=== PATIENT | female | born 1970 | race African-American/Black ===

== ENCOUNTER 2018-05-17 18:07 | Inpatient (IN) ==
[2018-05-17] MEDS ORDERED: ASPIRIN PO ONE (18:35)
[2018-05-17 18:51] LABS: BASO# 0.01 X1000 (0.0-0.2); BASO% 0.2 % (0.0-0.8); EOS# 0.02 X1000 (0.0-0.7); EOS% 0.3 % (0.0-10.0); HEMATOCRIT 36.9 % (37.0-47.0); HEMOGLOBIN 11.4 g/dL (12.0-16.0); IMM GRAN# 0.02 X1000 (0.0-0.04); IMM GRAN% 0.3 % (0.0-0.5); LYMPH% 21.8 % (20.5-51.1); MCH 27.3 PG (27-31); MCHC 30.9 g/dL (33-37); MCV 88.5 FL (81-99); MONO# 0.61 X1000 (0.11-0.59); MONO% 10.3 % (1.7-9.3); MPV 11.7 FL (7.4-10.4); NEUT# 3.99 X1000 (1.4-6.5); NEUT% 67.1 % (42.2-75.2); PLT 154 X1000 (130-400); RBC 4.17 XMIL (4.2-5.4); RDW 16.7 % (11.5-14.5); WBC 5.95 X1000 (4.8-10.8)
[2018-05-17 19:03] LABS: INR 0.98; PROTIME 13.8 Seconds (11.0-16.0)
[2018-05-17 19:18] LABS: ALB/GLOB RATIO 1.3; ALBUMIN 4.1 g/dL (3.5-5.0); CALCIUM 8.8 mg/dL (8.8-10.2); CREATININE 1.3 mg/dL (0.5-0.9); POTASSIUM 3.9 mmol/L (3.5-5.1); TOTAL BILIRUBIN 1.19 mg/dL (0.20-1.00); TOTAL PROTEIN 7.2 g/dL (6.3-8.3)
--- NOTE | 2018-05-17 19:32 | Diag Imaging Result Doc PS360 ---
EXAM: CHEST-2 VIEWS HISTORY: CHEST PAIN/SOB TECHNIQUE: Chest two views COMPARISON: 05/04/2018 FINDINGS: The lungs are well expanded. No change in the right apical pleural thickening. The heart is markedly enlarged. There is a right-sided pacemaker. Mild central vascular prominence. There are no infiltrates. No pleural effusions. There are surgical clips in the left axilla. IMPRESSION: Marked cardiomegaly with mild central vascular prominence. Electronically signed by Suresh Don 05/17/2018 7:29 PM
[2018-05-17] MEDS ORDERED: LASIX IV ONE (20:33)
[2018-05-17] MEDS ORDERED: MORPHINE IV ONE (22:06)
[2018-05-17] MEDS ORDERED: MORPHINE ONE (23:24)
--- NOTE | 2018-05-17 23:26 | PROVIDER DOCUMENTATION ---
This chart was entered by Sandy Valdes Scribe, acting as scribe for Aiden Jones DO. HPI-Chest Pain - General Chief Complaint: Chest Pain Stated Complaint: PALPITATIONS, LIVER SWOLLEN Time Seen by Provider: 05/17/18 20:20 Allergies/Adverse Reactions: Patient Allergies Allergy/AdvReac Type Severity Reaction Status Date / Time latex Allergy Intermediate RASH Verified 05/03/18 14:52 acetaminophen AdvReac ITCHING Verified 05/03/18 14:52 [From Darvocet-N] dopamine AdvReac Hair Loss Verified 05/03/18 14:52 propoxyphene AdvReac ITCHING Verified 05/03/18 14:52 [From Darvocet-N] Home Medications: Home Medication List Medication Instructions Recorded Confirmed Last Taken Type Aspirin EC 81 mg PO DAILY #30 tab 10/03/17 05/17/18 11/20/17 Rx Albuterol 2.5MG/Ipratrop 0.5MG 3 ml INH TID #90 ml 11/24/17 05/17/18 Unknown Rx [Duoneb (A & A)] Carvedilol [Coreg] 6.25 mg PO BID #60 tab 11/24/17 05/17/18 Unknown Rx Hydralazine [Apresoline] 100 mg PO TID@0600,1400,2200 #90 11/24/17 05/17/18 Unknown Rx tab Isosorbide Dinitrate [Isordil] 80 mg PO TID@0600,1400,2200 #90 tab 11/24/17 Unknown Rx Sacubitril/Valsartan [Entresto 97 1 tab PO BID #60 tab 11/24/17 05/17/18 Unknown Rx mg-103 mg Tablet] Spironolactone [Aldactone] 25 mg PO BID #60 tab 11/24/17 05/17/18 Unknown Rx Amiodarone [Cordarone] 200 mg PO DAILY #120 tab 04/17/18 05/17/18 Unknown Rx Digoxin [Lanoxin] 125 microgm PO DAILY@0700 #120 tab 04/17/18 05/17/18 Unknown Rx Furosemide [Lasix] 40 mg PO BID #120 tab 04/17/18 05/17/18 Unknown Rx PRAVAstatin [Pravachol] 40 mg PO QHS #120 tab 04/17/18 05/17/18 Unknown Rx Pantoprazole [Protonix] 40 mg PO DAILY@0700 #30 tab 04/17/18 05/17/18 Unknown Rx Polyethylene Glycol 3350 [Miralax] 17 gm PO DAILY #30 powder, packet 04/17/18 Unknown Rx Sucralfate [Carafate Liquid] 1 gm PO 0700,1100,1600,2100 #1 udc 04/17/18 Unknown Rx Amiodarone [Cordarone] 400 mg PO BID 14 Days #28 tab 05/08/18 05/17/18 Unknown Rx Apixaban [Eliquis] 2.5 mg PO BID 30 Days #60 tab 05/08/18 05/17/18 Unknown Rx Docusate Sodium [Colace] 100 mg PO BID 30 Days #60 cap 05/08/18 05/17/18 Unknown Rx Lactulose 30 ml PO BID 30 Days #1 udc 05/08/18 05/17/18 Unknown Rx - History of Present Illness-CP Nature of Presenting Problem: Pt is 48/F presenting to ED w/ CP and SOB that started today. She sts that she was just 9 days prior in the hospital for the same problems. She sts that she is having swelling of abd, dizziness and says that she fell today. Pt has hx of CHF, HTN and has stage 3 renal failure. Location: reports: substernal Chest Pain Radiation: reports: no radiation Quality of Pain: reports: tightness Severity in ED: mild Onset/Duration: this afternoon Timing: still present Context/Activities at Onset: reports: none Modifying Factors: improves with: nothing Associated Symptoms: reports: abdominal pain Similar Symptoms Previously?: Yes Recently Seen Here or By Another Healthcare Provider: Yes Review of Systems - Adult - REVIEW OF SYSTEMS - ADULT Constitutional: denies: chills, fever Eyes: reports: no symptoms reported Ears, Nose, Mouth & Throat: reports: no symptoms reported Cardiovascular: reports: chest pain Respiratory: reports: shortness of breath. denies: cough Gastrointestinal: reports: no symptoms reported. denies: diarrhea, nausea, vomiting Genitourinary: reports: no symptoms reported Musculoskeletal: reports: no symptoms reported Integumentary: reports: no symptoms reported Neurological: reports: no symptoms reported Psychiatric: reports: no symptoms reported Endocrine: reports: no symptoms reported Hematologic/Lymphatic: reports: no symptoms reported Allergic/Immunologic: reports: no symptoms reported All Other Systems: Reviewed and Negative Past History - Adult - PAST MEDICAL HISTORY-ADULT Review of Records: reports: Old Records Reviewed, Nursing Assessment Review, Medications Reviewed, Social history reviewed & non-contributory. Major Childhood Illnesses: reports: denies history Cardiovascular: reports: A-Fib, blood clots, CAD, CHF, HTN, hyperlipidemia, palpitations, pacemaker (defib) Respiratory: reports: asthma, COPD, sleep apnea Gastrointestinal: reports: liver disease Obstetrical/Gynecological: reports: other (breast cancer) Genitourinary: reports: kidney disease Musculoskeletal: reports: denies history Neurological: reports: denies history Psychiatric: reports: anxiety, depression Endocrine/Immune: reports: denies history Other Conditions: reports: denies history - PRIOR SURGERIES/PROCEDURES Surgical/Procedure History: reports: cholecystectomy, hysterectomy, , tonsillectomy, orthopedic (extremity), other (mastectomy,defib,arthroscopy) - IMMUNIZATION STATUS Childhood Immunizations: See Nurse Assessment Flu Vaccine: See Nurse Assessment - FAMILY HISTORY Family History: reviewed, not pertinent - SOCIAL HISTORY Smoking: denies, non-smoker Substance Use: none/never Alcohol Use Frequency: never Living Situation: family Physical Exam-General - PHYSICAL EXAM-ADULT Initial Vital Signs Reviewed: Yes - CONSTITUTIONAL General Appearance: appears well, alert, no apparent distress - EYES Eyes: PERRL/EOMI - HEAD, EARS, NOSE, MOUTH & THROAT HENMT: normocephalic/atraumatic, moist mucous membranes, normal ENT inspection, TMs normal - NECK Neck: non-tender, full range of motion, supple - RESPIRATORY Respiratory: chest non-tender, lungs clear, normal breath sounds, crackles ( crackles at base of lungs) - CARDIOVASCULAR Cardiovascular: regular rate, rhythm. negative: no edema (trace edema bilaterally) - GASTROINTESTINAL (ABDOMEN) Abdominal Exam: normal bowel sounds, non tender, soft - LYMPHATIC Lymphatic: no adenopathy - MUSCULOSKELETAL Back Exam: normal inspection, no CVA tenderness, no vertebral tenderness Extremity: normal range of motion, non-tender, normal gait, normal inspection - SKIN Integumentary: normal color, normal turgor, warm/dry - NEUROLOGIC Neurologic: grossly normal - PSYCHIATRIC Psych/Mental Status: normal mood/affect, normal thought content, normal thought process, oriented x 3 Progress - PLAN OF CARE/RESULTS Progress/Plan/Lab Results: Vital Signs - 8 hr 05/17/18 18:15 05/17/18 20:08 05/17/18 20:10 Temperature Pulse Rate 86 78 77 Respiratory Rate 28 H 28 H 23 Blood Pressure O2 Sat by Pulse Oximetry 96 99 99 05/17/18 20:16 05/17/18 20:20 05/17/18 20:30 Temperature 97.5 F L Pulse Rate 81 85 88 Respiratory Rate 43 H 20 22 Blood Pressure 191/135 191/135 O2 Sat by Pulse Oximetry 99 97 97 05/17/18 20:32 05/17/18 20:40 05/17/18 20:50 Temperature Pulse Rate 87 84 82 Respiratory Rate 20 35 H 20 Blood Pressure 198/137 O2 Sat by Pulse Oximetry 96 97 96 05/17/18 21:00 05/17/18 21:01 05/17/18 21:10 Temperature Pulse Rate 85 83 82 Respiratory Rate 27 H 18 16 Blood Pressure 196/145 O2 Sat by Pulse Oximetry 97 96 98 05/17/18 21:22 05/17/18 21:30 05/17/18 21:31 Temperature Pulse Rate 81 85 85 Respiratory Rate 37 H 28 H 30 H Blood Pressure 205/150 O2 Sat by Pulse Oximetry 97 97 96 05/17/18 21:40 05/17/18 21:50 05/17/18 22:00 Temperature Pulse Rate 81 78 81 Respiratory Rate 27 H 30 H 30 H Blood Pressure O2 Sat by Pulse Oximetry 98 96 96 05/17/18 22:01 05/17/18 22:10 Temperature Pulse Rate 76 78 Respiratory Rate 27 H 24 Blood Pressure 195/125 O2 Sat by Pulse Oximetry 96 96 Laboratory Results - last 24 hr 05/17/18 05/17/18 05/17/18 18:31 18:31 18:31 WBC RBC Hgb Hct MCV MCH MCHC RDW Std Deviation Plt Count MPV Immature Gran % (Auto) Neut % (Auto) Lymph % (Auto) [place] % (Auto) Eos % (Auto) Baso % (Auto) Immature Gran # (Auto) Neut # (Auto) Lymph # (Auto) [place] # (Auto) Eos # (Auto) Baso # (Auto) PT 13.8 INR 0.98 PTT (Actin FS) Cancelled Sodium 146 H Potassium 3.9 Chloride 107 Carbon Dioxide 23 L Anion Gap 16 BUN 24 H Creatinine 1.3 H Estimated GFR/1.73 m2 53 BUN/Creatinine Ratio 18 Glucose 114 H Calculated Osmolality 295 Calcium 8.8 Total Bilirubin 1.19 H AST 30 ALT 25 Alkaline Phosphatase 120 H Creatine Kinase 93 Troponin T [id number] Pept 65760 H Total Protein 7.2 Albumin 4.1 Globulin 3.1 Albumin/Globulin Ratio 1.3 Digoxin 05/17/18 05/17/18 05/17/18 18:31 18:31 18:31 WBC 5.95 RBC 4.17 L Hgb 11.4 L Hct 36.9 L MCV 88.5 MCH 27.3 MCHC 30.9 L RDW Std Deviation 16.7 H Plt Count 154 MPV 11.7 H Immature Gran % (Auto) 0.3 Neut % (Auto) 67.1 Lymph % (Auto) 21.8 [place] % (Auto) 10.3 H Eos % (Auto) 0.3 Baso % (Auto) 0.2 Immature Gran # (Auto) 0.02 Neut # (Auto) 3.99 Lymph # (Auto) 1.30 [place] # (Auto) 0.61 H Eos # (Auto) 0.02 Baso # (Auto) 0.01 PT INR PTT (Actin FS) Sodium Potassium Chloride Carbon Dioxide Anion Gap BUN Creatinine Estimated GFR/1.73 m2 BUN/Creatinine Ratio Glucose Calculated Osmolality Calcium Total Bilirubin AST ALT Alkaline Phosphatase Creatine Kinase Troponin T < 0.010 [id number]-K-Vxkttagbmmy Pept Total Protein Albumin Globulin Albumin/Globulin Ratio Digoxin < 0.3 L 05/17/18 20:15 WBC RBC Hgb Hct MCV MCH MCHC RDW Std Deviation Plt Count MPV Immature Gran % (Auto) Neut % (Auto) Lymph % (Auto) [place] % (Auto) Eos % (Auto) Baso % (Auto) Immature Gran # (Auto) Neut # (Auto) Lymph # (Auto) [place] # (Auto) Eos # (Auto) Baso # (Auto) PT INR PTT (Actin FS) 30.4 Sodium Potassium Chloride Carbon Dioxide Anion Gap BUN Creatinine Estimated GFR/1.73 m2 BUN/Creatinine Ratio Glucose Calculated Osmolality Calcium Total Bilirubin AST ALT Alkaline Phosphatase Creatine Kinase Troponin T [id number]-P-Ufecfhlptqz Pept Total Protein Albumin Globulin Albumin/Globulin Ratio Digoxin Orders Category Date Time Status Oxygen Therapy- ED Nursing DIRECTED Care 05/17/18 18:35 Active Saline Loc NOW Care 05/17/18 18:35 Active CHEST-2 VIEWS [RAD] Stat Exams 05/17/18 18:35 Completed CBC WITH ELECTRONIC DIFF [HEME] Stat Lab 05/17/18 18:31 Completed CK PROFILE [SP CHEM] Stat Lab 05/17/18 18:31 Completed COMPREHENSIVE METABOLIC PANEL [CHEM] Stat Lab 05/17/18 18:31 Completed DIGOXIN [TDM] Stat Lab 05/17/18 18:31 Completed PRO B-NATRIURETIC PEPTIDE Stat Lab 05/17/18 18:31 Completed PROTIME WITH INR [COAG] Stat Lab 05/17/18 18:31 Completed PTT [COAG] Stat Lab 05/17/18 20:15 Completed TROPONIN T Stat Lab 05/17/18 18:31 Completed Aspirin Med 05/17/18 18:35 Discontinued 325 mg PO NOW ONE Furosemide [Lasix] Med 05/17/18 20:33 Discontinued 40 mg IV NOW ONE Morphine Med 05/17/18 22:06 Discontinued 2 mg IV NOW ONE CP/SOB/Palp >45 yrs of Age Stat Oth 05/17/18 18:35 Ordered EKG [EKG] Stat Ther 05/17/18 18:35 Ordered Transfer/Admit Order [TRANSFER] Routine Transfer 05/17/18 21:51 Ordered Result Diagrams: 05/17/18 18:31 05/17/18 18:31 - EKG 1 Time of EKG reading by physician:: 18:19 EKG Interpretation (*Must complete 3 of following elements*): Abnormal (Normal sinus rhythm bialtrial enlargement, Left ventricular hypertrophy with repolarization abnormality, Prolonged QT, Abnormal ECG) Rate: 85 Rhythm: sinus QRS: normal Prior EKG Comparison: unchanged from prior - CONSULTS/PCP/HOSPITALIST Notification #1 *Consult/PCP/Hospitalist*: Dr. Jones consulted w/ Dr. Blanco on Mrs. Cardenas Time Discussed: 20:59 Consult Disposition: Will see in ED Departure - Departure Date of Disposition Decision: 05/17/18 Time of Disposition Decision: 20:49 DIAGNOSIS: CHF (congestive heart failure), Hypertension Disposition: ADMITTED INPATIENT 09 Certified Medical Emergency: Emergent Condition: Fair - Critical Care Note This patient required my direct & personal management of CC.: No Attestation - Physician/ PREETI Attestation Patient care was provided by Advanced Practice Provider:: No The physician spent face to face time with patient:: Yes Advanced Practice Provider documentation review:: Supervising physician onsite and consulted in the evaluation and care of this patient. The physician did have a face to face encounter with the patient. This chart was documented by the indicated scribe, (Sandy Valdes, Agusto) and accurately reflects the services I performed and decisions made by , Aiden Jones DO, as attested by the provider's signature.
[2018-05-17] MEDS ORDERED: TYLENOL PO PRN (23:34)
[2018-05-17] MEDS ORDERED: ZOFRAN IV PRN (23:34)
[2018-05-18] MEDS: CORDARONE PO SCH ×3 (00:34→20:55)
[2018-05-18] MEDS: APRESOLINE PO SCH ×4 (00:35→21:00)
[2018-05-18] MEDS: ELIQUIS PO SCH ×3 (00:36→20:55)
[2018-05-18] MEDS: ENTRESTO 97 MG-103 MG TABLET PO SCH ×3 (00:37→20:55)
[2018-05-18] MEDS: COREG PO SCH ×3 (00:38→20:55)
[2018-05-18] MEDS: LASIX IV SCH ×3 (00:40→18:01)
[2018-05-18] MEDS: ISORDIL PO SCH ×4 (01:40→21:00)
[2018-05-18] MEDS: PROTONIX PO SCH ×2 (05:36→06:01)
[2018-05-18] MEDS: LANOXIN PO SCH ×2 (05:36→06:01)
[2018-05-18] MEDS: CARAFATE LIQUID PO SCH ×5 (05:37→20:55)
[2018-05-18] MEDS: MORPHINE IV PRN ×5 (05:37→23:31)
[2018-05-18 06:47] LABS: BASO# 0.01 X1000 (0.0-0.2); BASO% 0.2 % (0.0-0.8); EOS# 0.03 X1000 (0.0-0.7); EOS% 0.6 % (0.0-10.0); HEMATOCRIT 37.2 % (37.0-47.0); HEMOGLOBIN 11.4 g/dL (12.0-16.0); LYMPH# 0.99 X1000 (1.2-3.4); LYMPH% 18.7 % (20.5-51.1); MCHC 30.6 g/dL (33-37); MCV 88.2 FL (81-99); MONO# 0.38 X1000 (0.11-0.59); MONO% 7.2 % (1.7-9.3); MPV 12.5 FL (7.4-10.4); NEUT# 3.89 X1000 (1.4-6.5); NEUT% 73.3 % (42.2-75.2); PLT 155 X1000 (130-400); RBC 4.22 XMIL (4.2-5.4); RDW 16.7 % (11.5-14.5)
[2018-05-18 07:13] LABS: CALCIUM 8.8 mg/dL (8.8-10.2); CREATININE 1.2 mg/dL (0.5-0.9); MAGNESIUM 1.7 mg/dL (1.5-2.7); POTASSIUM 3.5 mmol/L (3.5-5.1)
--- NOTE | 2018-05-18 07:51 | HISTORY AND PHYSICAL ---
REASON FOR ADMISSION: Sudden chest pain and palpitations Ms. Gail Cardenas is a 48-year-old lady who was recently discharged from our facility 9 days ago for CHF exacerbation. The patient says she has been doing rather well up until 12 noon today when she developed sudden palpitations out of the blue which caused her to become dizzy and transiently black out and fall and hurt her right shoulder. She said she did not lose consciousness completely and her son helped her to her feet. After making her way to a chair, she had a recurrence of the same palpitations for about 15 minutes continuously with chest tightness radiating to the back. Said dizziness occurred but this time, she then decided to lie flat on her back and wait for 15 minutes for the whole event to pass away. She admits to having no more chest tightness after this but started noticing right upper quadrant pain which was sharp and constant with what she perceives to be simultaneous abdominal swelling. She denies any worsening of her chronic lower extremity swelling. She says when she laid down on her back, she had some orthopnea and had to sit up. No cough, fever, chills. No GI or complaints. No polyuria or polydipsia. She states she has been compliant with her medication and her diet. REVIEW OF SYSTEMS: Grossly normal other than the findings noted as above. ALLERGIES: Lasix, Darvocet and dopamine. HOME MEDICATIONS: 1. Pravachol 40 mg at bedtime. 2. DuoNeb t.i.d. 3. Amiodarone 400 mg b.i.d. 4. Eliquis 2.5 mg b.i.d. 5. Aspirin 81 mg daily. 6. Coreg 6.25 mg b.i.d. 7. Digoxin 125 mcg daily. 8. Colace 100 mg b.i.d. 9. Lasix 40 mg b.i.d. 10.Hydralazine 100 mg t.i.d. 11.Isordil 80 mg t.i.d. 12.Lactulose 30 mg b.i.d. 13.Protonix 40 mg daily. 14.MiraLAX 17 grams daily. 15.Entresto 97/103 b.i.d. 16.Aldactone 25 mg b.i.d. 17.Carafate 1 gram q.6. SURGICAL HISTORY: 1. Cholecystectomy. 2. Hysterectomy. 3. . 4. Tonsillectomy. 5. Bilateral mastectomy. 6. Defibrillator placement. 7. She has had left knee arthroscopic surgery. She had an EEG done about 9 days ago and it only showed mild reflux esophagitis. SOCIAL HISTORY: Does not smoke, drink, use illicit drugs. FAMILY HISTORY: Notable for heart disease and diabetes in first degree relatives. PAST MEDICAL HISTORY: 1. Nonischemic cardiac myopathy. 2. Systolic heart failure with EF of 20%. 3. COPD. 4. CKD. 5. Type 2 diabetes. 6. Diverticulitis. 7. Diverticulosis. 8. Paroxysmal atrial fibrillation. 9. Prior breast cancer. 10.Hepatitis. 11.Heart disease. 12.Pulmonary hypertension. LAB WORK: Chest x-ray does show severe cardiomegaly with mild increased vascular markings. White count is 5,000, H and H 11 and 36, platelets 154,000. Sodium 146, BUN 24, creatinine 1.3, glucose 114. Total bilirubin 1.1. Alkaline phosphatase 120. Troponin is negative. ProBNP 22,000. PT/PTT normal. EKG pending. PHYSICAL EXAMINATION: VITAL SIGNS: Obese, middle-aged -[place] woman with a blood pressure of 205/150, heart rate 85, respirations 30, temperature 97.5 degrees, 96% on room air. GENERAL: She is alert and oriented to person and time with normal mood and affect, slightly anxious. HEENT: Head is normocephalic, atraumatic. Eyes PERRL, EOMI. She is anicteric but pale. ENT and oropharyngeal exam grossly normal. No central cyanosis. NECK: Supple with noticeable JVD and positive hepatojugular reflux. CHEST: A few bibasilar crepitations, left greater than right. Air entry appears to be adequate. CARDIOVASCULAR: First and second heart sounds are heard. There is a 2/6 ejection systolic murmur. Rhythm is regular. ABDOMEN: Protuberant, soft with tenderness confined to the right upper quadrant area. No rebound or guarding. There is increased right upper quadrant dullness to percussion. Bowel sounds are hypoactive. RECTAL: Deferred at this time. EXTREMITIES: The patient has slightly diminished pulse volume in both extremities. Rhythm is regular. Pulses are symmetrical. Trace to 1+ pitting edema in the lower extremities. No clubbing or peripheral cyanosis. NEUROLOGICAL: No focal deficits. SKIN: Intact with no obvious breakdown but there is some ecchymosis in the right axillary area and some shallow ulcerations over the left naris which the patient said occurred today and was preceded by a few blisters. MUSCULAR: Grossly normal. ASSESSMENT: 1. Hypertensive heart disease complicated by mild acute systolic heart failure exacerbation. 2. Acute systolic heart failure exacerbation. 3. Nonischemic cardiomyopathy. 4. COPD. 5. Atrial fibrillation. 6. Right upper quadrant pain probably secondary to possible passive congestion from CHF. PLAN: Patient is currently on what I deem to be near optimal medical therapy. The only thing maybe left is probably to slowly increase dose of Coreg. We also need to slightly increase her dose of Lasix at discharge from 40 to 60 b.i.d. and Coreg from 6.25 b.i.d. to either 9.3 mg or 12.5 mg b.i.d. I strongly recommend dietary consult in this patient, but more importantly, I think this patient would be best served if she has weekly visits with her director of software development and/or her primary care physician to ensure her weight is appropriate and she is compliant with her medication which she says she is. This will help keep her out of the hospital, she has very frequent visits. For now, we will start intravenous IV diuresis and increase her blood pressure medications, i.e. Coreg to 9.3 mg. Check her dig level to ensure it is even therapeutic. cc: Fernanda Blanco MD
[2018-05-18] MEDS: DUONEB (A & A) INH SCH ×3 (08:37→21:26)
[2018-05-18] MEDS: LACTULOSE PO SCH ×3 (10:24→20:55)
[2018-05-18] MEDS: ASPIRIN EC PO SCH (10:25)
[2018-05-18] MEDS: ALDACTONE PO SCH ×2 (10:25→20:55)
[2018-05-18] MEDS ORDERED: MAGNESIUM SULFATE 2 GM/S.W.I. 2 GM/50 ML IVPB IV ONE (10:25)
[2018-05-18] MEDS: COLACE PO SCH ×2 (10:25→20:55)
[2018-05-18] MEDS: MIRALAX PO SCH (10:26)
[2018-05-18] MEDS ORDERED: KLOR-CON PO SCH (10:30)
[2018-05-18] MEDS: POTASSIUM CHLORIDE 20% LIQUID PO SCH ×2 (11:02→14:18)
--- NOTE | 2018-05-18 11:03 | PROGRESS NOTE ---
DATE: 05/18/2018 OVERNIGHT EVENTS/SUBJECTIVE: Overnight, no acute events. The patient was admitted for symptoms of palpitation, shortness of breath and dizziness. It was thought that she was in mild exacerbation of her chronic systolic congestive heart failure acute exacerbation. She was started on intravenous Lasix. The patient states that while in the emergency room, she did have an episode of palpitation when she was in atrial fibrillation. However, I do not see that on documentation of ER or nighttime physician note. Since she has been in [facility] unit , the cafeteria monitor has not detected an atrial fibrillation episode. At the time of my encounter, she is complaining of some right upper quadrant pain and stomach pain that. OBJECTIVE: Vital Signs: Currently vitals revealed temperature of 97.5 degrees , pulse 67, blood pressure 125/73, saturating 94% on 2 L nasal cannula. General examination: Physical examination does not appear in any acute distress. HEENT: Oral cavity is moist. Lungs: Air entry bilaterally equal. No wheeze, rhonchi, or crackles. Heart: She has pacemaker on the right side. S1, S2 normal. No murmur, rub, or gallop. Abdomen: Soft. Tender in epigastric and right upper quadrant region. Bowel sounds active. Extremities: Mild lower extremity edema. Neurologic: Alert and oriented x3. LAB: Evaluation suggest normal WBC count, normal hemoglobin, hematocrit, platelet count, normal electrolytes. CKD stage III. Undetectable digoxin level. ASSESSMENT AND PLAN: 1. Acute systolic congestive heart failure on chronic systolic congestive heart failure with ejection fraction of 20% and nonischemic cardiomyopathy. Continue patient on intravenous Lasix. Continue home medications of carvedilol, spironolactone, Entresto and statin. 2. History of paroxysmal atrial fibrillation and status post automatic implantable cardioverter defibrillator. Currently patient appears to be in sinus rhythm. Continue patient's home amiodarone, apixaban and digoxin. I will consider giving her digoxin load if she develops another atrial fibrillation episode. Again, we have not recorded any episodes since she has been in the hospital. 3. History of nonischemic cardiomyopathy with ejection fraction of 20% status post automatic implantable cardioverter defibrillator. Continue patient on aspirin and statin. 4. History of essential hypertension. Continue hydralazine, isosorbide. 5. Chronic epigastric right upper quadrant pain with acute exacerbation. Previously, she has had a workup including EGD in 04/2018 (which only detected esophagitis) and it was thought that it was related to congestive hepatitis, for which patient has been on pantoprazole and sucralfate, and I will continue for her history of gastroesophageal reflux disease as well. I will give her as-needed morphine if needed. I will consult GI on Sunday. 6. Prolonged QTc. According to review of previous electrocardiogram, she has had QTc more than 500 milliseconds in the past as well. I will continue her current medication regimen. Cardiology has been consulted. 7. Disposition: Patient remains in [facility]. Plan of care was discussed with her. All of her questions have been answered. cc: Trace Yancey MD MTDD
--- NOTE | 2018-05-18 14:27 | CARDIOLOGY CONSULTATION ---
DATE: 05/18/2018 REQUESTING PHYSICIAN: Hospitalist Service REASON FOR CONSULTATION: Atrial fibrillation with rapid response. HISTORY OF PRESENT ILLNESS: Ms. Cardenas was in her usual state of health until yesterday about 12:30 p.m. when she started having palpitations associated with dyspnea and discomfort. She presented to the ER at 6:35 p.m. At that time, she had her classical complaint of abdominal discomfort. EKG done at 6:19 p.m. showed sinus rhythm with biatrial enlargement, LVH. They put her on some IV Cardizem. There is no indication that she has had atrial fibrillation. At any rate, she has maintained sinus rhythm, and she is just feeling about like she usually does with discomfort in the stomach and dyspnea if she gets up and about. PAST MEDICAL HISTORY: Positive for prior bouts of paroxysmal atrial fibrillation. She does have history of ventricular tachycardia in the past. She has had nonischemic dilated cardiomyopathy with chronic systolic heart failure. She has history of hypertension. She has had gastroparesis with shelter abdominal pain. PAST SURGICAL HISTORY: She had mastectomy in the past for breast cancer, arthroscopic knee surgery, cholecystectomy, hysterectomy. She had ICD placement in 2009, section. SOCIAL HISTORY: She has 4 children. , disabled. FAMILY HISTORY: Negative for coronary heart disease. REVIEW OF SYSTEMS: She has chronic exertional dyspnea. She was just admitted to this hospital between 05/03/2018 and 05/08/2018. At that time, she had complaint of having atrial fibrillation, and I believe that was documented on the initial electrocardiogram, and then she converted back to her sinus rhythm. No other positives. She is just about the same as usual. This is one of multiple admissions. She has been in the hospital admitted on 08/20/2017, on 09/29/2017, on 10/20/2017, on 12/07/2017, on 01/14/2018, on 03/05/2018, 04/13/2018, and just now recently 05/03/2018, and every admission is just about the same story, same complaint. In between, she has been several times to the emergency room, at least 4 times. In addition, there were 2 additional admissions to [facility]. PHYSICAL EXAMINATION: Today, blood pressure is 141/80, temperature 97.7, pulse 65, respirations 18. She is awake, alert, in no distress. HEENT is unremarkable. Chest: Breath sounds are clear. No dullness to percussion. Heart sounds are regular and rhythmic. Soft systolic murmur noted over the aortic area. Abdomen is tender, especially over the epigastric area. Mid abdominal area is very tender to palpation. Extremities show no edema. Neurologic: Follows commands. Moves all 4 extremities. DIAGNOSTIC DATA: Sodium is 142, potassium 3.5, BUN is 21, creatinine 1.2. IMPRESSION: 1. The patient comes in with recurrent abdominal pain and recurrent dyspnea with congestive heart failure which is chronic systolic. 2. Nonischemic dilated cardiomyopathy. 3. Status post AICD implantation. 4. Paroxysmal atrial fibrillation. 5. History of nonsustained ventricular tachycardia. RECOMMENDATIONS: At this point in time, we will continue with IV diuretics as you are doing. I would suggest to consult with Gastroenterology about her gastroparesis which appears to be at the core of the problems that she has because she probably is not absorbing her medications, and that leads to peaks of hypertension and abdominal pain and recurrent admissions to the hospital. I think this is a very important issue to get a straight answer as soon as possible. We will follow her along. cc: Anthony Mazariegos MD
[2018-05-18] MEDS: PRAVACHOL PO SCH (20:55)
[2018-05-19 05:46] LABS: BASO# 0.01 X1000 (0.0-0.2); BASO% 0.2 % (0.0-0.8); EOS# 0.06 X1000 (0.0-0.7); EOS% 1.3 % (0.0-10.0); HEMATOCRIT 38.4 % (37.0-47.0); HEMOGLOBIN 11.8 g/dL (12.0-16.0); LYMPH# 0.92 X1000 (1.2-3.4); MCH 27.5 PG (27-31); MCHC 30.7 g/dL (33-37); MCV 89.5 FL (81-99); MONO# 0.48 X1000 (0.11-0.59); MONO% 10.5 % (1.7-9.3); MPV 11.6 FL (7.4-10.4); NEUT# 3.12 X1000 (1.4-6.5); PLT 164 X1000 (130-400); RBC 4.29 XMIL (4.2-5.4); WBC 4.59 X1000 (4.8-10.8)
[2018-05-19] MEDS: LASIX IV SCH ×2 (05:58→18:02)
[2018-05-19] MEDS: APRESOLINE PO SCH ×3 (05:59→22:02)
[2018-05-19] MEDS: ISORDIL PO SCH ×3 (05:59→22:00)
[2018-05-19] MEDS: PROTONIX PO SCH (06:00)
[2018-05-19] MEDS: CARAFATE LIQUID PO SCH ×4 (06:00→22:03)
[2018-05-19] MEDS: MORPHINE IV PRN ×3 (06:00→20:13)
[2018-05-19 06:11] LABS: CREATININE 1.4 mg/dL (0.5-0.9); MAGNESIUM 1.9 mg/dL (1.5-2.7); POTASSIUM 3.8 mmol/L (3.5-5.1)
[2018-05-19] MEDS: DUONEB (A & A) INH SCH ×3 (08:28→21:49)
[2018-05-19] MEDS: ALDACTONE PO SCH ×2 (09:16→22:00)
[2018-05-19] MEDS: ELIQUIS PO SCH ×2 (09:16→22:01)
[2018-05-19] MEDS: ASPIRIN EC PO SCH (09:16)
[2018-05-19] MEDS: COLACE PO SCH ×2 (09:16→22:01)
[2018-05-19] MEDS: MIRALAX PO SCH (09:17)
[2018-05-19] MEDS: LACTULOSE PO SCH ×2 (09:17→22:02)
--- NOTE | 2018-05-19 10:25 | PROGRESS NOTE ---
DATE: 05/19/2018 OVERNIGHT EVENTS: Overnight, no acute events. She did not have any palpitation episodes. I looked at the telemetry. She did not have any atrial fibrillation episode either. SUBJECTIVE: She denies any chest pain. Her shortness of breath is better. VITAL SIGNS: Temperature of 97.5 degrees, pulse 54 per minute, blood pressure 115/71, saturating 98% on 2 to 3 L nasal cannula. PHYSICAL EXAMINATION: General: Does not appear in acute distress. HEENT: Oral cavity is moist. Lungs: Air entry bilaterally equal. No wheeze, rhonchi, or crackles. Chest: She has a pacemaker on the right side. Cardiovascular: S1, S2 normal. No murmur, rub, or gallop. Abdomen: Soft. Generalized tenderness, especially in the epigastric, right upper quadrant. Bowel sounds are active. Extremities: Mild lower extremity edema, which is better than yesterday. Neurologic: Alert and oriented x3. LABS: Suggestive of no leukocytosis. Acceptable range of hemoglobin, hematocrit, and platelets. Normal electrolytes. She does have baseline chronic kidney disease stage 3. No new microbiological data. IMAGING: No new imaging data. ASSESSMENT AND PLAN: 1. Acute systolic congestive heart failure on chronic systolic congestive heart failure with ejection fraction of 20% and nonischemic cardiomyopathy. Continue patient on intravenous Lasix and plan is to change the Lasix to oral tomorrow. Continue home medications of carvedilol, spironolactone, Entresto, and statin. I will decrease the carvedilol dose as the patient had developed bradycardia with heart rate of less than 50 according to the telemetry today. 2. History of paroxysmal atrial fibrillation. Currently appears to be in sinus rhythm. Continue home amiodarone, apixaban, and digoxin. No more atrial fibrillation episode since she has been in the hospital. 3. History of nonischemic cardiomyopathy with an ejection fraction of 20%, status post automatic implantable cardioverter defibrillator. Continue home aspirin, statin, beta blockers, Entresto, and spironolactone. 4. History of essential hypertension. Continue home hydralazine, isosorbide. 5. Chronic epigastric and right upper quadrant abdominal pain, now with acute exacerbation as well. She had esophagogastroduodenoscopy in April 2018 which had detected esophagitis. Previously, it was thought that her pain had been related to congestive hepatitis. There is a concern that the patient has not been absorbing her medications well. She would need further gastroenterology workup for that. I will consult gastroenterology on Sunday and bring up my concern as previously her digoxin levels were always subtherapeutic despite her taking it appropriately. 6. Prolonged QTc. According to review of previous electrocardiogram, she had QTc more than 500 on most occasions. Continue current medication regimen. She already has an automatic implantable cardioverter defibrillator as well. 7. Disposition. The patient remains inside the hospital for monitoring of her cardiac and respiratory status. Plan of care was discussed with her. All of her questions were answered. cc: Trace Yancey MD
[2018-05-19] MEDS: LANOXIN PO SCH (11:14)
[2018-05-19] MEDS: ENTRESTO 97 MG-103 MG TABLET PO SCH ×2 (11:50→21:59)
[2018-05-19] MEDS: CORDARONE PO SCH ×2 (11:50→22:01)
--- NOTE | 2018-05-19 12:43 | CARDIOLOGY PROGRESS NOTE ---
DATE: 05/19/2018 CHIEF COMPLAINT: Abdominal pain, hypertension, dyspnea. SUBJECTIVE: Ms. Cardenas is basically feeling fine now. She is not having any palpitations. Breathing is better. Abdominal pain is still there, not as bad. OBJECTIVE: Temperature is 97.5, pulse 53, respirations 18, blood pressure 115/ 71. She is awake, follows commands. HEENT is unremarkable. Chest: Clear to auscultation and percussion. Heart sounds are regular and rhythmic. No gallop or murmur. Abdomen is nontender. Extremities showed no edema. Neurologic: Follows commands. Moves all 4 extremities. DIAGNOSTIC DATA: Blood work shows sodium 141, potassium 3.8, BUN is 22, creatinine 1.4. IMPRESSION: 1. The patient is with difficult to control hypertension. 2. Paroxysmal atrial fibrillation. 3. Nonischemic dilated cardiomyopathy with chronic systolic heart failure. 4. Abdominal pain, chronic, due to gastroparesis. 5. history of nonsustained V-Tach/s/p AICD. RECOMMENDATIONS: At this point in time, I would not make any changes. I really want the opinion of sulfate drier machine operator to find out what we can do to deal with her gastroparesis and chronic abdominal pain. Further advice will be forthcoming. cc: Anthony Mazariegos MD [facility]
[2018-05-19] MEDS: PRAVACHOL PO SCH (21:59)
[2018-05-19] MEDS: COREG PO SCH (22:01)
[2018-05-20] MEDS: MORPHINE IV PRN ×3 (06:03→20:27)
[2018-05-20] MEDS: CARAFATE LIQUID PO SCH ×4 (06:03→20:28)
[2018-05-20] MEDS: APRESOLINE PO SCH ×3 (06:03→22:31)
[2018-05-20] MEDS: ISORDIL PO SCH ×3 (06:03→22:31)
[2018-05-20] MEDS: PROTONIX PO SCH (06:03)
--- NOTE | 2018-05-20 07:45 | EKG Report ---
Test Performed on : 05/19/2018 08:42:56 AM Test Reason : Decreased heart rate Blood Pressure : / mmHG Vent. Rate : 053 BPM Atrial Rate : 053 BPM P-R Int : 154 ms QRS Dur : 116 ms QT Int : 582 ms P-R-T Axes : 017 -23 143 degrees QTc Int : 546 ms Sinus bradycardia. with premature supraventricular complexes. Left ventricular hypertrophy with QRS widening and repolarization abnormality Prolonged QT Abnormal ECG When compared with ECG of 17-MAY-2018 18:19, (Unconfirmed) premature supraventricular complexes. are now present Vent. rate has decreased BY 32 BPM Confirmed by Raffi DANIELLE, Sai Pa ([id number]) on 05/20/2018 5:28:37 PM
--- NOTE | 2018-05-20 08:20 | EKG Report ---
Test Performed on : 05/17/2018 6:19:52 PM Test Reason : CHEST PAIN/SOB Blood Pressure : / mmHG Vent. Rate : 085 BPM Atrial Rate : 085 BPM P-R Int : 152 ms QRS Dur : 108 ms QT Int : 450 ms P-R-T Axes : 059 -24 141 degrees QTc Int : 535 ms Normal sinus rhythm. Biatrial enlargement Left ventricular hypertrophy with repolarization abnormality Prolonged QT Abnormal ECG When compared with ECG of 07-MAY-2018 03:21, No significant change was found Unconfirmed Result
[2018-05-20] MEDS: DUONEB (A & A) INH SCH ×3 (08:24→21:40)
[2018-05-20] MEDS: LASIX PO SCH ×2 (09:45→20:29)
[2018-05-20] MEDS: ALDACTONE PO SCH ×2 (09:45→20:29)
[2018-05-20] MEDS: COLACE PO SCH ×2 (09:45→20:31)
[2018-05-20] MEDS: ASPIRIN EC PO SCH (09:46)
[2018-05-20] MEDS: CORDARONE PO SCH ×2 (09:46→20:28)
[2018-05-20] MEDS: COREG PO SCH ×2 (09:46→20:28)
[2018-05-20] MEDS: ENTRESTO 97 MG-103 MG TABLET PO SCH ×2 (09:46→20:31)
[2018-05-20] MEDS: ELIQUIS PO SCH ×2 (09:46→20:29)
[2018-05-20] MEDS: MIRALAX PO SCH (09:46)
[2018-05-20] MEDS: LACTULOSE PO SCH ×2 (09:46→20:28)
[2018-05-20] MEDS: LANOXIN PO SCH (09:46)
--- NOTE | 2018-05-20 10:07 | PROGRESS NOTE ---
DATE: 05/20/2018 INTERVAL HISTORY: Yesterday, the patient was bradycardic with heart rate less than 50. However, EKG was unremarkable and except for showing sinus bradycardia with prolonged QTc. SUBJECTIVE: The patient denies chest pain. Her shortness of breath is significantly improved. She continues to complain of abdominal pain and is in distress because of that. OBJECTIVE: Vital Signs: Temperature 98 degrees, pulse 59, blood pressure 128/81, saturating 96% on 2 L nasal cannula. General: She does not appear in any acute distress. HEENT: Oral cavity is moist. Lungs: Air entry bilaterally equal. No wheeze, rhonchi, or crackles. She has a right- sided chest pacemaker. Cardiovascular: S1, S2 normal. No murmur, rub, or gallop. Abdomen: Soft. Generalized tenderness, especially in the epigastric/right upper quadrant region on deep palpation. Bowel sounds active. Mild lower extremity edema, which is improved. Neurologic: Alert and oriented x3. LABORATORY DATA: Suggestive of significantly decreased proBNP since admission. MICROBIOLOGY: No data. IMAGING: No new imaging data. ASSESSMENT AND PLAN: 1. Acute systolic congestive heart failure on chronic systolic congestive heart failure with ejection fraction of 20%. Continue the patient's Lasix p.o., which is her home medication. Continue home carvedilol, spironolactone, Entresto, and statin. Continue carvedilol at a lower dose, which is per patient's home dose, considering her bradycardic episode yesterday. 2. History of paroxysmal atrial fibrillation, currently in sinus rhythm. Continue home amiodarone and digoxin. I increased her Eliquis dose to 5 mg b.i.d. for primary cerebrovascular accident prevention. 3. History of nonischemic cardiomyopathy with ejection fraction of 20%, status post automatic implantable cardioverter-defibrillator. Continue home aspirin, statin, beta-boby, Entresto, and spironolactone. 4. History of essential hypertension. Continue home hydralazine and isosorbide. 5. Chronic epigastric right upper quadrant abdominal pain with now acute exacerbation. EGD in April 2018 had esophagitis. Possible etiologies previously thought include congestive hepatitis secondary to right heart failure. After discussion with Cardiology, concern was raised that she may not be absorbing her medications well as her digoxin levels are subtherapeutic despite taking her medications regularly. Gastroenterology consult has been placed. I extensively discussed with the patient about need for Pain Clinic as outpatient referral. I would appreciate Gastroenterology's recommendations. Prolonged QTc and episode of bradycardia. Continue home dose of beta blockers. Her prolonged QTc is chronic. She is status post automatic implantable cardioverter-defibrillator now. DISPOSITION: Follow up physical therapy recommendations. If no further cardiovascular intervention is necessary, my plan is to discharge the patient home. I also discussed this patient and her frequent admissions with the care management team and will work on potentially getting her home health. My plan is to discharge her later today or tomorrow pending GI and Cardiology recommendations. cc: Trace Yancey MD
[2018-05-20] MEDS: PRAVACHOL PO SCH (20:29)
--- NOTE | 2018-05-21 00:37 | GASTROENTEROLOGY CONSULTATION ---
DATE: 05/20/2018 REASON FOR CONSULTATION: RUQ pain HISTORY OF PRESENT ILLNESS: Ms. Cardenas is a 48 year old woman with history of COPD on 2LNC, NICM with EF 20% s/p ICD, DM2, CKD, diverticulosis, pAFIB, prior breast cancer, pulmonary hypertension who was admitted for acute on chronic systolic CHF exacerbation and afib with RVR as well as acute on chronic RUQ abdominal pain. She reports having sharp, constant RUQ pain that is worse with with movement including sitting up and "cleaning the house". She denies nausea, vomiting, or change in bowel habits. The pain is not aggravated by eating or bowel movements. She has 3 -4 BMs daily at baseline. Laying down helps the pain. She recently underwent EGD this month that showed mild esophagitis but no PUD. +HADDAD, orthopnea. PAST MEDICAL HISTORY: COPD, NICM, CKD, DM2, diverticulosis, pAFIB, prior breast cancer, pHTN PAST SURGICAL HISTORY: She had bilateral mastectomy in the past for breast cancer, arthroscopic knee surgery, cholecystectomy, hysterectomy. She had ICD placement in 2009, section. SOCIAL HISTORY: No alcohol or drug use. FAMILY HISTORY: No GI malignancies REVIEW OF SYSTEMS: As per HPI, otherwise 12-point ROS negative PHYSICAL EXAMINATION: T 97.6 HR 55 RR 16 BP 131/68 94% on 2LNC GEN: awake, alert, NAD HEENT: anicteric, MMM Neck: no LAD CV: RRR, systolic ejection murmur 2/6 PULM: CTAB, no wheezing ABD: obese, ND, moderate TTP in epigastric and RUQ; no rebound or guarding no ascites EXT: no cce NEURO: nonfocal LABS Cr 1.4 WBC 4.6 hgb 11.8 plt 164 Tbili 1.19 albumin 4.1 AST 30 ALT 25 ALP 120 trop neg CTAP without contrast: hepatomegaly, constipation, diverticulosis, hepatic steatosis CXR: marked cardiomegaly, mild central vascular congestion A/P: Ms. Cardenas is a 48 year old woman with history of COPD on 2LNC, NICM with EF 20% s/p ICD, DM2, CKD, diverticulosis, pAFIB, prior breast cancer, pulmonary hypertension who was admitted for acute on chronic systolic CHF exacerbation and afib with RVR as well as acute on chronic RUQ abdominal pain. Her abdominal pain does not appear to be luminal in etiology given essentially unremarkable EGD recently and aggravation with movement, which suggests MSK-related vs capsular stretch from hepatic steatosis/hepatomegaly. No aggravation with food or cholestatic LFTs to suggest pancreaticobiliary process. Her bowel movements are at baseline although CT shows fecal loading. I do not think she has gastroparesis given absence of nausea or vomiting. Also, abdominal pain is not typically a prominent symptom of gastroparesis. #RUQ/Epigastric pain - recommend supportive care with analgesics ie acetaminophen as needed for pain - continue PPI for GERD - no evidence of cirrhosis by labs or imaging #CHF: cardiology following #Constipation: recommend miralax as needed #pAFIB: rated controlled #COPD: stable #CKD: Cr at baseline MTDD
[2018-05-21 05:40] LABS: CREATININE 1.4 mg/dL (0.5-0.9); MAGNESIUM 1.9 mg/dL (1.5-2.7); POTASSIUM 4.4 mmol/L (3.5-5.1)
[2018-05-21] MEDS: APRESOLINE PO SCH (06:32)
[2018-05-21] MEDS: ISORDIL PO SCH (06:32)
[2018-05-21] MEDS: CARAFATE LIQUID PO SCH (06:32)
[2018-05-21] MEDS: MORPHINE IV PRN (06:33)
[2018-05-21] MEDS: LANOXIN PO SCH (06:33)
[2018-05-21] MEDS: PROTONIX PO SCH (06:33)
[2018-05-21 07:54] VITALS: BP 113/70
[2018-05-21] MEDS: DUONEB (A & A) INH SCH (08:45)
[2018-05-21] MEDS: ASPIRIN EC PO SCH (09:02)
[2018-05-21] MEDS: COREG PO SCH (09:02)
[2018-05-21] MEDS: MIRALAX PO SCH (09:03)
[2018-05-21] MEDS: LACTULOSE PO SCH (09:03)
[2018-05-21] MEDS: COLACE PO SCH (09:03)
[2018-05-21] MEDS: ENTRESTO 97 MG-103 MG TABLET PO SCH (09:03)
[2018-05-21] MEDS: ELIQUIS PO SCH (09:03)
[2018-05-21] MEDS: CORDARONE PO SCH (09:03)
[2018-05-21] MEDS: ALDACTONE PO SCH (09:03)
[2018-05-21] MEDS: LASIX PO SCH (09:03)
--- NOTE | 2018-05-21 09:47 | DISCHARGE SUMMARY ---
ADMISSION DATE: 05/17/2018 DISCHARGE DATE: ASSESSMENT AND PLAN: 1. Acute systolic congestive heart failure on chronic systolic congestive heart failure. 2. Suspected episode cough atrial fibrillation with rapid ventricular rate leading to palpation and dizziness and presyncope at home. 3. Sinus bradycardia because of increased dose of carvedilol. 4. Acute chest pain on presentation. 5. Elevated proBNP. 6. Subtherapeutic digoxin levels. OTHER DIAGNOSES: 1. History of paroxysmal atrial fibrillation. 2. History of chronic obstructive pulmonary disease on home oxygen. 3. History of nonischemic cardiomyopathy with ejection fraction of 20%, status post automatic implanted cardiac defibrillator. 4. History of essential hypertension. 5. History of chronic epigastric and right upper quadrant pain with negative gastric emptying studies and multiple negative esophagogastroduodenoscopy thought to be related to stretching of hepatic capsule and hepatic steatosis. 6. History of prolonged QTc. 7. History of chronic constipation. 8. Essential hypertension. 9. Hyperlipidemia. CONSULTATION DURING HOSPITALIZATION: 1. Cardiology, Dr. Mazariegos. 2. Gastroenterology, Dr. Ariel Velazquez. 3. Dr. Prakash Spencer. DISCHARGE MEDICATIONS: Pravastatin 40 mg at nighttime, albuterol/ipratropium nebulization 3 mL inhaled t.i.d., amiodarone 200 mg daily, apixaban 5 mg b.i.d., which was increased from her previous dose of 2.5 mg b.i.d., aspirin enteric-coated 81 mg daily, carvedilol 6.25 mg b.i.d. on increasing carvedilol to 9.375 mg. She had developed bradycardia. Digoxin 125 mcg daily, docusate 100 mg b.i.d., Lasix 40 mg b.i.d., hydralazine 100 mg t.i.d., isosorbide dinitrate 80 mg t.i.d., lactulose 30 mL b.i.d., pantoprazole 40 mg daily, MiraLAX 17 g daily, Entresto 97 mg/103 mg one tablet b.i.d., spironolactone 25 mg b.i.d., sucralfate 1 gram 4 times a day for 6 weeks of therapy total. VITALS AT THE TIME OF DISCHARGE: Temperature 97.6 degrees, pulse 60, blood pressure 113/70, saturation 100% on 2 L nasal cannula. PHYSICAL EXAMINATION: General: The patient did not appear in any acute distress. Oral cavity: Moist. Lungs: Air entry bilaterally equal. No wheeze, rhonchi, or crackles. Heart: S1, S2 normal. Bradycardic. No murmur, rub, or gallop. Abdomen: Soft, obese, tender in epigastric, right upper quadrant region. Active bowel sounds. No lower extremity edema. Neurologic: Alert and oriented x3. LABS AT THE TIME OF DISCHARGE: WBC of 4.5, hemoglobin of 11.8, platelet of 164 ,000. Normal electrolytes. BUN of 26 and creatinine of 1.4 with a GFR of 49, suggestive of chronic his kidney disease stage III, which is her baseline. ProBNP decreased from 22,000 on admission to 1500 at the time of discharge. Microbiological data: None. IMAGING DURING HOSPITALIZATION: Chest x-ray on admission had suggested marked cardiomegaly with mild vascular prominence. HOSPITAL COURSE SUMMARY: Ms. Cardenas is a 48-year-old lady with multiple comorbidities, as mentioned above, came in complaints of sudden onset chest pain , palpitations, dizzy, and suspected presyncope episode. The palpitation episode lasted for about 15 minutes, and she subsequently decided to come to the Emergency Room. When she came to the emergency room, she did not have any more chest tightness. There is no emergency room note of atrial fibrillation that I could see. However, patient states that in the emergency room, she was found to have atrial fibrillation, but her heart rate had declined without giving any additional medications. Considering her central vascular congestion on chest x-ray, she was started on intravenous Lasix and most of her home medications were continued. The following day, her shortness of breath had improved, and her intravenous Lasix was changed to p.o. Lasix. She did not have any more palpitation episode. There was no telemetry event of atrial fibrillation, though she did have an episode of nonsustained ventricular tachycardia for about 15 beats. The patient's Eliquis dose was increased from 2.5 mg b.i.d., which was documented at previous discharge summary to 5 mg b.i.d. for primary stroke prevention. At the time of discharge, her cardiovascular health was at her baseline. She was extensively counseled about being compliant with medication, diet, doing regular physical activity, and weight reduction. She also complained of epigastric, right upper quadrant pain for which she underwent EGD earlier in April. Gastroenterology was consulted again, who had suggested that this was likely related to hepatic steatosis and staging of liver capsule and conservative management was planned. The patient was counseled extensively about getting an outpatient pain doctor, as there were no other interventions offered from gastroenterology team, as all of her previous diagnostics were unremarkable. DISCHARGE INSTRUCTIONS: The patient was extensively counseled about weight reduction, dietary compliance, medication compliance, regular physical activity, outpatient close followup with regular doctor, turbine room attendant, and Pain Care Clinic referral. More than 30 minutes were spent in discharging this patient. All of her questions have been answered. cc: Trace Yancey MD MTDD
--- NOTE | 2018-05-21 11:56 | GASTROENTEROLOGY PROGRESS NOTE ---
DATE: 05/21/2018 SUBJECTIVE: No acute overnight events. The patient denies nausea, vomiting, fevers, chest pain. Shortness of breath has improved. She continues to have baseline right-sided abdominal pain. She denies any diarrhea or constipation. She is tolerating a regular diet. OBJECTIVE: Vital signs: Temperature 97.6 degrees, heart rate 60, respiratory rate 18, blood pressure 113/70, O2 saturation 98% on 2 L nasal cannula. General: The patient is awake, alert, and oriented. No acute distress. HEENT: Sclerae anicteric. Moist mucous membranes. Neck: No JVD. Cardiac: Regular rate and rhythm. No murmurs. Lungs: Clear to auscultation bilaterally. Abdomen: Obese, soft. Tenderness to palpation moderately on the right side of her abdomen. No rebound or guarding. No ascites. Lower extremities: No clubbing, cyanosis, or edema. Neurological: Nonfocal. LABORATORY DATA: Sodium 140, potassium 4.4, chloride 99, bicarb 31, BUN 26, creatinine 1.4. DIAGNOSTIC STUDIES: No new imaging. ASSESSMENT AND PLAN: Ms. Cardenas is a 48-year-old woman with history of chronic obstructive pulmonary disease, on 2 L of oxygen, nonischemic cardiomyopathy with ejection fraction of 20%, status post implantable cardioverter defibrillator, diabetes type 2, chronic kidney disease, diverticulosis, paroxysmal atrial fibrillation, prior breast cancer, and pulmonary hypertension, who was admitted with acute on chronic systolic congestive heart failure exacerbation with atrial fibrillation with rapid ventricular response, as well as acute on chronic right upper quadrant/right-sided abdominal pain. The differential for her abdominal pain includes musculoskeletal-related pain versus hepatic capsular stretch versus constipation. Liver function tests did not show any signs of cirrhosis or cholestasis to suggest biliary obstruction. There is no evidence of pancreatitis on labs. Her CT did show some fecal loading although the patient denies constipation. Our symptoms are inconsistent with gastroparesis. She had a recent EGD that was negative for peptic ulcer disease. We discussed starting the patient empirically on pain modulator medication, i.e. Elavil, to see if it improves her pain as it may involve functional abdominal pain. 1. Right upper quadrant and epigastric pain. Continue proton pump inhibitor for gastroesophageal reflux disease. Will start patient on low-dose Elavil 10 mg at night empirically. The patient should follow up with Dr. Jefferson within 2 to 4 weeks of discharge. 2. Congestive heart failure. Patient back to baseline O2 requirement with Lasix. Cardiology is following. 3. Constipation on imaging. The patient is on MiraLAX and lactulose as needed for constipation. 4. Paroxysmal atrial fibrillation. Patient is rate-controlled currently. 5. Chronic obstructive pulmonary disease, stable on home oxygen. 6. Chronic kidney disease. Creatinine is at baseline. Will follow with you. Please call with any questions or concerns.
[2018-05-21] MEDS ORDERED: ELAVIL PO SCH (21:00)
== END 2018-05-21 10:43 | disposition home health service (06) | DRG 291 ==
LOC: ED 18:07 → SUATTDRO 22:11 → EDIPHOLD 22:11 → 3S 05-18 03:50
PROVIDERS: ATTEND Internal Medicine
CPT/HCPCS: 71020; 71046; 80048; 80053; 80162; 82550; 83735; 83880; 84484; 85025; 85610; 85730; 93005; 93010; 94640; 94761; 96372; 96374; 96375; 97162; 99285; A9270; J1940; J2270; J3475

== ENCOUNTER 2018-06-07 17:42 | Inpatient (IN) ==
[2018-06-07] MEDS ORDERED: LASIX IV ONE (18:43)
--- NOTE | 2018-06-07 18:43 | PROVIDER DOCUMENTATION ---
HPI-General Adult - General Chief Complaint: Shortness of Breath Stated Complaint: SWELLING IN THIGHS, RIGHT SIDE, CHEST PRESSURE,SOB Time Seen by Provider: 06/07/18 18:15 Source: patient Allergies/Adverse Reactions: Patient Allergies Allergy/AdvReac Type Severity Reaction Status Date / Time latex Allergy Intermediate RASH Verified 05/18/18 01:16 dopamine AdvReac Hair Loss Verified 05/18/18 01:16 propoxyphene AdvReac ITCHING Verified 05/18/18 01:16 [From [facility]] Home Medications: Home Medication List Medication Instructions Recorded Confirmed Last Taken Type Aspirin EC 81 mg PO DAILY #30 tab 10/03/17 05/17/18 11/20/17 Rx Albuterol 2.5MG/Ipratrop 0.5MG 3 ml INH TID #90 ml 11/24/17 05/17/18 Unknown Rx [Duoneb (A & A)] Carvedilol [Coreg] 6.25 mg PO BID #60 tab 11/24/17 05/17/18 Unknown Rx Hydralazine [Apresoline] 100 mg PO TID@0600,1400,2200 #90 11/24/17 05/17/18 Unknown Rx tab Isosorbide Dinitrate [Isordil] 80 mg PO TID@0600,1400,2200 #90 tab 11/24/17 Unknown Rx Sacubitril/Valsartan [Entresto 97 1 tab PO BID #60 tab 11/24/17 05/17/18 Unknown Rx mg-103 mg Tablet] Spironolactone [Aldactone] 25 mg PO BID #60 tab 11/24/17 05/17/18 Unknown Rx Amiodarone [Cordarone] 200 mg PO DAILY #120 tab 04/17/18 05/17/18 Unknown Rx Digoxin [Lanoxin] 125 microgm PO DAILY@0700 #120 tab 04/17/18 05/17/18 Unknown Rx Furosemide [Lasix] 40 mg PO BID #120 tab 04/17/18 05/17/18 Unknown Rx PRAVAstatin [Pravachol] 40 mg PO QHS #120 tab 04/17/18 05/17/18 Unknown Rx Pantoprazole [Protonix] 40 mg PO DAILY@0700 #30 tab 04/17/18 05/17/18 Unknown Rx Polyethylene Glycol 3350 [Miralax] 17 gm PO DAILY #30 powder, packet 04/17/18 Unknown Rx Sucralfate [Carafate Liquid] 1 gm PO 0700,1100,1600,2100 #1 udc 04/17/18 Unknown Rx Docusate Sodium [Colace] 100 mg PO BID 30 Days #60 cap 05/08/18 05/17/18 Unknown Rx Lactulose 30 ml PO BID 30 Days #1 c 05/08/18 05/17/18 Unknown Rx Apixaban [Eliquis] 5 mg PO BID 30 Days #60 tab 05/21/18 05/17/18 Unknown Rx - History of Present Illness -Gen Adult Nature of Presenting Problems: THIS IS A 48 YEAR OLD FEMALE WITH MEDICAL HISTORY OF CONGESTIVE HEART FAILURE, COPD ON 3L, HYPERTENSION, AND CKD STAGE 3 CAME IN TODAY WITH PROGRESSIVE SHORTNESS OF BREATH FOR THE PAST FEW DAYS. PATIENT ENDORSE WEIGHT GAIN. ENDORSE DYSPNEA ON EXERTION, ORTHOPENA, AND BENDAOPNEA. DENIES COUGH, FEVER, CHILL, NIGHT SWEATS, DIZZINESS, LIGHTHEADEDNESS, BLURRY VISION, CHEST DISCOMFORT, PALPITATION, NEW RASH/LESION, ABDOMIANL DISCOMFOT, N/V /D. Review of Systems - Adult - REVIEW OF SYSTEMS - ADULT ROS:: unobtainable per condition Constitutional: reports: weight gain Eyes: reports: no symptoms reported Ears, Nose, Mouth & Throat: reports: no symptoms reported Cardiovascular: reports: no symptoms reported Respiratory: reports: dyspnea on exertion, shortness of breath. denies: cough, excessive sputum production, wheezing Gastrointestinal: reports: no symptoms reported, see HPI Genitourinary: reports: no symptoms reported, see HPI Musculoskeletal: reports: no symptoms reported, see HPI Integumentary: reports: no symptoms reported, see HPI Neurological: reports: no symptoms reported, see HPI Psychiatric: reports: no symptoms reported, see HPI Endocrine: reports: no symptoms reported, see HPI Hematologic/Lymphatic: reports: no symptoms reported, see HPI Allergic/Immunologic: reports: no symptoms reported, see HPI Past History - Adult - PAST MEDICAL HISTORY-ADULT Review of Records: reports: Old Records Reviewed Major Childhood Illnesses: reports: denies history Cardiovascular: reports: A-Fib, blood clots, CAD, CHF, HTN, hyperlipidemia, palpitations, pacemaker (defib) Respiratory: reports: asthma, COPD, sleep apnea Gastrointestinal: reports: liver disease Obstetrical/Gynecological: reports: other (breast cancer) Genitourinary: reports: kidney disease Musculoskeletal: reports: denies history Neurological: reports: denies history Psychiatric: reports: anxiety, depression Endocrine/Immune: reports: denies history Other Conditions: reports: denies history - PRIOR SURGERIES/PROCEDURES Surgical/Procedure History: reports: cholecystectomy, hysterectomy, , tonsillectomy, orthopedic (extremity), other (mastectomy,defib,arthroscopy) - IMMUNIZATION STATUS Childhood Immunizations: See Nurse Assessment Flu Vaccine: See Nurse Assessment - FAMILY HISTORY Family History: reviewed, not pertinent Physical Exam-General - PHYSICAL EXAM-ADULT Initial Vital Signs Reviewed: Yes - CONSTITUTIONAL General Appearance: alert, mild distress - EYES Eyes: PERRL/EOMI, pink conjunctivae - HEAD, EARS, NOSE, MOUTH & THROAT HENMT: normocephalic/atraumatic, moist mucous membranes, normal ENT inspection - NECK Neck: non-tender, full range of motion, supple, normal inspection - RESPIRATORY Respiratory: chest non-tender, lungs clear, normal breath sounds, no pleuratic chest pain, no respiratory distress, no accessory muscle use - CARDIOVASCULAR Cardiovascular: normal peripheral pulses, regular rate, rhythm, no edema, no gallop, no JVD, no murmur - GASTROINTESTINAL (ABDOMEN) Abdominal Exam: normal bowel sounds, non tender, soft - MUSCULOSKELETAL Back Exam: normal inspection Extremity: normal range of motion, non-tender, normal gait, swelling (BILATEARL LOWER EXTREMITYS WELLING.) - SKIN Integumentary: normal color, normal turgor, warm/dry - NEUROLOGIC Neurologic: grossly normal - PSYCHIATRIC Psych/Mental Status: normal mood/affect, normal thought content, normal thought process, oriented x 3 Progress - PLAN OF CARE/RESULTS Progress/Plan/Lab Results: Vital Signs - 8 hr 06/07/18 18:04 Temperature 96.9 F L Pulse Rate 111 H Respiratory Rate 26 H Blood Pressure 155/100 O2 Sat by Pulse Oximetry 93 L Orders Category Date Time Status Cardiac Monitoring DIRECTED Care 06/07/18 18:07 Active Oxygen Therapy- ED Nursing DIRECTED Care 06/07/18 18:07 Active Saline Loc NOW Care 06/07/18 18:07 Active CHEST-2 VIEWS [RAD] Stat Exams 06/07/18 18:07 Taken CBC WITH ELECTRONIC DIFF [HEME] Stat Lab 06/07/18 18:07 Uncollected CK PROFILE [SP CHEM] Stat Lab 06/07/18 18:07 Uncollected COMPREHENSIVE METABOLIC PANEL [CHEM] Stat Lab 06/07/18 18:07 Uncollected PRO B-NATRIURETIC PEPTIDE Stat Lab 06/07/18 18:07 Uncollected PROTIME WITH INR [COAG] Stat Lab 06/07/18 18:07 Uncollected PTT [COAG] Stat Lab 06/07/18 18:07 Uncollected TROPONIN T Stat Lab 06/07/18 18:07 Uncollected URINALYSIS W/POSS RFLX CULT [URINALYSIS] Stat Lab 06/07/18 18:19 Uncollected CP/SOB/Palp >45 yrs of Age Stat Oth 06/07/18 18:07 Ordered EKG [EKG] Stat Ther 06/07/18 18:07 Ordered Result Diagrams: 06/07/18 18:55 06/07/18 18:55 - REASSESSMENT Reassessment #1 Time Reassessed: 20:08 Status: other (ELEVATED BNP AND CLINICALLY IN CHF EXACERBATION; WILL ADMIT.) - EKG 1 Time of EKG reading by physician:: 20:33 EKG Read and Signed by:: Bonnie Benjamin EKG Interpretation (*Must complete 3 of following elements*): Abnormal Rate: 112 Rhythm: ATRIAL FLUTTER WITH 2:1 AV CONDUCTION [place]: normal QRS: normal MA Interval: normal ST Wave: normal - XRAY 1 XRAY Study: Chest ([facility] [address], [address], [place] [address] Department of Imaging Patient: DEMI CORNEJODM Date : 06/07/18#: [id number] : 1970ADM Status: REG [facility]#: [id number] Age/Sex: 48/FRoom/Bed: Loc: ED Ordering Physician: Darryl Munguia MD Family Physician: Albina Ortega MD Reason for Procedure: chf/diff breathing ___ Signed EXAM: CHEST-2 VIEWS - 06/07/2018 HISTORY: chf/diff breathing TECHNIQUE: Chest two views COMPARISON: 05/17/2018 FINDINGS: There is cardiomegaly similar to prior. There is transvenous cardiac pacemaker again seen. There is mild prominence of vascular/interstitial markings similar to prior. There is pleural thickening at the lateral right apex similar to prior. There is no acute consolidation, substantial pleural effusion, or pneumothorax identified. IMPRESSION: Cardiomegaly and mild prominence of vascular/interstitial markings similar to prior. Electronically signed by Shakir Gleason 06/07/2018 6:53 PM 06/07/181852 Interpreting Physician: Shakir Gleason MD Dictated Date/Time: 06/07/181850 cc: Darryl Munguia MD; Albina Ortega MD) Departure - Departure Date of Disposition Decision: 06/07/18 Time of Disposition Decision: 20:09 DIAGNOSIS: Acute exacerbation of CHF (congestive heart failure) Disposition: ADMITTED INPATIENT 09 Certified Medical Emergency: Emergent Condition: Fair Referrals and Follow-Ups: Albina Ortega MD [Primary Care Provider] - - Critical Care Note This patient required my direct & personal management of CC.: No Attestation - Physician/ PREETI Attestation Patient care was provided by Advanced Practice Provider:: No The physician spent face to face time with patient:: Yes Advanced Practice Provider documentation review:: Supervising physician onsite and consulted in the evaluation and care of this patient. The physician did have a face to face encounter with the patient.
--- NOTE | 2018-06-07 18:56 | Diag Imaging Result Doc PS360 ---
EXAM: CHEST-2 VIEWS - 06/07/2018 HISTORY: chf/diff breathing TECHNIQUE: Chest two views COMPARISON: 05/17/2018 FINDINGS: There is cardiomegaly similar to prior. There is transvenous cardiac pacemaker again seen. There is mild prominence of vascular/interstitial markings similar to prior. There is pleural thickening at the lateral right apex similar to prior. There is no acute consolidation, substantial pleural effusion, or pneumothorax identified. IMPRESSION: Cardiomegaly and mild prominence of vascular/interstitial markings similar to prior. Electronically signed by Shakir Gleason 06/07/2018 6:53 PM
[2018-06-07 19:10] LABS: BASO# 0.01 X1000 (0.0-0.2); BASO% 0.2 % (0.0-0.8); EOS# 0.03 X1000 (0.0-0.7); EOS% 0.6 % (0.0-10.0); HEMATOCRIT 34.9 % (37.0-47.0); HEMOGLOBIN 10.8 g/dL (12.0-16.0); LYMPH# 1.23 X1000 (1.2-3.4); LYMPH% 23.1 % (20.5-51.1); MCH 26.9 PG (27-31); MCHC 30.9 g/dL (33-37); MONO% 9.4 % (1.7-9.3); MPV 11.6 FL (7.4-10.4); NEUT# 3.56 X1000 (1.4-6.5); NEUT% 66.7 % (42.2-75.2); PLT 171 X1000 (130-400); RBC 4.01 XMIL (4.2-5.4); RDW 17.4 % (11.5-14.5); WBC 5.33 X1000 (4.8-10.8)
[2018-06-07 19:18] LABS: INR 1.1; PROTIME 15.1 Seconds (11.0-16.0)
[2018-06-07 19:19] LABS: PTT 26.2 Seconds (22.3-41.8)
[2018-06-07 19:31] LABS: ALB/GLOB RATIO 1.2; ALBUMIN 3.8 g/dL (3.5-5.0); CREATININE 1.6 mg/dL (0.5-0.9); POTASSIUM 3.1 mmol/L (3.5-5.1); TOTAL BILIRUBIN 1.25 mg/dL (0.20-1.00); TOTAL PROTEIN 6.9 g/dL (6.3-8.3)
[2018-06-07 19:49] LABS: URINE SOURCE CLEAN CATCH
[2018-06-07 19:52] LABS: BILIRUBIN URINE NEGATIVE (NEGATIVE); BLOOD URINE NEGATIVE (NEGATIVE); COLOR YELLOW; GLUCOSE URINE NEGATIVE (NEGATIVE); KETONE URINE NEGATIVE (NEGATIVE); LEUKOCYTES URINE TRACE (NEGATIVE); NITRITE URINE NEGATIVE (NEGATIVE); PROTEIN URINE 100 mg/dL (NEGATIVE); SP GRAVITY URINE 1.017; TURBIDITY URINE CLEAR (CLEAR); UR EPITHELIAL CELLS <10 /HPF (<10); URINE BACTERIA NEGATIVE /HPF; URINE RBC <10 /HPF (<10); URINE WBC <10 /HPF (<10); UROBILINOGEN URINE NORMAL (NORMAL)
[2018-06-07] MEDS ORDERED: OXY IR PO ONE (21:12)
--- NOTE | 2018-06-07 22:28 | HISTORY AND PHYSICAL ---
PRIMARY CARE PHYSICIAN: Dr. Ortega. CHIEF COMPLAINT: Shortness of breath. HISTORY OF PRESENTING ILLNESS: 48-year-old female with a history of CHF with EF of 20%, atrial fibrillation, hyperlipidemia, hypertension, COPD who had presented to emergency department with several days history of worsening shortness of breath. The patient states that she was having difficulty breathing, she was noticing that her legs were getting more swollen and it seemed to be worsening. She was evaluated in the emergency department. She is found to be in heart failure and due to presenting symptoms, she will require admission for further management assessment. At time my examination she had denied any headache, fever, chills, chest pain, hemoptysis, melena but complained of shortness of breath and not feeling well. PAST MEDICAL HISTORY: Includes hypertension, chronic atrial fibrillation, hyperlipidemia, COPD, breast cancer, CHF. PAST SURGICAL HISTORY: Left knee surgery, cholecystectomy, SCD, bilateral mastectomy, hysterectomy. ALLERGIES: Darvocet, dopamine latex. CURRENT MEDICATIONS: Include DuoNeb inhalation t.i.d., amiodarone 200 mg p.o. daily, Eliquis 5 mg p.o. b.i.d., aspirin 81 mg p.o. daily, carvedilol 6.25 mg p.o. b.i.d., digoxin 125 mcg p.o. daily, Lasix 40 mg p.o. b.i.d., hydralazine 100 mg p.o. t.i.d., isosorbide dinitrate 80 mg p.o. t.i.d., pantoprazole 40 mg p.o. daily, pravastatin 40 mg p.o. at bedtime, Entresto 97/103 one tablet b.i.d. , spironolactone 25 mg p.o. b.i.d., sucralfate 1 g p.o. q.i.d. SOCIAL HISTORY: She is a former smoker, denies any history alcohol or illicit drug use. FAMILY HISTORY: No history of coronary disease. REVIEW OF SYSTEMS: Fourteen point review of systems is as in HPI other systems negative. PHYSICAL EXAMINATION: GENERAL: Cooperative, friendly female she is resting comfortably now. VITAL SIGNS: Temperature 96.9 degrees, pulse 111, respiration 26, blood pressure 155/100. HEENT: Atraumatic, normocephalic. Extraocular movements intact. PERRLA. NECK: No masses. CHEST: Bibasilar rales. CARDIOVASCULAR: Regular rate and rhythm. ABDOMEN: Soft, positive bowel sounds. EXTREMITIES: +1 edema. NEURO: She is awake, alert, oriented x3. : No bladder distention. SKIN: Warm. LABORATORIES AND STUDIES: WBCs 5.33, hemoglobin 10.8, hematocrit 34.9, platelets 171,000, sodium 146, potassium 3.1, chloride 101, CO2 is 30, BUN is 46, creatinine is 1.6, glucose 139, proBNP is 9712. ASSESSMENT: This is a 48-year-old female with a history of congestive heart failure with ejection fraction of 20%, atrial fibrillation, hyperlipidemia, chronic obstructive pulmonary disease and hypertension who had presented to emergency department with several days history of worsening shortness of breath. She was evaluated in the emergency department. She was found to be in heart failure. Subsequently she will require admission for further management . 1. Acute on chronic congestive heart failure. 2. Chronic atrial fibrillation. 3. Chronic obstructive pulmonary disease. 4. Hypertension. 5. Hyperlipidemia. PLAN: 1. We will admit patient to medical floor with telemetry. 2. We will continue with gentle diuresis with Lasix. 3. Consult Cardiology. 4. Continue with her anticoagulation and monitoring on telemetry. 5. Continue with DuoNeb p.r.n. 6. Monitor blood pressure, resume antihypertensive agents. 7. Will continue with DVT prophylaxis with SCD. 8. We will continue to follow and reassess and make further recommendation based on patient's clinical course. cc: Cj Covington MD
[2018-06-08] MEDS ORDERED: LASIX IV SCH (02:30)
[2018-06-08] MEDS: APRESOLINE IV PRN ×2 (05:03→11:34)
[2018-06-08 07:21] LABS: BASO# 0.01 X1000 (0.0-0.2); BASO% 0.2 % (0.0-0.8); EOS# 0.01 X1000 (0.0-0.7); EOS% 0.2 % (0.0-10.0); HEMATOCRIT 38.7 % (37.0-47.0); HEMOGLOBIN 11.9 g/dL (12.0-16.0); LYMPH# 1.11 X1000 (1.2-3.4); LYMPH% 18.7 % (20.5-51.1); MCH 27.1 PG (27-31); MCHC 30.7 g/dL (33-37); MCV 88.2 FL (81-99); MONO# 0.51 X1000 (0.11-0.59); MONO% 8.6 % (1.7-9.3); MPV 11.3 FL (7.4-10.4); NEUT# 4.29 X1000 (1.4-6.5); NEUT% 72.3 % (42.2-75.2); PLT 166 X1000 (130-400); RBC 4.39 XMIL (4.2-5.4); RDW 17.6 % (11.5-14.5); WBC 5.93 X1000 (4.8-10.8)
[2018-06-08 07:34] LABS: CALCIUM 9.1 mg/dL (8.8-10.2); CREATININE 1.6 mg/dL (0.5-0.9); POTASSIUM 2.9 mmol/L (3.5-5.1)
[2018-06-08] MEDS ORDERED: KLOR-CON PO ONE (13:40)
[2018-06-08] MEDS ORDERED: ISORDIL PO SCH (14:00)
[2018-06-08] MEDS: ELIQUIS PO SCH ×2 (14:32→20:57)
[2018-06-08] MEDS: COREG PO SCH ×2 (14:32→20:57)
[2018-06-08] MEDS: APRESOLINE PO SCH ×2 (14:32→20:59)
[2018-06-08] MEDS: CORDARONE PO SCH (14:33)
[2018-06-08] MEDS: LASIX IV SCH (14:34)
[2018-06-08] MEDS: CARAFATE LIQUID PO SCH ×2 (17:06→20:57)
--- NOTE | 2018-06-08 17:24 | CARDIOLOGY CONSULTATION ---
DATE: 06/08/2018 CHIEF COMPLAINT ON PRESENTATION: Shortness of breath. HISTORY OF PRESENT ILLNESS: Ms. Cardenas is a 48-year-old black female with a history of a nonischemic cardiomyopathy normally following with Dr. Burns. She presents for worsening shortness of breath that seems like it has been going on for the last 10 days to 2 weeks. She notes lower extremity edema that is extending up into her thighs as well as orthopnea. She reports compliance with her medications as well as her diet. She is not clear exactly why this started accumulating. She was apparently given a booster medication where she was initiated on metolazone every other day by Dr. Burns back in early May. She reports some improvement in the 1st couple of days but then it seemed to plateau out. PAST MEDICAL HISTORY: 1. Significant for a nonischemic cardiomyopathy. She had a cardiac catheterization in 2013 showing normal arteries. Her last ejection fraction was by echocardiogram in December 2017. This demonstrated an EF of 20%, severe dilatation of the left ventricle. 2. Pulmonary hypertension. 3. ICD implant for ventricular fibrillation. 4. Paroxysmal atrial fibrillation. She is currently maintained on Eliquis. 5. Mitral regurgitation, tricuspid regurgitation. 6. Hypertension. 7. Chronic kidney disease. 8. Chronic right abdominal pain. 9. Obstructive sleep apnea. 10. Obesity. SOCIAL HISTORY: She is a previous smoker but does not currently. No current alcohol. FAMILY HISTORY: Significant for coronary disease. REVIEW OF SYSTEMS: A 10 system review of systems is negative except for those mentioned in HPI. PHYSICAL EXAMINATION: Vital Signs: She is afebrile. Blood pressure of 153/119, heart rate is in the low 100s to 110s. Her I's and O's have limited data available at this time. General: She is in mild distress secondary to abdominal pain. HEENT: Oropharynx is moist. Poor dentition. Eye examination shows pink conjunctivae, white sclerae. Neck: Shows no obvious thyromegaly or thyroid tenderness. Cardiovascular: She sounds to be in a mildly tachycardic but regular rhythm. She has no obvious murmurs present. She has no S3. She has 1 to 2+ bilateral lower extremity edema. Chest: Is clear bilaterally. She has no increased work of breathing. Abdomen: Soft, nontender, nondistended. She has no obvious organomegaly. Skin: Warm and dry throughout without any rashes. Neurological: Moving all extremities well. She has no lateralizing deficits. PERTINENT DATA: Her EKG demonstrates what appears to be a incomplete left bundle branch block. This may represent atrial flutter on this current study. Chest x-ray showed cardiomegaly and prominence of vascular interstitial markings. Her lab data shows a white count of 5.9, hematocrit 38, her platelet count is 166,000. Her sodium is 141, potassium is 2.9, BUN 42, creatinine is 1.6. Her TSH is 1.8. ASSESSMENT: Ms. Cardenas is a 48-year-old female with nonischemic cardiomyopathy who appears to be in atrial flutter currently. She seems to be symptomatic from volume overload. I will increase Lasix to 80 mg IV q.12 hours. She continues to be markedly hypertensive. We will continue to try to diurese the patient. I will replete potassium if it has not already been done and recheck laboratories in the morning. cc: Marquise Ta MD
[2018-06-08] MEDS: ENTRESTO 97 MG-103 MG TABLET PO SCH ×2 (17:25→20:57)
[2018-06-08] MEDS ORDERED: APRESOLINE IV PRN (17:51)
[2018-06-08] MEDS: DUONEB (A & A) INH PRN (19:45)
--- NOTE | 2018-06-08 20:05 | PROGRESS NOTE ---
DATE: 06/12/2018 SUBJECTIVE: Patient has no focal complaints. OBJECTIVE: Blood pressure 175/105, heart rate 109 respiratory rate 17, temperature 97.6, 93% on 3 L.Cardiovascular: Regular rate and rhythm. Pulmonary: Bilateral breath sounds. Clear to auscultation. GI: Soft, nontender, nondistended. Bowel sounds are positive. LABORATORY DATA: White count 5, hemoglobin and hematocrit 11 and 38, platelets 166. Potassium 2.9, creatinine 1.6. PROBLEM LIST: 1. Acute congestive heart failure, systolic. Heart failure exacerbation associated with peripartum cardiomyopathy. Cardiology has evaluated the patient. We have doubled her IV Lasix. She has chronic renal failure, significant swelling in both lower extremities, 2 to 3+ in lower extremities and upper, and we will follow. She is already on a good regimen which includes Coreg and digoxin. She is on Entresto, so she is on KATIE inhibitor, Aldactone, and she is still very hypertensive. We will continue treatment and follow. I am going to switch her to some nitroglycerin paste instead of her Isordil to see if we can try to get her blood pressure down because she is still not very well controlled, at least for the next 24 hours. 2. Atrial fibrillation. She is on amiodarone. She is anticoagulated. She is on Prilosec. 3. Hypokalemia. Has been supplemented. We will check again tomorrow. DISPOSITION: Pending her clinical status. We will continue to follow closely. cc: Everardo Galloway MD
[2018-06-08] MEDS: REGLAN PO SCH (20:57)
[2018-06-08] MEDS: LACTULOSE PO SCH (20:57)
[2018-06-08] MEDS: NITROGLYCERIN TOP SCH (20:57)
[2018-06-08] MEDS: COLACE PO SCH (20:57)
[2018-06-08] MEDS: ALDACTONE PO SCH (20:58)
[2018-06-08] MEDS: OXY IR PO PRN (21:41)
[2018-06-08] MEDS: PRAVACHOL PO SCH (21:42)
[2018-06-09] MEDS: NITROGLYCERIN TOP SCH ×2 (03:05→10:57)
[2018-06-09] MEDS: LASIX IV SCH ×2 (03:05→14:41)
[2018-06-09] MEDS: OXY IR PO PRN ×2 (05:02→14:49)
[2018-06-09] MEDS: PROTONIX PO SCH (06:13)
[2018-06-09] MEDS: APRESOLINE PO SCH ×3 (06:13→20:26)
[2018-06-09] MEDS: CARAFATE LIQUID PO SCH ×4 (06:13→20:26)
[2018-06-09] MEDS: LANOXIN PO SCH (06:14)
[2018-06-09 07:33] LABS: EOS# 0.04 X1000 (0.0-0.7); EOS% 0.7 % (0.0-10.0); HEMATOCRIT 38.1 % (37.0-47.0); HEMOGLOBIN 11.6 g/dL (12.0-16.0); LYMPH# 0.91 X1000 (1.2-3.4); LYMPH% 16.1 % (20.5-51.1); MCHC 30.4 g/dL (33-37); MCV 88.8 FL (81-99); MONO# 0.39 X1000 (0.11-0.59); MONO% 6.9 % (1.7-9.3); MPV 11.7 FL (7.4-10.4); NEUT% 76.3 % (42.2-75.2); PLT 184 X1000 (130-400); RBC 4.29 XMIL (4.2-5.4); RDW 17.5 % (11.5-14.5); WBC 5.64 X1000 (4.8-10.8)
[2018-06-09 07:54] LABS: CALCIUM 8.9 mg/dL (8.8-10.2); CREATININE 1.6 mg/dL (0.5-0.9); MAGNESIUM 1.8 mg/dL (1.5-2.7); POTASSIUM 2.8 mmol/L (3.5-5.1)
[2018-06-09] MEDS: ALDACTONE PO SCH ×2 (10:56→20:26)
[2018-06-09] MEDS: ASPIRIN EC PO SCH (10:57)
[2018-06-09] MEDS: ELIQUIS PO SCH ×2 (10:57→20:27)
[2018-06-09] MEDS: LACTULOSE PO SCH ×2 (10:57→20:26)
[2018-06-09] MEDS: CORDARONE PO SCH (10:57)
[2018-06-09] MEDS: COLACE PO SCH ×2 (10:57→20:26)
[2018-06-09] MEDS: COREG PO SCH ×2 (10:57→20:26)
[2018-06-09] MEDS: ENTRESTO 97 MG-103 MG TABLET PO SCH ×2 (10:57→20:26)
[2018-06-09] MEDS ORDERED: KLOR-CON PO ONE (11:02)
[2018-06-09] MEDS ORDERED: MAGNESIUM SULFATE 2 GM/S.W.I. 2 GM/50 ML IVPB IV ONE (13:40)
--- NOTE | 2018-06-09 14:16 | CARDIOLOGY PROGRESS NOTE ---
DATE: 06/09/2018 SUBJECTIVE: Ms. Cardenas reports she feels better today. She continues to have some lower extremity edema. Her breathing has improved. In addition, her abdominal pain has improved. PHYSICAL EXAMINATION: She is afebrile. Heart rate of 80. Her blood pressure is 112/76. Systolics seem to have trended down to be more in the 130s to 140s. Her Is and Os are somewhat difficult to track as she has had 8 continent voids not measured. She certainly seems negative. General: No acute distress. Cardiovascular: She sounds to be in a regular rate and rhythm. She has no obvious murmurs. She has no S3. She has trace to 1+ bilateral lower extremity edema, warm and well perfused lower extremities. Her chest exam is clear bilaterally. She has no increased work of breathing. Her abdomen is soft. There is mild tenderness in the right upper quadrant that seems improved. PERTINENT DATA: White count 5.6, hematocrit 38, platelet count is 184,000. Sodium 138, potassium is 2.8, BUN 33, creatinine is 1.6 which is roughly stable from yesterday. Her magnesium level is 1.8. ASSESSMENT: Ms. Cardenas is a 48-year-old female with nonischemic cardiomyopathy. PLAN: She has diuresed significantly in the last 24 hours. We will continue her on the current rate of diuresis. I will ensure that she has her electrolytes repleted. I believe the abdominal pain is likely secondary to capsular stretch related to volume overload. She has had this problem evaluated very thoroughly in the past. cc: Marquise Ta MD
--- NOTE | 2018-06-09 15:16 | PROGRESS NOTE ---
DATE: 06/09/2018 SUBJECTIVE: Patient has no major complaints. She looks better today. OBJECTIVE: Blood pressure is 112/76, respiratory rate 14, heart rate 80, temperature 97.5 degrees, 97% on 3 L.Cardiovascular: Regular rate and rhythm. Pulmonary: Bilateral breath sounds, clear to auscultation. GI: Soft, nontender, nondistended. Bowel sounds are positive. LABORATORY DATA: Her white count is 5, hemoglobin and hematocrit 11 and 38, platelets 184,000. Potassium 2.8, creatinine 1.6. PROBLEM LIST: 1. Acute systolic congestive heart failure exacerbation. We will continue current measures. She is diuresing well. Her in's and out's indicate about 1 L negative. Her weight, she has dropped about 5, maybe 6 pounds. She is doing well. Another day or 2 of diuresis. Cardiology input greatly appreciated. 2. Atrial fibrillation. She is stable. She is on amiodarone. She is anticoagulated. 3. Hypokalemia. We will continue to supplement. She will likely need scheduled supplementations. DISPOSITION: Hopefully home in the next day or 2. Continue to follow. cc: Everardo Galloway MD
[2018-06-09] MEDS: DUONEB (A & A) INH PRN ×2 (15:18→20:10)
[2018-06-09] MEDS: REGLAN PO SCH (20:26)
[2018-06-09] MEDS: PRAVACHOL PO SCH (20:26)
[2018-06-09] MEDS: NORCO-7.5 PO PRN (20:27)
[2018-06-10] MEDS: APRESOLINE PO SCH ×4 (02:05→20:32)
[2018-06-10] MEDS: LASIX IV SCH ×2 (06:11→17:48)
[2018-06-10] MEDS: NORCO-7.5 PO PRN ×2 (06:11→16:48)
[2018-06-10] MEDS: LANOXIN PO SCH (06:11)
[2018-06-10] MEDS: PROTONIX PO SCH (06:11)
[2018-06-10] MEDS: CARAFATE LIQUID PO SCH ×4 (06:11→20:33)
[2018-06-10 07:28] LABS: EOS# 0.05 X1000 (0.0-0.7); EOS% 1.1 % (0.0-10.0); HEMATOCRIT 40.6 % (37.0-47.0); HEMOGLOBIN 12.2 g/dL (12.0-16.0); LYMPH# 1.07 X1000 (1.2-3.4); LYMPH% 23.7 % (20.5-51.1); MCH 26.8 PG (27-31); MCV 89.2 FL (81-99); MONO# 0.43 X1000 (0.11-0.59); MONO% 9.5 % (1.7-9.3); MPV 11.5 FL (7.4-10.4); NEUT# 2.97 X1000 (1.4-6.5); NEUT% 65.7 % (42.2-75.2); PLT 200 X1000 (130-400); RBC 4.55 XMIL (4.2-5.4); RDW 17.6 % (11.5-14.5); WBC 4.52 X1000 (4.8-10.8)
[2018-06-10 07:55] LABS: CREATININE 1.5 mg/dL (0.5-0.9); POTASSIUM 3.2 mmol/L (3.5-5.1)
--- NOTE | 2018-06-10 09:21 | EKG Report ---
Test Performed on : 06/07/2018 6:09:21 PM Test Reason : chf/diff breathing Blood Pressure : / mmHG Vent. Rate : 111 BPM Atrial Rate : 222 BPM P-R Int : 000 ms QRS Dur : 118 ms QT Int : 426 ms P-R-T Axes : -77 -25 173 degrees QTc Int : 579 ms Atrial flutter. with 2:1 AV conduction. Left ventricular hypertrophy with QRS widening and repolarization abnormality Prolonged QT Abnormal ECG When compared with ECG of 19-MAY-2018 08:42, Atrial flutter. has replaced Sinus rhythm. Vent. rate has increased BY [address] now depressed in Inferior leads ST now depressed in Lateral leads Unconfirmed Result
[2018-06-10] MEDS: KLOR-CON PO SCH (09:22)
[2018-06-10] MEDS: ELIQUIS PO SCH ×2 (09:23→20:32)
[2018-06-10] MEDS: ZAROXOLYN PO SCH (09:23)
[2018-06-10] MEDS: CORDARONE PO SCH (09:23)
--- NOTE | 2018-06-10 09:23 | EKG Report ---
Test Performed on : 06/07/2018 8:26:07 PM Test Reason : chf/diff breathing Blood Pressure : / mmHG Vent. Rate : 112 BPM Atrial Rate : 224 BPM P-R Int : 000 ms QRS Dur : 114 ms QT Int : 356 ms P-R-T Axes : 268 -23 165 degrees QTc Int : 485 ms Atrial flutter. with 2:1 AV conduction. Left ventricular hypertrophy with repolarization abnormality Abnormal ECG When compared with ECG of 07-JUN-2018 18:09, (Unconfirmed) T wave amplitude has increased in Anterior leads Unconfirmed Result
[2018-06-10] MEDS: ALDACTONE PO SCH ×2 (09:24→20:34)
[2018-06-10] MEDS: ASPIRIN EC PO SCH (09:25)
[2018-06-10] MEDS: ENTRESTO 97 MG-103 MG TABLET PO SCH ×2 (09:25→20:32)
[2018-06-10] MEDS: COREG PO SCH ×2 (09:25→20:33)
[2018-06-10] MEDS: LACTULOSE PO SCH ×2 (09:26→20:37)
[2018-06-10] MEDS: COLACE PO SCH ×2 (09:26→20:37)
[2018-06-10] MEDS ORDERED: KLOR-CON PO ONE (12:52)
--- NOTE | 2018-06-10 13:42 | CARDIOLOGY PROGRESS NOTE ---
DATE: 06/10/2018 SUBJECTIVE: Ms. Cardenas reports improvement in her shortness of breath. She reports her output has decreased somewhat. OBJECTIVE: Vital signs: She is afebrile. Heart rate is in the low 100s predominantly. Her blood pressure is 123/72. General: She is in no acute distress. Cardiovascular: She sounds to be in a regular rate and rhythm. I do not hear any obvious murmurs. She has no S3. She has trace to 1+ bilateral lower extremity edema up to the mid goyal, warm and well perfused extremities. Chest: Clear bilaterally. She has no increased work of breathing. Abdomen: Soft, nontender. INPUT AND OUTPUT: Continue to be negative. They are somewhat difficult to track secondary to poor intake recording, in addition to a number of continent voids not being measured. LABORATORY DATA: Pertinent data potassium 3.2, sodium 141, BUN and creatinine are 31 and 1.5, which are somewhat better than admission. Her proBNP is 2501, which is down from 9712 on admission. ASSESSMENT: Ms. Cardneas is a 48-year-old black female with a history of a nonischemic cardiomyopathy. PLAN: We have tried to add back in some of her ISDN at a dose of 10 mg t.i.d. We will continue on her other medications, including continued diuretics. We will recheck labs in the morning. It would be reasonable to consider her for discharge in the morning potentially. cc: Marquise Ta MD
[2018-06-10] MEDS: ISORDIL PO SCH ×2 (14:22→20:38)
[2018-06-10] MEDS: PRAVACHOL PO SCH (20:33)
[2018-06-10] MEDS: REGLAN PO SCH (20:34)
[2018-06-11] MEDS: NORCO-7.5 PO PRN ×3 (00:02→21:01)
[2018-06-11] MEDS: APRESOLINE PO SCH ×4 (00:02→21:00)
[2018-06-11] MEDS: LASIX IV SCH (05:48)
[2018-06-11] MEDS: PROTONIX PO SCH ×2 (05:49→06:00)
[2018-06-11] MEDS: CARAFATE LIQUID PO SCH ×5 (05:49→21:00)
[2018-06-11] MEDS: LANOXIN PO SCH ×2 (05:51→06:00)
[2018-06-11 07:49] LABS: CALCIUM 9.2 mg/dL (8.8-10.2); CREATININE 1.9 mg/dL (0.5-0.9); MAGNESIUM 1.9 mg/dL (1.5-2.7)
[2018-06-11] MEDS: KLOR-CON PO SCH (08:43)
[2018-06-11] MEDS: COLACE PO SCH ×3 (08:43→21:02)
[2018-06-11] MEDS: ASPIRIN EC PO SCH (08:43)
[2018-06-11] MEDS: CORDARONE PO SCH (08:43)
[2018-06-11] MEDS: ISORDIL PO SCH ×3 (08:43→21:01)
[2018-06-11] MEDS: COREG PO SCH ×2 (08:43→21:01)
[2018-06-11] MEDS: ALDACTONE PO SCH ×2 (08:43→21:00)
[2018-06-11] MEDS: ELIQUIS PO SCH ×2 (08:43→21:00)
[2018-06-11] MEDS: ENTRESTO 97 MG-103 MG TABLET PO SCH ×2 (08:43→21:01)
[2018-06-11] MEDS: LACTULOSE PO SCH ×2 (08:45→21:01)
--- NOTE | 2018-06-11 08:45 | EKG Report ---
Test Performed on : 06/11/2018 08:40:41 AM Test Reason : runs of PVCs Blood Pressure : / mmHG Vent. Rate : 078 BPM Atrial Rate : 277 BPM P-R Int : 000 ms QRS Dur : 124 ms QT Int : 492 ms P-R-T Axes : 000 -15 156 degrees QTc Int : 560 ms Atrial fibrillation. Left ventricular hypertrophy with QRS widening ST & T wave abnormality, consider lateral ischemia Abnormal ECG When compared with ECG of 07-JUN-2018 20:26, (Unconfirmed) Atrial fibrillation. has replaced Atrial flutter. ST no longer depressed in Inferior leads Confirmed by Keisha DANIELLE, Jeffery Pa ([id number]) on 06/12/2018 6:35:30 AM
[2018-06-11] MEDS: LASIX PO SCH ×2 (08:55→21:01)
--- NOTE | 2018-06-11 10:00 | Diag Imaging Result Doc PS360 ---
EXAM: CHEST-2 VIEWS HISTORY: hypoxia TECHNIQUE: Chest two views COMPARISON: 06/07/2018 FINDINGS: The heart remains markedly enlarged. No pulmonary edema on the current exam. There is right apical pleural thickening. There is a right-sided pacemaker and there are surgical clips in the left axilla. Trace pleural fluid. No consolidation. IMPRESSION: Persistent marked cardiomegaly. Electronically signed by Suresh Don 06/11/2018 9:57 AM
--- NOTE | 2018-06-11 13:29 | PROGRESS NOTE ---
DATE: 06/11/2018 SUBJECTIVE: This morning Ms. Cardenas was sitting up in a chair. She refers to be doing fairly okay. Denies any complaints. OBJECTIVE: Vital signs: Blood pressure is 98/64, pulse is 75 respiration is 18, temperature is 97.4 degrees. The patient was saturating 95% on room air. General exam: Ms. Cardenas is a 48- year-old female. She is in bed, no distress. HEENT: Mucosa is pink and moist. Anicteric. Acyanotic. Neck: Supple. There is a positive JVD. Chest: Air entry is bilaterally reduced. There are some crackles posteriorly. Cardiovascular: Irregularly irregular, but rate controlled. Abdomen: Soft, minimally tender in the right upper quadrant. Extremities: About 1+ pedal edema. HOG SCRAPER: Patient is awake, alert and oriented. LABORATORY DATA: Chemistry: Sodium is 139, potassium is 4.2, chloride 97, bicarbonate is 30, creatinine is 1.9 which has gone slightly up today. Patient's I's and O's: Urine output was 1500. She is currently negative balance of 2200. ASSESSMENT: 1. Acute on chronic systolic heart failure exacerbation. 2. History of severe nonischemic cardiomyopathy with ejection fraction of 20% with global hypokinesis. 3. Chronic atrial fibrillation. The patient is currently on amiodarone and Eliquis for stroke prophylaxis. 4. Hypokalemia, improved. 5. 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 cc: Severo Rey MD
--- NOTE | 2018-06-11 14:09 | CARDIOLOGY PROGRESS NOTE ---
DATE: 06/11/2018 SUBJECTIVE: Ms. Cardenas reports she is breathing a little bit better. She still has some mild right upper quadrant abdominal pain. PHYSICAL EXAMINATION: Vital Signs: Afebrile. Heart rate 65, blood pressure 123/61. Her I's and O's have continued to be significantly negative. General: No acute distress. Cardiovascular: Regular rate and rhythm. She has no murmurs. No S3. She has no lower extremity edema. Chest: Clear bilaterally. No increased work of breathing. Abdomen: Soft, nontender. PERTINENT DATA: Sodium 139, potassium 4, BUN 46, creatinine is 1.9 proBNP is down to 1833. ASSESSMENT: Ms. Cardenas is a 48-year-old female with nonischemic cardiomyopathy. PLAN: She appears euvolemic on examination. Her BUN and creatinine ratio has risen slightly. Her proBNP is markedly down. I have decreased her diuretics to an oral dose that she can initiate tomorrow. Presently, I would continue her on her current medications. From my standpoint, she can be discharged when safe from the standpoint of the primary team. cc: Marquise Ta MD
[2018-06-11] MEDS: DUONEB (A & A) INH PRN (19:04)
[2018-06-11] MEDS: REGLAN PO SCH (21:00)
[2018-06-11] MEDS: PRAVACHOL PO SCH (21:01)
[2018-06-12] MEDS: APRESOLINE PO SCH ×2 (06:09→13:24)
[2018-06-12] MEDS: LANOXIN PO SCH (06:09)
[2018-06-12] MEDS: CARAFATE LIQUID PO SCH ×2 (06:09→11:20)
[2018-06-12] MEDS: PROTONIX PO SCH (06:09)
[2018-06-12] MEDS: DUONEB (A & A) INH PRN (07:37)
[2018-06-12 07:38] LABS: ALBUMIN 3.4 g/dL (3.5-5.0); CALCIUM 8.8 mg/dL (8.8-10.2); CREATININE 1.9 mg/dL (0.5-0.9); PHOSPHORUS 3.5 mg/dL (2.7-4.5); POTASSIUM 4.5 mmol/L (3.5-5.1)
[2018-06-12] MEDS: ELIQUIS PO SCH (09:39)
[2018-06-12] MEDS: KLOR-CON PO SCH (09:39)
[2018-06-12] MEDS: ASPIRIN EC PO SCH (09:39)
[2018-06-12] MEDS: COLACE PO SCH (09:39)
[2018-06-12] MEDS: LACTULOSE PO SCH (09:39)
[2018-06-12] MEDS: CORDARONE PO SCH (09:40)
[2018-06-12] MEDS: COREG PO SCH (09:53)
[2018-06-12] MEDS: ALDACTONE PO SCH (09:53)
[2018-06-12] MEDS: ZAROXOLYN PO SCH (09:56)
[2018-06-12] MEDS: LASIX PO SCH (09:56)
[2018-06-12] MEDS: ENTRESTO 97 MG-103 MG TABLET PO SCH (09:59)
[2018-06-12] MEDS: ISORDIL PO SCH (10:00)
[2018-06-12 11:13] VITALS: BP 108/61
[2018-06-12] MEDS: NORCO-7.5 PO PRN (11:23)
--- NOTE | 2018-06-12 21:49 | DISCHARGE SUMMARY ---
ADMISSION DATE: 06/07/2018 DISCHARGE DATE: 06/12/2018 DISPOSITION: Home. FOLLOWUP: 1. Rashid Burns MD. 2. Albina Ortega MD. ADMISSION DIAGNOSES: 1. Acute on chronic congestive heart failure. 2. Chronic atrial fibrillation. 3. Chronic obstructive pulmonary disease. 4. Hypertension. 5. Dyslipidemia. DISCHARGE DIAGNOSES: 1. Acute on chronic systolic heart failure exacerbation. 2. History of severe nonischemic cardiomyopathy with ejection fraction of 20% with global hypokinesis. 3. Chronic atrial fibrillation currently rate controlled on amiodarone. 4. Eliquis anticoagulation for stroke prophylaxis. 5. Chronic kidney disease stage IIIB - IV, presumably cardiorenal in etiology. 6. Right upper quadrant pain secondary to congestive hepatopathy. DISCHARGE MEDICATIONS: 1. Aspirin 81 mg daily. 2. Carvedilol 6.25 b.i.d. 3. Hydralazine 100 mg 3 times per day. 4. Entresto 97/103, one tablet b.i.d. 5. Spironolactone 25 b.i.d. 6. Digoxin 125 mcg daily. 7. Lasix 40 mg b.i.d. 8. Carafate. 9. Amiodarone 200 p.o. daily. 10. Pantoprazole 40 mg daily. 11. Pravastatin 40 mg p.o. at bedtime. 12. Apixaban 5 mg b.i.d. 13. Metoclopramide 5 mg at bedtime. 14. Metolazone 2.5 p.o. every other day. 15. Bunola 7.5 p.o. q.6 p.r.n. PRESENTING COMPLAINT: Shortness of breath. HISTORY OF PRESENTING COMPLAINT: Ms. Cardenas is a 48-year-old, female, known to have congestive heart failure, ejection fraction of about 20%, history of chronic atrial fibrillation on amiodarone, dyslipidemia, hypertension, and COPD, came to the emergency department because of shortness of breath. The patient was also found to be fluid overloaded. She was subsequently admitted for further medical care. HOSPITAL COURSE: Ms. Cardenas was admitted to the medical floor under tele- monitoring. X-rays were done which revealed cardiomegaly and mild prominence of vascular interstitial markings. She was started on IV diuretics. She did respond appropriately. She diuresed over 3890 as a negative balance. Her congestive symptoms seemed to have improved. Cardiology was on board all the time. Yesterday, Dr. Ta, the drill press operator helper did note that the patient is now nearing euvolemic status and that it was okay for patient to be discharged from Cardiology standpoint. This morning, Ms. Cardenas refers to be doing fairly okay, except that she still has the right upper quadrant pain and she requested some pain medications. Current vitals: Blood pressure is 108/61, pulse is 54, respirations 20, temperature is 97.9. Physical exam still shows some minimum trace pedal edema and some tenderness in the right upper quadrant, but no remarkable JVD. Chest was a clear. Ms. Cardenas is clinically stable for discharge. She is going to follow up with her primary care doctor as well as her drill press operator helper. All the discharge instructions discussed with Ms. Cardenas and she voiced understanding. TIME SPENT: For discharge is 35 minutes. cc: MD Rashid Gallegos MD Nidhi Jindal, MD MTDD
== END 2018-06-12 14:18 | disposition home health service (06) | DRG 291 ==
LOC: ED 17:42 → SUATTDRO 23:32 → 3N 23:32
PROVIDERS: ATTEND Internal Medicine
CPT/HCPCS: 71020; 71046; 80048; 80053; 80069; 80162; 81001; 82550; 83735; 83880; 84443; 84484; 85025; 85610; 85730; 87088; 93005; 93010; 94640; 94760; 94761; 96374; 99285; A9270; J0360; J1940; J3475

== ENCOUNTER 2018-07-19 11:45 | Inpatient (IN) ==
[2018-07-19 13:38] LABS: BASO# 0.01 X1000 (0.0-0.2); BASO% 0.2 % (0.0-0.8); EOS# 0.02 X1000 (0.0-0.7); EOS% 0.4 % (0.0-10.0); HEMATOCRIT 37.9 % (37.0-47.0); HEMOGLOBIN 11.7 g/dL (12.0-16.0); LYMPH# 1.05 X1000 (1.2-3.4); LYMPH% 20.3 % (20.5-51.1); MCH 26.5 PG (27-31); MCHC 30.9 g/dL (33-37); MCV 85.9 FL (81-99); MONO# 0.47 X1000 (0.11-0.59); MONO% 9.1 % (1.7-9.3); NEUT# 3.63 X1000 (1.4-6.5); PLT 181 X1000 (130-400); RBC 4.41 XMIL (4.2-5.4); WBC 5.18 X1000 (4.8-10.8)
[2018-07-19 14:17] LABS: ALBUMIN 3.9 g/dL (3.5-5.0); CALCIUM 9.1 mg/dL (8.8-10.2); CREATININE 1.5 mg/dL (0.5-0.9); POTASSIUM 3.7 mmol/L (3.5-5.1); TOTAL BILIRUBIN 1.15 mg/dL (0.20-1.00); TOTAL PROTEIN 7.7 g/dL (6.3-8.3)
[2018-07-19] MEDS ORDERED: LASIX IV ONE (15:05)
--- NOTE | 2018-07-19 15:32 | Diag Imaging Result Doc PS360 ---
CHEST-PORTABLE - 07/19/2018 INDICATION: SHORT OF BREATH COMPARISON: 06/26/2018 FINDINGS: Stable right-sided pacemaker. Stable severe cardiomegaly. Stable pleural-based opacity at the right lung apex. There is probably some hazy interstitial pulmonary edema MR to prior exams. No large pleural effusion. IMPRESSION: No change from prior. Electronically signed by Michael Kim 07/19/2018 3:30 PM
--- NOTE | 2018-07-19 16:35 | EKG Report ---
Test Performed on : 07/19/2018 4:04:15 PM Test Reason : SHORTNESS OF BREATH Blood Pressure : / mmHG Vent. Rate : 073 BPM Atrial Rate : 073 BPM P-R Int : 148 ms QRS Dur : 108 ms QT Int : 480 ms P-R-T Axes : 018 -24 120 degrees QTc Int : 528 ms Normal sinus rhythm. Left atrial enlargement Left ventricular hypertrophy with repolarization abnormality Cannot rule out Septal infarct , age undetermined Prolonged QT Abnormal ECG When compared with ECG of 03-JUL-2018 17:50, Incomplete left bundle branch block is no longer present Minimal criteria for Septal infarct are now present Unconfirmed Result
[2018-07-19] MEDS ORDERED: TYLENOL PO PRN (17:30)
[2018-07-19] MEDS ORDERED: MORPHINE IV ONE (17:53)
[2018-07-19] MEDS: ZOFRAN IV PRN (18:05)
[2018-07-19] MEDS ORDERED: COLACE PO PRN (18:33)
[2018-07-19] MEDS ORDERED: LACTULOSE PO PRN (18:33)
[2018-07-19] MEDS ORDERED: MIRALAX PO PRN (18:33)
--- NOTE | 2018-07-19 19:07 | HISTORY AND PHYSICAL ---
ADDENDUM: Gail Cardenas is well known to us from her multiple previous admissions for heart failure. She has peripartum cardiomyopathy. She has controlled hypertension. A little bit of concern over possible noncompliance, but she has been reporting increasing shortness of breath and swelling in her legs, left greater than right. She came in, in heart failure. She has rales on exam and between 1 to 2+ pitting edema in her lower extremity. I did not really appreciate that the left was necessarily worse than the right. She will be admitted for [id number] systolic heart failure exacerbation. Laboratory data in the ER showed a creatinine of 1.5, total bilirubin up. She has had that issue before. ProBNP is 11,768, which is much higher than normal. Her last proBNP which was on the was only 1360, so she has definitely had an increase. Her creatinine, though, is at baseline. We will admit for CHF. She had most recently a cardioversion. We will continue to follow closely. cc: Everardo Galloway MD
--- NOTE | 2018-07-19 21:18 | HISTORY AND PHYSICAL ---
PRIMARY CARE PROVIDER: Albina Ortega MD CHIEF COMPLAINT: Shortness of breath and weight gain. HISTORY OF PRESENT ILLNESS: Ms. Gail Cardenas is a 48-year-old female who frequently comes here for acute exacerbations of congestive heart failure with the same exact complaints. She states that she was doing good on Sunday. Her weight at that time was 259. Today her weight is up by 20 pounds, up to 279. She states there have been no changes in her diet. She has not eaten anything that was extra-heavy on salt, but she has been having some abdominal pain and vomiting that she states happens every time she has a heart failure exacerbation. She has had worsening lower extremity edema with the left greater than the right. She does have some tenderness in that left leg. She has been having normal bowel movements. She claims that her phlegm is brown in color. White count is normal. She has night sweats and occasional lightheadedness, so we will admit to treat her acute systolic congestive heart failure exacerbation. PAST MEDICAL HISTORY: 1. Atrial fibrillation. 2. DVTs. 3. Coronary artery disease. 4. Congestive heart failure, systolic. 5. Hypertension. 6. Hyperlipidemia. 7. Chronic palpitations. 8. Chronic sleep apnea. 9. COPD. 10.Liver disease. 11.Breast cancer. 12.Chronic kidney disease. 13.Chronic depression. 14.Chronic kidney disease stage 3. PAST SURGICAL HISTORY: 1. Cholecystectomy. 2. Hysterectomy. 3. section. 4. Tonsillectomy. 5. Mastectomy. 6. Defibrillator placement. 7. Arthroscopy. SOCIAL HISTORY: She used to smoke. She does not smoke now. Denies alcohol or illicit drug use. FAMILY HISTORY: Positive for congestive heart failure ALLERGIES: Latex, dopamine, and propoxyphene. HOME MEDICATIONS: 1. Colace 100 mg p.o. twice daily p.r.n. 2. DuoNeb twice daily p.r.n. 3. Lactulose 30 mL p.o. twice daily p.r.n. 4. Metolazone 2.5 mg p.o. every other day. 5. MiraLAX 17 grams p.o. daily p.r.n. 6. Protonix 40 mg p.o. daily. 7. Reglan 5 mg p.o. nightly. 8. Pravachol 40 mg p.o. nightly. 9. Aldactone 25 mg p.o. twice daily. 10.Hydralazine 100 mg p.o. t.i.d. 11.Aspirin enteric coated 81 mg p.o. daily. 12.Carafate 1 gram p.o. daily (she should be off that). 13.Amiodarone 200 mg p.o. daily. 14.Coreg 6.25 mg p.o. twice daily 15.Eliquis 5 mg p.o. twice daily. 16.Entresto 1 tab p.o. twice daily. 17.Isordil 80 mg p.o. t.i.d. 18.Digoxin 125 mcg p.o. daily. 19.Lasix 80 mg p.o. twice daily. REVIEW OF SYSTEMS: A 14-point review of systems is completed, and all are negative except for those mentioned above in the HPI. PHYSICAL EXAMINATION: VITAL SIGNS: Temperature 97.9, heart rate 77, respiratory rate 15, blood pressure 179/17, O2 saturation 92% on room air. HEENT: Atraumatic, normocephalic. Pupils equal, round, and reactive to light. Extraocular movements intact. Mucous membranes are moist. NECK: Trachea midline. CARDIOVASCULAR: S1 and S2. Regular rate and rhythm. No rubs, gallops or murmurs. She has 3+ pitting lower extremity edema, left greater than right, and +2 dorsalis and radial pulses. Unable to assess for JVD due to body habitus. Negative for carotid bruits. PULMONARY: Clear to auscultate. Bilateral breath sounds. No accessory muscle use or work of breathing noted. GI: Tender in all 4 quadrants with palpation. Positive bowel sounds x4. EXTREMITIES: Moves all extremities equally. NEUROLOGIC: A O x3. Follows commands. Sensory is intact. SKIN: Warm, dry and intact. LABORATORY DATA: White blood cells 5000, hemoglobin 11, hematocrit 37, platelet count 181. Sodium 141, potassium 3.7, BUN 28, creatinine 1.5, glucose 105. Calcium 9.1. Bilirubin is 1.15, AST 32, ALT 28. CK 74, troponin less than 0.01. ProBNP is 11,768. Albumin 3.9. Amylase 34, lipase 21. IMAGING: Chest x-ray: Mild hazy interstitial edema. EKG: Normal sinus rhythm, rate 73. QTc is 528. ASSESSMENT/PLAN: 1. Acute on chronic systolic congestive heart failure. She received 80 of Lasix IV in the emergency room. Will continue this IV every 12 hours and consult Cardiology, Dr. Smith. Continue home cardiac medications. Put her on telemetry. 2. Bilateral lower extremity edema that is chronic, but she is having pain in the left leg. Will order a venous ultrasound to rule out deep venous thrombosis. 3. Chronic kidney disease stage 3. Currently stable. 4. Chronic liver disease, also stable. 5. History of atrial fibrillation. She is not in atrial fibrillation right now. 6. Hypertension. Continue home medications. 7. Hyperlipidemia. Continue statin. 8. Chronic obstructive pulmonary disease with chronic obstructive sleep apnea. No exacerbation. 9. Deep venous thrombosis prophylaxis: She is on Eliquis. Dictated by DALJIT Strauss for Everardo Galloway MD cc: DALJIT Strauss MD
[2018-07-19] MEDS: CARAFATE LIQUID PO SCH (22:12)
[2018-07-19] MEDS: COREG PO SCH (22:12)
[2018-07-19] MEDS: APRESOLINE PO SCH (22:12)
[2018-07-19] MEDS: ISORDIL PO SCH (22:12)
[2018-07-19] MEDS: ELIQUIS PO SCH (22:12)
[2018-07-19] MEDS: REGLAN PO SCH (22:12)
[2018-07-19] MEDS: NITROGLYCERIN TOP SCH (22:13)
[2018-07-19] MEDS: PRAVACHOL PO SCH (22:13)
[2018-07-19] MEDS: ALDACTONE PO SCH (22:13)
[2018-07-19] MEDS: ENTRESTO 97 MG-103 MG TABLET PO SCH (22:13)
[2018-07-19] MEDS ORDERED: NORCO-7.5 PO PRN (22:26)
[2018-07-19] MEDS: DUONEB (A & A) INH PRN (23:23)
[2018-07-20] MEDS: DILAUDID IV PRN ×3 (00:13→08:54)
[2018-07-20] MEDS: DUONEB (A & A) INH PRN ×3 (03:20→20:02)
[2018-07-20] MEDS: NITROGLYCERIN TOP SCH ×2 (03:59→10:57)
[2018-07-20] MEDS: ISORDIL PO SCH ×3 (06:21→22:56)
[2018-07-20] MEDS: CARAFATE LIQUID PO SCH ×4 (06:21→21:10)
[2018-07-20] MEDS: APRESOLINE PO SCH ×3 (06:21→22:56)
[2018-07-20] MEDS: LANOXIN PO SCH (06:21)
[2018-07-20] MEDS ORDERED: PROTONIX PO PRN (07:00)
[2018-07-20 07:29] LABS: BASO# 0.01 X1000 (0.0-0.2); BASO% 0.2 % (0.0-0.8); EOS# 0.05 X1000 (0.0-0.7); EOS% 0.9 % (0.0-10.0); HEMATOCRIT 36.3 % (37.0-47.0); HEMOGLOBIN 11.1 g/dL (12.0-16.0); LYMPH# 1.33 X1000 (1.2-3.4); MCH 26.6 PG (27-31); MCHC 30.6 g/dL (33-37); MCV 87.1 FL (81-99); MONO# 0.54 X1000 (0.11-0.59); MONO% 10.2 % (1.7-9.3); MPV 11.8 FL (7.4-10.4); NEUT# 3.38 X1000 (1.4-6.5); NEUT% 63.7 % (42.2-75.2); PLT 159 X1000 (130-400); RBC 4.17 XMIL (4.2-5.4); RDW 17.8 % (11.5-14.5); WBC 5.31 X1000 (4.8-10.8)
[2018-07-20 07:36] LABS: INR 1.31; PROTIME 17.3 Seconds (11.0-16.0)
[2018-07-20 07:37] LABS: PTT 35.6 Seconds (22.3-41.8)
[2018-07-20 07:47] LABS: ALB/GLOB RATIO 0.9; ALBUMIN 3.4 g/dL (3.5-5.0); CALCIUM 8.5 mg/dL (8.8-10.2); CREATININE 1.6 mg/dL (0.5-0.9); MAGNESIUM 1.7 mg/dL (1.5-2.7); POTASSIUM 3.6 mmol/L (3.5-5.1); TOTAL BILIRUBIN 1.42 mg/dL (0.20-1.00)
[2018-07-20] MEDS: ASPIRIN EC PO SCH (08:49)
[2018-07-20] MEDS: ALDACTONE PO SCH ×2 (08:49→21:10)
[2018-07-20] MEDS: LASIX IV SCH ×2 (08:49→21:09)
[2018-07-20] MEDS: ELIQUIS PO SCH ×2 (08:49→21:10)
[2018-07-20] MEDS: ENTRESTO 97 MG-103 MG TABLET PO SCH ×2 (08:50→21:10)
[2018-07-20] MEDS: CORDARONE PO SCH (08:50)
[2018-07-20] MEDS: COREG PO SCH (08:50)
--- NOTE | 2018-07-20 12:18 | Diag Imaging Result Doc PS360 ---
EXAM: CHEST-2 VIEWS - 07/20/2018 HISTORY: chf TECHNIQUE: Chest two views COMPARISON: 07/19/2018 portable chest FINDINGS: There is cardiomegaly similar to prior. There is transvenous cardiac pacemaker again seen. There are stable pleural thickening at the lateral right apex. There is mild pulmonary scarring on the right. The lungs appear grossly clear of acute changes. IMPRESSION: Stable cardiomegaly. Pleural thickening and pulmonary scarring on the right. No other discrete evidence of acute disease. Electronically signed by Shakir Gleason 07/20/2018 12:16 PM
--- NOTE | 2018-07-20 15:05 | PROGRESS NOTE ---
DATE: 07/20/2018 SUBJECTIVE: The patient seems a bit sleepy, but no major issues. OBJECTIVE: Vital Signs: Blood pressure is 115/64, heart rate of 50, respiratory rate of 20, temperature 97.7 degrees. Cardiovascular: Regular rate and rhythm. Pulmonary: Bilateral breath sounds. Clear to auscultation. GI: Soft, nontender, nondistended. Bowel sounds are positive. LABORATORY DATA: Her white count is 5, H and H 11 and 36, platelets 159. BUN and creatinine are 30 and 1.6. ProBNP is down from 11,768 to 9648. RADIOLOGICAL DATA: Chest x-ray shows cardiomegaly, but no other major issues. Urine output has been not recorded. PROBLEM LIST: 1. Acute systolic heart failure exacerbation. We will continue diuretics. She is on 80 every 12 hours; she is usually on 80 twice daily. Her blood pressure is stable. Her heart rate is a little bit on the low side, but she is on Coreg and amiodarone. Her blood pressure is much improved. We may decrease her Coreg just a little bit. Plan is to continue diuresis and follow. So far, she seems to be doing better. Cardiology is going to evaluate. She is on several medications; digoxin, hydralazine, Imdur, Entresto, Aldactone. She is really on maximal medical therapy. 2. Atrial fibrillation that seems to be rate controlled. Again, she has been on the bradycardic side and she seems to be doing okay. We are going to adjust her medicines a bit. DISPOSITION: Pending her clinical status, she may need another day or two here. cc: Everardo Galloway MD
[2018-07-20] MEDS ORDERED: COREG PO SCH (21:00)
[2018-07-20] MEDS: PRAVACHOL PO SCH (21:10)
[2018-07-20] MEDS: REGLAN PO SCH (21:10)
[2018-07-20] MEDS: MORPHINE IV PRN (21:19)
[2018-07-21] MEDS: ISORDIL PO SCH ×3 (06:25→21:54)
[2018-07-21] MEDS: LANOXIN PO SCH (06:25)
[2018-07-21] MEDS: APRESOLINE PO SCH ×3 (06:25→21:54)
[2018-07-21] MEDS: CARAFATE LIQUID PO SCH ×4 (06:25→21:54)
[2018-07-21] MEDS: ALDACTONE PO SCH ×2 (08:31→21:54)
[2018-07-21] MEDS: ENTRESTO 97 MG-103 MG TABLET PO SCH ×2 (08:32→21:54)
[2018-07-21] MEDS: ELIQUIS PO SCH ×2 (08:32→21:54)
[2018-07-21] MEDS: ASPIRIN EC PO SCH (08:32)
[2018-07-21] MEDS: CORDARONE PO SCH (08:32)
[2018-07-21] MEDS: ZAROXOLYN PO SCH (08:32)
[2018-07-21] MEDS: MORPHINE IV PRN ×2 (08:32→12:41)
[2018-07-21] MEDS: LASIX IV SCH ×2 (08:44→21:53)
[2018-07-21] MEDS: DILAUDID IV PRN ×2 (17:37→21:54)
--- NOTE | 2018-07-21 17:48 | PROGRESS NOTE ---
DATE: 07/21/2018 SUBJECTIVE: Patient seems more awake today. Breathing is better. OBJECTIVE: Vital Signs: Temperature 97.6 degrees, heart rate 65, blood pressure 143/76, respiratory rate 22, and 90% on room. Cardiovascular: Regular rate and rhythm. Pulmonary: Bilateral breath sounds. Clear to auscultation. GI: Soft, nontender, nondistended. Bowel sounds are positive. She still has 2+ pitting edema. LABORATORY DATA: Her white count is 5. Hemoglobin and hematocrit 11 and 36. Platelets 159,000. INR 1.3. Creatinine 1.6. ProBNP 9648. PROBLEM LIST: 1. Acute systolic heart failure exacerbation. We will continue diuretics. She seems to be diuresing well. Continue regular medications, Coreg, amiodarone. She has had some relative bradycardia, so we will keep an eye on that. She is on digoxin, hydralazine, and Imdur. She is not therapeutic on her digoxin, Entresto. 2. Atrial fibrillation. Again seems to be rate controlled. I did decrease her Coreg/stopped her Coreg, because her heart rate had been in the 50s. I think we will probably try to see if we can put her back on a lower dose, maybe 3.125 and see how she does. She is on amiodarone. She is complaining of left lower extremity edema, and we are waiting on a venous Doppler which has been ordered but not completed, but she has been on chronic anticoagulation. cc: Everardo Galloway MD
[2018-07-21] MEDS: PRAVACHOL PO SCH (21:54)
[2018-07-21] MEDS: COREG PO SCH (21:54)
[2018-07-21] MEDS: REGLAN PO SCH (21:54)
[2018-07-22] MEDS: DILAUDID IV PRN ×6 (03:15→21:25)
[2018-07-22] MEDS: ISORDIL PO SCH ×3 (06:11→21:25)
[2018-07-22] MEDS: CARAFATE LIQUID PO SCH ×4 (06:11→20:27)
[2018-07-22] MEDS: APRESOLINE PO SCH ×3 (06:11→21:25)
[2018-07-22] MEDS: LANOXIN PO SCH (06:12)
[2018-07-22 07:18] LABS: BASO# 0.02 X1000 (0.0-0.2); BASO% 0.3 % (0.0-0.8); EOS# 0.06 X1000 (0.0-0.7); HEMATOCRIT 39.7 % (37.0-47.0); HEMOGLOBIN 12.3 g/dL (12.0-16.0); IMM GRAN# 0.02 X1000 (0.0-0.04); IMM GRAN% 0.3 % (0.0-0.5); LYMPH# 1.25 X1000 (1.2-3.4); MCH 26.7 PG (27-31); MCV 86.3 FL (81-99); MONO% 11.7 % (1.7-9.3); MPV 11.7 FL (7.4-10.4); NEUT# 3.91 X1000 (1.4-6.5); NEUT% 65.7 % (42.2-75.2); PLT 221 X1000 (130-400); WBC 5.96 X1000 (4.8-10.8)
[2018-07-22 07:29] LABS: CALCIUM 9.1 mg/dL (8.8-10.2); CREATININE 1.6 mg/dL (0.5-0.9); POTASSIUM 3.4 mmol/L (3.5-5.1)
--- NOTE | 2018-07-22 08:05 | EKG Report ---
Test Performed on : 07/20/2018 08:31:33 AM Test Reason : chf Blood Pressure : / mmHG Vent. Rate : 054 BPM Atrial Rate : 054 BPM P-R Int : 182 ms QRS Dur : 112 ms QT Int : 642 ms P-R-T Axes : 039 -23 144 degrees QTc Int : 608 ms Sinus bradycardia. with premature atrial complexes. in a pattern of bigeminy. Left atrial enlargement Incomplete left bundle branch block Left ventricular hypertrophy with repolarization abnormality Prolonged QT Abnormal ECG When compared with ECG of 19-JUL-2018 16:04, (Unconfirmed) premature atrial complexes. are now present QT has lengthened Unconfirmed Result
[2018-07-22] MEDS ORDERED: KLOR-CON PO ONE (10:10)
[2018-07-22] MEDS: ALDACTONE PO SCH ×2 (10:35→20:29)
[2018-07-22] MEDS: ENTRESTO 97 MG-103 MG TABLET PO SCH ×2 (10:36→20:28)
[2018-07-22] MEDS: CORDARONE PO SCH (10:36)
[2018-07-22] MEDS: ELIQUIS PO SCH ×2 (10:36→20:29)
[2018-07-22] MEDS: COREG PO SCH ×2 (10:38→20:29)
[2018-07-22] MEDS: ASPIRIN EC PO SCH (10:38)
[2018-07-22] MEDS: LASIX IV SCH ×2 (10:39→20:21)
--- NOTE | 2018-07-22 11:51 | PROGRESS NOTE ---
DATE: 07/22/2018 SUBJECTIVE: The patient is completely alert and oriented x3. She has no complaint of shortness of today, but she has been complaining of lower abdominal discomfort and left lower extremity pain and swelling. Actually, her both lower extremities are swollen, but the left lower extremity is a little bit more swollen compared with the right one. We ordered a venous Doppler ultrasound of the lower extremities, which is pending. OBJECTIVE: Vital Signs: Temperature 98 degrees, pulse 65, respiratory rate 14, blood pressure 123/56, oxygen saturation 94% on room air. HEENT: Head normocephalic, no trauma. PERRLA. Neck: Supple. No JVD. No masses. Mild JVD. Central trachea. Chest: Decreased breath sounds at the bases with some crepitus. Abdomen: Soft. Tenderness to palpation at the level of the lower abdominal area, mostly her abdominal wall, protuberant. Positive bowel sounds. Extremities: There is 2+ to 3+ lower extremity edema, left lower extremity is more swollen compared with the right lower extremity. Neurological: The patient is alert and oriented x3. No focal deficits. LABORATORY: WBC 5.9, hemoglobin 12.3, hematocrit 39.7, platelet 221,000. Sodium 144, potassium 3.4, chloride 98, bicarbonate 32, BUN 35, creatinine 1.6, glucose 98, calcium 9.1, magnesium 1.5. ASSESSMENT AND PLAN: 1. Acute systolic heart failure exacerbation, continue with diuresis. She seems to be diuresing good. We will continue with her regular medications. We decreased the dose of the Coreg because of low heart rate, but she seems to be doing fine now. 2. Atrial fibrillation, rate control. Continue with the rest of the medications, anticoagulation. 3. Lower extremity swelling, especially left leg. We ordered an ultrasound to rule out deep vein thrombosis, even though she has been on anticoagulation. 4. We had an echocardiogram done on 07/03/2018 that showed a severe impairment of the systolic function with low cardiac output. cc: Sidney Alexander MD
[2018-07-22] MEDS: DUONEB (A & A) INH PRN ×2 (15:28→20:00)
--- NOTE | 2018-07-22 17:34 | CARDIOLOGY PROGRESS NOTE ---
DATE: 07/22/2018 SUBJECTIVE: Patient continues without shortness of breath or chest discomfort. OBJECTIVE: Blood pressure 149/76, heart rate 51-74, oxygen saturation 95% to 96% on room air. Jugular venous distention cannot be appreciated. Chest is clear to auscultation bilaterally. Cardiac exam reveals a regular rate and rhythm without appreciable murmur or gallop. Extremities demonstrate mild pretibial edema. LABORATORY DATA: Includes a white blood cell count of 5.96, hematocrit 39.7, hemoglobin 12.3, platelet count 221,000. Sodium 144, potassium 3.4, chloride 98, carbon dioxide 32, BUN 35, creatinine 1.6, glucose 98. IMPRESSION: 1. Acute on chronic systolic heart failure, predominantly right-sided congestive heart failure. Patient improving with diuresis. 2. Severe nonischemic cardiomyopathy. 3. Moderate chronic pulmonary hypertension. 4. Chronic obstructive pulmonary disease (COPD). 5. Obstructive sleep apnea. Patient unable to obtain CPAP following abnormal sleep study 2 years ago. 6. Hypertension. 7. Chronic renal disease. RECOMMENDATIONS: 1. Continue diuresis for another 24 hours. Patient may potentially be a switch to oral diuretic therapy tomorrow. 2. Ultimately patient needs to be re-evaluated for sleep apnea and have CPAP if needed. cc: Gage Smith MD
[2018-07-22] MEDS: ZOFRAN IV PRN (20:20)
[2018-07-22] MEDS: REGLAN PO SCH (20:29)
[2018-07-22] MEDS: PRAVACHOL PO SCH (20:29)
[2018-07-23] MEDS: CARAFATE LIQUID PO SCH ×2 (06:37→11:16)
[2018-07-23] MEDS: ISORDIL PO SCH (06:37)
[2018-07-23] MEDS: APRESOLINE PO SCH (06:37)
[2018-07-23] MEDS: LANOXIN PO SCH (06:37)
[2018-07-23 07:23] LABS: BASO# 0.01 X1000 (0.0-0.2); BASO% 0.2 % (0.0-0.8); EOS# 0.05 X1000 (0.0-0.7); EOS% 0.8 % (0.0-10.0); HEMATOCRIT 43.6 % (37.0-47.0); HEMOGLOBIN 13.4 g/dL (12.0-16.0); LYMPH# 1.07 X1000 (1.2-3.4); LYMPH% 17.3 % (20.5-51.1); MCH 26.1 PG (27-31); MCHC 30.7 g/dL (33-37); MONO% 14.6 % (1.7-9.3); MPV 11.1 FL (7.4-10.4); NEUT# 4.14 X1000 (1.4-6.5); NEUT% 67.1 % (42.2-75.2); PLT 210 X1000 (130-400); RBC 5.13 XMIL (4.2-5.4); RDW 18.2 % (11.5-14.5); WBC 6.17 X1000 (4.8-10.8)
[2018-07-23 07:55] LABS: CALCIUM 9.6 mg/dL (8.8-10.2); CREATININE 1.7 mg/dL (0.5-0.9); MAGNESIUM 1.6 mg/dL (1.5-2.7); POTASSIUM 4.7 mmol/L (3.5-5.1)
[2018-07-23] MEDS: DILAUDID IV PRN ×2 (08:09→11:20)
[2018-07-23] MEDS: ZOFRAN IV PRN (09:44)
[2018-07-23] MEDS ORDERED: LASIX PO SCH ×2 (10:30→21:00)
[2018-07-23] MEDS: CORDARONE PO SCH (10:38)
[2018-07-23] MEDS: ZAROXOLYN PO SCH (10:38)
[2018-07-23] MEDS: ENTRESTO 97 MG-103 MG TABLET PO SCH (10:38)
[2018-07-23] MEDS: ASPIRIN EC PO SCH (10:39)
[2018-07-23] MEDS: ALDACTONE PO SCH (10:39)
[2018-07-23] MEDS: ELIQUIS PO SCH (10:39)
[2018-07-23] MEDS: COREG PO SCH (10:39)
[2018-07-23 11:47] VITALS: BP 111/57
[2018-07-23] MEDS ORDERED: ULTRAM PO PRN (13:39)
--- NOTE | 2018-07-23 14:57 | Extremity Venous Study ---
PROCEDURE NAME: Venous U/S Bilateral Legs - 07/22/2018 REQUESTING PHYSICIAN: Everardo Galloway MD EDUCATION COURSES SALES REPRESENTATIVE: [place]. INDICATIONS: Pain and edema, left greater than right. EQUIPMENT: [employer] Vivid E9 ultrasound system with a 9 L-D transducer. FINDINGS: Images of bilateral lower extremity venous systems were obtained in both sagittal and transverse planes. Doppler was used to evaluate veins for spontaneity, phasicity, respiratory excursion, and digital augmentation. RESULTS: Normal venous compression. Normal venous flow. No obvious superficial or deep venous thrombosis noted. INTERPRETATION: Essentially normal bilateral lower extremity venous study. cc: MD Sidney La MD
--- NOTE | 2018-07-23 22:06 | DISCHARGE SUMMARY ---
ADMISSION DATE: 07/19/2018 DISCHARGE DATE: 07/23/2018 DIAGNOSES: 1. Acute on chronic systolic heart failure. 2. Atrial fibrillation with rate controlled. 3. Lower extremity edema with left leg greater than right. 4. Chronic obstructive pulmonary disease with obstructive sleep apnea. 5. Hypertension. 6. Chronic liver disease. 7. Chronic kidney disease stage 3. CONSULT: Dr. Gage Smith, Cardiology. DIAGNOSTICS: 1. 07/19/2018 chest x-ray revealed stable right-sided pacemaker, stable severe cardiomegaly, stable pleural opacity at the right lung apex, there is probably some hazy interstitial pulmonary edema. No large pleural effusions. 2. 07/20/2018 chest x-ray revealed stable cardiomegaly, pleural thickening and pulmonary scarring on the right. No other discrete evidence of acute disease. HOSPITAL COURSE: Ms. Cardenas presented to the emergency room complaining of shortness of breath and weight gain matter fact 20 pound weight gain. She was found to be in acute systolic congestive heart failure exacerbation. She was subsequently diuresed with a total negative balance of 300 mL. We continued her home medications although she did have some decrease in her Coreg dose as her heart rates were dropping into the low 50s since heart rate stayed in the 60s to 70s, she is in chronic atrial fibrillation. Her rate was controlled throughout the hospitalization. We did continue her Eliquis. Dr. Smith in Cardiology was consulted. Thankfully she has improved and today she is ready for discharge . DISCHARGE PHYSICAL EXAM: Vital signs: Blood pressure is 111/57 with a heart rate of 62, respirations are 17, temperature is 98 degrees oral with room air saturations of 99 to 100. Cardiovascular: Irregularly irregular rate and rhythm. S1 and S2 are appreciated. She does have bilateral lower extremity edema 2 to 3+ with left greater than right. Peripheral pulses are palpable x4. Pulmonary: She does have some breath sounds decreased at the bases. Chest rises and fall symmetric respiration. Chest wall is nontender to palpation. Gastrointestinal: Abdomen is soft, nontender, nondistended with bowel sounds in all 4 quadrants. Neurologic: She is alert and oriented x3. DISCHARGE MEDICATIONS: 1. Carafate liquid 1 g q.i.d. 2. Spironolactone 25 mg p.o. b.i.d. 3. Entresto 97/103 one tablet p.o. b.i.d. 4. Pravachol 40 mg p.o. at bedtime. 5. MiraLAX 17 g daily p.r.n. constipation. 6. Protonix 40 mg p.o. daily. 7. Metolazone 2.5 p.o. every other day. 8. Reglan 5 mg p.o. at bedtime. 9. Lactulose 30 mL p.o. b.i.d. p.r.n. constipation. 10. Isosorbide dinitrate 80 mg p.o. t.i.d. at 6, 2 and 10. 11. Hydralazine 100 mg p.o. t.i.d. at 6, 2 and 10. 12. Lasix 80 mg p.o. b.i.d. 13. Colace 100 mg p.o. b.i.d. p.r.n. constipation. 14. Lanoxin 125 mcg p.o. at 7 a.m. 15. Coreg 3.125 p.o. q.12 hours. 16. Enteric-coated aspirin 81 mg p.o. daily. 17. Eliquis 5 mg p.o. b.i.d. 18. Amiodarone 200 mg p.o. daily. 19. Duo nebs p.r.n. wheezing. FOLLOWUP: 1. She is to follow up with her bellstand attendant in 2 weeks, she needs to call to make an appointment. 2. Her primary care physician she needs to call be seen in the next 2 to 3 weeks. She has been instructed to call to be seen sooner or return to the ER for any syncope, dizziness, chest pain, palpitations, increasing shortness of breath, PND, orthopnea, any temperature greater than 101, any black or bloody vomitus or stools, any hematuria, dysuria, frequency, urgency, any questions or concerns that she may have. She is being discharged home in stable condition family members. TIME SPENT: Greater than 30 minutes. Dictated by DALJIT López for Sidney Alexander MD This chart was documented by, DALJIT López and accurately reflects the services performed, treatment plan and medical decisions as attested by the providers signature Sidney Alexander MD. cc: DALJIT López MD
== END 2018-07-23 14:29 | disposition home health service (06) | DRG 291 ==
LOC: SUPCPDRO → ED 11:45 → 3N 17:43 → SUATTDRO 17:43
PROVIDERS: ATTEND Internal Medicine
CPT/HCPCS: 71010; 71020; 71045; 71046; 80048; 80053; 80162; 82150; 82550; 83690; 83735; 83880; 84484; 85025; 85610; 85730; 93005; 93010; 93970; 94640; 94761; 94799; 96374; 96375; 96376; 99285; A9270; J1170; J1940; J2270; J2405

== ENCOUNTER 2018-08-01 13:54 | Inpatient (IN) ==
[2018-08-01 14:38] LABS: BASO# 0.02 X1000 (0.0-0.2); BASO% 0.4 % (0.0-0.8); EOS# 0.01 X1000 (0.0-0.7); EOS% 0.2 % (0.0-10.0); HEMATOCRIT 37.7 % (37.0-47.0); HEMOGLOBIN 11.8 g/dL (12.0-16.0); IMM GRAN# 0.02 X1000 (0.0-0.04); IMM GRAN% 0.4 % (0.0-0.5); LYMPH# 1.36 X1000 (1.2-3.4); LYMPH% 24.1 % (20.5-51.1); MCH 26.2 PG (27-31); MCHC 31.3 g/dL (33-37); MCV 83.8 FL (81-99); MONO# 0.44 X1000 (0.11-0.59); MONO% 7.8 % (1.7-9.3); MPV 12.5 FL (7.4-10.4); NEUT# 3.79 X1000 (1.4-6.5); NEUT% 67.1 % (42.2-75.2); PLT 150 X1000 (130-400); RDW 18.1 % (11.5-14.5); WBC 5.64 X1000 (4.8-10.8)
[2018-08-01 14:45] LABS: INR 1.12; PROTIME 15.3 Seconds (11.0-16.0)
[2018-08-01 14:46] LABS: PTT 27.8 Seconds (22.3-41.8)
--- NOTE | 2018-08-01 14:50 | Diag Imaging Result Doc PS360 ---
EXAM: CHEST-2 VIEWS 08/01/2018 HISTORY: chf TECHNIQUE: PA and lateral chest COMMENT: There is cardiomegaly with left ventricular enlargement. There is apical pleural thickening on the right and to lesser extent laterally. Overall the appearance the chest has not changed significantly since 07/20/2018. IMPRESSION: Stable chest. Electronically signed by Fuad Tovar 08/01/2018 2:48 PM
[2018-08-01 15:01] LABS: ALB/GLOB RATIO 1.1; ALBUMIN 4.1 g/dL (3.5-5.0); CALCIUM 9.4 mg/dL (8.8-10.2); CREATININE 1.4 mg/dL (0.5-0.9); POTASSIUM 3.8 mmol/L (3.5-5.1); TOTAL BILIRUBIN 1.73 mg/dL (0.20-1.00); TOTAL PROTEIN 7.7 g/dL (6.3-8.3)
--- NOTE | 2018-08-01 15:33 | EKG Report ---
Test Performed on : 08/01/2018 2:31:18 PM Test Reason : high b/p Blood Pressure : / mmHG Vent. Rate : 075 BPM Atrial Rate : 075 BPM P-R Int : 150 ms QRS Dur : 106 ms QT Int : 454 ms P-R-T Axes : 049 -35 128 degrees QTc Int : 506 ms Sinus rhythm. with premature supraventricular complexes. Left atrial enlargement Left axis deviation Left ventricular hypertrophy with repolarization abnormality Prolonged QT Abnormal ECG When compared with ECG of 20-JUL-2018 08:31, Incomplete left bundle branch block is no longer present T wave inversion no longer evident in Inferior leads QT has shortened Unconfirmed Result
[2018-08-01] MEDS ORDERED: LASIX IV ONE (16:00)
--- NOTE | 2018-08-01 16:36 | PROVIDER DOCUMENTATION ---
This chart was entered by Marilee Guzman Scribe, acting as scribe for Raad Lancaster MD. HPI-General Adult - General Chief Complaint: Abdominal Pain Stated Complaint: SOB,AFIB, CHF, SWOLLEN ABD, HBP Time Seen by Provider: 08/01/18 15:34 Source: patient Allergies/Adverse Reactions: Patient Allergies Allergy/AdvReac Type Severity Reaction Status Date / Time latex Allergy Intermediate RASH Verified 06/26/18 15:29 dopamine AdvReac Hair Loss Verified 06/26/18 15:29 propoxyphene AdvReac ITCHING Verified 06/26/18 15:29 [From [facility]] Home Medications: Home Medication List Medication Instructions Recorded Confirmed Last Taken Type Aspirin EC 81 mg PO DAILY #30 tab 10/03/17 07/19/18 06/07/18 09:00 Rx Hydralazine [Apresoline] 100 mg PO TID@0600,1400,2200 #90 11/24/17 07/19/18 06/07/18 14:00 Rx tab Isosorbide Dinitrate [Isordil] 80 mg PO TID@0600,1400,2200 #90 tab 11/24/17 07/19/18 06/07/18 14:00 Rx Sacubitril/Valsartan [Entresto 97 1 tab PO BID #60 tab 11/24/17 07/19/18 06/07/18 16:00 Rx mg-103 mg Tablet] Spironolactone [Aldactone] 25 mg PO BID #60 tab 11/24/17 07/19/18 06/07/18 16:00 Rx Amiodarone [Cordarone] 200 mg PO DAILY #120 tab 04/17/18 07/19/18 06/07/18 09:00 Rx Digoxin [Lanoxin] 125 microgm PO DAILY@0700 #120 tab 04/17/18 07/19/18 06/07/18 07:00 Rx PRAVAstatin [Pravachol] 40 mg PO QHS #120 tab 04/17/18 07/19/18 06/06/18 21:00 Rx Sucralfate [Carafate Liquid] 1 gm PO 0700,1100,1600,2100 #1 udc 04/17/18 07/19/18 06/07/18 16:00 Rx Apixaban [Eliquis] 5 mg PO BID 30 Days #60 tab 05/21/18 07/19/18 06/07/18 21:00 Rx Albuterol 2.5MG/Ipratrop 0.5MG 3 ml INH BID PRN 06/08/18 07/19/18 Unknown History [Duoneb (A & A)] Metoclopramide HCl [Reglan] 5 mg PO HS 06/08/18 07/19/18 06/06/18 21:00 History Metolazone 2.5 mg PO EVERY OTHER DAY 06/08/18 07/19/18 06/07/18 09:00 History Docusate Sodium [Colace] 100 mg PO BID PRN 06/26/18 07/19/18 Unknown History Lactulose 30 ml PO BID PRN 06/26/18 07/19/18 Unknown History Pantoprazole [Protonix] 40 mg PO DAILY@0700 PRN 06/26/18 07/19/18 Unknown History Polyethylene Glycol 3350 [Miralax] 17 gm PO DAILY PRN 06/26/18 07/19/18 Unknown History Furosemide [Lasix] 80 mg PO BID 30 Days #60 tab 07/04/18 07/19/18 Unknown Rx Carvedilol [Coreg] 3.125 mg PO Q12HR #120 tab 07/23/18 Unknown Rx Tramadol [Ultram] 50 mg PO Q6H PRN PRN #20 tab 07/23/18 Unknown Rx - History of Present Illness -Gen Adult Nature of Presenting Problems: Patient is a 48 year old female who presents to the ED with weight gain of 5 lbs, shortness of breath, nausea and abdominal pain that started 1 week ago. History of CHF and A fib. Denies vomiting, chest pain and diarrhea. Reports takes 80 mg of Lasix TID. Location of Pain/Injury: reports: abdomen Pain Radiation: reports: no radiation Quality of Pain: reports: tightness Severity: reports: mild Onset/Duration: reports: 1 week ago Timing: reports: still present, getting worse Context/Activities at Onset: reports: light activity Modifying Factors: improves with: nothing Associated Symptoms: reports: nausea, shortness of breath, other (weight gain of 5 lbs) Similar Symptoms Previously?: Yes Recently seen or treated by another doctor?: Yes Review of Systems - Adult - REVIEW OF SYSTEMS - ADULT Constitutional: reports: see HPI, weight gain. denies: chills, fever, fatique Eyes: reports: no symptoms reported Ears, Nose, Mouth & Throat: reports: no symptoms reported Cardiovascular: reports: no symptoms reported Respiratory: reports: see HPI, shortness of breath. denies: cough, wheezing Gastrointestinal: reports: see HPI, abdominal pain, nausea. denies: diarrhea, vomiting Genitourinary: reports: no symptoms reported Musculoskeletal: reports: no symptoms reported Integumentary: reports: no symptoms reported Neurological: reports: no symptoms reported Psychiatric: reports: no symptoms reported Endocrine: reports: no symptoms reported Hematologic/Lymphatic: reports: no symptoms reported Allergic/Immunologic: reports: no symptoms reported All Other Systems: Reviewed and Negative Past History - Adult - PAST MEDICAL HISTORY-ADULT Review of Records: reports: Nursing Assessment Review, Medications Reviewed, Social history reviewed & non-contributory. Major Childhood Illnesses: reports: denies history Cardiovascular: reports: A-Fib, blood clots, CAD, CHF, HTN, hyperlipidemia, palpitations, pacemaker (defib) Respiratory: reports: asthma, COPD, sleep apnea Gastrointestinal: reports: liver disease Obstetrical/Gynecological: reports: other (breast cancer) Genitourinary: reports: kidney disease Musculoskeletal: reports: denies history Neurological: reports: denies history Psychiatric: reports: anxiety, depression Endocrine/Immune: reports: denies history Other Conditions: reports: denies history - PRIOR SURGERIES/PROCEDURES Surgical/Procedure History: reports: cholecystectomy, hysterectomy, , tonsillectomy, orthopedic (extremity), other (mastectomy,defib,arthroscopy) - IMMUNIZATION STATUS Childhood Immunizations: See Nurse Assessment Flu Vaccine: See Nurse Assessment - FAMILY HISTORY Family History: reviewed, not pertinent - SOCIAL HISTORY Smoking: cigarettes (former) Substance Use: denies Physical Exam-General - PHYSICAL EXAM-ADULT Initial Vital Signs Reviewed: Yes - CONSTITUTIONAL General Appearance: alert, no apparent distress. negative: lethargic, slow to respond - EYES Eyes: PERRL/EOMI - HEAD, EARS, NOSE, MOUTH & THROAT HENMT: normocephalic/atraumatic, moist mucous membranes. negative: angioedema, hearing deficit - NECK Neck: full range of motion - RESPIRATORY Respiratory: chest non-tender, lungs clear, normal breath sounds, respiratory distress (MODERATE SENSATION DYSPNEA AT REST AND W/ EXCERTION). negative: crackles, rhonchi, wheezing, prolonged expiration, retractions - CARDIOVASCULAR Cardiovascular: normal peripheral pulses, regular rate, rhythm, no murmur, gallop/S3, extra beats. negative: tachycardia, systolic murmur, friction rub - GASTROINTESTINAL (ABDOMEN) Abdominal Exam: normal bowel sounds, tenderness (generalized worse in RUQ), hepatomegaly - MUSCULOSKELETAL Back Exam: normal inspection, no CVA tenderness Extremity: non-tender, normal gait, pedal edema, other (2 + pitting edema to bilateral lower extremities.). negative: calf tenderness - SKIN Integumentary: normal color, normal turgor, warm/dry. 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 negative: aphasia, facial droop - PSYCHIATRIC Psych/Mental Status: normal mood/affect, normal thought content, normal thought process, oriented x 3. negative: paranoid, tearful Progress - PLAN OF CARE/RESULTS Progress/Plan/Lab Results: Vital Signs - 8 hr 08/01/18 14:01 Temperature 98.0 F Pulse Rate 87 Respiratory Rate 20 Blood Pressure 174/138 O2 Sat by Pulse Oximetry 95 Laboratory Results - last 24 hr 08/01/18 08/01/18 08/01/18 14:30 14:30 14:30 WBC 5.64 RBC 4.50 Hgb 11.8 L Hct 37.7 MCV 83.8 MCH 26.2 L MCHC 31.3 L RDW Std Deviation 18.1 H Plt Count 150 MPV 12.5 H Immature Gran % (Auto) 0.4 Neut % (Auto) 67.1 Lymph % (Auto) 24.1 [place] % (Auto) 7.8 Eos % (Auto) 0.2 Baso % (Auto) 0.4 Immature Gran # (Auto) 0.02 Neut # (Auto) 3.79 Lymph # (Auto) 1.36 [place] # (Auto) 0.44 Eos # (Auto) 0.01 Baso # (Auto) 0.02 PT INR PTT (Actin FS) Sodium 145 Potassium 3.8 Chloride 111 H Carbon Dioxide 22 L Anion Gap 12 BUN 25 H Creatinine 1.4 H Estimated GFR/1.73 m2 49 BUN/Creatinine Ratio 18 Glucose 145 H Calculated Osmolality 296 Calcium 9.4 Total Bilirubin 1.73 H AST 29 ALT 27 Alkaline Phosphatase 140 H Creatine Kinase 67 Troponin T Jac-S-[id number] Pept 78423 H Total Protein 7.7 Albumin 4.1 Globulin 3.6 Albumin/Globulin Ratio 1.1 Amylase 29 Lipase 18 08/01/18 08/01/18 14:30 14:30 WBC RBC Hgb Hct MCV MCH MCHC RDW Std Deviation Plt Count MPV Immature Gran % (Auto) Neut % (Auto) Lymph % (Auto) [place] % (Auto) Eos % (Auto) Baso % (Auto) Immature Gran # (Auto) Neut # (Auto) Lymph # (Auto) [place] # (Auto) Eos # (Auto) Baso # (Auto) PT 15.3 INR 1.12 PTT (Actin FS) 27.8 Sodium Potassium Chloride Carbon Dioxide Anion Gap BUN Creatinine Estimated GFR/1.73 m2 BUN/Creatinine Ratio Glucose Calculated Osmolality Calcium Total Bilirubin AST ALT Alkaline Phosphatase Creatine Kinase Troponin T < 0.010 [id number]-Mrmollydhwg Pept Total Protein Albumin Globulin Albumin/Globulin Ratio Amylase Lipase Orders Category Date Time Status CHEST-2 VIEWS [RAD] Stat Exams 08/01/18 14:07 Completed AMYLASE [CHEM] Stat Lab 08/01/18 14:30 Completed CBC WITH ELECTRONIC DIFF [HEME] Stat Lab 08/01/18 14:30 Completed CK PROFILE [SP CHEM] Stat Lab 08/01/18 14:30 Completed COMPREHENSIVE METABOLIC PANEL [CHEM] Stat Lab 08/01/18 14:30 Completed LIPASE [CHEM] Stat Lab 08/01/18 14:30 Completed PRO B-NATRIURETIC PEPTIDE Stat Lab 08/01/18 14:30 Completed PROTIME WITH INR [COAG] Stat Lab 08/01/18 14:30 Completed PTT [COAG] Stat Lab 08/01/18 14:30 Completed TROPONIN T Stat Lab 08/01/18 14:30 Completed CP/SOB/Palp >45 yrs of Age Stat Oth 08/01/18 14:06 Ordered EKG [EKG] Stat Ther 08/01/18 14:07 Draft Result Diagrams: 08/01/18 14:30 08/01/18 14:30 - EKG 1 Time of EKG reading by physician:: 14:31 EKG Read and Signed by:: Raad Lancaster EKG Interpretation (*Must complete 3 of following elements*): Abnormal Rate: 75 Rhythm: sinus rhythm with premature supraventricular complexes [place]: left QRS: LVH (with repolarization abnormality.) Comments: left atrial enlargement; prolonged QT - XRAY 1 XRAY Study: Chest Impression: See EMR Report ( EXAM: CHEST-2 VIEWS 08/01/2018 HISTORY: chf TECHNIQUE: PA and lateral chest COMMENT: There is cardiomegaly with left ventricular enlargement. There is apical pleural thickening on the right and to lesser extent laterally. Overall the appearance the chest has not changed significantly since 07/20/2018. IMPRESSION: Stable chest. Electronically signed by Fuad Tovar 08/01/2018 2:48 PM 08/01/18 1448 Interpreting Physician: Fuad Tovar MD Dictated Date/Time: 08/01/18 1446 cc: Raad Lancaster MD; Albina Ortega MD) - CT/MRI 2 CT Study: Abdomen ( Patient: DEMI CORNEJO Date: 07/30/18#: [id number] : 1970[facility] CLIAt[facility] [id number] Age/Sex: 48/FRoom/Bed: Loc: CT Ordering Physician: Albina Ortega MD Family Physician: Albina Ortega MD Reason for Procedure: Generalized intra-abdominal and p elvic swelling, mass and lump Signed EXAM: CT ABDOMEN/PELVIS W/O CONTRAST HISTORY: Generalized intra-abdominal and pelvic swelling, mass and lump TECHNIQUE: CT abdomen and pelvis without contrast COMPARISON: 06/28/2018 FINDINGS: There is marked cardiomegaly with pulmonary edema. No pleural effusions. There is trace fluid about the liver. The liver is enlarged. The gallbladder has been removed. No splenomegaly. Normal pancreas and adrenal glands. No renal stones. No hydronephrosis. No aortic aneurysm. Moderate atherosclerosis. Decreased body wall edema compared to the prior study. No bowel obstruction. There are many scattered colonic diverticula. Normal appendix. No abscess. The urinary bladder is mildly distended and appears normal. The uterus has been removed. No pelvic mass. IMPRESSION: Overall decrease in the body wall edema, otherwise stable exam. This exam was performed using automated exposure control, adjustment of mA or kV according to patient size, and/or use of iterative reconstruction technique. Electronically signed by Suresh Don 07/30/2018 10:04 AM 01/[address] ABD FROM YESTERDAY: Interpreting Physician: Suresh Don MD Dictated Date/Time: 07/30/18 100) Impression: Abnormal, See EMR Report Departure - Departure Date of Disposition Decision: 08/01/18 Time of Disposition Decision: 16:35 DIAGNOSIS: Fluid overload, Chronic passive hepatic congestion, Heart failure, Acute exac erbation of CHF (congestive heart failure) Disposition: ADMITTED INPATIENT 09 Certified Medical Emergency: Emergent Condition: Fair Referrals and Follow-Ups: Albina Ortega MD [Primary Care Provider] - - Critical Care Note This patient required my direct & personal management of CC.: No Attestation - Physician/ PREETI Attestation The physician spent face to face time with patient:: Yes Advanced Practice Provider documentation review:: Supervising physician onsite and consulted in the evaluation and care of this patient. The physician did have a face to face encounter with the patient. This chart was documented by the indicated scribe, (Marilee Guzman, Agusto) and accurately reflects the services I performed and decisions made by me, Cruz Lancaster MD, as attested by the provider's signature.
[2018-08-01] MEDS ORDERED: ZOFRAN IV PRN (18:03)
[2018-08-01] MEDS ORDERED: TYLENOL PO PRN (18:03)
--- NOTE | 2018-08-01 18:57 | HISTORY AND PHYSICAL ---
PRIMARY CARE PHYSICIAN: Dr. Ortega. CHIEF COMPLAINT: A 5 pound weight gain over the past 7 days, increased shortness of breath, abdominal pain and nausea x 1 week that has progressively worsened. HISTORY OF PRESENTING ILLNESS: This is a 48-year-old female who presents to the [facility] with complaints that she has had a 5 pounds weight gain over the past 7 days, increased shortness of breath, nausea, abdominal pain that began about a week ago. Also, this patient is well known to the hospitalist service. Workup showed a proBNP of 30,142, BUN of 25, creatinine 1.4, which is around her baseline. A chest x-ray that showed a stable chest. Her EKG showed sinus rhythm with premature supraventricular complexes at 75, so she is being admitted to [facility] for further evaluation and treatment. PAST MEDICAL HISTORY: Atrial fibrillation, DVTs, coronary artery disease, systolic congestive heart failure, hypertension, hyperlipidemia, chronic palpitations, chronic sleep apnea, COPD, liver disease, breast cancer, chronic kidney disease, chronic depression. PAST SURGICAL HISTORY: Cholecystectomy, hysterectomy, , tonsillectomy, mastectomy, defibrillator placement, arthroscopy. FAMILY HISTORY: Positive for congestive heart failure. SOCIAL HISTORY: She lives with her children, is a former smoker. Denies any alcohol or illicit drug use. ALLERGIES: Latex, dopamine and propoxyphene. HOME MEDICATIONS: A current list will need to be obtained, reviewed and reconciled and restarted as appropriate. I will place an order for nursing to update and confirm home medications. LABORATORY DATA: Showed a white blood cell count of 5.64, hemoglobin 11.8, hematocrit 37.7, platelets 150,000. PT and INR of 15.3 and 1.12. Sodium 145, potassium 3.8, chloride 111, CO2 22, BUN of 25, creatinine 1.4, glucose 145. ProBNP of 30,142, creatine kinase 67, troponin less than 0.010. Chest x-ray showed a stable chest. EKG showed sinus rhythm with premature supraventricular complexes at 75. She was noted to have done an outpatient abdomen and pelvic CT on 07/30/2018 due to her generalized intra-abdominal and pelvic swelling. The Impression showed an overall decrease in the body wall edema, but otherwise a stable exam. REVIEW OF SYSTEMS: She denied any fever, chills, blurred vision, dizziness, chest pain, coughing. She is short of breath, unable to lie flat, has to sit straight up in order to sleep. Weight gain of 5 pounds over 7 days. Complains of generalized abdominal pain, but worse in the epigastric and right upper quadrant area. Denied any nausea, vomiting, constipation, diarrhea, burning or hurting with urination. PHYSICAL EXAMINATION: On arrival, she had a temp of 98, pulse 87, respirations 20, blood pressure 174/138, saturating 95% on room air. She weighed 265 pounds, 5 feet 7 inches tall, sitting up in the bed and answering questions appropriately. HEENT: Normocephalic, atraumatic. Normal ENT inspection. Oropharynx and nares are clear. EYES: Pupils are equal, round, reactive to light and accommodation. Extraocular movements are intact. NECK: Normal inspection. Normal range of motion. LUNGS: Moderate dyspnea at rest, worse with exertion. LUNGS: Clear to auscultation bilaterally with equal lung expansion and chest wall movement. HEART: Regular rate and rhythm. No murmurs, rubs or gallops. ABDOMEN: Soft, but distended. Tenderness to the epigastric and right upper quadrant area. Bowel sounds are present x4 quadrants. MUSCULOSKELETAL: She has 5/5 strength x 4 extremities. SKIN: She is noted to have 2+ pitting edema to bilateral lower extremities. NEUROLOGIC: The cranial nerves 2-12 appear grossly intact. ASSESSMENT: 1. An acute on chronic systolic congestive heart failure. 2. Bilateral lower extremity edema, chronic. 3. Chronic kidney disease stage 3, stable. 4. History of atrial fibrillation in normal sinus rhythm currently. 5. Hypertension. 6. Hyperlipidemia. 7. Chronic obstructive pulmonary disease with chronic obstructive sleep apnea. PLAN: She will be admitted to the CIC unit, placed on telemetry. O2 per protocol. We will consult Cardiology, check an echocardiogram, daily weights. She is receiving Lasix 60 mg IV x 1. We will place her on 40 q.12, Zofran 4 mg IV q.4 hours p.r.n., SCDs for DVT prophylaxis. Nursing again to update and confirm home medications. Further orders after seen by attending and technical assistance consultant. Dictated by DALJIT Zapata for Severo Rey MD cc: DALJIT Zapata MD Dr. Shannon
--- NOTE | 2018-08-01 19:20 | HISTORY AND PHYSICAL ---
ADDENDUM: I have seen, examined and reviewed the labs and imaging studies for Ms. Cardenas. Ms. Cardenas is a 48-year-old female who has had multiple hospitalizations for this year alone. This is about her fourth admission, mainly because of abdominal pain and fluid overload. Came this afternoon because of the same complaints. She says she has put on about 10 pounds in the last 1 week. I have reviewed her labs and imaging studies. PHYSICAL EXAMINATION: CURRENT VITALS: Blood pressure is 174/138, pulse is 87, respirations 20. GENERAL: Ms. Cardenas is a 48-year-old female. She was in bed, no distress. HEENT: Mucosa was pink and moist. ABDOMEN: Very remarkably, she did have distended abdomen, which is minimally tender but no rebound or guarding. EXTREMITIES: She also had 2+ pedal edema. CARDIOVASCULAR: In terms of her cardiac exam, it was slightly tachycardic, and it was irregularly irregular. RESPIRATORY: On chest exam, there are crackles in posterior lung patel. LABORATORY DATA: Has also been reviewed. ASSESSMENT: 1. Fluid overload likely due to congestive heart failure. 2. Severe nonischemic cardiomyopathy with ejection fraction of 20% associated with global hypokinesis. 3. Chronic atrial fibrillation. 4. Chronic kidney disease stage 3a. 5. Abdominal pain. The patient has been evaluated extensively in the past, and nothing has really been seen. She did have a CT scan just on the , which did not show anything acute. The liver is enlarged, and we think this is probably because of the right heart failure causing some of the capsule distention and is causing some of her pain. We will control the fluid and hopefully with that she also gets improvement on the abdominal pain. Please refer to the details of H and P in the chart, which I have reviewed, and I agreed with the content. cc: Severo Rey MD
[2018-08-01] MEDS: ENTRESTO 97 MG-103 MG TABLET PO SCH (20:55)
[2018-08-01] MEDS: CARAFATE LIQUID PO SCH (20:55)
[2018-08-01] MEDS: COREG PO SCH (20:55)
[2018-08-01] MEDS: REGLAN PO SCH (20:55)
[2018-08-01] MEDS: PRAVACHOL PO SCH (20:55)
[2018-08-01] MEDS: ALDACTONE PO SCH (20:55)
[2018-08-01] MEDS ORDERED: ELIQUIS PO SCH (21:00)
[2018-08-01] MEDS: APRESOLINE PO SCH (21:00)
[2018-08-01] MEDS: ISORDIL PO SCH (21:00)
[2018-08-01] MEDS: NORCO-7.5 PO PRN (22:35)
[2018-08-02 05:47] LABS: BASO# 0.03 X1000 (0.0-0.2); BASO% 0.4 % (0.0-0.8); EOS# 0.03 X1000 (0.0-0.7); EOS% 0.4 % (0.0-10.0); HEMATOCRIT 36.3 % (37.0-47.0); HEMOGLOBIN 11.5 g/dL (12.0-16.0); IMM GRAN# 0.03 X1000 (0.0-0.04); IMM GRAN% 0.4 % (0.0-0.5); LYMPH# 1.81 X1000 (1.2-3.4); LYMPH% 24.1 % (20.5-51.1); MCH 26.8 PG (27-31); MCHC 31.7 g/dL (33-37); MCV 84.6 FL (81-99); MONO# 0.62 X1000 (0.11-0.59); MONO% 8.3 % (1.7-9.3); MPV 12.5 FL (7.4-10.4); NEUT# 4.98 X1000 (1.4-6.5); NEUT% 66.4 % (42.2-75.2); PLT 149 X1000 (130-400); RBC 4.29 XMIL (4.2-5.4); RDW 18.2 % (11.5-14.5)
[2018-08-02 06:12] LABS: CALCIUM 8.9 mg/dL (8.8-10.2); CREATININE 1.5 mg/dL (0.5-0.9); POTASSIUM 3.4 mmol/L (3.5-5.1)
[2018-08-02] MEDS: LASIX IV SCH ×2 (06:33→16:42)
[2018-08-02] MEDS: APRESOLINE PO SCH ×3 (06:34→21:44)
[2018-08-02] MEDS: LANOXIN PO SCH (06:34)
[2018-08-02] MEDS: ISORDIL PO SCH ×3 (06:34→21:44)
[2018-08-02] MEDS: CARAFATE LIQUID PO SCH ×4 (06:34→21:44)
[2018-08-02] MEDS ORDERED: PROTONIX PO PRN (07:00)
[2018-08-02] MEDS: ALDACTONE PO SCH ×2 (08:50→21:44)
[2018-08-02] MEDS: ENTRESTO 97 MG-103 MG TABLET PO SCH ×2 (08:50→21:44)
[2018-08-02] MEDS: CORDARONE PO SCH (08:50)
[2018-08-02] MEDS: COREG PO SCH ×2 (08:50→21:44)
[2018-08-02] MEDS: ASPIRIN EC PO SCH (08:50)
[2018-08-02] MEDS: NORCO-7.5 PO PRN (08:52)
[2018-08-02] MEDS: ELIQUIS PO SCH ×2 (08:52→21:44)
[2018-08-02] MEDS: DILAUDID IV PRN ×3 (11:16→21:54)
--- NOTE | 2018-08-02 13:47 | ECHO REPORT ---
ORDER DATE: 08/02/2018 INDICATION: Congestive heart failure. FINDINGS: 1. The right atrium is severely enlarged. There is a linear echodensity in the right heart chambers consistent with device lead. 2. Mild tricuspid regurgitation. RV systolic pressure of 58 suggesting pulmonary hypertension. 3. The right ventricle is somewhat difficult to visualize. There appears to be mild hypokinesis of the right ventricle. Probable normal size but again the right ventricle was difficult to visualize. 4. Mild pulmonic insufficiency. 5. Severe left atrial enlargement with a volume index of 86. 6. No mitral valve prolapse. Mild to moderate mitral regurgitation. There is apical tenting of the mitral leaflets. 7. Severe LV dilatation with an end-diastolic dimension of 7.7 cm. Mild left ventricular hypertrophy with a posterior and interventricular septal wall thickness of 1.4 cm each. Severe reduction in LV systolic function with an estimated EF of 15% to 20%. Optison echo contrast was used during the study to delineate the endocardial borders. I did not see any clear evidence of LV thrombus. Severe global hypokinesis. 8. Aortic valve opens well. It is trileaflet. No evidence of stenosis or insufficiency. 9. Aorta appears normal in visualized segments. 10. No pericardial effusion was identified on this study. cc: MD Soni Giles CRNP Raphael K. Quansah, MD
[2018-08-02 15:04] LABS: ALBUMIN 4.1 g/dL (3.5-5.0); CALCIUM 8.7 mg/dL (8.8-10.2); CREATININE 1.5 mg/dL (0.5-0.9); PHOSPHORUS 3.6 mg/dL (2.7-4.5); POTASSIUM 3.7 mmol/L (3.5-5.1)
[2018-08-02] MEDS ORDERED: MAGNESIUM SULFATE 1 GM/D5W 1 GM/100 ML IVPB IV ONE (18:10)
[2018-08-02] MEDS ORDERED: KLOR-CON PO ONE (18:10)
[2018-08-02] MEDS: REGLAN PO SCH (21:44)
[2018-08-02] MEDS: PRAVACHOL PO SCH (21:44)
[2018-08-02 22:11] LABS: PHOSPHORUS 3.6 mg/dL (2.7-4.5); POTASSIUM 3.5 mmol/L (3.5-5.1)
--- NOTE | 2018-08-02 22:16 | PROGRESS NOTE ---
DATE: 08/02/2018 SUBJECTIVE: The patient complains of abdominal distention and lower back pain as well as abdominal pain. OBJECTIVE: Vital Signs: Temperature 97.4 degrees, blood pressure 129/83, heart rate 58, respirations 15, O2 saturations 97% on 2 L nasal cannula. General: This is an elderly female sitting up in bed in no acute distress. Heart: S1, S2 normal, bradycardic. Lungs: Diminished breath sounds at the bases. No crackles. No rales. Abdomen: Positive bowel sounds. Soft. Distended. Extremities: Edema 1+. Neurologic: The patient is alert and oriented x4. LABORATORY DATA: Sodium 141, potassium 3.7, chloride 101, CO2 is 27, BUN 16, creatinine 1.5, glucose 121. Troponin negative x2. Magnesium 1.8, phosphorus 3.6. ASSESSMENT AND PLAN: 1. Acute on chronic systolic congestive heart failure exacerbation. Continue with diuretic therapy. Cardiology has been consulted for further recommendations. 2. Nonischemic cardiomyopathy. Aware. Continue with the current cardiac medications. 3. Moderate pulmonary hypertension. Aware. 4. Chronic atrial fibrillation. Continue on Eliquis. 5. Chronic kidney disease. Stable. cc: MD Severo Clemens MD MTDJames
--- NOTE | 2018-08-02 22:43 | CONSULTATION ---
DATE OF CONSULTATION: 08/02/2018 IMPRESSION: 1. Acute on chronic systolic heart failure. 2. Severe nonischemic dilated cardiomyopathy. 3. Status post implantable defibrillator. 4. Paroxysmal atrial fibrillation. 5. History of nonsustained ventricular tachycardia. 6. Hypertension. 7. Obesity. RECOMMENDATIONS: 1. Diurese with intravenous Lasix as you are doing. 2. Continue current regimen of hydralazine/isosorbide, Entresto and Coreg. 3. Increase metolazone to 5 mg p.o. 3 times a week. HISTORY: This is 1 of numerous admissions for this 48-year-old -[place] female with past history of severe dilated nonischemic cardiomyopathy, chronic systolic heart failure with tendency for greater degree of right-sided heart failure, obesity, hypertension, paroxysmal atrial fibrillation, who returned after recent hospitalization with progressive abdominal swelling and weight gain. She was just hospitalized here earlier this month and diuresed. Since discharge her Lasix effect seemed to diminish after about 3 days and she started having increasing abdominal swelling and 5-pound weight gain. This occurred over the course of about a week. She has had increased exertional shortness of breath. She was referred to the emergency room by her primary care provider and was admitted for further management. She reports compliance with medications and sodium restriction. PAST MEDICAL HISTORY: 1. Severe dilated nonischemic cardiomyopathy with chronic congestive heart failure. 2. Paroxysmal atrial fibrillation. 3. Nonsustained ventricular tachycardia. 4. Status post implantable defibrillator. 5. Obesity. 6. Status post mastectomy for breast cancer. PAST SURGICAL HISTORY: Also includes cholecystectomy, hysterectomy and arthroscopic knee surgery. ALLERGIES: She is allergic or intolerant to latex, dopamine and propoxyphene. MEDICATIONS PRIOR TO ADMISSION: As listed. SOCIAL HISTORY: She is and disabled. She denies smoking. FAMILY HISTORY: Negative for premature coronary disease. REVIEW OF SYSTEMS: Pulmonary: Noteworthy for exertional shortness of breath. Gastrointestinal: Noteworthy for some anorexia otherwise negative. Constitutional: Noteworthy for at least 5-pound weight gain. Remainder of review of systems negative/noncontributory with 14 total systems reviewed. PHYSICAL EXAMINATION: General: This is an obese adult -[place] female in no distress on supplemental oxygen per nasal cannula. Vital signs: Blood pressure 129/83, heart rate 58 and regular, oxygen saturation 97% on nasal cannula oxygen at 2 L/minute. HEENT: Extraocular movements intact. Mucous membranes moist. Neck: Supple without discernible jugular distention. Chest: Clear to auscultation. Abdomen: Somewhat distended. Extremities: Demonstrate trace edema. Neurologic: Reveals her to be alert and fully oriented. Speech is fluent. She moves all 4 extremities equally well. Skin: Warm, dry. Psychiatric: Reveals mood to be appropriate. LABORATORY DATA: Includes a white blood cell count 7.5, hematocrit 36.3, hemoglobin 11.5, platelet count 149,000. Sodium 141, potassium 3.5, chloride 101, carbon dioxide 27, BUN 26, creatinine 1.5, glucose 121. Initial CPK 67, followup CPK 64. Initial troponin less than 0.01. Followup troponin less than 0.01. DIAGNOSTIC DATA: Twelve lead EKG demonstrates sinus rhythm with occasional premature ventricular complex, left atrial enlargement, left axis deviation and left hypertrophy with repolarization abnormality. cc: MD Severo Padilla MD
[2018-08-03 05:30] LABS: HEMATOCRIT 37.7 % (37.0-47.0); HEMOGLOBIN 11.7 g/dL (12.0-16.0); MCH 27.3 PG (27-31); MCV 87.9 FL (81-99); MPV 12.7 FL (7.4-10.4); RBC 4.29 XMIL (4.2-5.4); RDW 18.4 % (11.5-14.5); WBC 5.03 X1000 (4.8-10.8)
[2018-08-03 06:00] LABS: ALBUMIN 3.5 g/dL (3.5-5.0); CALCIUM 7.9 mg/dL (8.8-10.2); CREATININE 1.5 mg/dL (0.5-0.9); PHOSPHORUS 3.9 mg/dL (2.7-4.5)
[2018-08-03] MEDS: APRESOLINE PO SCH ×3 (06:01→21:34)
[2018-08-03] MEDS: LASIX IV SCH ×2 (06:01→16:20)
[2018-08-03] MEDS: LANOXIN PO SCH (06:01)
[2018-08-03] MEDS: ISORDIL PO SCH ×3 (06:01→21:34)
[2018-08-03] MEDS: CARAFATE LIQUID PO SCH ×4 (06:01→21:34)
[2018-08-03] MEDS: DILAUDID IV PRN ×3 (07:04→21:39)
[2018-08-03] MEDS: COREG PO SCH ×2 (08:11→21:34)
[2018-08-03] MEDS: ALDACTONE PO SCH ×2 (08:11→21:34)
[2018-08-03] MEDS: ZAROXOLYN PO SCH (08:11)
[2018-08-03] MEDS: ENTRESTO 97 MG-103 MG TABLET PO SCH ×2 (08:11→21:34)
[2018-08-03] MEDS: CORDARONE PO SCH (08:11)
[2018-08-03] MEDS: ASPIRIN EC PO SCH (08:11)
[2018-08-03] MEDS: ELIQUIS PO SCH ×2 (08:11→21:34)
--- NOTE | 2018-08-03 12:59 | CARDIOLOGY PROGRESS NOTE ---
DATE: 08/03/2018 CHIEF COMPLAINT: Swelling, shortness of breath, irregular heartbeat. SUBJECTIVE: Ms. Cardenas is feeling somewhat better today. She still has some abdominal swelling. She is in sinus rhythm. She is not having any chest pain. Breathing is more comfortable. OBJECTIVE: Blood pressure is 121/80, temperature 98.4, pulse 59, respirations 18. She is awake, alert, no distress. HEENT: Slight prominence of jugular veins. Chest: Sounds clear to auscultation and percussion. Heart sounds are regular and rhythmic. She does have a systolic murmur. Abdomen is obese, distended, somewhat tympanitic. Extremities showed trace edema. Neurologic: Follows commands. Moves all 4 extremities. DIAGNOSTIC DATA: Today, sodium is 138, potassium 4.0, BUN is 29, creatinine 1.5. IMPRESSION: 1. The patient is with recurrent decompensated systolic heart failure. This is due to nonischemic dilated cardiomyopathy. 2. Paroxysmal atrial fibrillation. 3. Abdominal distention. 4. History of nonsustained ventricular tachycardia. 5. Hypertension. 6. Obesity. RECOMMENDATIONS: At this time, we will continue present medical therapy. She is on carvedilol, amiodarone, apixaban, aspirin, digoxin, furosemide and Entresto. We will see how things go. cc: MD Lety Vieyra MD
--- NOTE | 2018-08-03 13:34 | Diag Imaging Result Doc PS360 ---
EXAM: US ABDOMEN-COMPLETE 08/03/2018 HISTORY: ascites TECHNIQUE: Abdominal ultrasound COMMENT: The visualized portions of the aorta and inferior vena cava are within normal limits. The liver is slightly hyperechoic and inhomogeneous in echotexture. The deeper portions of the liver are not well demonstrated due to the patient's body habitus. There is antegrade flow in the portal vein. There is no evidence of biliary dilatation the common bile duct measuring less than 4 mm. The right kidney is without evidence of hydronephrosis or mass. The left kidney is without evidence of hydronephrosis or mass. The spleen is at the upper limits of normal in size measuring 13 cm in greatest dimension. The pancreas is not well demonstrated. The gallbladder is surgically absent. The subphrenic fluid collection which was demonstrated on 07/30/2018 on the right is not identifiable on this study. Otherwise there is no evidence of ascites. IMPRESSION: Hepatic steatosis versus cirrhosis. Otherwise no evidence of acute disease. Electronically signed by Fuad Tovar 08/03/2018 1:32 PM
--- NOTE | 2018-08-03 21:14 | PROGRESS NOTE ---
DATE: 08/03/2018 SUBJECTIVE: The patient complains of abdominal swelling. OBJECTIVE: Vital signs: Temperature 98.1 degrees, blood pressure 135/61, heart rate 56, respirations 15, O2 saturations 99% on 2 L nasal cannula. Urine output 3.2 L. General: This is a chronically ill-appearing elderly female sitting at the edge of the bed in no acute distress. Heart: S1, S2, normal. Lungs: Clear to auscultation bilaterally. Abdomen: Positive bowel sounds. Soft, mildly distended. Extremities: Edema 1+ bilaterally. Neurologic: The patient is alert and oriented x4. LABORATORY DATA: White blood cell count 5, hemoglobin 11, hematocrit 37, platelets 170,000. Sodium 138, potassium 4, chloride 102, CO2 is 25, BUN 29, creatinine 1.5, glucose 90. ASSESSMENT AND PLAN: 1. Acute on chronic systolic congestive heart failure exacerbation. The patient is responding well to diuretic therapy. Continue on the current regimen as ordered. Cardiology is following. 2. Nonischemic cardiomyopathy. Aware. 3. Moderate pulmonary hypertension. Aware. 4. Chronic atrial fibrillation. The patient is rate-controlled. Continue on Eliquis. 5. Hepatic steatosis. Aware. 6. Chronic kidney disease. Stable. cc: Lety Lemos MD MTDD
[2018-08-03] MEDS: REGLAN PO SCH (21:34)
[2018-08-03] MEDS: PRAVACHOL PO SCH (21:34)
[2018-08-04 05:33] LABS: HEMATOCRIT 42.7 % (37.0-47.0); HEMOGLOBIN 13.3 g/dL (12.0-16.0); MCH 26.7 PG (27-31); MCHC 31.1 g/dL (33-37); MCV 85.6 FL (81-99); MPV 11.6 FL (7.4-10.4); RBC 4.99 XMIL (4.2-5.4); RDW 18.9 % (11.5-14.5); WBC 5.3 X1000 (4.8-10.8)
[2018-08-04] MEDS: LASIX IV SCH ×2 (06:01→17:59)
[2018-08-04] MEDS: DILAUDID IV PRN ×4 (06:03→21:38)
[2018-08-04] MEDS: ISORDIL PO SCH ×3 (06:03→21:35)
[2018-08-04] MEDS: CARAFATE LIQUID PO SCH ×4 (06:03→21:35)
[2018-08-04] MEDS: APRESOLINE PO SCH ×3 (06:04→21:35)
[2018-08-04] MEDS: LANOXIN PO SCH (06:04)
[2018-08-04 06:12] LABS: ALB/GLOB RATIO 1.1; ALBUMIN 3.7 g/dL (3.5-5.0); DIRECT BILIRUBIN 0.4 mg/dL (0.00-0.20); TOTAL BILIRUBIN 0.77 mg/dL (0.20-1.00)
[2018-08-04 06:18] LABS: ALBUMIN 3.5 g/dL (3.5-5.0); CALCIUM 9.4 mg/dL (8.8-10.2); CREATININE 1.3 mg/dL (0.5-0.9); MAGNESIUM 1.8 mg/dL (1.5-2.7); PHOSPHORUS 4.1 mg/dL (2.7-4.5); POTASSIUM 3.7 mmol/L (3.5-5.1)
[2018-08-04] MEDS ORDERED: MAGNESIUM SULFATE 2 GM/S.W.I. 2 GM/50 ML IVPB IV ONE (06:36)
[2018-08-04] MEDS: DUONEB (A & A) INH PRN ×2 (07:35→20:00)
--- NOTE | 2018-08-04 10:19 | CARDIOLOGY PROGRESS NOTE ---
DATE: 08/04/2018 CHIEF COMPLAINT: Shortness of breath, abdominal swelling. SUBJECTIVE: Ms. Cardenas in general seems to be doing better. She feels occasional palpitations. Her liquor bridge operator indicates runs of nonsustained ventricular tachycardia. Presently, she is taking amiodarone 200 mg daily. Denies having chest pain. Abdominal distention is less. OBJECTIVE: Temperature is 97.7, pulse 54, respirations 17, blood pressure 124/82. She is awake and alert, in no distress. HEENT is unremarkable. Chest: Clear to auscultation and percussion. Heart sounds are regular and rhythmic. I do not hear gallop or murmur. Her abdomen is somewhat distended, not tympanitic. Bowel sounds diminished. Extremities showed no edema. Neurologic: Follow commands. Moves all 4 extremities. DIAGNOSTIC DATA: Her hemoglobin is 13.3, hematocrit 42.7. Sodium 139, potassium 3.7, BUN is 29, creatinine 1.3. IMPRESSION: 1. The patient presented with an exacerbation of congestive heart failure. 2. Nonsustained ventricular tachycardia. 3. History of paroxysmal atrial fibrillation. 4. Nonischemic dilated cardiomyopathy. 5. Obesity. RECOMMENDATIONS: At this time, we will continue present management. We will observe in the hospital. We may have to discuss at some point whether or not her nonsustained ventricular tachycardia may be a contributing factor to her cardiomyopathy. At any rate, we will continue to monitor her. cc: MD Lety Vieyra MD
[2018-08-04] MEDS: ASPIRIN EC PO SCH (11:00)
[2018-08-04] MEDS: ALDACTONE PO SCH ×2 (11:00→21:35)
[2018-08-04] MEDS: ELIQUIS PO SCH ×2 (11:00→21:35)
[2018-08-04] MEDS: CORDARONE PO SCH (11:00)
[2018-08-04] MEDS: COREG PO SCH ×2 (11:00→21:35)
[2018-08-04] MEDS: ENTRESTO 97 MG-103 MG TABLET PO SCH ×2 (11:00→21:35)
--- NOTE | 2018-08-04 19:18 | PROGRESS NOTE ---
DATE: 08/04/2018 SUBJECTIVE: The patient is sitting up in bed. She states that her abdominal distention is a little bit better today and her back pain is also improved. OBJECTIVE: Vital Signs: Temperature 98 degrees, blood pressure 101/65, heart rate 62, respirations 18, O2 saturation 95% on room air. General: This is a elderly female sitting up in bed in no acute distress. Heart: S1, S2 normal. Regular rate and rhythm. Lungs: Equal air entry bilaterally. No crackles, no rales. Abdomen: Positive bowel sounds. Soft. Distended. Extremities: Trace pedal edema. No cyanosis. No calf tenderness. Neurologic: The patient is alert and oriented x3. LABS: Reviewed. ASSESSMENT AND PLAN: 1. Acute on chronic systolic congestive heart failure exacerbation. Continue with diuretic therapy as ordered. Further recommendations to follow from the sat act instructor. 2. Nonsustained ventricular tachycardia. Aware. Management as per the sat act instructor. 3. Nonischemic dilated cardiomyopathy. Continue with the current cardiac medications. 4. Moderate pulmonary hypertension. Aware. 5. Chronic atrial fibrillation. Continue on Eliquis and amiodarone. 6. Hepatic steatosis. Aware. 7. Chronic kidney disease. Stable. 8. Constipation. Continue with scheduled laxative therapy. cc: Lety Lemos MD MTDD
[2018-08-04] MEDS: MIRALAX PO SCH (21:35)
[2018-08-04] MEDS: REGLAN PO SCH (21:35)
[2018-08-04] MEDS: PRAVACHOL PO SCH (21:35)
[2018-08-05 05:26] LABS: HEMATOCRIT 44.2 % (37.0-47.0); MCH 26.8 PG (27-31); MCHC 31.7 g/dL (33-37); MCV 84.5 FL (81-99); MPV 11.5 FL (7.4-10.4); RBC 5.23 XMIL (4.2-5.4); WBC 6.19 X1000 (4.8-10.8)
[2018-08-05 05:48] LABS: ALBUMIN 3.6 g/dL (3.5-5.0); CALCIUM 9.5 mg/dL (8.8-10.2); CREATININE 1.5 mg/dL (0.5-0.9); POTASSIUM 3.9 mmol/L (3.5-5.1)
[2018-08-05] MEDS: APRESOLINE PO SCH ×2 (06:00→16:29)
[2018-08-05] MEDS: LASIX IV SCH ×2 (06:00→16:29)
[2018-08-05] MEDS: ISORDIL PO SCH ×2 (06:00→16:29)
[2018-08-05] MEDS: LANOXIN PO SCH (06:00)
[2018-08-05] MEDS: CARAFATE LIQUID PO SCH ×3 (06:00→16:29)
[2018-08-05] MEDS: DILAUDID IV PRN ×3 (06:04→16:33)
[2018-08-05] MEDS: COREG PO SCH (08:56)
[2018-08-05] MEDS: ELIQUIS PO SCH (08:56)
[2018-08-05] MEDS: CORDARONE PO SCH (08:56)
[2018-08-05] MEDS: ENTRESTO 97 MG-103 MG TABLET PO SCH (08:56)
[2018-08-05] MEDS: ZAROXOLYN PO SCH (08:56)
[2018-08-05] MEDS: ASPIRIN EC PO SCH (08:56)
[2018-08-05] MEDS: ALDACTONE PO SCH (08:56)
[2018-08-05] MEDS: MIRALAX PO SCH (08:57)
--- NOTE | 2018-08-05 12:47 | CARDIOLOGY PROGRESS NOTE ---
DATE: 08/05/2018 SUBJECTIVE: Ms. Cardenas is continuing to have issues with abdominal pain. She has no lower extremity edema. She is not having any orthopnea. OBJECTIVE: Vitals: She is afebrile, heart rate is 70, blood pressure 113/71. Generally: No acute distress. Cardiovascular: She sounds to be in a regular rate and rhythm. She has no obvious murmurs. She has no S3. She has no lower extremity edema. Chest: Sounds clear bilaterally. She has no increased work of breathing. Abdomen: Soft, nontender. INPUT AND OUTPUT: Have been negative during this hospitalization to the order of 3.7 L with 5 voids not measured. PERTINENT DATA: Sodium is 135, potassium 3.9, BUN 38, creatinine is 1.5, which is roughly stable for her. Last proBNP was checked on 08/01. ASSESSMENT: Ms. Cardenas is a 48-year-old female with a history of a nonischemic cardiomyopathy. PLAN: She has some issues with atrial fibrillation and the concern in the previous hospitalizations were that she had atrial fibrillation that was not being well controlled on her current amiodarone resulting in possible worsening heart failure. We will have [facility] come over and evaluate the device to consider an ultimate AV node ablation with potential upgrade to a ASSISTANT TEACHING PROFESSOR. Further recommendations to follow. cc: Marquise Ta MD
--- NOTE | 2018-08-05 13:04 | PROGRESS NOTE ---
DATE: 08/05/2018 SUBJECTIVE: The patient has no major complaints. OBJECTIVE: Vital Signs: Blood pressure is 118/79, heart rate 61, respiratory rate 17, and temperature 97.6 degrees, 94% on room air. Cardiovascular: Regular rate and rhythm. Pulmonary: Bilateral breath sounds clear to auscultation. GI: Soft, nontender, nondistended. Bowel sounds are positive. Clinically she has improved. LABORATORY DATA: White count is 6, hemoglobin and hematocrit 14 and 44, platelets 216,000. Creatinine 1.5. PROBLEM LIST: 1. Acute on chronic systolic congestive heart failure exacerbation. She is on diuretics. 2. Nonsustained ventricular tachycardia versus atrial fibrillation with aberrancy. Her device is going to be interrogated today from what I understand. She is on amiodarone. She is on Eliquis. She is on digoxin. 3. Hypertension. Aware. Continue her medications. DISPOSITION: Pending her clinical status. I think she is probably okay to go to a regular room, but just pending her interrogation on her pacemaker. cc: Everardo Galloway MD
[2018-08-05 19:27] VITALS: BP 129/108
[2018-08-05] MEDS ORDERED: COREG PO SCH (21:00)
--- NOTE | 2018-08-25 20:58 | DISCHARGE SUMMARY ---
ADMISSION DATE: 08/01/2018 DISCHARGE DATE: 08/05/2018 DISCHARGE DIAGNOSES: 1. Was acute systolic heart failure exacerbation, nonsustained ventricular tachycardia with abnormal pacemaker. 2. Hypertension. CONSULTATIONS: Cardiology. PROCEDURES: None. Briefly this is a 48-year-old female. She is well known to our service from frequent admissions. She came in with 5 pound weight gain over the last week, proBNP of 30,142, creatinine of 1.4, heart rate 75. She was placed on IV Lasix. Cardiology was consulted. She had an echocardiogram done which showed an EF of 15 to 20 percent, no thrombus. I think that is where she has been she has pulmonary hypertension. Cardiology consultation recommended diuretics, she is already on ideal regimen Entresto, Coreg, Imdur and she is on metolazone was increased, digoxin, she is on apixaban. Abdominal ultrasound shows hepatic steatosis versus cirrhosis. She was monitored. She had developed some nonsustained ventricular tachycardia. Dr. Ta was consulted and [facility] analyzed her pacemaker. She had a couple episodes of ventricular tachycardia with 1 shock delivered. She had 32 nonsustained episodes although says no therapy was delivered. I guess there was a concern that her pacer so she was transferred to [place] for evaluation of her pacer from what I understand. No medication adjustments finally will be made per [facility]. Currently she was on duo nebs, metolazone 2.5 every other day which I think in-house had been changed to 5 three times a week, Protonix 40 daily, Reglan 5 at bedtime, Pravachol 40 at bedtime, Coreg 3.125 q.12, Aldactone 25 b.i.d., hydralazine 100 t.i.d., aspirin 81 daily, Carafate, amiodarone 200 daily, Eliquis 5 b.i.d. I think she is on 2.5, Entresto 97/103 b.i.d., Isordil 80 t.i.d., digoxin 125 daily, Lasix 80 b.i.d., [place] p.r.n. DISCHARGE CONDITION: She was stable for transfer, further care per [facility]. TIME SPENT: 32 minutes. cc: Albina Ortega MD
== END 2018-08-05 19:56 | disposition short-term general hospital (02) | DRG 291 ==
LOC: ED 13:54 → SUATTDRO 18:34 → 3S 18:34
PROVIDERS: ATTEND Internal Medicine
CPT/HCPCS: 36415; 71020; 71046; 74176; 76700; 80048; 80053; 80069; 80076; 82150; 82550; 83690; 83735; 83880; 84100; 84132; 84484; 85025; 85027; 85610; 85730; 93005; 93306; 94640; 94761; 96374; 99285; A9270; C8929; J1170; J1940; J3475; Q9957

== ENCOUNTER 2018-08-26 11:48 | Inpatient (IN) ==
[2018-08-26 13:32] LABS: BASO# 0.02 X1000 (0.0-0.2); BASO% 0.3 % (0.0-0.8); EOS# 0.04 X1000 (0.0-0.7); EOS% 0.7 % (0.0-10.0); HEMATOCRIT 31.7 % (37.0-47.0); LYMPH# 1.21 X1000 (1.2-3.4); LYMPH% 19.8 % (20.5-51.1); MCH 27.5 PG (27-31); MCHC 31.5 g/dL (33-37); MCV 87.1 FL (81-99); MONO# 0.47 X1000 (0.11-0.59); MONO% 7.7 % (1.7-9.3); MPV 12.1 FL (7.4-10.4); NEUT# 4.38 X1000 (1.4-6.5); NEUT% 71.5 % (42.2-75.2); PLT 157 X1000 (130-400); RBC 3.64 XMIL (4.2-5.4); RDW 19.2 % (11.5-14.5); WBC 6.12 X1000 (4.8-10.8)
--- NOTE | 2018-08-26 13:42 | Diag Imaging Result Doc PS360 ---
EXAM: CHEST-2 VIEWS INDICATION: shortness of breath TECHNIQUE: 2 views COMPARISON: 08/24/2018 FINDINGS: Chronic right apical pleural thickening is again noted. Ill-defined increased lung markings at the right lung base are stable likely representing fibrosis. There is no discrete pleural fluid collection or pneumothorax. There is stable marked cardiomegaly. The pacemaker/defibrillator is in stable position. Central vasculature is mildly prominent this is probably chronic as it is very similar to multiple prior studies. IMPRESSION: 1.Stable severe cardiomegaly and mildly prominent central vasculature suggesting mild chronic pulmonary venous congestion. 2.Ill-defined opacity at the right lung base that is stable as compared to several previous studies and probably represents fibrosis. Electronically signed by Jose Rivera 08/26/2018 1:40 PM
[2018-08-26] MEDS ORDERED: DILAUDID IV ONE (14:04)
[2018-08-26 15:04] LABS: ALB/GLOB RATIO 0.9; ALBUMIN 3.6 g/dL (3.5-5.0); CALCIUM 9.6 mg/dL (8.8-10.2); CREATININE 1.3 mg/dL (0.5-0.9); POTASSIUM 3.4 mmol/L (3.5-5.1); TOTAL BILIRUBIN 1.38 mg/dL (0.20-1.00); TOTAL PROTEIN 7.5 g/dL (6.3-8.3)
--- NOTE | 2018-08-26 15:11 | EKG Report ---
Test Performed on : 08/26/2018 12:54:26 PM Test Reason : ED. No order in [place] Blood Pressure : / mmHG Vent. Rate : 080 BPM Atrial Rate : 080 BPM P-R Int : 216 ms QRS Dur : 162 ms QT Int : 530 ms P-R-T Axes : 000 -62 110 degrees QTc Int : 611 ms AV dual-paced rhythm with prolonged AV conduction with frequent ventricular-paced complexes Abnormal ECG When compared with ECG of 22-AUG-2018 19:50, (Unconfirmed) premature ventricular complexes. are no longer present premature supraventricular complexes. are no longer present Sinus rhythm. is no longer with junctional escape complexes. Vent. rate has decreased BY 51 BPM Unconfirmed Result
--- NOTE | 2018-08-26 15:35 | PROVIDER DOCUMENTATION ---
This chart was entered by Marilee Guzman Scribe, acting as scribe for Nahomi Drew MD. HPI-General Adult - General Chief Complaint: Edema Stated Complaint: BLOOD CLOTS LEFT ARM,SOB,DIZZY Time Seen by Provider: 08/26/18 13:33 Source: patient Allergies/Adverse Reactions: Patient Allergies Allergy/AdvReac Type Severity Reaction Status Date / Time latex Allergy Intermediate RASH Verified 08/24/18 19:01 dopamine AdvReac Hair Loss Verified 08/24/18 19:01 propoxyphene AdvReac ITCHING Verified 08/24/18 19:01 [From [facility]] Home Medications: Home Medication List Medication Instructions Recorded Confirmed Last Taken Type Aspirin EC 81 mg PO DAILY #30 tab 10/03/17 08/01/18 08/01/18 08:00 Rx 81 mg Hydralazine [Apresoline] 100 mg PO TID@0600,1400,2200 #90 11/24/17 08/01/18 08/01/18 08:00 Rx tab 100 mg Isosorbide Dinitrate [Isordil] 80 mg PO TID@0600,1400,2200 #90 tab 11/24/17 08/01/18 08/01/18 07:00 Rx 80 mg Sacubitril/Valsartan [Entresto 97 1 tab PO BID #60 tab 11/24/17 08/01/18 08/01/18 08:00 Rx mg-103 mg Tablet] 1 tab Spironolactone [Aldactone] 25 mg PO BID #60 tab 11/24/17 08/01/18 08/01/18 08:00 Rx 25 mg Amiodarone [Cordarone] 200 mg PO DAILY #120 tab 04/17/18 08/01/18 08/01/18 08:00 Rx 200 mg Digoxin [Lanoxin] 125 microgm PO DAILY@0700 #120 tab 04/17/18 08/01/18 08/01/18 08:00 Rx 125 mcg PRAVAstatin [Pravachol] 40 mg PO QHS #120 tab 04/17/18 08/01/18 07/31/18 21:00 Rx 40 mg Sucralfate [Carafate Liquid] 1 gm PO 0700,1100,1600,2100 #1 udc 04/17/1808/0108/01/18 07:00 Rx Apixaban [Eliquis] 5 mg PO BID 30 Days #60 tab 05/21/18 08/01/18 08/01/18 08:00 Rx 5 mg Albuterol 2.5MG/Ipratrop 0.5MG 3 ml INH BID PRN 06/08/18 08/01/18 07/31/18 20:30 History [Duoneb (A & A)] 1 inh Metoclopramide HCl [Reglan] 5 mg PO HS 06/08/18 08/01/18 07/31/18 21:00 History 5 mg Metolazone 2.5 mg PO EVERY OTHER DAY 06/08/18 08/01/18 07/31/18 08:00 History 2.5 mg Pantoprazole [Protonix] 40 mg PO DAILY@0700 PRN 06/26/18 08/01/18 08/01/18 08:00 History 40 mg Furosemide [Lasix] 80 mg PO BID 30 Days #60 tab 07/04/18 08/01/18 08/01/18 08:00 Rx 80 mg Carvedilol [Coreg] 3.125 mg PO Q12HR #120 tab 07/23/18 08/01/18 08/01/18 08:00 Rx 3.125 mg Apixaban [Eliquis] 10 mg PO BID #28 tab 08/23/18 Unknown Rx Hydrocodone/APAP 5 mg/325 mg 1 ea PO Q6H PRN PRN #7 tab 08/25/18 Unknown Rx [[place]-5] - History of Present Illness -Gen Adult Nature of Presenting Problems: Patient is a 48 year old female who presents to the ED with pain and swelling to left upper chest and left arm. Patient reports having a pacemaker placed on 08/07/18 in [place]. Reports was diagnosed with a DVT in her left arm 4 days ago and was prescribed Eliquis 10 mg BID. States shortness of breath. Location of Pain/Injury: reports: chest (left upper chest), upper extremity (left arm) Pain Radiation: reports: no radiation Quality of Pain: reports: aching Severity: reports: mild Onset/Duration: reports: other (8 days) Timing: reports: still present Context/Activities at Onset: reports: light activity Associated Symptoms: reports: shortness of breath, other (swelling to left upper chest and left arm) Similar Symptoms Previously?: Yes Recently seen or treated by another doctor?: Yes Review of Systems - Adult - REVIEW OF SYSTEMS - ADULT Constitutional: reports: no symptoms reported. denies: chills, fever, fatique Eyes: reports: no symptoms reported Ears, Nose, Mouth & Throat: reports: no symptoms reported Cardiovascular: reports: see HPI, chest pain (left upper). denies: irregular heart rate, palpitations Respiratory: reports: see HPI, shortness of breath. denies: cough, wheezing Gastrointestinal: reports: no symptoms reported Genitourinary: reports: no symptoms reported Musculoskeletal: reports: see HPI, other (left arm pain). denies: back pain, muscle aches, neck pain Integumentary: reports: see HPI, other (swelling to left upper chest and left arm). denies: hives, itching, rash Neurological: reports: no symptoms reported Psychiatric: reports: no symptoms reported Endocrine: reports: no symptoms reported Hematologic/Lymphatic: reports: no symptoms reported Allergic/Immunologic: reports: no symptoms reported All Other Systems: Reviewed and Negative Past History - Adult - PAST MEDICAL HISTORY-ADULT Review of Records: reports: Nursing Assessment Review, Medications Reviewed, Social history reviewed & non-contributory. Major Childhood Illnesses: reports: denies history Cardiovascular: reports: A-Fib, blood clots, CAD, CHF, HTN, hyperlipidemia, palpitations, pacemaker (defib) Respiratory: reports: asthma, COPD, sleep apnea Gastrointestinal: reports: liver disease Obstetrical/Gynecological: reports: other (breast cancer) Genitourinary: reports: kidney disease Musculoskeletal: reports: denies history Neurological: reports: denies history Psychiatric: reports: anxiety, depression Endocrine/Immune: reports: Diabetes Other Conditions: reports: denies history - PRIOR SURGERIES/PROCEDURES Surgical/Procedure History: reports: cholecystectomy, pacemaker, hysterectomy, , tonsillectomy, orthopedic (extremity), other (m astectomy,defib,arthroscopy) - IMMUNIZATION STATUS Childhood Immunizations: See Nurse Assessment Flu Vaccine: See Nurse Assessment - FAMILY HISTORY Family History: reviewed, not pertinent - SOCIAL HISTORY Smoking: cigarettes (former) Substance Use: denies Physical Exam-General - PHYSICAL EXAM-ADULT Initial Vital Signs Reviewed: Yes - CONSTITUTIONAL General Appearance: alert, no apparent distress - RESPIRATORY Respiratory: lungs clear, normal breath sounds, other (tenderness and mild swelling to left upper chest.). negative: crackles, rales, rhonchi - CARDIOVASCULAR Cardiovascular: normal peripheral pulses, regular rate, rhythm. negative: tachycardia, systolic murmur - MUSCULOSKELETAL Extremity: swelling (3 + pitting edema to left arm), tenderness (left arm). ne gative: deformity, erythema - SKIN Integumentary: normal color, normal turgor, warm/dry. negative: cyanosis, e cchymosis, erythema, jaundice - NEUROLOGIC Neurologic: grossly normal. negative: aphasia, facial droop - PSYCHIATRIC Psych/Mental Status: normal mood/affect, oriented x 3. negative: paranoid Progress - PLAN OF CARE/RESULTS Progress/Plan/Lab Results: Vital Signs - 8 hr 08/26/18 11:55 08/26/18 12:43 08/26/18 12:48 Pulse Rate 80 80 80 Respiratory Rate 18 35 H 20 Blood Pressure 190/138 152/112 O2 Sat by Pulse Oximetry 95 98 94 L 08/26/18 13:12 08/26/18 13:33 Pulse Rate 80 79 Respiratory Rate 26 H 27 H Blood Pressure 156/122 141/112 O2 Sat by Pulse Oximetry 95 96 Laboratory Results - last 24 hr 08/26/18 13:06 WBC 6.12 RBC 3.64 L Hgb 10.0 L Hct 31.7 L MCV 87.1 MCH 27.5 MCHC 31.5 L RDW Std Deviation 19.2 H Plt Count 157 MPV 12.1 H Neut % (Auto) 71.5 Lymph % (Auto) 19.8 L [place] % (Auto) 7.7 Eos % (Auto) 0.7 Baso % (Auto) 0.3 Neut # (Auto) 4.38 Lymph # (Auto) 1.21 [place] # (Auto) 0.47 Eos # (Auto) 0.04 Baso # (Auto) 0.02 Orders Category Date Time Status CHEST-2 VIEWS [RAD] Stat Exams 08/26/18 13:17 Completed CBC WITH DIFF [HEME] Stat Lab 08/26/18 13:06 Completed COMPREHENSIVE METABOLIC PANEL [CHEM] Stat Lab 08/26/18 13:06 Received LACTATE, PLASMA [CHEM] Stat Lab 08/26/18 13:06 Received Result Diagrams: 08/26/18 13:06 08/26/18 14:25 - EKG 1 Time of EKG reading by physician:: 12:54 EKG Read and Signed by:: Nahomi Drew EKG Interpretation (*Must complete 3 of following elements*): Abnormal (rhythm - AV dual-paced rhythm with prolonged AV conduction with frequent ventricular- paced complexes) Rate: 80 Comments: abnormal ECG - XRAY 1 XRAY Study: Chest Impression: See EMR Report ( EXAM: CHEST-2 VIEWS INDICATION: shortness of breath TECHNIQUE: 2 views COMPARISON: 08/24/2018 FINDINGS: Chronic right apical pleural thickening is again noted. Ill-defined increased lung markings at the right lung base are stable likely representing fibrosis. There is no discrete pleural fluid collection or pneumothorax. There is stable marked cardiomegaly. The pacemaker/defibrillator is in stable position. Central vasculature is mildly prominent this is probably chronic as it is very similar to multiple prior studies. IMPRESSION: 1.Stable severe cardiomegaly and mildly prominent central vasculature suggesting mild chronic pulmonary venous congestion. 2.Ill-defined opacity at the right lung base that is stable as compared to several previous studies and probably represents fibrosis. Electronically signed by Jose Rivera 08/26/2018 1:40 PM 08/26/18 1340 Interpreting Physician: Jose Rivera MD Dictated Date/Time: 08/26/18 1336 cc: Nahomi Drew MD; Albina Ortega MD) - CONSULTS/PCP/HOSPITALIST Notification #1 *Consult/PCP/Hospitalist*: DALJIT Cummings for Hospitalist Time Discussed: 15:11 Reason/Comments: Dr. Drew consulted with Zoila about patient. Consult Disposition: Will see in ED, Admit Departure - Departure Date of Disposition Decision: 08/26/18 Time of Disposition Decision: 15:12 DIAGNOSIS: DVT (deep venous thrombosis) Disposition: ADMITTED INPATIENT 09 Certified Medical Emergency: Emergent Condition: Stable Referrals and Follow-Ups: Albina Ortega MD [Primary Care Provider] - - Critical Care Note This patient required my direct & personal management of CC.: No Attestation - Physician/ PREETI Attestation The physician spent face to face time with patient:: Yes Advanced Practice Provider documentation review:: Supervising physician onsite and consulted in the evaluation and care of this patient. The physician did have a face to face encounter with the patient. This chart was documented by the indicated scribe, (Marliee Guzman, Agusto) and accurately reflects the services I performed and decisions made by me, Nahomi Drew MD, as attested by the provider's signature.
[2018-08-26] MEDS ORDERED: TYLENOL PO PRN (15:36)
[2018-08-26] MEDS ORDERED: ZOFRAN IV PRN (15:36)
[2018-08-26] MEDS ORDERED: HEPARIN 25,000 UNITS/D5W 25,000 UNIT/250 ML IV.SOLN IV SCH (15:45)
--- NOTE | 2018-08-26 16:26 | HISTORY AND PHYSICAL ---
PRIMARY CARE PHYSICIAN: Dr. Ortega. CHIEF COMPLAINT: Increased pain and swelling to left upper chest and left arm that was reportedly diagnosed with a DVT in her left arm four days ago, and was prescribed Eliquis 10 mg b.i.d. also having increased shortness of breath. HISTORY OF PRESENTING ILLNESS: This is a 48-year-old female who is well known to the hospitalist service, and presents to [facility] with complaints of increased pain and swelling to her left upper chest and left arm. Reportedly, she had a pacemaker changed on 08/07/2018 in [place]. She came to the emergency room on 08/22/2018, and had complaints of swelling and pain to the incision site of her pacemaker change, and some swelling in her left arm. She had a left arm venous ultrasound that showed an acute DVT of the left subclavian vein and SVT of the proximal cephalic vein on the left. She was placed on Eliquis 10 mg b.i.d., and discharged home to follow up with Cardiology the next morning. It is unclear if she did follow up with them, but she returns to the emergency room today with increased pain to her left upper chest and increased swelling to her incision site, and to her entire left arm all the way down to her left hand. She is going to be admitted to the CIC unit with failed outpatient treatment for her left subclavian DVT for further evaluation and treatment. PAST MEDICAL HISTORY: Atrial fibrillation, DVT, coronary artery disease, systolic congestive heart failure, hypertension, hyperlipidemia, chronic palpitations, chronic sleep apnea, COPD, liver disease, breast cancer, chronic kidney disease, and chronic depression. PAST SURGICAL HISTORY: Cholecystectomy, hysterectomy, , tonsillectomy, mastectomy, defibrillator placement, and arthroscopy. FAMILY HISTORY: Positive for congestive heart failure. SOCIAL HISTORY: She currently lives with her children. She is a former smoker. Denies any alcohol or illicit drug use. ALLERGIES: Latex, dopamine and propoxyphene. HOME MEDICATIONS: A current list will need to be obtained reconciled, reviewed and restarted as appropriate. I will place an order for nursing to update and confirm home medications. LABORATORY DATA: White blood cell count of 6.12, hemoglobin 10, hematocrit 31.7, and platelets 157,000. Sodium 142, potassium 3.4, chloride 103, CO2 25, BUN of 24, creatinine 1.3, and glucose 97. Plasma lactate of 1. Chest x-ray showed stable severe cardiomegaly, and mild prominent central vascular suggesting mild chronic pulmonary venous congestion. Ill- defined opacity at the right lung base that is stable as compared to several previous studies and probably represents fibrosis. Again, she had a left arm venous ultrasound on 08/22/2018 that showed an interpretation of acute DVT of the left subclavian vein and SVT of the proximal cephalic vein on the left. REVIEW OF SYSTEMS: She denied any fever, chills, blurred vision, or dizziness. She denied any chest pain. She does have pain to the incision site in the left upper chest. She complained of pain to her left arm and shortness of breath. Denied any abdominal pain, constipation, diarrhea, burning or hurting with urination. PHYSICAL EXAMINATION: On arrival, she had pulse of 80, respirations 18, blood pressure was 190/38 saturating 95% on room air. Currently blood pressure is 162/103. GENERAL: This is a 48-year-old female who is sitting up in the bed answers questions appropriately. She is short of breath with 4 to 5 word sentences. HEENT: Normocephalic, atraumatic. Normal ENT inspection. Oropharynx and nares are clear. EYES: Pupils are equal, round, and reactive to light and accommodation. Extraocular movements are intact. NECK: Normal on inspection. Normal range of motion. LUNGS: Clear to auscultation bilaterally with equal lung expansion. Chest wall movement. HEART: In her left upper chest, she has some tenderness and mild swelling to her left upper chest where she had her pacemaker changed on 08/07/2018. Did not note any drainage or discharge at this time. No murmurs, rubs, or gallops. ABDOMEN: Soft, nontender, and nondistended. Bowel sounds are present x4 quadrants. MUSCULOSKELETAL: She has 4/5 strength x4 extremities. She is noted to have edema to her left arm at 3 pitting and tenderness to touch. Also, noted 2 to 3+ pitting edema to her left leg, but trace edema only in the right leg. NEUROLOGICAL: The cranial nerves 2-12 appear grossly intact. ASSESSMENT: 1. Left subclavian DVT with failed outpatient treatment. 2. Dyspnea. 3. Status post pacemaker change on 08/07/2018. 4. Left arm edema secondary to #1. 5. History of systolic congestive heart failure. PLAN: She will be admitted to the CIC unit, and placed on O2 per protocol. Telemetry healthy heart diet. We are going to consult Cardiology. Placed on a heparin drip per protocol. We will update and confirm home medications as previously noted per nursing, and then we will review and restart after reconciled as appropriate. We will recheck a CBC and BMP in the morning. We will give her some Dilaudid 1 mg IV q.4 hours p.r.n. for pain. Further orders after being seen by attending, and by the product development consultant. Dictated by DALJIT Zapata for Trace Yancey MD cc: DALJIT Zapata MD Dr. Jindal I agree with most components of history, physical, assessment and plan. A separate addendum has been dictated. MTDD
[2018-08-26] MEDS ORDERED: CARAFATE LIQUID PO PRN (16:43)
[2018-08-26] MEDS ORDERED: REGLAN PO PRN (16:43)
[2018-08-26 16:47] LABS: BASO# 0.02 X1000 (0.0-0.2); BASO% 0.3 % (0.0-0.8); EOS# 0.04 X1000 (0.0-0.7); EOS% 0.7 % (0.0-10.0); HEMATOCRIT 32.3 % (37.0-47.0); HEMOGLOBIN 10.1 g/dL (12.0-16.0); LYMPH# 1.27 X1000 (1.2-3.4); LYMPH% 20.7 % (20.5-51.1); MCH 26.6 PG (27-31); MCHC 31.3 g/dL (33-37); MCV 85.2 FL (81-99); MONO# 0.37 X1000 (0.11-0.59); MPV 11.5 FL (7.4-10.4); NEUT# 4.43 X1000 (1.4-6.5); NEUT% 72.3 % (42.2-75.2); PLT 163 X1000 (130-400); RBC 3.79 XMIL (4.2-5.4); RDW 19.1 % (11.5-14.5); WBC 6.13 X1000 (4.8-10.8)
[2018-08-26 17:05] LABS: CALCIUM 9.3 mg/dL (8.8-10.2); CREATININE 1.3 mg/dL (0.5-0.9); POTASSIUM 3.6 mmol/L (3.5-5.1)
[2018-08-26] MEDS ORDERED: LASIX IV ONE (17:36)
[2018-08-26] MEDS: DILAUDID IV PRN (18:06)
[2018-08-26 18:29] LABS: BASO# 0.02 X1000 (0.0-0.2); BASO% 0.3 % (0.0-0.8); EOS# 0.04 X1000 (0.0-0.7); EOS% 0.6 % (0.0-10.0); HEMATOCRIT 32.8 % (37.0-47.0); HEMOGLOBIN 10.4 g/dL (12.0-16.0); LYMPH# 1.35 X1000 (1.2-3.4); LYMPH% 19.7 % (20.5-51.1); MCH 26.8 PG (27-31); MCHC 31.7 g/dL (33-37); MCV 84.5 FL (81-99); MONO# 0.44 X1000 (0.11-0.59); MONO% 6.4 % (1.7-9.3); MPV 12.1 FL (7.4-10.4); NEUT# 5.02 X1000 (1.4-6.5); PLT 157 X1000 (130-400); RBC 3.88 XMIL (4.2-5.4); RDW 18.9 % (11.5-14.5); WBC 6.87 X1000 (4.8-10.8)
--- NOTE | 2018-08-26 18:33 | HISTORY AND PHYSICAL ---
ADDENDUM: I agree with most components of history, physical, assessment and plan. In brief, Ms. Cardenas is 48 years old woman with past medical history of paroxysmal atrial fibrillation, COPD on home oxygen, nonischemic cardiomyopathy with ejection fraction of 20% status post AICD and pacemaker, essential hypertension, chronic right upper quadrant pain thought to be related to stretching of liver capsules, prolonged QTc, chronic constipation, hyperlipidemia and recent revision pacemaker procedure at [facility] in July 2018 comes in with complaint of increased left upper extremity edema and pain of about 5 days duration. Apparently patient has had suspected episodes of suspected nonsustained ventricular tachycardia and there was a suspicion of abnormal implantable cardiac device so she was sent over to [facility] for further evaluation since she had beats of 32 beats of NSVT but the AICD had not fired. She looks like got AICD pacemaker on left side from prior position of her right side on 08/09/2018 and she did okay with the procedure. Postprocedure she had started developing left upper extremity edema and pain and she came to this emergency room 3 days prior to current admission where a left subclavian DVT was diagnosed. She was advised to take and was also given a prescription of 10 mg b.i.d. Eliquis which patient states she has been taking. However her pain and swelling did not get better and so she came to the emergency room and hospitalist service has been requested to manage suspected failed outpatient p.o. anticoagulation therapy. She will be admitted for IV heparin. SUBJECTIVE: At the time of my evaluation patient complains of dizziness, weakness and left upper extremity pain and edema. She is also feeling a little short of breath. VITALS: Evaluation suggests temperature of 98 degrees, pulse 80, respiratory 23, blood pressure 164/121, saturating 95% 2 L nasal cannula. PHYSICAL EXAMINATION: Morbidly obese, not in any acute distress. Oral cavity is moist. Breath sounds are difficult to appreciate considering her thick chest wall. She does have some inspiratory crackles bilateral bases, no wheeze or rhonchi. S1, S2 normal. No murmur, rub, or gallop except systolic murmur best heard at base of the heart. Abdomen is soft. Bilateral lower extremity edema and pacemaker site examination suggests there is diffuse edema affecting entire left arm and edema affecting her left upper chest which is also tender. LABS: Suggestive of no leukocytosis, normocytic anemia, normal platelet count. BMP suggestive of what appears to be chronic kidney disease stage 3. No new microbiological data. Chest x-ray was suggestive of chronic pulmonary vascular congestion. ASSESSMENT AND PLAN: 1. Acute left subclavian deep vein thrombosis status post failed outpatient p.o. Eliquis therapy with suspicion of noncompliance. 2. Mild acute on chronic systolic congestive heart failure exacerbation. 3. Normocytic anemia. 4. History of paroxysmal atrial fibrillation. 5. History of chronic obstructive pulmonary disease on home oxygen. 6. History of nonischemic cardiomyopathy with ejection fraction of 20% status post automated implantable cardioverter defibrillator and pacemaker. 7. History of chronic pain. 8. History essential hypertension, hyperlipidemia. PLAN: I will start patient on IV heparin drip. I will follow up with hemoglobin, hematocrit and will also consider getting a repeat ultrasound of pacemaker area to see if there is an expansion of hematoma about 24 hours later. I will resume most of her home medication including aspirin, carvedilol, amiodarone. I will give her 1 time 40 mg of IV Lasix and continue home Lasix dose. Plan of care is discussed with the patient. All of her questions have been answered. cc: Trace Yancey MD MTDD
[2018-08-26 18:40] LABS: INR 1.12; PROTIME 15.3 Seconds (11.0-16.0)
[2018-08-26 18:41] LABS: PTT 29.8 Seconds (22.3-41.8)
[2018-08-26] MEDS: DUONEB (A & A) INH PRN (19:31)
[2018-08-26] MEDS ORDERED: HEPARIN IV ONE (19:45)
[2018-08-26] MEDS: HEPARIN 25,000 UNITS/D5W 25,000 UNIT/250 ML IV.SOLN IV SCH ×2 (20:08→23:30)
[2018-08-26] MEDS: ALDACTONE PO SCH (21:46)
[2018-08-26] MEDS: PRAVACHOL PO SCH (21:47)
[2018-08-26] MEDS: COREG PO SCH (21:47)
[2018-08-26] MEDS: LASIX PO SCH (21:47)
[2018-08-26] MEDS: ENTRESTO 97 MG-103 MG TABLET PO SCH (22:13)
[2018-08-26] MEDS: ISORDIL PO SCH (23:33)
[2018-08-26] MEDS: APRESOLINE PO SCH (23:33)
[2018-08-27] MEDS: APRESOLINE PO SCH ×3 (05:39→22:18)
[2018-08-27] MEDS: ISORDIL PO SCH ×3 (05:39→22:18)
[2018-08-27 06:01] LABS: BASO# 0.01 X1000 (0.0-0.2); BASO% 0.2 % (0.0-0.8); EOS% 1.6 % (0.0-10.0); HEMATOCRIT 34.4 % (37.0-47.0); HEMOGLOBIN 10.5 g/dL (12.0-16.0); IMM GRAN# 0.02 X1000 (0.0-0.04); IMM GRAN% 0.3 % (0.0-0.5); LYMPH# 1.14 X1000 (1.2-3.4); MCH 26.3 PG (27-31); MCHC 30.5 g/dL (33-37); MCV 86.2 FL (81-99); MONO% 7.9 % (1.7-9.3); MPV 11.5 FL (7.4-10.4); NEUT# 4.55 X1000 (1.4-6.5); PLT 152 X1000 (130-400); RBC 3.99 XMIL (4.2-5.4); RDW 19.2 % (11.5-14.5); WBC 6.32 X1000 (4.8-10.8)
[2018-08-27] MEDS: LANOXIN PO SCH (06:22)
[2018-08-27 06:35] LABS: CALCIUM 9.2 mg/dL (8.8-10.2); CREATININE 1.3 mg/dL (0.5-0.9); MAGNESIUM 1.6 mg/dL (1.5-2.7); POTASSIUM 3.5 mmol/L (3.5-5.1)
[2018-08-27] MEDS ORDERED: PROTONIX PO PRN (07:00)
[2018-08-27] MEDS: DILAUDID IV PRN ×3 (07:02→22:18)
[2018-08-27] MEDS ORDERED: HEPARIN 25,000 UNITS/D5W 25,000 UNIT/250 ML IV.SOLN IV SCH (07:38)
[2018-08-27] MEDS: DUONEB (A & A) INH PRN ×2 (08:08→19:23)
[2018-08-27] MEDS: LASIX PO SCH ×2 (09:18→21:13)
[2018-08-27] MEDS: MAGNESIUM SULFATE 2 GM/S.W.I. 2 GM/50 ML IVPB IV SCH ×2 (09:18→12:18)
[2018-08-27] MEDS: ASPIRIN EC PO SCH (09:19)
[2018-08-27] MEDS: KLOR-CON PO SCH ×2 (09:19→12:18)
[2018-08-27] MEDS: ALDACTONE PO SCH ×2 (09:19→21:13)
[2018-08-27] MEDS: CORDARONE PO SCH (09:19)
[2018-08-27] MEDS: ENTRESTO 97 MG-103 MG TABLET PO SCH ×2 (09:19→21:13)
[2018-08-27] MEDS: COREG PO SCH ×2 (09:19→21:13)
--- NOTE | 2018-08-27 09:51 | PROGRESS NOTE ---
DATE: 08/27/2018 SUBJECTIVE: Patient is sitting up in bed reading newspaper. No complaints voiced at this time. OBJECTIVE: Vital Signs: Temperature 98.4 degrees, pulse 81, respirations 22, blood pressure 123/67, satting 97% on 2 L via nasal cannula. General: This is a 48-year-old female, who is sitting up in the bed answering questions appropriately. HEENT: Normocephalic, atraumatic. Normal ENT inspection. Oropharynx and nares are clear. Eyes: Pupils are equal, round, reactive to light and accommodation. Extraocular movements are intact. Neck: Normal inspection, normal range of motion. Lungs: Clear to auscultation bilaterally with equal lung expansion and chest wall movement. Heart: No murmurs, rubs, or gallops, but does have a systolic murmur heard best at the base of her heart, She is noted at her incision site on her left side of her chest to have a decrease in swelling this morning. Abdomen: Soft, nontender, nondistended. Bowel sounds are present x4 quadrants. Musculoskeletal: The patient remains having edema to her left upper extremity, but it is improved from yesterday. It is less tender today to touch. Remains having bilateral lower extremity edema, but moves all extremities well. Neurological: The cranial nerves 2-12 appear grossly intact. ASSESSMENT: 1. An acute left subclavian deep vein thrombosis status post failed outpatient with oral Eliquis with suspicion of noncompliance. We continue her heparin drip per protocol and will follow. 2. Mild acute on chronic congestive heart failure exacerbation. We will continue her home medications. 3. History of paroxysmal atrial fibrillation. 4. History of chronic obstructive pulmonary disease on home oxygen. PLAN: Will continue with her heparin drip. Continue with her home medications. Recheck labs in a.m. and further orders after seen by attending. Dictated by DALJIT Zapata for Trace Yancey MD cc: DALJIT Zapata MD I agree with above mentioned progress note. A separate addendum has been dictated. [facility]
--- NOTE | 2018-08-27 11:39 | PROGRESS NOTE ---
DATE: 08/27/2018 ADDENDUM: To progress note dictated by the nurse practitioner. I agree with most components of the progress note mentioned above. I went to the bedside. The patient is denying any new complaints. Her shortness of breath is better. PHYSICAL EXAMINATION: Vital signs: Temperature 98.4 degrees, pulse 81, respiratory 22, blood pressure 123/67, saturating 97% on 2 L nasal cannula. General: She is morbidly obese, not in any acute distress. Chest Wall: The has a thick chest wall without any wheeze, rhonchi, or crackles. Cardiovascular: She has systolic murmur, best heard at the base of the heart. She also has a left-sided AICD pacemaker and there is swelling affecting entire left upper extremity as well as around the pacemaker site which is mildly tender. Extremities: She also has bilateral lower extremity edema which is better than yesterday. LABORATORY DATA: Today are essentially unremarkable except chronic kidney disease stage 3. ASSESSMENT: 1. Acute left subclavian deep venous thrombosis, likely because of noncompliance with Eliquis. I am told that she has not filled her Eliquis prescription ever. I have asked her to get prescription bottles from home to confirm that. 2. Mild acute congestive heart failure exacerbation with past history of dilated cardiomyopathy with ejection fraction of 20%, status post AICD. 3. History of paroxysmal atrial fibrillation. 4. History of chronic obstructive pulmonary disease on home oxygen. 5. History of normal normocytic anemia. 6. History of chronic pain with chronic kidney disease stage 3. 7. Essential hypertension, hyperlipidemia. PLAN: I will continue intravenous heparin for 24 hours, then will change it to Eliquis. I will continue most of her home medication. Plan of care discussed with her, all of her questions been answered. I will reach out to her primary provider to learn more about her outpatient medical compliance. She hasn't brought her pill bottles to the hospitals for us to confirm yet. cc: Trace Yancey MD [facility]
[2018-08-27] MEDS: HEPARIN 25,000 UNITS/D5W 25,000 UNIT/250 ML IV.SOLN IV SCH (14:48)
[2018-08-27] MEDS: PRAVACHOL PO SCH (21:13)
[2018-08-27] MEDS ORDERED: HEPARIN SUBQ ONE (22:01)
[2018-08-28] MEDS: HEPARIN 25,000 UNITS/D5W 25,000 UNIT/250 ML IV.SOLN IV SCH (05:09)
[2018-08-28 05:26] LABS: BASO# 0.02 X1000 (0.0-0.2); BASO% 0.3 % (0.0-0.8); EOS# 0.22 X1000 (0.0-0.7); HEMATOCRIT 35.1 % (37.0-47.0); HEMOGLOBIN 10.6 g/dL (12.0-16.0); IMM GRAN# 0.02 X1000 (0.0-0.04); IMM GRAN% 0.3 % (0.0-0.5); LYMPH# 1.38 X1000 (1.2-3.4); MCH 26.6 PG (27-31); MCHC 30.2 g/dL (33-37); MONO% 8.2 % (1.7-9.3); MPV 11.3 FL (7.4-10.4); NEUT# 5.04 X1000 (1.4-6.5); NEUT% 69.2 % (42.2-75.2); PLT 179 X1000 (130-400); RBC 3.99 XMIL (4.2-5.4); WBC 7.28 X1000 (4.8-10.8)
[2018-08-28 05:42] LABS: EOS 4 % (1-10); LYMPHS 22 % (21-51); MONO 7 % (1-9); SEGS 67 % (42-75)
[2018-08-28] MEDS: ISORDIL PO SCH ×3 (06:18→22:33)
[2018-08-28] MEDS: DILAUDID IV PRN (06:19)
[2018-08-28] MEDS: APRESOLINE PO SCH ×3 (06:19→22:33)
[2018-08-28] MEDS: LANOXIN PO SCH (06:43)
[2018-08-28] MEDS ORDERED: HEPARIN 25,000 UNITS/D5W 25,000 UNIT/250 ML IV.SOLN IV SCH (07:03)
[2018-08-28] MEDS: DUONEB (A & A) INH PRN ×2 (07:38→19:30)
[2018-08-28] MEDS: LASIX PO SCH ×2 (08:05→20:51)
[2018-08-28] MEDS: ELIQUIS PO SCH ×2 (08:05→20:50)
[2018-08-28] MEDS: CORDARONE PO SCH (08:05)
[2018-08-28] MEDS: ASPIRIN EC PO SCH (08:06)
[2018-08-28] MEDS: ENTRESTO 97 MG-103 MG TABLET PO SCH ×2 (08:06→20:50)
[2018-08-28] MEDS: COREG PO SCH ×2 (08:06→20:50)
[2018-08-28] MEDS: ALDACTONE PO SCH ×2 (08:06→20:50)
[2018-08-28] MEDS ORDERED: ZAROXOLYN PO SCH (09:00)
[2018-08-28] MEDS ORDERED: ULTRAM PO PRN (11:43)
--- NOTE | 2018-08-28 12:05 | PROGRESS NOTE ---
DATE: 08/28/2018 INTERVAL HISTORY: No acute overnight events. There was a concern that her peripheral IV line was not functioning properly. SUBJECTIVE: Patient denies any complaints. No chest pain. No shortness of breath. She tells me that the only pharmacy she goes to is the [facility]. When I said that when we called and there were no new prescription that you had filled recently, she states, "I don't remember," and she also states that no one from her family has been able to get her pill bottles that I had requested. Denies any chest pain or shortness of breath. Complains of some left upper extremity pain. OBJECTIVE: Vitals: Temperature 97.8 degrees, pulse 80, respiratory blood pressure 128/79 saturating 98% on 2 L nasal cannula. Morbidly obese not in any acute distress. Oral cavity is moist. Air entry bilaterally equal. No wheeze, rhonchi, or crackles. S1, S2 normal. Systolic murmur best heard at the second intercostal space on the right side. She has left-sided AICD pacemaker. She has diffuse edema affecting the entire left upper extremity as well as left pectoral region. There is mild tenderness around pacemaker site. Extremities: She also has bilateral lower extremity edema which is better than before. LABORATORIES: Suggestive of normocytic anemia and normal platelet count. No BMP today. ASSESSMENT AND PLAN: 1. Acute left subclavian deep vein thrombosis associated with left-sided automatic implantable cardioverter device pacemaker and likely due to noncompliance with Eliquis. According to her outpatient pharmacy records, she has never filled Eliquis prescription, and the patient has not been able to bring her home pill bottles to contradict that, either. 2. Mild acute systolic congestive heart failure exacerbation on chronic systolic congestive heart failure due to dilated cardiomyopathy with ejection fraction of 20% status post automatic implantable cardioverter device pacemaker. 3. History of paroxysmal atrial fibrillation. 4. History of chronic obstructive pulmonary disease on home oxygen due to chronic hypoxic respiratory failure. 5. Normocytic anemia. Currently in acceptable range. 6. History of chronic kidney disease, stage 3. 7. Essential hypertension. 8. Hyperlipidemia. PLAN: She is status post 24 hours of intravenous heparin drip, and I will start her on p.o. Eliquis. I will continue her home medications for dilated cardiomyopathy and chronic obstructive pulmonary disease and atrial fibrillation, including carvedilol, digoxin, Lasix hydralazine, isosorbide, metolazone, Entresto, spironolactone, pravastatin. I discussed her case with her outpatient senior back end java developer, Dr. Burns, and we will schedule an outpatient cardiology appointment at the time of her discharge. I also talked with the patient's primary care provider Dr. Ortega on the phone to assess her outpatient compliance, and I am informed that she is in hospital more often than she sees her outpatient provider in her clinic. Considering her multiple admissions and the fact that she is always hypertensive at the time of admission which gets better when we restart her home medication inside the hospital, and after checking the outpatient pharmacy records, it looks like medication noncompliance is the predominant reason why the patient has been in and out of hospital. However, patient refuses to admit that. Her current admission is likely because of her noncompliance with outpatient Eliquis. The patient is medically ready to be discharged, and that was my initial plan; however, later on, I was told by the nursing team that the patient was not willing to be discharged. I re-evaluated the patient, and the patient starts crying, saying that she is not feeling comfortable going home, and she requested me to keep her inside the hospital for one more day. I explained to her that I would not treat her anything differently than what medicines she would receive at home; however, she is persistent about remaining inside the hospital for one more day, so the plan is to keep her inside the hospital for one more day and discharge her home tomorrow. She should see Dr. Burns in his clinic next week. We will help her schedule an appointment. cc: Trace Yancey MD
[2018-08-28] MEDS: NORCO-7.5 PO PRN ×2 (15:37→20:51)
[2018-08-28] MEDS: PRAVACHOL PO SCH (20:50)
[2018-08-29] MEDS: NORCO-7.5 PO PRN (02:20)
[2018-08-29] MEDS: ISORDIL PO SCH (05:26)
[2018-08-29] MEDS: APRESOLINE PO SCH (05:26)
[2018-08-29 05:27] LABS: BASO# 0.01 X1000 (0.0-0.2); BASO% 0.2 % (0.0-0.8); EOS# 0.23 X1000 (0.0-0.7); EOS% 3.8 % (0.0-10.0); HEMATOCRIT 39.4 % (37.0-47.0); HEMOGLOBIN 12.1 g/dL (12.0-16.0); LYMPH# 1.09 X1000 (1.2-3.4); LYMPH% 17.8 % (20.5-51.1); MCH 26.7 PG (27-31); MCHC 30.7 g/dL (33-37); MCV 86.8 FL (81-99); MONO# 0.59 X1000 (0.11-0.59); MONO% 9.7 % (1.7-9.3); MPV 11.5 FL (7.4-10.4); NEUT# 4.19 X1000 (1.4-6.5); NEUT% 68.5 % (42.2-75.2); PLT 201 X1000 (130-400); RBC 4.54 XMIL (4.2-5.4); RDW 20.3 % (11.5-14.5); WBC 6.11 X1000 (4.8-10.8)
[2018-08-29 05:43] LABS: CALCIUM 9.6 mg/dL (8.8-10.2); CREATININE 1.5 mg/dL (0.5-0.9); MAGNESIUM 1.7 mg/dL (1.5-2.7); POTASSIUM 3.5 mmol/L (3.5-5.1)
[2018-08-29] MEDS: LANOXIN PO SCH (06:13)
[2018-08-29 07:43] VITALS: BP 113/64
[2018-08-29] MEDS: ENTRESTO 97 MG-103 MG TABLET PO SCH (08:34)
[2018-08-29] MEDS: CORDARONE PO SCH (08:34)
[2018-08-29] MEDS: ALDACTONE PO SCH (08:35)
[2018-08-29] MEDS: COREG PO SCH (08:35)
[2018-08-29] MEDS: LASIX PO SCH (08:35)
[2018-08-29] MEDS: ASPIRIN EC PO SCH (08:35)
[2018-08-29] MEDS: ELIQUIS PO SCH (08:35)
--- NOTE | 2018-08-29 14:50 | DISCHARGE SUMMARY ---
ADMISSION DATE: 08/26/2018 DISCHARGE DATE: 08/29/2018 PRIMARY CARE PHYSICIAN: Dr. Ortega. ADMISSION DIAGNOSES: 1. A left subclavian DVT with failed outpatient treatment due to medical noncompliance. 2. Dyspnea. 3. Status post pacemaker change on 08/07/2018. 4. Left arm edema secondary to #1. 5. History of systolic congestive heart failure. DISCHARGE DIAGNOSES: 1. Acute left subclavian DVT associated with left-sided automatic implantable cardioverter device pacemaker, and likely due to noncompliance with her Eliquis. 2. Mild acute systolic congestive heart failure exacerbation on chronic systolic congestive heart failure due to dilated cardiomyopathy with ejection fraction of 20%. 3. History of paroxysmal atrial fibrillation. 4. History of COPD on home oxygen due to chronic hypoxic respiratory failure. 5. Normocytic anemia. 6. History of chronic kidney disease stage 3. 7. Essential hypertension. 8. Hyperlipidemia. 9. Medical noncompliance. SUMMARY OF FINDINGS: This is a 48-year-old female who presented to the ER with complaints of increased pain and swelling to her left upper chest and left arm. She had her pacemaker changed on 08/07/[address] Garland in [place]. She came to the emergency room on 08/22/2018 with the same complaints. She had a left arm venous ultrasound that showed an acute DVT of the left subclavian vein and SVT of the proximal cephalic vein on the left. She was placed on Eliquis 10 mg b.i.d. and was supposed to be on 5 mg b.i.d. previously so they did increase that dosage and discharged home to follow up with Cardiology the next morning. When we reconciled her medications, the pharmacy noted that she had not had her Eliquis filled at all from any of the dosages. The patient would not admit to that, but also could not produce a filled prescription of Eliquis so she was placed in our CIC unit. She was placed on a heparin drip initially and O2 per protocol. Her blood pressure on arrival was 190/138. In this controlled environment receiving her medications appropriately, this morning her blood pressure is down to 113/64. Attending yesterday Dr. Yancey spoke with Dr. Ortega's office per his note to assess the outpatient compliance. The outpatient physicians stated that she comes to the hospital more than she comes to her clinic, has had multiple admissions, always hypertensive at the time of admission. Then, once we restart her home medications in a controlled environment, her blood pressure improve. Her current admission is most likely related to this noncompliance with her outpatient Eliquis. She was transitioned off of her heparin drip yesterday and placed on Eliquis 10 mg p.o. b.i.d. for 7 days, and then she will go back down to 5 mg p.o. b.i.d. It is felt now that she can safely be discharged home. DISCHARGE MEDICATIONS: 1. A prescription for Eliquis 10 mg p.o. b.i.d. #24 with no refills, and then Eliquis 5 mg p.o. b.i.d. #120 with no refills. 2. Aspirin 81 mg p.o. daily. 3. Reglan 5 mg p.o. at bedtime p.r.n. 4. Pantoprazole 40 mg p.o. daily. 5. Albuterol DuoNeb's b.i.d. 6. Cordarone 200 mg p.o. daily. 7. Coreg 3.125 mg p.o. q.12 hours. 8. Digoxin 125 mcg p.o. daily. 9. Lasix 80 mg p.o. b.i.d. 10. Hydralazine 100 mg p.o. t.i.d. 11. Isosorbide 80 mg p.o. t.i.d. 12. Metolazone 2.5 mg p.o. every other day. 13. Pravastatin 40 mg p.o. at bedtime. 14. Entresto 97/103 mg p.o. b.i.d. 15. Aldactone 25 mg p.o. b.i.d. 16. Carafate liquid 1 g p.o. 4 times daily p.r.n. 17. Tramadol 50 mg p.o. q.8 hours. FOLLOW-UP: She needs to follow up with her primary care physician in 1 to 2 weeks. She needs to follow up with Cardiology in the next week. Call the office for appointments on both. All have been discussed with the patient, and she verbalizes understanding. We again discussed the importance of compliance with her medications, and she verbalized understanding. TIME SPENT: This is a 35 minute discharge. Dictated by DALJIT Zapata for Sidney Alexander MD cc: DALJIT Zapata MD Dr. Jindal Dr. Basu
[2018-09-04] MEDS ORDERED: ELIQUIS PO SCH (09:00)
== END 2018-08-29 11:30 | disposition home health service (06) | DRG 314 ==
LOC: ED 11:48 → SUATTDRO 15:53 → 3S 15:53
PROVIDERS: ATTEND Internal Medicine
CPT/HCPCS: 71020; 71046; 80048; 80053; 83605; 83735; 85025; 85610; 85730; 87040; 93005; 94640; 94761; 96374; 99284; 99285; A9270; J1170; J1644; J1940; J2405; J3475

== ENCOUNTER 2018-09-08 12:11 | Inpatient (IN) ==
--- NOTE | 2018-09-08 13:45 | Diag Imaging Result Doc PS360 ---
EXAM: CHEST-2 VIEWS 09/08/2018 HISTORY: shortness of breath TECHNIQUE: Two views the chest COMMENT: There is cardiomegaly. There is pleural fluid in the costophrenic angles and fissures. There is interstitial pulmonary edema. There has been some improvement with respect to the pulmonary edema since the previous study of 08/26/2018. Otherwise are has been no appreciable change. IMPRESSION: Improved pulmonary edema. Cardiomegaly and pleural effusions. Electronically signed by Fuad Tovar 09/08/2018 1:43 PM
[2018-09-08 13:53] LABS: BASO# 0.02 X1000 (0.0-0.2); BASO% 0.3 % (0.0-0.8); EOS# 0.02 X1000 (0.0-0.7); EOS% 0.3 % (0.0-10.0); HEMATOCRIT 34.5 % (37.0-47.0); HEMOGLOBIN 10.9 g/dL (12.0-16.0); LYMPH# 1.43 X1000 (1.2-3.4); LYMPH% 23.4 % (20.5-51.1); MCHC 31.6 g/dL (33-37); MCV 85.4 FL (81-99); MONO# 0.56 X1000 (0.11-0.59); MONO% 9.2 % (1.7-9.3); MPV 11.2 FL (7.4-10.4); NEUT# 4.08 X1000 (1.4-6.5); NEUT% 66.8 % (42.2-75.2); PLT 192 X1000 (130-400); RBC 4.04 XMIL (4.2-5.4); RDW 19.3 % (11.5-14.5); WBC 6.11 X1000 (4.8-10.8)
[2018-09-08 14:10] LABS: ALB/GLOB RATIO 1.1; CALCIUM 9.6 mg/dL (8.8-10.2); CREATININE 1.8 mg/dL (0.5-0.9); MAGNESIUM 2.1 mg/dL (1.5-2.7); POTASSIUM 3.9 mmol/L (3.5-5.1); TOTAL BILIRUBIN 1.92 mg/dL (0.20-1.00); TOTAL PROTEIN 7.6 g/dL (6.3-8.3)
[2018-09-08] MEDS ORDERED: LASIX IV ONE (14:23)
[2018-09-08] MEDS ORDERED: DUONEB (A & A) INH ONE (14:36)
--- NOTE | 2018-09-08 16:14 | Diag Imaging Result Doc PS360 ---
EXAM: CT ABDOMEN/PELVIS W/O CONTRAST 09/08/2018 HISTORY: elevated LFT with abd pain TECHNIQUE: This exam was performed using automated exposure control, adjustment of mA or kV according to patient size, and/or use of iterative reconstruction technique. COMMENT: The current examination is compared with the previous study of 07/30/2018. There is cardiomegaly. There is patchy air trapping in the lung bases which was also the case at the time the previous study. The overall appearance of the visualized portion of the chest has not changed significantly. There is ascites. There is hepatomegaly. The spleen is not enlarged. The adrenal glands are within normal limits. The kidneys are without evidence of hydronephrosis or mass. There are no apparent kidney stones. There has been cholecystectomy. There is no evidence of bowel obstruction. There is some subcutaneous edema. There is no evidence of appendicitis. There is skin thickening in the panniculus. This was also present to some extent previously but is slightly worse. There is no evidence of pelvic masses or significant adenopathy. There are scattered colonic diverticula without evidence of acute diverticulitis. IMPRESSION: Ascites, cardiomegaly, essentially stable since 07/30/2018. Electronically signed by Fuad Tovar 09/08/2018 4:11 PM
[2018-09-08 16:22] LABS: URINE SOURCE CLEAN CATCH
[2018-09-08 16:23] LABS: BILIRUBIN URINE NEGATIVE (NEGATIVE); BLOOD URINE NEGATIVE (NEGATIVE); COLOR YELLOW; GLUCOSE URINE NEGATIVE (NEGATIVE); KETONE URINE NEGATIVE (NEGATIVE); LEUKOCYTES URINE NEGATIVE (NEGATIVE); NITRITE URINE NEGATIVE (NEGATIVE); PH URINE 5.5; PROTEIN URINE 50 mg/dL (NEGATIVE); SP GRAVITY URINE 1.006; TURBIDITY URINE CLEAR (CLEAR); UROBILINOGEN URINE 2 mg/dL (NORMAL)
[2018-09-08 16:25] LABS: UR EPITHELIAL CELLS <10 /HPF (<10); URINE BACTERIA NEGATIVE /HPF; URINE RBC <10 /HPF (<10); URINE WBC <10 /HPF (<10)
--- NOTE | 2018-09-08 16:38 | PROVIDER DOCUMENTATION ---
This chart was entered by Dena Santos Scribe, acting as scribe for Foster Reza CRNP. HPI-General Adult - General Chief Complaint: Abdominal Pain Stated Complaint: PALPITATIONS/CHF PT/STOMACH SWOLLEN Time Seen by Provider: 09/08/18 13:36 Source: patient Allergies/Adverse Reactions: Patient Allergies Allergy/AdvReac Type Severity Reaction Status Date / Time latex Allergy Intermediate RASH Verified 09/08/18 12:58 dopamine AdvReac Hair Loss Verified 09/08/18 12:58 propoxyphene AdvReac ITCHING Verified 09/08/18 12:58 [From [facility]] Home Medications: Home Medication List Medication Instructions Recorded Confirmed Last Taken Type Aspirin EC 81 mg PO DAILY #30 tab 10/03/17 08/26/18 08/01/18 08:00 Rx 81 mg Metoclopramide HCl [Reglan] 5 mg PO HS PRN 06/08/18 08/26/18 07/31/18 21:00 History 5 mg Pantoprazole [Protonix] 40 mg PO DAILY@0700 PRN 06/26/18 08/26/18 08/01/18 08:00 History 40 mg Apixaban [Eliquis] 10 mg PO BID #28 tab 08/23/18 08/26/18 Unknown Rx Sucralfate [Carafate Liquid] 1 gm PO 0700,1100,1600,2100 PRN 08/26/18 08/26/18 Unknown History Albuterol 2.5MG/Ipratrop 0.5MG 3 ml INH BID PRN #25 neb 08/29/18 Unknown Rx [Duoneb (A & A)] Amiodarone [Cordarone] 200 mg PO DAILY #120 tab 08/29/18 Unknown Rx Apixaban [Eliquis] 5 mg PO BID #120 tab 08/29/18 Unknown Rx Apixaban [Eliquis] 10 mg PO BID #24 tab 08/29/18 Unknown Rx Carvedilol [Coreg] 3.125 mg PO Q12HR #120 tab 08/29/18 Unknown Rx Digoxin [Lanoxin] 125 microgm PO DAILY@0700 #120 tab 08/29/18 Unknown Rx Furosemide [Lasix] 80 mg PO BID 30 Days #60 tab 08/29/18 Unknown Rx Hydralazine [Apresoline] 100 mg PO TID@0600,1400,2200 #180 08/29/18 Unknown Rx tab Isosorbide Dinitrate [Isordil] 80 mg PO TID@0600,1400,2200 #180 08/29/18 Unknown Rx tab Metolazone 2.5 mg PO EVERY OTHER DAY #30 tab 08/29/18 Unknown Rx PRAVAstatin [Pravachol] 40 mg PO QHS #120 tab 08/29/18 Unknown Rx Sacubitril/Valsartan [Entresto 97 1 tab PO BID #60 tab 08/29/18 Unknown Rx mg-103 mg Tablet] Spironolactone [Aldactone] 25 mg PO BID #60 tab 08/29/18 Unknown Rx Tramadol [Ultram] 50 mg PO Q8HR #20 tab 08/29/18 Unknown Rx - History of Present Illness -Gen Adult Nature of Presenting Problems: 48 year old female presents to the ER with complaint of high blood pressure for the past 4 days. Pt states she recently had surgery to move defibrillator from right side of chest to left side of chest. Pt complains of tenderness at surgical site and left arm swelling. Pt states she started a blood thinner after that hospital stay. Pt complains of SOB, sweating RUQ pain. Pt take lasix twice daily for CHF. Location of Pain/Injury: reports: chest, abdomen Onset/Duration: reports: 4 days ago Timing: reports: still present Associated Symptoms: reports: arm pain (left arm pain and swelling), diaphoresis , shortness of breath, swelling/mass in abdomen, weakness Review of Systems - Adult - REVIEW OF SYSTEMS - ADULT Constitutional: denies: chills, fever Eyes: reports: no symptoms reported Ears, Nose, Mouth & Throat: reports: no symptoms reported Cardiovascular: reports: no symptoms reported Respiratory: reports: shortness of breath. denies: wheezing Gastrointestinal: reports: abdominal pain. denies: nausea, vomiting Genitourinary: reports: no symptoms reported Musculoskeletal: reports: no symptoms reported Integumentary: reports: no symptoms reported Neurological: reports: no symptoms reported Psychiatric: reports: no symptoms reported Endocrine: reports: no symptoms reported Hematologic/Lymphatic: reports: no symptoms reported Allergic/Immunologic: reports: no symptoms reported All Other Systems: Reviewed and Negative Past History - Adult - PAST MEDICAL HISTORY-ADULT Review of Records: reports: Nursing Assessment Review, Medications Reviewed Major Childhood Illnesses: reports: denies history Cardiovascular: reports: A-Fib, blood clots, CAD, CHF, HTN, hyperlipidemia, palpitations, pacemaker (defib) Respiratory: reports: asthma, COPD, sleep apnea Gastrointestinal: reports: liver disease Obstetrical/Gynecological: reports: other (breast cancer) Genitourinary: reports: kidney disease Musculoskeletal: reports: denies history Neurological: reports: denies history Psychiatric: reports: anxiety, depression Endocrine/Immune: reports: Diabetes Other Conditions: reports: denies history - PRIOR SURGERIES/PROCEDURES Surgical/Procedure History: reports: cholecystectomy, pacemaker, hysterectomy, , tonsillectomy, orthopedic (extremity), other (mastectomy,defib,arthroscopy) - IMMUNIZATION STATUS Childhood Immunizations: See Nurse Assessment Flu Vaccine: See Nurse Assessment - FAMILY HISTORY Family History: reviewed, not pertinent Physical Exam-General - PHYSICAL EXAM-ADULT Initial Vital Signs Reviewed: Yes - CONSTITUTIONAL General Appearance: alert, mild distress - EYES Eyes: PERRL/EOMI, pink conjunctivae - HEAD, EARS, NOSE, MOUTH & THROAT HENMT: normocephalic/atraumatic, moist mucous membranes - NECK Neck: non-tender, normal inspection - RESPIRATORY Respiratory: lungs clear - CARDIOVASCULAR Cardiovascular: normal peripheral pulses, regular rate, rhythm - GASTROINTESTINAL (ABDOMEN) Abdominal Exam: tenderness - MUSCULOSKELETAL Back Exam: no CVA tenderness, no vertebral tenderness Extremity: swelling (left arm) - SKIN Integumentary: normal color - NEUROLOGIC Neurologic: grossly normal, no motor/sensory deficits - PSYCHIATRIC Psych/Mental Status: normal mood/affect, normal thought content, normal thought process, oriented x 3 Progress - PLAN OF CARE/RESULTS Progress/Plan/Lab Results: Vital Signs - 8 hr 09/08/18 12:14 Temperature 98.0 F Pulse Rate 86 Respiratory Rate 26 H Blood Pressure 148/100 O2 Sat by Pulse Oximetry 95 Orders Category Date Time Status IV Insertion ORDERED Care 09/08/18 13:23 Active CHEST-2 VIEWS [RAD] Stat Exams 09/08/18 13:21 Taken CBC WITH DIFF [HEME] Stat Lab 09/08/18 13:21 Uncollected COMPREHENSIVE METABOLIC PANEL [CHEM] Stat Lab 09/08/18 13:21 Uncollected LIPASE [CHEM] Stat Lab 09/08/18 13:21 Uncollected MAGNESIUM [CHEM] Stat Lab 09/08/18 13:21 Uncollected PRO B-NATRIURETIC PEPTIDE Stat Lab 09/08/18 13:21 Uncollected TROPONIN T Stat Lab 09/08/18 13:21 Uncollected Result Diagrams: 09/08/18 13:44 09/08/18 13:44 - EKG 1 Time of EKG reading by physician:: 16:25 EKG Read and Signed by:: Aiden Jones EKG Interpretation (*Must complete 3 of following elements*): Abnormal Rate: 80 Rhythm: AV dual paced rhythm with ventricular paced complexes Comments: abnormal ECG - XRAY 1 XRAY Study: Chest Impression: Abnormal, See EMR Report (EXAM: CHEST-2 VIEWS 09/08/2018 HISTORY: shortness of breath TECHNIQUE: Two views the chest COMMENT: There is ca rdiomegaly. There is pleural fluid in the costophrenic angles and fissures. There is interstitial pulmonary edema. There has been some improvement with respect to the pulmonary edema since the previous study of 08/26/2018. Otherwise are has been no appreciable change. IMPRESSION: Improved pulmonary edema. Cardiomegaly and pleural effusions.) Comparison with other Films: changes noted XRAY Interpretation: per radiologist - CT/MRI 1 CT Study: Abdomen Impression: Abnormal, See EMR Report (EXAM: CT ABDOMEN/PELVIS W/O CONTRAST 09/08/2018 HISTORY: elevated LFT with abd pain TECHNIQUE: This exam was performed using automated exposure control, adjustment of mA or kV according to patient size, and/or use of iterative reconstruction technique. COMMENT: The current examination is compared with the previous study of 07/30/2018. There is cardiomegaly. There is patchy air trapping in the lung bases which was also the case at the time the previous study. The overall appearance of the visualized portion of the chest has not changed significantly. There is ascites. There is hepatomegaly. The spleen is not enlarged. The adrenal glands are within normal limits. The kidneys are without evidence of hydronephrosis or mass. There are no apparent kidney stones. There has been cholecystectomy. There is no evidence of bowel obstruction. There is some subcutaneous edema. There is no evidence of appendicitis. There is skin thickening in the panniculus. This was also present to some extent previously but is slightly worse. There is no evidence of pelvic masses or significant adenopathy. There are scattered colonic diverticula without evidence of acute diverticulitis. IMPRESSION: Ascites, cardiomegaly, essentially stable since 07/30/2018.) Comparison with other Films: no changes CT Results: per radiologist - CONSULTS/PCP/HOSPITALIST Notification #1 *Consult/PCP/Hospitalist*: Shimon BOCANEGRA/Dr. Rey Time Discussed: 16:33 Consult Disposition: Admit Departure - Departure Date of Disposition Decision: 09/08/18 Time of Disposition Decision: 16:33 DIAGNOSIS: CHF (congestive heart failure) Qualifiers: Heart failure type: unspecified Heart failure chronicity: unspecified Qualified Code(s): I50.9 - Heart failure, unspecified Disposition: ADMITTED INPATIENT 09 Certified Medical Emergency: Emergent Condition: Stable Additional Freetext Instructions: ED Follow Up Instructions: You have been treated by a care provider in the Emergency Department. These instructions are being provided to you so you can have an understanding of how to care for yourself upon discharge. Upon discharge from the Emergency Departm ent, you are responsible for making arrangements for follow-up care by a physician of your choice. Take all prescribed medications as directed. Return to the Emergency Department immediately for any new or worsening symptoms. You may call the Physician Referral phone number at [phone] to obtain a list of Physicians who are taking new patients. Referrals and Follow-Ups: Albina Ortega MD [Primary Care Provider] - - Critical Care Note This patient required my direct & personal management of CC.: No Attestation - Physician/ PREETI Attestation Patient care was provided by Advanced Practice Provider:: Yes Advanced Practice Provider:: Foster Reza (\\) Advanced Practice Provider documentation review:: The Mid-level provider documentation, treatment plan and medical decision making was reviewed by the physician who agrees with all treatment and medical decision making by the MLP. The physician spent face to face time with patient:: No Advanced Practice Provider documentation review:: Supervising physician onsite and consulted in the evaluation and care of this patient. The physician did not have a face to face encounter with the patient. This chart was documented by the indicated scribe, (Dena Santos Scribe) and accurately reflects the services I performed and decisions made by me, Foster Reza CRNP, as attested by the provider's signature.
[2018-09-08] MEDS ORDERED: MORPHINE IV ONE (17:10)
[2018-09-08] MEDS ORDERED: LABETALOL IV PRN (17:16)
--- NOTE | 2018-09-08 18:29 | HISTORY AND PHYSICAL ---
PRIMARY CARE PHYSICIAN: Dr. Ortega. CARDIOLOGISTS: Dr. Burns. PRESENTING COMPLAINT: Shortness of breath, dizziness, frequent falling, and abdominal pain. HISTORY OF PRESENT ILLNESS: Ms. Cardenas is a 48-year-old female with multiple comorbidities, frequent flyer to the hospital. This is about her 10th admission since the year to the hospital for multiple reasons. Ms. Cardenas was admitted early this month around August 26, 2018 mainly because of swelling to the left upper extremity and some shortness of breath. On that occasion she was treated and discharged on August 29, 2018, just about 10 days ago. She is coming back because she said for the past 4 days she has been progressively getting weaker and having more shortness of breath, to the point where she has been sleeping almost in a sitting position. Ms. Cardenas also refers that her blood pressure has not been very well controlled. Any time she checks it at home it is remarkably high. She denies any chest pain. Ms. Cardenas also refers that her right upper quadrant pain that has been extensively and exhaustively investigated continues to be hurting since the last 4 days. She has not been able to reach out to her primary care doctor, so she came to the emergency room. Ms. Cardenas had a pacemaker position changed last July and since then she developed a DVT to the left subclavian vein. Upon presenting to the emergency department, Ms. Cardenas was found to have a blood pressure of about 148/100, pulse of 86, respirations 26, temperature was normal. We have been consulted for admission. PAST MEDICAL HISTORY: 1. Atrial fibrillation. 2. Multiple DVTs. 3. Coronary artery disease. 4. History of congestive heart failure. 5. Hypertension. 6. Dyslipidemia. 7. Obstructive sleep apnea. 8. COPD. 9. History of breast cancer. 10. CKD. 11. Depression. PAST SURGICAL HISTORY: 1. Cholecystectomy. 2. Hysterectomy. 3. sections. 4. Tonsillectomy. 5. Mastectomy. 6. Defibrillator placement, recently changed to the left side. 7. Arthroscopy. FAMILY HISTORY: Positive for hypertension and congestive heart failure. CURRENT MEDICATIONS: 1. Albuterol. 2. Amiodarone 200 mg. 3. Carvedilol 3.125 b.i.d. 4. Digoxin 125 mcg daily. Eliquis 5 mg b.i.d. 1. Furosemide 80 mg b.i.d. 2. Spironolactone 25 mg daily. 3. Entresto 97/103 one tablet daily. 4. Metolazone 2.5 mg daily. ALLERGIES: 1. Latex. 2. Dopamine. 3. Propoxyphene. REVIEW OF SYSTEM: Fourteen point review of system conducted with Ms. Cardenas. Unremarkable except what we have in the HPI. Specifically, Ms. Cardenas denies any fever. No sputum production. Denies any diarrhea. No headaches. PHYSICAL EXAMINATION: VITAL SIGNS: Current blood pressure 147/115, pulse of 82, respirations 21, temperature is 98.0 degrees. Patient was saturating between 91 to 100%. GENERAL EXAM: Ms. Cardenas is a 48-year-old female. She was in the bed. She did not seem to be in any distress. HEENT: Mucosa is pink and moist. Anicteric. Acyanotic. Face looks slightly puffy. Head is normocephalic and atraumatic. NECK: Supple. There is positive JVD bilaterally. Trachea was midline. No thyromegaly. RESPIRATORY: Air entry was bilaterally reduced. There are crackles in the posterior lung patel. There is no accessory muscle use. CARDIOVASCULAR: Regular rate and rhythm. No murmurs. No rubs. No gallops. GI: Abdomen is soft. It is distended. It is more tender to the right upper quadrant. There is positive hepatojugular reflux. Bowel sounds were present but hypoactive. EXTREMITIES: About 2+ pedal edema. Distal pulses were present. There was no cyanosis. MULE DEVELOPER: Patient was awake, alert, oriented x3. There was no focal neurological deficit. Motor was 5/5 in all extremities. Sensation was intact. Cranial nerves 2-12 have been grossly examined, unremarkable. MUSCULOSKELETAL: The left upper extremity seems more swollen than the right and it also shows mild generalized, slightly erythematous changes. There was some mild venous distention on the upper thorax. LABORATORY DATA: WBC is 6.11, hemoglobin is 10.9, platelet count of 192,000. Chemistry is also reviewed. Creatinine is at 1.8. AST is 83, ALT is 71. Pro-B is 18,712. A chest x-ray this morning shows improved pulmonary edema. There is still cardiomegaly and pleural effusions. A CT scan of the abdomen and pelvis shows ascites, cardiomegaly which is essentially stable. At the time of the encounter I did not see any EKG done. ASSESSMENT: 1. Acute on chronic congestive heart failure, ejection fraction of 15 to 20%. 2. Severe biventricular failure on recent echocardiogram. 3. Severe nonischemic dilated cardiomyopathy with global hypokinesis. 4. Pulmonary hypertension with right ventricular systolic pressure of 58 on recent echocardiogram. 5. Recently diagnosed left subclavian deep vein thrombosis. The patient is currently on Eliquis anticoagulation. 6. Abdominal pain due to hepatomegaly from congestive hepatopathy. 7. History of atrial fibrillation, currently rate controlled. 8. Transaminitis secondary to congestive hepatopathy. 9. Chronic kidney disease stage 3B. 10. Severe uncontrolled hypertension. Unsure if the patient is compliant. 11. Suspicion of medical noncompliance. 12. Frequent flyer. PLAN: We are going to admit Ms. Cardenas to the medical floor. We will restart her back on her home medications. We will use IV diuretics instead of the p.o. We will keep her strict I's and O's and we will start her on a healthy heart diet. We will control the current pain with IV medications and transition them to p.o. when it is better controlled. We will start her back on her p.o. anticoagulation. We will re-evaluate Ms. Cardenas tomorrow and make further recommendations. cc: Severo Rey MD I have seen and examined Ms Cardenas today. I have also reviewed her labs and imagining studies. Ms Cardenas is a frequent flyer. She presents with SOB due to CHF exacerbation. She is also hypertensive and there is the question of medication compliance. Ms Cardenas also complains about right upper quadrant pain due to congestive hepatopathy. I agree with the above HPI and the plan reflects my opinion discussed with the COMMUNITY RELATIONS LIAISON. JUSTO
[2018-09-08] MEDS: ZAROXOLYN PO SCH (18:30)
[2018-09-08] MEDS: LASIX IV SCH (18:30)
[2018-09-08] MEDS: MORPHINE IV PRN (20:23)
[2018-09-08] MEDS: APRESOLINE PO SCH (21:58)
[2018-09-08] MEDS: COREG PO SCH (21:58)
[2018-09-08] MEDS: PRAVACHOL PO SCH (21:59)
[2018-09-08] MEDS: ALDACTONE PO SCH (21:59)
[2018-09-08] MEDS: ISORDIL PO SCH (21:59)
[2018-09-08] MEDS: ELIQUIS PO SCH (21:59)
[2018-09-08] MEDS: ENTRESTO 97 MG-103 MG TABLET PO SCH (22:00)
[2018-09-09] MEDS: APRESOLINE PO SCH ×2 (05:58→13:39)
[2018-09-09] MEDS: LASIX IV SCH ×2 (05:58→17:45)
[2018-09-09] MEDS: ISORDIL PO SCH ×3 (05:58→13:41)
[2018-09-09] MEDS: MORPHINE IV PRN ×3 (06:01→16:53)
[2018-09-09] MEDS: LANOXIN PO SCH (06:02)
--- NOTE | 2018-09-09 06:55 | Diag Imaging Result Doc PS360 ---
EXAM: CHEST-PORTABLE HISTORY: chf TECHNIQUE: Portable chest single view COMPARISON: 09/08/2018 FINDINGS: The heart remains markedly enlarged. There are central vascular prominence. Right apical pleural thickening and scarring. Questionable small infiltrate in the mid left lung. There is a left-sided pacemaker and there are surgical clips in the left axilla. IMPRESSION: Questionable slight interval worsening. Electronically signed by Suresh Don 09/09/2018 6:53 AM
[2018-09-09] MEDS ORDERED: PROTONIX PO PRN (07:00)
[2018-09-09 07:12] LABS: BASO# 0.02 X1000 (0.0-0.2); BASO% 0.3 % (0.0-0.8); EOS# 0.09 X1000 (0.0-0.7); EOS% 1.5 % (0.0-10.0); HEMATOCRIT 35.3 % (37.0-47.0); LYMPH# 1.25 X1000 (1.2-3.4); LYMPH% 21.2 % (20.5-51.1); MCH 26.8 PG (27-31); MCHC 31.2 g/dL (33-37); MCV 86.1 FL (81-99); MONO# 0.48 X1000 (0.11-0.59); MONO% 8.1 % (1.7-9.3); MPV 11.5 FL (7.4-10.4); NEUT# 4.06 X1000 (1.4-6.5); NEUT% 68.9 % (42.2-75.2); PLT 186 X1000 (130-400); RDW 19.4 % (11.5-14.5)
[2018-09-09 07:24] LABS: INR 1.27; PROTIME 16.9 Seconds (11.0-16.0)
--- NOTE | 2018-09-09 07:44 | EKG Report ---
Test Performed on : 09/08/2018 4:12:45 PM Test Reason : sob Blood Pressure : / mmHG Vent. Rate : 080 BPM Atrial Rate : 080 BPM P-R Int : 108 ms QRS Dur : 162 ms QT Int : 534 ms P-R-T Axes : 023 -63 106 degrees QTc Int : 615 ms AV dual-paced rhythm with frequent ventricular-paced complexes Abnormal ECG When compared with ECG of 26-AUG-2018 12:54, (Unconfirmed) No significant change was found Unconfirmed Result
[2018-09-09 07:54] LABS: ALB/GLOB RATIO 0.9; ALBUMIN 3.8 g/dL (3.5-5.0); CALCIUM 9.2 mg/dL (8.8-10.2); CREATININE 1.7 mg/dL (0.5-0.9); MAGNESIUM 1.6 mg/dL (1.5-2.7); POTASSIUM 3.1 mmol/L (3.5-5.1); TOTAL BILIRUBIN 1.99 mg/dL (0.20-1.00); TOTAL PROTEIN 7.9 g/dL (6.3-8.3)
[2018-09-09] MEDS ORDERED: KLOR-CON PO ONE (08:09)
[2018-09-09] MEDS: ELIQUIS PO SCH (09:26)
[2018-09-09] MEDS: COREG PO SCH (09:27)
[2018-09-09] MEDS: CORDARONE PO SCH (09:27)
[2018-09-09] MEDS: ASPIRIN EC PO SCH (09:27)
[2018-09-09] MEDS: ALDACTONE PO SCH (09:27)
[2018-09-09] MEDS: ENTRESTO 97 MG-103 MG TABLET PO SCH (09:27)
--- NOTE | 2018-09-09 13:58 | PROGRESS NOTE ---
DATE: 09/09/2018 SUBJECTIVE: This morning, Ms. Cardenas refers to be doing a lot better. She thinks the shortness of breath has significantly improved as well as the abdominal pain. OBJECTIVE: Ms. Cardenas was sitting up in the bed. She did not seem to be in any distress. She is obese. BMI is 41.5. Vital Signs: Blood pressure is 127/74, pulse of 80, respirations are 19, temperature is 97.6 degrees, the patient is saturating 98% on 2 L. General Examination: Ms. Cardenas is 48 years old. Chest: Good air entry bilaterally. There are a few crackles in the posterior lung patel. Cardiovascular: Regular rate and rhythm. No murmurs, no rubs, no gallops. There is a pacemaker generator on the left anterior chest wall. Abdomen: Soft. It is distended. There is some tenderness in the right upper quadrant. Extremities: About 1+ pedal edema. HAND RUG BRAIDER: Patient is awake, alert, oriented. Laboratory Data: WBCs 5.90, hemoglobin is 11.0, platelet count of 186,000. Chemistry is also reviewed. Creatinine is down to 1.7, potassium is 3.1. Liver enzymes are also trending down. Diagnostic Studies: A chest x-ray this morning shows questionable slight interval worsening. Current Medications: Have all been reviewed. No changes. ASSESSMENT: 1. Acute on chronic congestive heart failure with an ejection fraction of 15-20%. 2. Biventricular failure. 3. Severe nonischemic dilated cardiomyopathy with global hypokinesis. 4. Pulmonary hypertension with right ventricle systolic pressure of 58 on recent echocardiogram. 5. Recently diagnosed left subclavian deep venous thrombosis. Patient is on Eliquis. 6. Abdominal pain with transaminitis, likely due to congestive hepatopathy. Liver enzymes are trending down. 7. History of atrial fibrillation, currently rate controlled. 8. Chronic kidney disease stage IIIB. Creatinine is fairly stable. 9. Severe uncontrolled hypertension on presentation. This has gotten remarkably better since patient is taking her medication. There is a question of medication compliance. PLAN: In general, I think Ms. Cardenas is doing a lot better. Abdominal pain is subsiding. Her enzymes are trending down. We are going to continue with her current management for another 24 hours. I think she is a potential discharge tomorrow if she continues to show improvement. cc: Severo Rey MD
[2018-09-09] MEDS: ZOFRAN IV PRN (17:45)
[2018-09-10] MEDS: MORPHINE IV PRN ×3 (00:33→13:10)
[2018-09-10] MEDS: ENTRESTO 97 MG-103 MG TABLET PO SCH ×3 (00:37→23:31)
[2018-09-10] MEDS: APRESOLINE PO SCH ×4 (00:37→23:32)
[2018-09-10] MEDS: ALDACTONE PO SCH ×2 (00:38→09:21)
[2018-09-10] MEDS: PRAVACHOL PO SCH ×2 (00:39→23:31)
[2018-09-10] MEDS: ISORDIL PO SCH ×4 (00:39→23:31)
[2018-09-10] MEDS: ELIQUIS PO SCH ×3 (00:40→23:31)
[2018-09-10] MEDS: COREG PO SCH ×3 (00:40→23:32)
[2018-09-10] MEDS: LANOXIN PO SCH (06:12)
[2018-09-10] MEDS: LASIX IV SCH ×2 (06:12→16:31)
[2018-09-10] MEDS: ZOFRAN IV PRN ×2 (06:25→13:10)
[2018-09-10 07:41] LABS: POTASSIUM 3.5 mmol/L (3.5-5.1)
[2018-09-10 07:42] LABS: ALB/GLOB RATIO 0.8; ALBUMIN 3.5 g/dL (3.5-5.0); CALCIUM 8.7 mg/dL (8.8-10.2); CREATININE 1.7 mg/dL (0.5-0.9); TOTAL BILIRUBIN 1.55 mg/dL (0.20-1.00); TOTAL PROTEIN 7.7 g/dL (6.3-8.3)
--- NOTE | 2018-09-10 07:47 | Diag Imaging Result Doc PS360 ---
CHEST-2 VIEWS - 09/10/2018 INDICATION: hypoxia COMPARISON: 09/09/2018 FINDINGS: Stable pacemaker. Stable significant cardiomegaly. Stable trace mainly peripheral interstitial opacities bilaterally, worst in the lung bases. Stable pleural-based opacity at the right apex. No new infiltrates. IMPRESSION: No change from prior. Electronically signed by Michael Kim 09/10/2018 7:45 AM
[2018-09-10] MEDS: ASPIRIN EC PO SCH (09:21)
[2018-09-10] MEDS: CORDARONE PO SCH (09:21)
[2018-09-10] MEDS ORDERED: MILK OF MAGNESIA PO PRN (17:27)
--- NOTE | 2018-09-10 18:04 | PROGRESS NOTE ---
DATE: 09/10/2018 SUBJECTIVE: Followed by Dr. Albina Ortega. This is a 48-year-old female with multiple comorbidities, frequent flyer to the hospital. This is about the 10th admission since over this year for multiple reasons. Ms. Cardenas was admitted early this month around 08/26/2018 mainly for swelling of left upper extremity, some shortness of breath. Medications she was treated and discharged on 08/29/2018. Just about 10 days ago she came back and said for the past 4 days she has been progressively getting weaker and having more shortness of breath to the point where she has been sleeping almost in a sitting position. Refers that her blood pressure has not been very well controlled and when she checked it at home it is remarkably high by report. Denies any chest pain. She states that she has right upper quadrant pain. It has been extensively exhaustively investigated, continues to be hurting for the last 4 days. Unable to see her primary care doctor by report, so she came to the emergency room. She has a pacemaker position change last July. At that time she developed a DVT in the left subclavian vein. In the emergency room blood pressure was 148/100, pulse 86. PAST MEDICAL HISTORY: 1. Atrial fibrillation. 2. Multiple DVTs. 3. Coronary artery disease. 4. History of congestive heart failure. 5. Hypertension. 6. Dyslipidemia. 7. Obstructive sleep apnea. 8. COPD. 9. History of breast cancer. 10. Chronic kidney disease. 11. Depression. PAST SURGICAL HISTORY: 1. Cholecystectomy. 2. Hysterectomy. 3. section. 4. Tonsillectomy. 5. Mastectomy. 6. Defibrillator placement recently changed left side. 7. Arthroscopy I believe to the knees. She states she is feeling a little better, although she still feels like she has fullness in her tummy and feels like she needs to have fluid taken off. OBJECTIVE: Vital Signs: By report, she is afebrile, temp 98, pulse 80, respirations 18, blood pressure 97/61. HEENT: Pupils are equal and round. Lungs: Lungs are clear in all lung patel. Cardiovascular: Regular rhythm and rate without murmur or S3. Abdomen: Soft. Skin: Warm and dry. Urine output is 1800 mL. IMAGING: Chest x-ray is stable pacemaker. She has stable trace peripheral interstitial opacities bilaterally, worse in the lung bases. Stable pleural based opacity at the right apex. No new infiltrates. ASSESSMENT AND PLAN: 1. Acute on chronic congestive heart failure with ejection fraction 15-20%. So, she has congestive heart failure with a reduced ejection fraction. 2. Biventricular failure. 3. Severe nonischemic dilated cardiomyopathy with global hypokinesis. 4. Pulmonary hypertension with right ventricular systolic pressure of 58 on recent echocardiogram. 5. Recent diagnosis of left subclavian deep venous thrombosis. Patient is on Eliquis. 6. Abdominal pain with transaminitis likely due to congestive hepatomegaly or hepatopathy. Liver enzymes are trending down. 7. History of atrial fibrillation. 8. Chronic kidney disease stage IIIB. 9. Severe uncontrolled hypertension, and this is better when she is taking her medication. 10. Continue present orders. LABORATORY DATA: Review of her lab today: Hematocrit 35, hemoglobin 11. Electrolytes unremarkable. Creatinine is 1.7. Sodium 136, potassium 3.5, chloride 95, BUN 36, creatinine 1.7. cc: Krish Shepherd MD
[2018-09-11] MEDS: MORPHINE IV PRN ×4 (02:22→23:00)
[2018-09-11] MEDS: ALDACTONE PO SCH ×4 (04:49→23:06)
[2018-09-11] MEDS: LASIX IV SCH ×2 (04:50→17:07)
[2018-09-11] MEDS: APRESOLINE PO SCH ×4 (06:34→23:05)
[2018-09-11] MEDS: LANOXIN PO SCH (06:35)
[2018-09-11] MEDS: ISORDIL PO SCH ×3 (06:35→23:04)
[2018-09-11] MEDS: ASPIRIN EC PO SCH (09:39)
[2018-09-11] MEDS: CORDARONE PO SCH (09:39)
[2018-09-11] MEDS: COREG PO SCH ×3 (09:39→23:05)
[2018-09-11] MEDS: ELIQUIS PO SCH ×2 (09:39→23:04)
[2018-09-11] MEDS: ENTRESTO 97 MG-103 MG TABLET PO SCH ×2 (09:39→23:03)
[2018-09-11] MEDS: ZOFRAN IV PRN (09:43)
--- NOTE | 2018-09-11 15:51 | PROGRESS NOTE ---
DATE: 09/11/2018 SUBJECTIVE: Ms. Cardenas says she is doing better, but feels like she needs a little more fluid and would benefit from another day of diuresis. OBJECTIVE: She remains afebrile, temperature 97.4 degrees, pulse 79, respirations 15, blood pressure 190/62. Pupils are equal and round. Lungs are clear in all lung patel. Cardiovascular regular rhythm and rate without murmur or S3. Trace edema ankles. Urine output is 1300 mL. Chest x-ray from yesterday very little change. Stable pacemaker. Stable significant cardiomegaly. Stable trace, mainly peripheral interstitial opacities bilaterally worse in the lung bases. Stable pleural based opacity in the right apex. No infiltrates. ASSESSMENT AND PLAN: 1. Acute on chronic congestive heart failure with ejection fraction 15 to 20 percent. She has reduced ejection fraction and biventricular failure. Seems to be responding clinically with diuresis. Hopefully, will be ready go home tomorrow. 2. Severe nonischemic dilated cardiomyopathy with global hypokinesis. 3. Pulmonary hypertension. Right ventricular systolic pressure is around 58 mmHg per echocardiogram. 4. Recent diagnosis of left subclavian deep venous thrombosis. She is on Eliquis. 5. Abdominal pain, transaminitis. Suspect congestive hepatomegaly or hepatopathy. Liver enzymes are trending down. 6. History of atrial rate controlled. 7. Chronic kidney disease stage 3B. 8. Severe uncontrolled hypertension, and she seems to be doing better on these medications. Hopefully, we can go home tomorrow. Creatinine is at 1.7. cc: Krish Shepherd MD
[2018-09-11] MEDS: ZAROXOLYN PO SCH (17:07)
[2018-09-11] MEDS: PRAVACHOL PO SCH (23:04)
[2018-09-12] MEDS: LASIX IV SCH ×2 (05:07→17:59)
[2018-09-12] MEDS: APRESOLINE PO SCH ×2 (05:07→13:51)
[2018-09-12] MEDS: ISORDIL PO SCH ×2 (05:31→13:51)
[2018-09-12] MEDS: LANOXIN PO SCH (05:59)
[2018-09-12] MEDS: MORPHINE IV PRN ×3 (07:18→17:59)
[2018-09-12] MEDS: ENTRESTO 97 MG-103 MG TABLET PO SCH (08:39)
[2018-09-12] MEDS: ELIQUIS PO SCH (08:39)
[2018-09-12] MEDS: ASPIRIN EC PO SCH (08:39)
[2018-09-12] MEDS: ALDACTONE PO SCH (08:39)
[2018-09-12] MEDS: COREG PO SCH (08:39)
[2018-09-12] MEDS: CORDARONE PO SCH (08:39)
[2018-09-12 16:40] VITALS: BP 100/65
--- NOTE | 2018-09-12 18:28 | DISCHARGE SUMMARY ---
ADMISSION DATE: 09/08/2018 DISCHARGE DATE: 09/12/2018 HISTORY: She is followed by Dr. Ortega. Commercial Assistant Dr. Burns. Presented with shortness of breath, dizziness, frequent falling, and abdominal pain. This is a 48-year-old female with multiple comorbidities, frequent admissions to this hospital. I think this is almost the 10th admission this year. Ms. Cardenas admitted this month on 08/26/2018, mainly because of swelling in left upper extremity and some shortness of breath. On that occasion, she was treated and discharged on 08/29/2018, just about 10 days ago before this admission. She is back because she said in the past 4 days, she has been progressively getting weaker and having more shortness of breath to the point where she has been sleeping almost sitting position. Ms. Cardenas also refers the blood pressure has not been very well controlled. Any time she checks it at home, it is remarkably high. She denies any chest pain. Ms. Cardenas also refers that her right upper quadrant pain has been more extensive, and this has been exhaustively investigated, but reports it has been hurting in the last 4 days, and this may be hepatic congestion. She was not able to reach out to her primary care doctor, so came to the emergency room. She had a pacemaker placed in July and developed a DVT in the left subclavian vein. On presentation to the emergency room, she was found to have blood pressure about 148/100, pulse 86, respirations 26. PAST MEDICAL HISTORY: Once again, I reviewed past medical history; 1. Atrial fibrillation. 2. Multiple DVTs. 3. Coronary artery disease. 4. History of congestive heart failure. 5. Hypertension. 6. Dyslipidemia. 7. Obstructive sleep apnea. 8. COPD. 9. History of breast cancer. 10. Chronic kidney disease. 11. Depression. PAST SURGICAL HISTORY: 1. Cholecystectomy. 2. Hysterectomy. 3. section. 4. Tonsillectomy. 5. Mastectomy. 6. Defibrillator placement, recently changed to left side. 7. Arthroscopy. ADMISSION DIAGNOSES: 1. Acute on chronic congestive heart failure. She has known congestive heart failure with a reduced ejection fraction estimated at 15 to 20 percent. 2. Severe biventricular failure on recent echocardiogram. 3. Severe nonischemic dilated cardiomyopathy with global hypokinesis. 4. Pulmonary hypertension, right ventricular systolic pressure about 58 mmHg as measured on recent echocardiogram. 5. Recently diagnosed with subclavian deep venous thrombosis. She is on Eliquis anticoagulation. 6. Abdominal pain due to hepatomegaly from congestive hepatopathy. 7. History of atrial fibrillation, rate controlled. 8. Transaminitis, secondary to congestive hepatopathy. 9. Chronic kidney disease stage 3B. 10. Severe uncontrolled hypertension. 11. Suspicion of medical noncompliance. 12. Frequent admissions. HOSPITAL COURSE: She was diuresed. Followup chest x-ray showed no change, stable pacemaker, significant cardiomegaly. She did seem to be breathing better and felt like her right-sided pain had improved, was eating and breathing comfortably, and it was felt that she wanted to go home on 09/12/2018. DISCHARGE ORDERS AND MEDICATIONS: She is on: 1. Amiodarone 200 mg a day. 2. Eliquis 5 mg twice a day. 3. Aspirin 81 mg a day. 4. Coreg 3.125 mg twice a day. 5. Lanoxin 125 mcg daily. 6. Lasix 40 mg. She will take twice a day, once in the morning and one at 1:00 p.m. 7. Apresoline 100 mg. She will take 3 times a day. 8. Isordil 80 mg 3 times a day. 9. Zaroxolyn 2.5 mg. she will take every third day. 10. Pravachol 40 mg a day. 11. Entresto 97-103 one twice a day. 12. Aldactone 25 mg she takes twice a day. She is to find a primary care provider, and it is important that she get followup, and follow up with her hairspring studder as well. cc: Kirsh Shepherd MD
== END 2018-09-12 18:35 | disposition home or self-care (01) | DRG 291 ==
LOC: ED 12:11 → 3N 17:28 → SUATTDRO 17:28
PROVIDERS: ATTEND Emergency Medicine
CPT/HCPCS: 71010; 71020; 71045; 71046; 74176; 80053; 81001; 83690; 83735; 83880; 84443; 84484; 85025; 85610; 93005; 94640; 94761; 96374; 96375; 97161; 97530; 99285; A9270; J1940; J2270; J2405

== ENCOUNTER 2018-10-03 13:00 | Inpatient (IN) ==
--- NOTE | 2018-10-03 13:44 | EKG Report ---
Test Performed on : 10/03/2018 1:26:55 PM Test Reason : sob chf Blood Pressure : / mmHG Vent. Rate : 080 BPM Atrial Rate : 086 BPM P-R Int : 000 ms QRS Dur : 206 ms QT Int : 554 ms P-R-T Axes : 000 -56 116 degrees QTc Int : 638 ms Ventricular-paced rhythm Abnormal ECG When compared with ECG of 29-SEP-2018 21:57, (Unconfirmed) Vent. rate has decreased BY 10 BPM Unconfirmed Result
--- NOTE | 2018-10-03 13:46 | Diag Imaging Result Doc PS360 ---
EXAM: CHEST-2 VIEWS HISTORY: sob chf TECHNIQUE: Chest two views COMPARISON: 09/29/2018 FINDINGS: The heart is markedly enlarged. There is right apical pleural thickening. Interval improvement with decreased interstitial markings/vascular distention. There is a left-sided pacemaker. There are surgical clips in the left axilla. IMPRESSION: Mild interval improvement. Electronically signed by Suresh Don 10/03/2018 1:44 PM
--- NOTE | 2018-10-03 14:53 | PROVIDER DOCUMENTATION ---
This chart was entered by Shayla Price Scribe, acting as scribe for Maru Stark MD. HPI-Respiratory General - General Chief Complaint: Shortness of Breath Stated Complaint: CHF, SWELLING Time Seen by Provider: 10/03/18 13:18 Source: patient Allergies/Adverse Reactions: Patient Allergies Allergy/AdvReac Type Severity Reaction Status Date / Time latex Allergy Intermediate RASH Verified 09/08/18 12:58 dopamine AdvReac Hair Loss Verified 09/08/18 12:58 propoxyphene AdvReac ITCHING Verified 09/08/18 12:58 [From [facility]] tramadol AdvReac ITCHING Verified 09/08/18 17:01 Home Medications: Home Medication List Medication Instructions Recorded Confirmed Last Taken Type Aspirin EC 81 mg PO DAILY #30 tab 10/03/17 09/08/18 09/08/18 07:00 Rx Metoclopramide HCl [Reglan] 5 mg PO HS PRN 06/08/18 09/08/18 09/07/18 20:00 His tory Apixaban [Eliquis] 10 mg PO BID #28 tab 08/23/18 09/08/18 09/08/18 07:00 Rx Albuterol 2.5MG/Ipratrop 0.5MG 3 ml INH BID PRN #25 neb 08/29/18 09/08/18 09/02/18 Rx [Duoneb (A & A)] Amiodarone [Cordarone] 200 mg PO DAILY 30 Days #30 tab 09/12/18 Unknown Rx Apixaban [Eliquis] 5 mg PO BID 30 Days #60 tab 09/12/18 Unknown Rx Carvedilol [Coreg] 3.125 mg PO Q12HR 30 Days #60 tab 09/12/18 Unknown Rx Digoxin [Lanoxin] 125 microgm PO DAILY@0700 30 Days 09/12/18 Unknown Rx #30 tab Furosemide [Lasix] 80 mg PO BID 30 Days #60 tab 09/12/18 Unknown Rx Hydralazine [Apresoline] 100 mg PO TID@0600,1400,2200 30 09/12/18 Unknown Rx Days #90 tab Isosorbide Dinitrate [Isordil] 80 mg PO TID@0600,1400,2200 30 09/12/18 Unknown Rx Days #90 tab Metolazone 2.5 mg PO DIRECTED 90 Days #30 09/12/18 Unknown Rx tab PRAVAstatin [Pravachol] 40 mg PO QHS 30 Days #30 tab 09/12/18 Unknown Rx Pantoprazole [Protonix] 40 mg PO DAILY@0700 PRN 30 Days 09/12/18 Unknown Rx #30 tab Sacubitril/Valsartan [Entresto 97 1 tab PO BID 30 Days #60 tab 09/12/18 Unknown Rx mg-103 mg Tablet] Spironolactone [Aldactone] 25 mg PO BID 30 Days #60 tab 09/12/18 Unknown Rx - History of Present Illness-Resp Nature of Presenting Problem: 48 yobf presents to the ed with c/o sob (acute onset this am), angioedema, LUE edema 3+, BLE-ankles 2+, nausea RUQ abdominal pain with edema noted and generalized pain for 1 week. pt was dx with DVT 2 weeks prior. pt on exam is on O2 via NC and speaking in complete sentences. pt has O2 @ home to use Quality of Pain: reports: aching (generalized) Severity in ED: reports: moderate Onset/Duration: reports: this morning (sob only other sx 1 week) Timing: reports: still present Exposure: reports: unknown cause Cough Quality/Degree: reports: mild Episode Frequency: frequent episodes Current Respiratory Medication Therapy: Initiated see nurses note Modifying Factors: improves with: nothing Associated Symptoms: reports: cough, shortness of breath, other (edema and generalized pain abdominal pain). denies: wheezing Similar Symptoms Previously?: Yes Recently seen or treated by another doctor?: No Review of Systems - Adult - REVIEW OF SYSTEMS - ADULT Constitutional: denies: chills, fever Eyes: reports: no symptoms reported Ears, Nose, Mouth & Throat: reports: no symptoms reported Cardiovascular: reports: see HPI, edema. denies: chest pain, palpitations, syncope Respiratory: reports: see HPI, cough, dyspnea on exertion, shortness of breath. denies: wheezing Gastrointestinal: reports: see HPI, abdominal pain. denies: diarrhea, nausea, vomiting Genitourinary: reports: no symptoms reported Musculoskeletal: reports: see HPI, muscle aches, muscle weakness Integumentary: reports: no symptoms reported Neurological: denies: dizziness/vertigo, headache/migraines, slurred speech, syncope, tremors Psychiatric: reports: no symptoms reported Endocrine: reports: no symptoms reported Hematologic/Lymphatic: reports: no symptoms reported Allergic/Immunologic: reports: no symptoms reported All Other Systems: Reviewed and Negative Past History - Adult - PAST MEDICAL HISTORY-ADULT Review of Records: reports: Nursing Assessment Review, Medications Reviewed Major Childhood Illnesses: reports: denies history Cardiovascular: reports: A-Fib, blood clots, CAD, CHF, HTN, hyperlipidemia, palpitations, pacemaker (defib) Respiratory: reports: asthma, COPD, sleep apnea Gastrointestinal: reports: liver disease Obstetrical/Gynecological: reports: other (breast cancer) Genitourinary: reports: kidney disease Musculoskeletal: reports: denies history Hand Dominance: Right Handed Neurological: reports: denies history Psychiatric: reports: anxiety, depression Endocrine/Immune: reports: Diabetes Other Conditions: reports: other cancer (breast cancer) - PRIOR SURGERIES/PROCEDURES Surgical/Procedure History: reports: cholecystectomy, pacemaker, hysterectomy, , tonsillectomy, orthopedic (extremity), breast, other (mastectomy,defib,arthroscopy) - IMMUNIZATION STATUS Childhood Immunizations: See Nurse Assessment Flu Vaccine: See Nurse Assessment - FAMILY HISTORY Family History: reviewed, not pertinent - SOCIAL HISTORY Smoking: denies Substance Use: denies Alcohol Use Frequency: never Living Situation: family Physical Exam-General - PHYSICAL EXAM-ADULT Initial Vital Signs Reviewed: Yes - CONSTITUTIONAL General Appearance: alert, moderate distress, obese - EYES Eyes: PERRL/EOMI, other (edema noted around eyes) - HEAD, EARS, NOSE, MOUTH & THROAT HENMT: moist mucous membranes, angioedema, other (edema) - RESPIRATORY Respiratory: chest non-tender, lungs clear, normal breath sounds - CARDIOVASCULAR Cardiovascular: normal peripheral pulses, regular rate, rhythm - GASTROINTESTINAL (ABDOMEN) Abdominal Exam: normal bowel sounds, soft, tenderness (RUQ) - LYMPHATIC Lymphatic: no adenopathy - MUSCULOSKELETAL Back Exam: normal inspection, no CVA tenderness, no vertebral tenderness Extremity: normal range of motion, no calf tenderness, normal capillary refill, swelling (LUE), tenderness - SKIN Integumentary: normal color, normal turgor, warm/dry, swelling (facial LUE and abdomen), tenderness - NEUROLOGIC Neurologic: grossly normal - PSYCHIATRIC Psych/Mental Status: normal mood/affect, normal thought content, normal thought process, oriented x 3 Progress - PLAN OF CARE/RESULTS Progress/Plan/Lab Results: Vital Signs - 8 hr 10/03/18 13:02 10/03/18 15:23 Temperature 97.6 F Pulse Rate 80 80 Respiratory Rate 20 20 Blood Pressure 150/110 127/93 O2 Sat by Pulse Oximetry 94 L 99 Laboratory Results - last 24 hr 10/03/18 10/03/18 10/03/18 14:58 14:58 14:58 WBC 5.89 RBC 3.60 L Hgb 9.8 L Hct 31.3 L MCV 86.9 MCH 27.2 MCHC 31.3 L RDW Std Deviation 19.5 H Plt Count 135 MPV 11.3 H Immature Gran % (Auto) 0.2 Neut % (Auto) 67.3 Lymph % (Auto) 21.4 [place] % (Auto) 10.4 H Eos % (Auto) 0.5 Baso % (Auto) 0.2 Immature Gran # (Auto) 0.01 Neut # (Auto) 3.97 Lymph # (Auto) 1.26 [place] # (Auto) 0.61 H Eos # (Auto) 0.03 Baso # (Auto) 0.01 PT INR PTT (Actin FS) D-Dimer, Quantitative Sodium Potassium Chloride Carbon Dioxide Anion Gap BUN Creatinine Estimated GFR/1.73 m2 BUN/Creatinine Ratio Glucose Calculated Osmolality Calcium Total Bilirubin AST ALT Alkaline Phosphatase Creatine Kinase 75 Troponin T 0.027 Fxd-V-Antlnzajyzy Pept Total Protein Albumin Globulin Albumin/Globulin Ratio 10/03/18 10/03/18 10/03/18 14:58 14:58 14:58 WBC RBC Hgb Hct MCV MCH MCHC RDW Std Deviation Plt Count MPV Immature Gran % (Auto) Neut % (Auto) Lymph % (Auto) [place] % (Auto) Eos % (Auto) Baso % (Auto) Immature Gran # (Auto) Neut # (Auto) Lymph # (Auto) [place] # (Auto) Eos # (Auto) Baso # (Auto) PT INR PTT (Actin FS) D-Dimer, Quantitative 1.72 H Sodium 141 Potassium 3.3 L Chloride 98 Carbon Dioxide 27 Anion Gap 16 BUN 33 H Creatinine 1.6 H Estimated GFR/1.73 m2 35 BUN/Creatinine Ratio 21 Glucose 96 Calculated Osmolality 288 Calcium 8.8 Total Bilirubin 2.10 H AST 26 ALT 21 Alkaline Phosphatase 159 H Creatine Kinase Troponin T Job-[place]-Ehrgatcjuyk Pept 48868 H Total Protein 7.0 Albumin 3.7 Globulin 3.0 Albumin/Globulin Ratio 1.0 10/03/18 14:58 WBC RBC Hgb Hct MCV MCH MCHC RDW Std Deviation Plt Count MPV Immature Gran % (Auto) Neut % (Auto) Lymph % (Auto) [place] % (Auto) Eos % (Auto) Baso % (Auto) Immature Gran # (Auto) Neut # (Auto) Lymph # (Auto) [place] # (Auto) Eos # (Auto) Baso # (Auto) PT 15.3 INR 1.15 PTT (Actin FS) 20.4 L D-Dimer, Quantitative Sodium Potassium Chloride Carbon Dioxide Anion Gap BUN Creatinine Estimated GFR/1.73 m2 BUN/Creatinine Ratio Glucose Calculated Osmolality Calcium Total Bilirubin AST ALT Alkaline Phosphatase Creatine Kinase Troponin T Qfw-C-Yjywfjvfoik Pept Total Protein Albumin Globulin Albumin/Globulin Ratio Orders Category Date Time Status Cardiac Monitoring DIRECTED Care 10/03/18 13:08 Active Nursing- Obtain EKG ONCE Care 10/03/18 13:08 Active Oxygen Therapy- ED Nursing DIRECTED Care 10/03/18 15:24 Active Saline Loc NOW Care 10/03/18 15:08 Active CHEST-2 VIEWS [RAD] Stat Exams 10/03/18 13:08 Completed CBC WITH DIFF [HEME] Stat Lab 10/03/18 14:58 Completed CK PROFILE [SP CHEM] Stat Lab 10/03/18 14:58 Completed COMPREHENSIVE METABOLIC PANEL [CHEM] Stat Lab 10/03/18 14:58 Completed D-DIMER [COAG] Stat Lab 10/03/18 14:58 Completed PRO B-NATRIURETIC PEPTIDE Stat Lab 10/03/18 14:58 Completed PROTIME WITH INR [COAG] Stat Lab 10/03/18 14:58 Completed PTT [COAG] Stat Lab 10/03/18 14:58 Completed TROPONIN T Stat Lab 10/03/18 14:58 Completed Morphine Med 10/03/18 15:06 Discontinued 4 mg IV NOW ONE EKG [EKG] Stat Ther 10/03/18 13:08 Draft Result Diagrams: 10/03/18 14:58 10/03/18 14:58 - REASSESSMENT Reassessment #1 Time Reassessed: 15:01 (pt still sob and feels like swelling is still not rel ieved) Status: unchanged Reassessment #2 Time Reassessed: 17:16 Status: improving Reassessment Comment: pt was sleeping when dr came into room - EKG 1 Time of EKG reading by physician:: 13:26 EKG Read and Signed by:: Maru Stark EKG Interpretation (*Must complete 3 of following elements*): Abnormal Rate: 80 Rhythm: ventricular paced rhythm Prior EKG Comparison: no prior EKG - XRAY 1 XRAY: Bilateral XRAY Study: Chest Impression: See EMR Report (EXAM: CHEST-2 VIEWS HISTORY: sob chf TECHNIQUE: Chest two views COMPARISON: 09/29/2018 FINDINGS: The heart is markedly enlarged. There is right apical pleural thickening. Interval improvement with decreased interstitial markings/vascular distention. There is a left-sided pacemaker. There are surgical clips in the left axilla. IMPRESSION: Mild interval improvement. Electronically signed by Suresh Don 10/03/2018 1:44 PM 10/03/18 1344 Interpreting Physician: Suresh Don MD Dictated Date/Time: 10/03/18 1343 cc: Maru Stark MD; None,PCP) - CONSULTS/PCP/HOSPITALIST Notification #1 *Consult/PCP/Hospitalist*: hospitalist dr tong Time Discussed: 17:14 Consult Disposition: Admit Departure - Departure Date of Disposition Decision: 10/03/18 Time of Disposition Decision: 17:15 DIAGNOSIS: SOB (shortness of breath), Worsening body fluid retention CHF (congestive heart failure) Qualifiers: Heart failure type: unspecified Heart failure chronicity: unspecified Qualified Code(s): I50.9 - Heart failure, unspecified Disposition: ADMITTED INPATIENT 09 Certified Medical Emergency: Emergent Condition: Stable Referrals and Follow-Ups: None,PCP [Primary Care Provider] - - Critical Care Note This patient required my direct & personal management of CC.: Yes Total Time (mins): 32 Critical Care Statement: This patient required my direct personal management to treat or rule out processes, the absence of which, could potentiallly result in sudden, clinically significant life or limb threatening deterioration. Attestation - Physician/ PREETI Attestation Patient care was provided by Advanced Practice Provider:: No The physician spent face to face time with patient:: Yes Advanced Practice Provider documentation review:: Supervising physician onsite and consulted in the evaluation and care of this patient. The physician did have a face to face encounter with the patient. This chart was documented by the indicated scribe, (Shayla Price Scribe) and accurately reflects the services I performed and decisions made by me, Maru Stark MD, as attested by the provider's signature.
[2018-10-03] MEDS ORDERED: MORPHINE IV ONE (15:06)
[2018-10-03 15:14] LABS: BASO# 0.01 X1000 (0.0-0.2); BASO% 0.2 % (0.0-0.8); EOS# 0.03 X1000 (0.0-0.7); EOS% 0.5 % (0.0-10.0); HEMATOCRIT 31.3 % (37.0-47.0); HEMOGLOBIN 9.8 g/dL (12.0-16.0); IMM GRAN# 0.01 X1000 (0.0-0.04); IMM GRAN% 0.2 % (0.0-0.5); LYMPH# 1.26 X1000 (1.2-3.4); LYMPH% 21.4 % (20.5-51.1); MCH 27.2 PG (27-31); MCHC 31.3 g/dL (33-37); MCV 86.9 FL (81-99); MONO# 0.61 X1000 (0.11-0.59); MONO% 10.4 % (1.7-9.3); MPV 11.3 FL (7.4-10.4); NEUT# 3.97 X1000 (1.4-6.5); NEUT% 67.3 % (42.2-75.2); PLT 135 X1000 (130-400); RDW 19.5 % (11.5-14.5); WBC 5.89 X1000 (4.8-10.8)
[2018-10-03 15:44] LABS: ALBUMIN 3.7 g/dL (3.5-5.0); CALCIUM 8.8 mg/dL (8.8-10.2); CREATININE 1.6 mg/dL (0.5-0.9); POTASSIUM 3.3 mmol/L (3.5-5.1); TOTAL BILIRUBIN 2.1 mg/dL (0.20-1.00)
[2018-10-03 16:08] LABS: INR 1.15; PROTIME 15.3 Seconds (11.0-16.0); PTT 20.4 Seconds (22.3-41.8)
[2018-10-03] MEDS ORDERED: ANTIVERT PO PRN (18:18)
--- NOTE | 2018-10-03 19:57 | HISTORY AND PHYSICAL ---
PRIMARY CARE PROVIDER: None. CHIEF COMPLAINT: Shortness of breath, left arm swelling, and dizziness. HISTORY OF PRESENT ILLNESS: Ms. Cardenas is a 48-year-old female who is well known to our service for multiple admissions for heart failure and DVT. I believe this will be her 9th admission this year. She carries a past medical history of atrial fibrillation, multiple DVT's, coronary artery disease, congestive heart failure, hypertension, dyslipidemia, obstructive sleep apnea, COPD, history of breast cancer, chronic kidney disease, and depression who reports yesterday she started having increased swelling in her right hand with redness and warmth. Over the past week, she has had increasing shortness of breath and dizziness as well as she feels like her abdomen is swollen and painful on the right side. She feels like her belly is filling up with fluid. She reports losing her mother 2 weeks ago. They buried her last . She has not felt like herself since that time. She states she has been taking all of her medications as prescribed. She has not been taking any extra salt. She eats light food. She watches her fluid intake. She really has not had much of an appetite over the last several weeks. She came to the ED, and found to have an elevated proBNP. She will be admitted for congestive heart failure as well as left upper extremity DVT. We will check her out with a V/Q scan to rule out any PE secondary to her acute shortness of breath. Admit her to the floor, and continue on IV Lasix and her home medications that she was previously discharged on. REVIEW OF SYSTEMS: Twelve-point review of systems completely negative except for those mentioned in HPI. PAST MEDICAL HISTORY: 1. Atrial fibrillation. 2. Multiple DVT's. 3. Coronary artery disease. 4. Congestive heart failure. 5. Hypertension. 6. Dyslipidemia. 7. Obstructive sleep apnea. 8. COPD. 9. History of breast cancer. 10. Chronic kidney disease. 11. Depression. PAST SURGICAL HISTORY: 1. Cholecystectomy. 2. Hysterectomy. 3. section. 4. Tonsillectomy. 5. Mastectomy. 6. Defibrillator placement. 7. Arthroscopy. FAMILY HISTORY: Positive for hypertension and congestive heart failure. She just recently lost her mother to heart failure 2 weeks ago. MEDICATIONS: Home medications have not been verified. We did go over her last medication list for this admission. ALLERGIES: 1. Latex. 2. Dopamine. 3. Propoxyphene. PHYSICAL EXAMINATION: VITAL SIGNS: Temperature 97.9 degrees, heart rate 80, respirations 21, blood pressure 138/90, and O2 is 98% on 2 L nasal cannula. GENERAL: Ms. Cardenas is a pleasant, 48-year-old, female who is sitting up on the bed sleeping, lying in [*] ASSESSMENT AND PLAN: 1. [*]We will continue with IV diuresis. Her home medications. Strict I Os, daily weights, and healthy heart diet. 2. Left upper extremity DVT. We will rule out PE with a V/Q scan, and we will redo with Doppler to her left upper extremity as she had an acute episode of swelling with redness and warmth this morning. Patient states she has been taking her home medicines. We will continue with her p.o. Eliquis. 3. Acute kidney injury on chronic kidney disease. Aware. 4. Severe nonischemic dilated cardiomyopathy with global hypokinesis. Aware. 5. Pulmonary hypertension. Continue with IV diuresis. Home medications. 6. Abdominal pain secondary to hepatomegaly from congestive hepatopathy. 7. History of atrial fibrillation, rate controlled. She is currently being V-paced at 80 beats per minute. 8. Hypertension. Continue home medications. 9. There is some suspicion for medical noncompliance. However, patient states that she has been taking her medications as prescribed. Again, we will re-initiate her back on most of her home medications at this time that she was previously discharged on. 10. Further recommendations to follow physician evaluation, laboratory and pending diagnostic data. Dictated by DALJIT Diaz for Samir Toledo MD cc: Samir Toledo MD
--- NOTE | 2018-10-03 19:57 | HISTORY AND PHYSICAL ---
HISTORY OF PRESENT ILLNESS: Patient presented to the hospital with increased work of breathing, increased swelling in her left upper extremity. She states she has been taking her Eliquis as well as attempting to watch her diet. However, she has been very stressed as her mom passed approximately a week ago. We will admit her to the hospital, treat her congestive heart failure, recheck an ultrasound, and make sure that her upper extremity deep venous thrombosis on her left has not worsened. Will check a CT for pulmonary emboli and follow. Please see full note. cc: Samir Toledo MD
[2018-10-03] MEDS ORDERED: ENTRESTO 97 MG-103 MG TABLET PO SCH (21:00)
[2018-10-03] MEDS ORDERED: PRAVACHOL PO SCH (21:00)
[2018-10-03] MEDS ORDERED: ELIQUIS PO SCH (21:00)
[2018-10-03] MEDS ORDERED: ALDACTONE PO SCH (21:00)
[2018-10-03] MEDS ORDERED: COREG PO SCH (21:00)
[2018-10-03] MEDS: NORCO-5 PO PRN (22:32)
[2018-10-03] MEDS: LASIX IV SCH (22:33)
[2018-10-03] MEDS: ISORDIL PO SCH (22:33)
[2018-10-04] MEDS: ISORDIL PO SCH ×3 (06:19→21:49)
[2018-10-04 06:53] LABS: HEMATOCRIT 35.8 % (37.0-47.0); MCH 26.8 PG (27-31); MCHC 30.7 g/dL (33-37); MCV 87.1 FL (81-99); MPV 12.1 FL (7.4-10.4); RBC 4.11 XMIL (4.2-5.4); RDW 19.8 % (11.5-14.5); WBC 5.83 X1000 (4.8-10.8)
[2018-10-04] MEDS ORDERED: LANOXIN PO SCH (07:00)
[2018-10-04] MEDS ORDERED: PATIENT'S OWN MED PO PRN ×2 (07:04)
[2018-10-04] MEDS ORDERED: PATIENT'S OWN MED INH PRN (07:04)
--- NOTE | 2018-10-04 07:24 | Diag Imaging Result Doc PS360 ---
EXAM: CHEST-PORTABLE - 10/04/2018 HISTORY: follow up TECHNIQUE: Portable chest COMPARISON: 10/03/2018 FINDINGS: There is cardiomegaly similar to prior. There is transvenous cardiac pacemaker again seen. There is right apical pleural thickening similar to prior. There is questionable small left pleural effusion versus artifact from overlying soft tissues. There are no other acute changes identified. IMPRESSION: Stable cardiomegaly. Possible development of small left pleural effusion. Electronically signed by Shakir Gleason 10/04/2018 7:22 AM
[2018-10-04] MEDS ORDERED: REGLAN PO PRN (08:50)
[2018-10-04] MEDS ORDERED: PROTONIX PO PRN (08:51)
[2018-10-04] MEDS ORDERED: [UNRECOGNIZED DRUG - OTHER] PO SCH (09:00)
[2018-10-04] MEDS ORDERED: CORDARONE PO SCH (09:00)
[2018-10-04] MEDS ORDERED: ZAROXOLYN PO SCH ×3 (09:00)
[2018-10-04] MEDS ORDERED: ASPIRIN PO SCH (09:00)
[2018-10-04] MEDS ORDERED: PATIENT'S OWN MED PO SCH ×8 (09:00→21:00)
[2018-10-04] MEDS: ZAROXOLYN PO SCH (09:32)
[2018-10-04] MEDS: ALDACTONE PO SCH ×2 (09:33→21:50)
[2018-10-04] MEDS: COREG PO SCH ×2 (09:34→21:50)
[2018-10-04] MEDS: ENTRESTO 97 MG-103 MG TABLET PO SCH ×2 (09:35→21:49)
[2018-10-04] MEDS: LASIX IV SCH ×2 (09:35→21:49)
[2018-10-04] MEDS: ELIQUIS PO SCH ×2 (09:58→21:49)
[2018-10-04] MEDS: CORDARONE PO SCH (09:58)
[2018-10-04] MEDS: NORCO-5 PO PRN ×2 (09:58→21:48)
[2018-10-04] MEDS: ASPIRIN EC PO SCH (09:58)
[2018-10-04] MEDS: DUONEB (A & A) INH PRN (10:01)
--- NOTE | 2018-10-04 10:04 | Diag Imaging Result Doc PS360 ---
EXAM: LUNG SCAN / VQ - 10/03/2018 HISTORY: R/O PE TECHNIQUE: Lung ventilation/perfusion scan. Ventilation images performed using 40.4 mCi technetium 99m DTPA aerosol inhaled. Perfusion images performed using 6.2 mCi technetium 99m MAA administered intravenously. Ventilation perfusion images are obtained in multiple projections over the lungs. COMPARISON: Exam is correlated with the 10/04/2018 portable chest radiograph. FINDINGS: There is cardiomegaly. There is a matching mildly decreased ventilation and perfusion at the anterior superior right upper lobe and posterior left midlung on the respective lateral views. There is no ventilation/perfusion mismatch (area which is ventilated but not perfused) identified. IMPRESSION: Low probability for pulmonary embolism. Electronically signed by Shakir Gleason 10/04/2018 10:02 AM
[2018-10-04] MEDS: XANAX PO PRN ×2 (15:00→21:49)
--- NOTE | 2018-10-04 17:16 | Extremity Venous Study ---
EXAM: Venous U/S Left Arm - 10/04/2018 HISTORY: known DVT with incr in swelling TECHNIQUE: Left upper extremity Doppler venous ultrasound COMPARISON: None. FINDINGS: The deep and superficial veins demonstrate flow and compressibility. There are no filling defects identified. IMPRESSION: No evidence of left upper extremity deep or superficial venous thrombosis. Electronically signed by Shakir Gleason 10/04/2018 5:14 PM
[2018-10-04] MEDS: PRAVACHOL PO SCH (21:50)
[2018-10-05] MEDS: ISORDIL PO SCH ×3 (06:21→21:23)
[2018-10-05] MEDS: LANOXIN PO SCH (06:21)
[2018-10-05] MEDS ORDERED: PATIENT'S OWN MED PO SCH (07:00)
[2018-10-05] MEDS: DUONEB (A & A) INH PRN (07:35)
[2018-10-05] MEDS: ELIQUIS PO SCH ×2 (08:27→21:23)
[2018-10-05] MEDS: COREG PO SCH ×2 (08:28→21:23)
[2018-10-05] MEDS: ENTRESTO 97 MG-103 MG TABLET PO SCH ×2 (08:28→21:23)
[2018-10-05] MEDS: LASIX IV SCH (08:28)
[2018-10-05] MEDS: ALDACTONE PO SCH ×2 (08:28→21:23)
[2018-10-05] MEDS: CORDARONE PO SCH (08:28)
[2018-10-05] MEDS: ASPIRIN EC PO SCH (08:28)
[2018-10-05] MEDS: NORCO-5 PO PRN ×2 (09:00→21:34)
[2018-10-05] MEDS: XANAX PO PRN ×2 (09:00→21:34)
--- NOTE | 2018-10-05 14:00 | PROGRESS NOTE ---
DATE: 10/05/2018 SUBJECTIVE: Patient notes that she is feeling a lot better. Chest pain has resolved. Shortness of breath is improved. Still having swelling in her left upper extremity. OBJECTIVE: Vital Signs: On physical, temperature 97.5, pulse 78, respiratory 18, BP 100/59. General: Patient is awake, alert. She is in no distress. HEENT: Normocephalic. Neck: Supple. Cardiovascular: Regular rate. No murmurs. Chest: Clear, nonlabored. Abdomen: Soft, obese, nondistended. Extremities: Moves all extremities. She does have edema in her left upper extremity, as well as bilateral lower extremities. ASSESSMENT: 1. Edema. Thankfully, her recent CT was negative. 2. Elevated D-dimer. Ventilation perfusion scan was negative, as well as her ultrasound for deep venous thrombosis. 3. Acute on chronic kidney disease. 4. Severe nonischemic dilated cardiomyopathy with global hypokinesis. 5. Pulmonary hypertension. 6. Systolic congestive heart failure with mild exacerbation. At this point, we are going to change her over to p.o. Lasix and, if she tolerates, hopefully she can discharge home tomorrow. cc: Samir Toledo MD
[2018-10-05] MEDS: PRAVACHOL PO SCH (21:22)
[2018-10-05] MEDS: LASIX PO SCH (21:22)
[2018-10-06] MEDS: LANOXIN PO SCH (06:04)
[2018-10-06] MEDS: ISORDIL PO SCH ×3 (06:04→22:20)
[2018-10-06] MEDS: DUONEB (A & A) INH PRN ×2 (07:51→19:48)
[2018-10-06] MEDS: ENTRESTO 97 MG-103 MG TABLET PO SCH ×2 (09:19→20:27)
[2018-10-06] MEDS: ALDACTONE PO SCH ×2 (09:20→20:27)
[2018-10-06] MEDS: ASPIRIN EC PO SCH (09:20)
[2018-10-06] MEDS: ELIQUIS PO SCH ×2 (09:20→20:28)
[2018-10-06] MEDS: NORCO-5 PO PRN ×2 (09:20→20:45)
[2018-10-06] MEDS: XANAX PO PRN ×2 (09:20→20:45)
[2018-10-06] MEDS: CORDARONE PO SCH (09:20)
[2018-10-06] MEDS: COREG PO SCH ×2 (09:20→20:29)
[2018-10-06] MEDS: LASIX PO SCH ×2 (09:20→20:27)
[2018-10-06] MEDS: PRAVACHOL PO SCH (20:27)
--- NOTE | 2018-10-06 21:18 | PROGRESS NOTE ---
DATE: 10/06/2018 SUBJECTIVE: The patient notes that she is feeling a little bit better, but she is still scared and nervous about going home. Still having some shortness of breath. Unsure if this is her baseline chronic shortness of breath. PHYSICAL EXAMINATION: Vital Signs: Reviewed. Temperature 97.5 degrees, pulse 78, respiratory 18, BP 160/59. General: Patient is awake. She is in no current distress. She is sitting on the bed, not moving about. She has not really been out of bed except to the restroom and immediately back to bed. HEENT: Normocephalic. Neck: Supple. Cardiovascular: Regular rate. No murmurs. Chest: Clear. Abdomen: Soft, nondistended. Extremities: Moves all extremities. ASSESSMENT: 1. Congestive heart failure, systolic, with exacerbation improving. 2. Chronic left upper extremity deep venous thrombosis, although her recent ultrasound was negative. 3. Chronic kidney injury. 4. Severe nonischemic dilated cardiomyopathy. 5. Depression, anxiety. 6. Atrial fibrillation rate controlled. 7. Hypertension. PLAN: We will continue patient in the hospital today. Continue her home medications. Hopefully, she will improve and can discharge home tomorrow. Unfortunately, given how often she comes back to the hospital, I feel as though it is warranted to watch her 1 more night. I certainly feel as though depression may be a large portion of her current symptomatology. cc: Samir Toledo MD
[2018-10-07 06:23] LABS: HEMATOCRIT 37.1 % (37.0-47.0); HEMOGLOBIN 11.2 g/dL (12.0-16.0); MCHC 30.2 g/dL (33-37); MCV 89.4 FL (81-99); MPV 11.6 FL (7.4-10.4); RBC 4.15 XMIL (4.2-5.4); RDW 19.9 % (11.5-14.5); WBC 5.15 X1000 (4.8-10.8)
[2018-10-07] MEDS: LANOXIN PO SCH (06:33)
[2018-10-07] MEDS: ISORDIL PO SCH ×3 (06:33→22:03)
[2018-10-07 06:46] LABS: ALBUMIN 3.4 g/dL (3.5-5.0); CALCIUM 8.6 mg/dL (8.8-10.2); CREATININE 1.8 mg/dL (0.5-0.9); MAGNESIUM 1.8 mg/dL (1.5-2.7); POTASSIUM 3.8 mmol/L (3.5-5.1); TOTAL PROTEIN 7.1 g/dL (6.3-8.3)
[2018-10-07] MEDS: DUONEB (A & A) INH PRN ×2 (07:33→19:50)
[2018-10-07] MEDS: ALDACTONE PO SCH ×2 (08:33→22:04)
[2018-10-07] MEDS: COREG PO SCH ×2 (08:33→22:04)
[2018-10-07] MEDS: ELIQUIS PO SCH ×2 (08:33→22:04)
[2018-10-07] MEDS: CORDARONE PO SCH (08:33)
[2018-10-07] MEDS: LASIX PO SCH ×2 (08:33→22:03)
[2018-10-07] MEDS: ASPIRIN EC PO SCH (08:33)
[2018-10-07] MEDS: ENTRESTO 97 MG-103 MG TABLET PO SCH ×2 (08:33→22:04)
[2018-10-07] MEDS: ZAROXOLYN PO SCH (10:42)
[2018-10-07] MEDS: APRESOLINE PO SCH ×2 (13:25→22:03)
[2018-10-07] MEDS: NORCO-10 PO PRN (17:27)
[2018-10-07] MEDS: XANAX PO SCH (17:27)
[2018-10-07] MEDS ORDERED: ELIQUIS PO SCH (21:00)
[2018-10-07] MEDS: PRAVACHOL PO SCH (22:04)
[2018-10-08] MEDS: NORCO-10 PO PRN ×3 (00:10→14:03)
[2018-10-08] MEDS: ISORDIL PO SCH ×3 (04:25→14:00)
[2018-10-08] MEDS: APRESOLINE PO SCH ×3 (04:25→13:59)
[2018-10-08] MEDS: LANOXIN PO SCH (06:19)
[2018-10-08] MEDS ORDERED: PROTONIX PO PRN (06:35)
[2018-10-08] MEDS: DUONEB (A & A) INH PRN (07:28)
[2018-10-08 08:08] LABS: CALCIUM 9.2 mg/dL (8.8-10.2); CREATININE 1.7 mg/dL (0.5-0.9); POTASSIUM 3.9 mmol/L (3.5-5.1)
[2018-10-08] MEDS: ENTRESTO 97 MG-103 MG TABLET PO SCH (08:15)
[2018-10-08] MEDS: ASPIRIN EC PO SCH (08:15)
[2018-10-08] MEDS: CORDARONE PO SCH (08:16)
[2018-10-08] MEDS: ALDACTONE PO SCH (08:16)
[2018-10-08] MEDS: COREG PO SCH (08:16)
[2018-10-08] MEDS: XANAX PO SCH ×2 (08:16→14:00)
[2018-10-08] MEDS: ELIQUIS PO SCH (08:16)
[2018-10-08] MEDS: LASIX PO SCH (08:16)
[2018-10-08 11:34] VITALS: BP 102/65
--- NOTE | 2018-10-09 14:05 | PROGRESS NOTE ---
DATE: 10/07/2018 SUBJECTIVE: She is still having some pain, anxiety. She recently lost her mother who had significant heart failure as well although not the same etiology. OBJECTIVE: Blood pressure is 133/97, heart rate 80, respiratory rate 20, temperature 97.5 degrees, 97% on room air. Cardiovascular: Regular rate and rhythm. Pulmonary: Bilateral breath sounds. Clear to auscultation. GI: Soft, nontender, nondistended. Bowel sounds were positive. LABORATORY DATA: White count 5, hemoglobin and hematocrit 11 and 37, platelets 191,000. Creatinine up to 1.8. She has diuresed about 7 liters since admission up to 9 liters now. Seems to be doing better. PROBLEM: 1. Acute systolic heart failure, congestive heart failure exacerbation related to post , peripartum cardiomyopathy. We will continue to follow. 2. Deep venous thrombosis. She is on chronic anticoagulation. 3. Chronic renal failure. She is close to baseline. We will continue to monitor her while on diuretics. 4. Atrial fibrillation. She is rate controlled. DISPOSITION: I anticipate discharge tomorrow if she is stable. We will continue to monitor closely. cc: Everardo Galloway MD
--- NOTE | 2018-10-11 13:58 | DISCHARGE SUMMARY ---
ADMISSION DATE: 10/03/2018 DISCHARGE DATE: 10/08/2018 ADMISSION DIAGNOSES: 1. Acute on chronic systolic congestive heart failure. 2. Left upper extremity deep vein thrombosis. 3. Acute kidney injury on chronic kidney disease. 4. Severe nonischemic dilated cardiomyopathy with global hypokinesis. 5. Pulmonary hypertension. 6. Abdominal pain secondary to hepatomegaly from congestive hepatopathy. 7. History of atrial fibrillation, rate controlled, being paced by her pacemaker . 8. Hypertension. 9. Medical noncompliance suspicion. DISCHARGE DIAGNOSES: 1. Congestive heart failure, systolic, resolving. 2. Chronic left upper extremity deep vein thrombosis, although recent ultrasound was negative. 3. Kidney disease. Acute kidney injury resolved. 4. Severe nonischemic dilated cardiomyopathy. 5. Anxiety/depression, stable. 6. Atrial fibrillation. Rate controlled. 7. Hypertension. CONSULTATIONS: None. SURGERIES AND PROCEDURES: None. HOSPITAL COURSE: Ms. Gail Cardenas is a 48-year-old, female with frequent multiple admissions for heart failure and DVT. This is her ninth admission for the year. She presented with complaints of shortness of breath, left arm swelling and dizziness. She was found to be in acute exacerbation or acute on chronic systolic congestive heart failure. The left upper extremity DVT was actually negative on her ultrasound on this admit. She was diuresed while she was here, started on healthy heart diet. Her acute kidney injury actually resolved, and with improvement she was deemed appropriate for discharge home. It was also felt too that a lot of her symptomatology may have been exacerbated through depression as well. DISCHARGE VITAL SIGNS: Temperature 97.6 degrees, heart rate 80, respiratory rate 20, blood pressure 102/65, O2 saturation 95% on room air. DISCHARGE LAB DATA: Today sodium 139, potassium 3.9, BUN 68, creatinine 1.7, glucose 92, calcium 9.2. She presented with a proBNP of 16,520, and she ranges pretty high like that on almost every admission. Her last CBC was on the . White blood cell count 5000, hemoglobin 11, hematocrit 37, platelet count 191. PERTINENT IMAGING: Chest x-ray: Mild interval improvement of interstitial markings. Lung V/Q scan: Low probability for pulmonary embolism. It did show cardiomegaly. Repeat chest x-ray on the : Stable cardiomegaly may be a possible development of a small left pleural effusion. Extremity DVT on the fourteenth: No evidence of left upper extremity DVT or superficial venous thrombosis. EKG: Ventricularly-paced rhythm, rate 80. DISCHARGE DIET: Heart healthy diet. DISCHARGE ACTIVITY: As tolerated. DISCHARGE FOLLOWUP: The patient follows Dr. Ortega. She could also follow up with her publicist as outpatient. DISCHARGE INSTRUCTIONS: If her condition changes, contact her physician and/or return to the emergency department. Changes may include, but are not limited to shortness of breath, increased fatigue, excessive bleeding, weight loss or gain, unmanageable pain, signs or symptoms of infection. DISCHARGE MEDICATIONS: 1. Reglan 5 mg p.o. nightly p.r.n. 2. Pravachol 40 mg p.o. nightly. 3. Coreg 3.125 mg p.o. twice daily. 4. Spironolactone 25 mg p.o. twice daily. 5. Apresoline 100 mg p.o. t.i.d. 6. Enteric-coated aspirin 81 mg p.o. daily. 7. Amiodarone 200 mg p.o. daily. 8. Albuterol/Atrovent twice daily as needed. 9. Eliquis 5 mg p.o. twice daily. 10. Entresto 97--103, one tab p.o. twice daily. 11. Isosorbide dinitrate 80 mg p.o. t.i.d. 12. Digoxin 125 mcg p.o. daily. 13. Lasix 80 mg p.o. twice daily. 14. Metolazone 2.5 mg p.o. every 3 days. 15. [place] 7.5, 1 tab p.o. every 6 hours p.r.n. 16. Protonix 40 mg p.o. daily. 17. Xanax 0.5 mg p.o. twice daily. DISCHARGE DISPOSITION: Home. Dictated by DALJIT Strauss for Everardo Galloway MD cc: DALJIT Strauss MD
== END 2018-10-08 15:54 | disposition home or self-care (01) | DRG 291 ==
LOC: P.ED 13:00 → SUATTDRO 17:56 → P.MEDSURG 17:56
PROVIDERS: ATTEND Internal Medicine
CPT/HCPCS: 71010; 71020; 71045; 71046; 78582; 80048; 80053; 82550; 83735; 83880; 84484; 85025; 85027; 85379; 85610; 85730; 93005; 93971; 94640; 94761; 96374; 99285; 99291; A9270; A9539; A9540; J1940; J2270

== ENCOUNTER 2018-10-14 21:59 | Inpatient (IN) ==
[2018-10-15] MEDS ORDERED: LASIX IV ONE (02:06)
--- NOTE | 2018-10-15 02:08 | PROVIDER DOCUMENTATION ---
HPI-Cardiac General - General Chief Complaint: Edema Stated Complaint: ABD PAIN/SWELLING IN HAND Time Seen by Provider: 10/15/18 01:43 Allergies/Adverse Reactions: Patient Allergies Allergy/AdvReac Type Severity Reaction Status Date / Time latex Allergy Intermediate RASH Verified 09/08/18 12:58 dopamine AdvReac Hair Loss Verified 09/08/18 12:58 propoxyphene AdvReac ITCHING Verified 09/08/18 12:58 [From [place]] tramadol AdvReac ITCHING Verified 09/08/18 17:01 Home Medications: Home Medication List Medication Instructions Recorded Confirmed Last Taken Type Aspirin EC 81 mg PO DAILY #30 tab 10/03/17 10/03/18 09/08/18 07:00 Rx Metoclopramide HCl [Reglan] 5 mg PO HS PRN 06/08/18 10/03/18 09/07/18 20:00 History Albuterol 2.5MG/Ipratrop 0.5MG 3 ml INH BID PRN #25 neb 08/29/18 10/03/18 09/02/18 Rx [Duoneb (A & A)] Amiodarone [Cordarone] 200 mg PO DAILY 30 Days #30 tab 09/12/18 10/03/18 Unknown Rx Apixaban [Eliquis] 5 mg PO BID 30 Days #60 tab 09/12/18 10/03/18 Unknown Rx Carvedilol [Coreg] 3.125 mg PO Q12HR 30 Days #60 tab 09/12/18 10/03/18 Unknown Rx Digoxin [Lanoxin] 125 microgm PO DAILY@0700 30 Days 09/12/18 10/03/18 Unknown Rx #30 tab Furosemide [Lasix] 80 mg PO BID 30 Days #60 tab 09/12/18 10/03/18 Unknown Rx Hydralazine [Apresoline] 100 mg PO TID@0600,1400,2200 30 09/12/18 10/03/18 Unknown Rx Days #90 tab Isosorbide Dinitrate [Isordil] 80 mg PO TID@0600,1400,2200 30 09/12/18 10/03/18 Unknown Rx Days #90 tab Metolazone 2.5 mg PO DIRECTED 90 Days #30 09/12/18 10/03/18 Unknown Rx tab PRAVAstatin [Pravachol] 40 mg PO QHS 30 Days #30 tab 09/12/18 10/03/18 Unknown Rx Pantoprazole [Protonix] 40 mg PO DAILY@0700 PRN 30 Days 09/12/18 10/03/18 Unknown Rx #30 tab Sacubitril/Valsartan [Entresto 97 1 tab PO BID 30 Days #60 tab 09/12/18 10/03/18 Unknown Rx mg-103 mg Tablet] Spironolactone [Aldactone] 25 mg PO BID 30 Days #60 tab 09/12/18 10/03/18 Unknown Rx Alprazolam [Xanax] 0.5 mg PO BID PRN #25 tab 10/08/18 Unknown Rx Hydrocodone/APAP 7.5 mg/325 mg 1 ea PO Q6H PRN PRN #20 tab 10/08/18 Unknown Rx [[place]-7.5] - History of Present Illness-Cardiac Nature of Presenting Problem: reports that she was admitted last week for chf exac, since she hs been home, she has been gaining wt ~9lbs edema on her arms, legs, and abd. +sob, and epigastric pain. denied fever. Review of Systems - Adult - REVIEW OF SYSTEMS - ADULT Constitutional: reports: no symptoms reported Eyes: reports: no symptoms reported Ears, Nose, Mouth & Throat: reports: no symptoms reported Cardiovascular: reports: no symptoms reported Respiratory: reports: no symptoms reported Gastrointestinal: reports: no symptoms reported Genitourinary: reports: no symptoms reported Musculoskeletal: reports: no symptoms reported Integumentary: reports: no symptoms reported Neurological: reports: no symptoms reported Psychiatric: reports: no symptoms reported Endocrine: reports: no symptoms reported Hematologic/Lymphatic: reports: no symptoms reported Allergic/Immunologic: reports: no symptoms reported All Other Systems: Reviewed and Negative Past History - Adult - PAST MEDICAL HISTORY-ADULT Review of Records: reports: Old Records Reviewed, Nursing Assessment Review, Medications Reviewed, Social history reviewed & non-contributory. Major Childhood Illnesses: reports: denies history Cardiovascular: reports: A-Fib, blood clots, CAD, CHF, HTN, hyperlipidemia, palpitations, pacemaker (defib) Respiratory: reports: asthma, COPD, sleep apnea Gastrointestinal: reports: liver disease Obstetrical/Gynecological: reports: other (breast cancer) Genitourinary: reports: kidney disease Musculoskeletal: reports: denies history Neurological: reports: denies history Psychiatric: reports: anxiety, depression Endocrine/Immune: reports: Diabetes Other Conditions: reports: other cancer (breast cancer) - PRIOR SURGERIES/PROCEDURES Surgical/Procedure History: reports: cholecystectomy, pacemaker, hysterectomy, , tonsillectomy, orthopedic (extremity), breast, other (mastectomy,defib,arthroscopy) - IMMUNIZATION STATUS Childhood Immunizations: See Nurse Assessment Flu Vaccine: See Nurse Assessment - FAMILY HISTORY Family History: reviewed, not pertinent Physical Exam-General - PHYSICAL EXAM-ADULT Initial Vital Signs Reviewed: Yes - CONSTITUTIONAL General Appearance: alert, moderate distress - EYES Eyes: PERRL/EOMI - HEAD, EARS, NOSE, MOUTH & THROAT HENMT: normocephalic/atraumatic, moist mucous membranes - NECK Neck: non-tender, full range of motion, supple - RESPIRATORY Respiratory: chest non-tender, lungs clear, normal breath sounds - CARDIOVASCULAR Cardiovascular: normal peripheral pulses, regular rate, rhythm, other (edema on both arms, legs, and abd) - GASTROINTESTINAL (ABDOMEN) Abdominal Exam: normal bowel sounds - MUSCULOSKELETAL Back Exam: normal inspection, no CVA tenderness, no vertebral tenderness Extremity: normal range of motion, normal gait, swelling - SKIN Integumentary: normal color, normal turgor, warm/dry - NEUROLOGIC Neurologic: grossly normal, no motor/sensory deficits - PSYCHIATRIC Psych/Mental Status: oriented x 3 Progress - PLAN OF CARE/RESULTS Progress/Plan/Lab Results: Vital Signs - 8 hr 10/14/18 22:06 10/15/18 01:38 Temperature 97.3 F L 97.8 F Pulse Rate 80 82 Respiratory Rate 18 22 Blood Pressure 137/88 135/88 O2 Sat by Pulse Oximetry 97 98 Orders Category Date Time Status Cardiac Monitoring DIRECTED Care 10/15/18 02:05 Active Oxygen Therapy- ED Nursing DIRECTED Care 10/15/18 02:05 Active Saline Loc NOW Care 10/15/18 02:05 Active CHEST-2 VIEWS [RAD] Stat Exams 10/15/18 02:05 Taken CBC WITH ELECTRONIC DIFF [HEME] Stat Lab 10/15/18 02:05 Uncollected CK PROFILE [SP CHEM] Stat Lab 10/15/18 02:05 Uncollected COMPREHENSIVE METABOLIC PANEL [CHEM] Stat Lab 10/15/18 02:05 Uncollected PRO B-NATRIURETIC PEPTIDE Stat Lab 10/15/18 02:05 Uncollected PROTIME WITH INR [COAG] Stat Lab 10/15/18 02:05 Uncollected PTT [COAG] Stat Lab 10/15/18 02:05 Uncollected TROPONIN T Stat Lab 10/15/18 02:05 Uncollected Furosemide [Lasix] Med 10/15/18 02:06 Discontinued 60 mg IV NOW ONE Ondansetron [Zofran] Med 10/15/18 02:22 Discontinued 4 mg IV NOW ONE CP/SOB/Palp >45 yrs of Age Stat Oth 10/15/18 02:05 Ordered EKG [EKG] Stat Ther 10/15/18 02:05 Ordered Result Diagrams: 10/15/18 04:20 10/15/18 04:20 - CONSULTS/PCP/HOSPITALIST Notification #1 *Consult/PCP/Hospitalist*: Dr Covington Time Discussed: 06:23 Consult Disposition: Admit - CHANGE OF SHIFT REPORT (ED Provider) 1 Report Given and Care Transferred to:: Dr. Houston Time of Transfer: 02:29 Items Pending: Labs Departure - Departure Date of Disposition Decision: 10/15/18 Time of Disposition Decision: 06:21 DIAGNOSIS: CHF (congestive heart failure) Disposition: ADMITTED INPATIENT 09 Certified Medical Emergency: Emergent Condition: Stable Referrals and Follow-Ups: None,PCP [Primary Care Provider] - - Critical Care Note This patient required my direct & personal management of CC.: No Attestation - Physician/ PREETI Attestation The physician spent face to face time with patient:: Yes Advanced Practice Provider documentation review:: Supervising physician onsite and consulted in the evaluation and care of this patient. The physician did have a face to face encounter with the patient.
[2018-10-15] MEDS ORDERED: ZOFRAN IV ONE (02:22)
[2018-10-15 04:27] LABS: BASO# 0.01 X1000 (0.0-0.2); BASO% 0.1 % (0.0-0.8); EOS# 0.03 X1000 (0.0-0.7); EOS% 0.4 % (0.0-10.0); HEMATOCRIT 36.3 % (37.0-47.0); HEMOGLOBIN 11.6 g/dL (12.0-16.0); LYMPH# 1.51 X1000 (1.2-3.4); LYMPH% 21.5 % (20.5-51.1); MCH 27.2 PG (27-31); MCV 85.2 FL (81-99); MONO# 0.48 X1000 (0.11-0.59); MONO% 6.8 % (1.7-9.3); MPV 10.7 FL (7.4-10.4); NEUT# 4.98 X1000 (1.4-6.5); NEUT% 71.2 % (42.2-75.2); PLT 171 X1000 (130-400); RBC 4.26 XMIL (4.2-5.4); RDW 19.1 % (11.5-14.5); WBC 7.01 X1000 (4.8-10.8)
[2018-10-15 04:37] LABS: INR 1.16; PROTIME 15.8 Seconds (11.0-16.0); PTT 30.1 Seconds (22.3-41.8)
[2018-10-15 04:51] LABS: ALB/GLOB RATIO 1.3; ALBUMIN 4.1 g/dL (3.5-5.0); CALCIUM 9.3 mg/dL (8.8-10.2); CREATININE 1.8 mg/dL (0.5-0.9); POTASSIUM 4.2 mmol/L (3.5-5.1); TOTAL BILIRUBIN 2.07 mg/dL (0.20-1.00); TOTAL PROTEIN 7.2 g/dL (6.3-8.3)
--- NOTE | 2018-10-15 06:38 | Diag Imaging Result Doc PS360 ---
CHEST-2 VIEWS - 10/15/2018 INDICATION: sob COMPARISON: 10/04/2018 FINDINGS: Stable pacemaker. Stable significant cardiomegaly. Stable pulmonary vascular congestion. Stable mild interstitial pulmonary edema. Stable pleural-based opacity at the right lung apex. No new infiltrates. IMPRESSION: No change from prior. Electronically signed by Michael Kim 10/15/2018 6:36 AM
[2018-10-15] MEDS ORDERED: NORCO-7.5 PO PRN (10:15)
[2018-10-15] MEDS ORDERED: REGLAN PO PRN (10:15)
[2018-10-15] MEDS ORDERED: DUONEB (A & A) INH PRN (10:15)
[2018-10-15] MEDS: CORDARONE PO SCH (10:58)
[2018-10-15] MEDS: ASPIRIN EC PO SCH (10:58)
[2018-10-15] MEDS: COREG PO SCH ×2 (10:58→21:36)
[2018-10-15] MEDS: ENTRESTO 97 MG-103 MG TABLET PO SCH ×2 (10:58→21:35)
[2018-10-15] MEDS: ELIQUIS PO SCH ×2 (10:58→21:35)
[2018-10-15] MEDS ORDERED: OXY IR PO PRN (11:24)
--- NOTE | 2018-10-15 11:30 | HISTORY AND PHYSICAL ---
PRIMARY CARE PROVIDER: Dr. Ortega. CHIEF COMPLAINT: Shortness of breath, left arm swelling, dizziness, nausea, vomiting, diarrhea, and left upper quadrant pain. HISTORY OF PRESENT ILLNESS: Ms. Cardenas is a 48-year-old female, well known to our service for multiple admissions for acute on chronic systolic congestive heart failure. This will be her tenth admission this year. She also carries a past medical history of atrial fibrillation, multiple DVTs, coronary artery disease, hypertension, dyslipidemia, obstructive sleep apnea, COPD, breast cancer, chronic kidney disease and depression. She was recently discharged from our service on 10/08/2018. She states since that time, she has still not felt much better. Yesterday, she started having increasing shortness of breath, continued dizziness. Her left arm started swelling again. She also had complaints of nausea, vomiting, diarrhea and left upper quadrant pain. Easy satiety. Workup in the ED showed elevated proBNP, acute on chronic kidney disease. She was given 1 dose of IV Lasix and Zofran, and will be admitted for her acute on chronic systolic congestive heart failure. PAST MEDICAL HISTORY: 1. Atrial fibrillation. 2. Multiple DVTs. 3. Coronary artery disease. 4. Congestive heart failure. 5. Hypertension. 6. Dyslipidemia. 7. Obstructive sleep apnea. 8. COPD. 9. Chronic kidney disease. 10. Depression. 11. Acute on chronic systolic heart failure, left ventricular EF of 15 to 20 percent. 12. Severe nonischemic dilated cardiomyopathy with global hypokinesis. 13. Pulmonary hypertension. PAST SURGICAL HISTORY: 1. Cholecystectomy. 2. Hysterectomy. 3. section. 4. Tonsillectomy. 5. Mastectomy. 6. Defibrillator placement. 7. Arthroscopy. FAMILY HISTORY: Positive for hypertension, congestive heart failure. She recently lost her mother to heart failure over 2 weeks ago. HOME MEDICATIONS: 1. Reglan 5 mg p.o. at bedtime p.r.n. 2. Pravachol 40 mg p.o. at bedtime. 3. Coreg 3.125 mg p.o. q. 12 hours. 4. Aldactone 25 mg p.o. b.i.d. 5. Apresoline 100 mg p.o. t.i.d. at 0614 and 2200 hours. 6. Aspirin 81 mg p.o. daily. 7. Amiodarone 200 mg p.o. daily. 8. DuoNebs 3 mL inhaled b.i.d. p.r.n. 9. Eliquis 5 mg p.o. b.i.d. 10. Entresto 97-103 mg 1 tab p.o. b.i.d. 11. Isosorbide dinitrate 80 mg p.o. t.i.d. at 0614 and 2200 hours. 12. Digoxin 125 mcg p.o. daily. 13. Lasix 80 mg p.o. b.i.d. 14. Metolazone 2.5 mg p.o. as directed every third day. 15. [place] 7.5 one each p.o. q. 6 hours p.r.n. 16. Protonix 40 mg p.o. daily. 17. Xanax 0.5 mg p.o. b.i.d. 18. Aldactone 25 mg p.o. b.i.d. ALLERGIES: Latex, dopamine, tramadol, Darvocet. REVIEW OF SYSTEMS: Twelve-point review of systems: The patient complained of some chest tightness on the left side, nausea, vomiting, diarrhea, dizziness, left upper quadrant pain, easy satiety. She denies any headache, fevers, chills, cough, heart palpitations. PHYSICAL EXAMINATION: VITAL SIGNS: Temperature is 97.3 degrees, heart rate 80, respirations 18, blood pressure 137/88, O2 is 97% on room air. GENERAL: Ms. Cardenas is a pleasant, 48-year-old female, who is sitting up on the side of the bed in no acute distress. HEENT: Atraumatic, normocephalic. PERRL. NECK: Supple. Trachea midline. CARDIOVASCULAR: S1, S2 appreciated. No murmurs, gallops, or rubs noted. RESPIRATORY: Lung sounds clear bilaterally, decreased in the bases. GASTROINTESTINAL: Soft, mild tenderness to the right upper quadrant. Positive bowel sounds 4 quadrants. EXTREMITIES: She had her right foot up on the bed. Did not appreciate any edema. She had her right leg dependent. She did have some left upper extremity hand swelling. NEUROLOGIC: No focal deficits noted. DIAGNOSTIC DATA: Chest x-ray is stable, pacemaker stable, cardiomegaly stable, pulmonary vascular congestion stable, mild interstitial pulmonary edema stable, pleural-based opacity in the right lung apex. No new infiltrates. No change from prior. LABORATORY DATA: White count 7, hemoglobin and hematocrit 11 and 36, platelet count 171. Sodium 142, potassium 4.2, BUN 46, creatinine 1.8, blood glucose was 90, total bilirubin 2.07, alkaline phosphatase 162. Troponin was less than 0.010. ProBNP was 12,076. ASSESSMENT AND PLAN: 1. Mild acute on chronic systolic congestive heart failure exacerbation. We will continue with intravenous diuresis with Lasix twice daily. We will go ahead and consult Cardiology to see if any medication adjustments need to be made. We will continue her on her home medication. Strict input/output, daily weights healthy heart diet. Recheck her proBNP in the morning. 2. Nausea, vomiting, and diarrhea. We will continue with antiemetics. 3. Recent left upper extremity deep vein thrombosis; however, her most recent ultrasound was negative. Will continue on her home anticoagulant. 4. Acute kidney injury on chronic kidney disease. We will gently diurese her. 5. Severe nonischemic dilated cardiomyopathy with global hypokinesis, status post pacemaker placement. 6. Pulmonary hypertension, aware. 7. Abdominal pain secondary to hepatomegaly from congestive hepatopathy. Aware. We will continue with diuresis. 8. History of atrial fibrillation, rate controlled, currently being ventricularly paced. 9. Hypertension, currently normotensive. 10. Anxiety and depression, situational. Patient recently lost her mother about 3 weeks ago. She is having a hard time dealing with that. We will continue her as-needed Xanax. 11. Suspicion for medical noncompliance. We will bring in Palliative Care to discuss disease progression and goals of care as this is her tenth admission this year. 12. Further recommendations to follow physician evaluation, laboratory and diagnostic data. Dictated by DALJIT Diaz for Lety Lemos MD cc: MD Albina Clemens MD William D. Denney, MD I performed a face to face encounter the patient. I reviewed all labs and imaging on the patient. I agree with the H&P as dictated. [facility] HOSPITALJames
[2018-10-15 11:42] LABS: HEMATOCRIT 37.6 % (37.0-47.0); HEMOGLOBIN 11.8 g/dL (12.0-16.0); MCHC 31.4 g/dL (33-37); MPV 11.5 FL (7.4-10.4); RBC 4.37 XMIL (4.2-5.4); RDW 19.5 % (11.5-14.5); WBC 6.67 X1000 (4.8-10.8)
[2018-10-15 12:07] LABS: CALCIUM 9.3 mg/dL (8.8-10.2); POTASSIUM 4.4 mmol/L (3.5-5.1)
--- NOTE | 2018-10-15 13:04 | Diag Imaging Result Doc PS360 ---
EXAM: CT EXT UPPER LEFT W/O CON INDICATION: swelling in left arm TECHNIQUE: This exam was performed using automated exposure control, adjustment of mA or kV according to patient size, and/or use of iterative reconstruction technique. COMPARISON: None. FINDINGS: There is nonspecific moderate soft tissue edema extending from around the elbow inferiorly to the hand. No well-defined loculated fluid collection can be identified given the limitations of a nonenhanced CT. The bony structures of the left upper extremity are intact. No bony erosions are identified. There is incidental mild dependent atelectasis in the right lung. There is cardiomegaly that has been seen on multiple previous studies. IMPRESSION: Nonspecific edema involving the left upper extremity at and below the elbow as described. Electronically signed by Jose Rivera 10/15/2018 1:02 PM
[2018-10-15] MEDS: ISORDIL PO SCH ×2 (13:52→21:36)
[2018-10-15] MEDS: APRESOLINE PO SCH ×2 (13:52→21:36)
[2018-10-15] MEDS: OXY IR PO PRN (17:51)
[2018-10-15] MEDS ORDERED: LASIX IV SCH (18:00)
[2018-10-15 18:20] LABS: URINE SOURCE CATH
[2018-10-15 18:28] LABS: BILIRUBIN URINE NEGATIVE (NEGATIVE); BLOOD URINE NEGATIVE (NEGATIVE); COLOR YELLOW; GLUCOSE URINE NEGATIVE (NEGATIVE); KETONE URINE NEGATIVE (NEGATIVE); LEUKOCYTES URINE TRACE (NEGATIVE); NITRITE URINE NEGATIVE (NEGATIVE); PROTEIN URINE 50 mg/dL (NEGATIVE); SP GRAVITY URINE 1.012; TURBIDITY URINE CLEAR (CLEAR); UR EPITHELIAL CELLS <10 /HPF (<10); URINE BACTERIA NEGATIVE /HPF; URINE RBC <10 /HPF (<10); URINE WBC <10 /HPF (<10); UROBILINOGEN URINE 4 mg/dL (NORMAL)
--- NOTE | 2018-10-15 18:56 | CONSULTATION ---
DATE OF CONSULTATION: 10/15/2018 IMPRESSION: 1. Acute on chronic systolic heart failure, predominantly right-sided. 2. Severe nonischemic dilated cardiomyopathy. 3. Status post implantable defibrillator for paroxysmal atrial fibrillation. 4. History of nonsustained ventricular tachycardia. 5. Obesity. 6. Hypertension. 7. Probable obstructive sleep apnea. 8. Recent in patient's family. Specifically, mother approximately 2 to 3 weeks ago. RECOMMENDATIONS: 1. Diurese with intravenous Lasix as you are doing. 2. Continue current regimen of hydralazine, isosorbide, Entresto, and Coreg. 3. Continue anticoagulation with Eliquis. HISTORY: This is a 48-year-old -[place] female with a past history of severe nonischemic cardiomyopathy, recurrent hospitalizations for acute on chronic systolic heart failure, hypertension, paroxysmal atrial fibrillation, previous implantable defibrillator, and breast cancer treated with previous mastectomy. She was admitted to emergency room for further management of acute on chronic systolic heart failure. She was just hospitalized a few weeks ago at [facility] for acute on chronic systolic heart failure and improved with diuresis. She relates that she has recently started having problems with increasing abdominal girth and increasing exertional shortness of breath. There has been no orthopnea. She has not had much in the way of peripheral swelling. She relates that her diuretic effect from her current regimen seems to have diminished. There has been no chest pain. There has been no defibrillator activity. It is noteworthy that her mother several weeks ago unexpectedly although she did have significant chronic illness. She has been having a difficult time grieving. Additionally her uncle within a short time after her mother . PAST MEDICAL HISTORY: 1. Chronic systolic heart failure. 2. Severe nonischemic cardiomyopathy. 3. Longstanding hypertension. 4. Status post implantable defibrillator. 5. Previous atrial fibrillation in the past. 6. Chronic kidney disease. 7. Erosive gastritis in the past. 8. Breast cancer. 9. Obstructive sleep apnea. The patient relates she cannot get CPAP covered by her health insurance. PAST SURGICAL HISTORY: Includes cholecystectomy, hysterectomy, arthroscopic knee surgery, mastectomy, and implantable defibrillator. ALLERGIES/INTOLERANCES:: Latex, acetaminophen, dopamine, propoxyphene and tramadol. MEDICATIONS PRIOR TO ADMISSION: As listed. SOCIAL HISTORY: She is and disabled. She has Medicaid and Medicare. She lives at home. FAMILY HISTORY: Negative for premature coronary disease. REVIEW OF SYSTEMS: Pulmonary: Noteworthy for increasing exertional shortness of breath. There has been no orthopnea. Gastrointestinal: Noteworthy for increasing abdominal girth. Constitutional: Noteworthy for significant weight gain. Remainder review of systems negative/noncontributory with 14 total systems reviewed. PHYSICAL EXAMINATION: General: An overweight adult -L[place]anese female in no distress. Vital signs: Blood pressure 144/69, heart rate 79, oxygen saturation 100% on nasal cannula oxygen at 2 L/minute. HEENT: Extraocular movements appear intact. Mucous membranes moist. Neck: Supple. Significant jugular venous distention is demonstrated consistent with significantly elevated central venous pressure. There are no carotid bruits. Chest: Clear to auscultation bilaterally. Cardiac Exam: Reveals a regular rate and rhythm without appreciable murmur or gallop. Abdomen: Somewhat distended. Nontender. Bowel sounds normal. Extremities: Without edema. Neurologic: Reveals her to be alert and fully oriented. Speech is fluent. Moves all 4 extremities equally well. PERTINENT DIAGNOSTIC DATA: A 12-lead EKG is not presently on electronic medical record. LABORATORY DATA: Includes: White blood cell count 6.67, hematocrit 37.6, hemoglobin 11.8, platelet count 174, sodium 141, potassium 4.4, chloride 102, carbon dioxide 24, BUN 49 creatinine 2.0, glucose 109. Bilirubin 2.07. Troponin T 0.018, pro B natriuretic peptide level 12,076. cc: Gage Smith MD
[2018-10-15] MEDS: PRAVACHOL PO SCH (21:35)
[2018-10-16] MEDS: DILAUDID IV PRN ×3 (01:08→20:54)
[2018-10-16] MEDS ORDERED: LASIX IV SCH (05:00)
[2018-10-16] MEDS: APRESOLINE PO SCH ×3 (05:52→21:11)
[2018-10-16] MEDS: LASIX IV SCH ×2 (05:52→17:41)
[2018-10-16] MEDS: ISORDIL PO SCH ×3 (05:52→21:11)
[2018-10-16] MEDS: LANOXIN PO SCH (06:12)
[2018-10-16] MEDS: OXY IR PO PRN ×2 (06:16→22:51)
--- NOTE | 2018-10-16 06:51 | Diag Imaging Result Doc PS360 ---
CHEST-PORTABLE - 10/16/2018 INDICATION: chf COMPARISON: 10/15/2018 FINDINGS: Stable pacemaker. Stable severe cardiomegaly. Stable pulmonary vascular congestion. Stable dense opacity at the right lung apex. No new infiltrates. IMPRESSION: No change from prior. Electronically signed by Michael Kim 10/16/2018 6:48 AM
--- NOTE | 2018-10-16 07:13 | EKG Report ---
Test Performed on : 10/16/2018 06:41:04 AM Test Reason : Heart Failure Admission Blood Pressure : / mmHG Vent. Rate : 080 BPM Atrial Rate : 093 BPM P-R Int : 000 ms QRS Dur : 254 ms QT Int : 592 ms P-R-T Axes : 000 -60 107 degrees QTc Int : 682 ms Ventricular-paced rhythm Abnormal ECG When compared with ECG of 03-OCT-2018 13:26, (Unconfirmed) No significant change was found Confirmed by Cora DANIELLE, Krish Gallegos ([id number]) on 10/16/2018 3:52:55 PM
[2018-10-16] MEDS: ZAROXOLYN PO SCH (08:55)
[2018-10-16] MEDS: ALDACTONE PO SCH ×2 (08:55→20:51)
[2018-10-16] MEDS: CORDARONE PO SCH (08:55)
[2018-10-16] MEDS: ELIQUIS PO SCH (08:55)
[2018-10-16] MEDS: ASPIRIN EC PO SCH (08:55)
[2018-10-16] MEDS: ENTRESTO 97 MG-103 MG TABLET PO SCH ×2 (08:55→20:51)
[2018-10-16] MEDS: COREG PO SCH ×2 (08:56→20:51)
[2018-10-16 08:58] LABS: HEMATOCRIT 36.8 % (37.0-47.0); HEMOGLOBIN 11.5 g/dL (12.0-16.0); MCH 27.8 PG (27-31); MCHC 31.3 g/dL (33-37); MCV 88.9 FL (81-99); MPV 11.7 FL (7.4-10.4); RBC 4.14 XMIL (4.2-5.4); RDW 20.3 % (11.5-14.5); WBC 3.81 X1000 (4.8-10.8)
[2018-10-16 09:09] LABS: ALBUMIN 3.4 g/dL (3.5-5.0); CALCIUM 8.5 mg/dL (8.8-10.2); CREATININE 2.4 mg/dL (0.5-0.9); PHOSPHORUS 5.7 mg/dL (2.7-4.5); POTASSIUM 4.1 mmol/L (3.5-5.1)
[2018-10-16] MEDS: XANAX PO PRN ×2 (09:37→22:51)
[2018-10-16] MEDS ORDERED: ZAROXOLYN PO ONE (17:34)
--- NOTE | 2018-10-16 17:58 | PROGRESS NOTE ---
DATE: 10/16/2018 SUBJECTIVE: The patient states that she feels a lot better today. She reports that she is less short of breath. The swelling in her left arm is slightly improved. OBJECTIVE: Vital Signs: Temperature 97.4 degrees, blood pressure 120/76, heart rate 80, respirations 18, O2 saturation is 99% on 3 L nasal cannula. Output 1 L. General: This is a morbidly obese female sitting in bed, in no acute distress. Heart: S1, S2 normal. Regular rate and rhythm. Lungs: Equal air entry bilaterally. No wheezing. No rales. Abdomen: Positive bowel sounds. Soft. Distended. Extremities: No edema. No cyanosis. Neurologic: The patient is alert and oriented x4. LABS: White blood cell count 3.8, hemoglobin 11, hematocrit 36, platelets 159,000. Sodium 134, potassium 4.1, chloride 99, CO2 19, BUN 55, creatinine 2.4, glucose 104, albumin 3.4. Chest x-ray shows pulmonary vascular congestion. No new infiltrates. ASSESSMENT AND PLAN: 1. Acute on chronic systolic congestive heart failure exacerbation. Continue with diuretic therapy and the current cardiac medications as directed by the plant operations engineer. 2. Atrial fibrillation. Continue on amiodarone, Coreg, and Eliquis. 3. Morbid obesity. Aware. 4. Chronic pain. Continue on Oxy IR. 5. Hypertension. Continue on current antihypertensive regimen. 6. History of multiple deep vein thromboses. The patient is currently on Eliquis. 7. Severe nonischemic dilated cardiomyopathy. Aware. 8. Pulmonary hypertension. Aware. 9. Acute kidney injury on chronic kidney disease. Likely secondary to diuretic therapy. Monitor closely. 10. Anxiety disorder. Continue on Xanax. cc: Lety Lemos MD [facility]
--- NOTE | 2018-10-16 18:06 | CARDIOLOGY PROGRESS NOTE ---
DATE: 10/16/2018 SUBJECTIVE: The patient is somewhat drowsy. She denies shortness of breath or chest discomfort. She has diuresed only a modest amount thus far. She does have history of snoring and daytime somnolence. She actually has been diagnosed with sleep apnea, but for some reason the insurance was not willing to cover her device. OBJECTIVE: Blood pressure 120/76, heart rate 82, oxygen saturation 99% on nasal cannula oxygen. Jugular venous distention is present consistent with significantly elevated central venous pressure. Chest is clear to auscultation bilaterally. Cardiac exam was a regular rate and rhythm without appreciable murmur, rub, or gallop. Extremities demonstrate trace edema. DIAGNOSTIC STUDIES: Laboratory data includes a white blood cell count 3.81, hematocrit 36.8, hemoglobin 11.5, platelet count 159,000. Sodium 134, potassium 4.1, chloride 99, carbon dioxide 19, creatinine 2.4, BUN 55, glucose is 104, magnesium 2.0, albumin 3.4. Limited echocardiography performed and noteworthy for moderate tricuspid regurgitation with estimated systolic PA pressure 45 mmHg, dilated left ventricle with severe global hypokinesis, and paradoxical wall motion related to ventricular pacing, right ventricular enlargement, and markedly distended inferior vena cava consistent with markedly elevated central venous pressure. IMPRESSION: 1. Acute on chronic systolic heart failure, predominantly right-sided in the setting of severe nonischemic cardiomyopathy. Patient also has obstructive sleep apnea which appears to be contributing to her right-sided heart failure. 2. Severe nonischemic cardiomyopathy. 3. Status post implantable defibrillator. 4. Paroxysmal atrial fibrillation. 5. Nonsustained ventricular tachycardia. 6. Obesity. 7. Obstructive sleep apnea. 8. Hypertension. RECOMMENDATIONS: 1. Increase efforts to diurese. We will give additional metolazone 5 mg p.o. now and increase IV Lasix 80 mg IV q.12 h. 2. Utilize BiPAP at night. 3. Ultimately patient will need to have CPAP, and arrangements need to be made to obtain this as best possible. 4. The patient has a significantly widened QRS and would probably benefit from upgrade of her implantable defibrillator to a biventricular pacer ICD. cc: Gage Smith MD
[2018-10-16] MEDS ORDERED: LASIX IV ONE (18:15)
[2018-10-16] MEDS: PRAVACHOL PO SCH (20:51)
--- NOTE | 2018-10-16 22:59 | GENERAL SURGERY CONSULTATION ---
DATE: 10/16/2018 HISTORY OF PRESENT ILLNESS: This is a female with extensive cardiac history. She has very poor peripheral access. She has an implanted defibrillator who is admitted with worsening exacerbations of her heart failure. She has a chest IV, very small bore, needs more reliable access as she has frequent admissions. MEDICAL HISTORY: Congestive heart failure, nonischemic cardiomyopathy, hypertension, atrial fibrillation, chronic kidney disease, gastritis, breast cancer, obstructive sleep apnea. PAST SURGICAL HISTORY: She has got implanted defibrillator. Denies any other vascular procedures. She also had cholecystectomy, hysterectomy, knee surgery and section. SOCIAL HISTORY: . No tobacco, alcohol, drugs. FAMILY HISTORY: Reviewed. REVIEW OF SYSTEMS: Ten-point negative. PHYSICAL EXAMINATION: Vital signs: She is afebrile, pulse 80, blood pressure 104/65, oxygen saturation 90s on 3 L. General: She is an chronically ill-appearing obese female. HEENT: No scleral icterus. Neck/Chest: She has a left-sided defibrillator. No other scars on the right side of the neck. Cardiovascular: Normal rate. Pulmonary: No increased work of breathing. Abdomen: Soft, nontender, nondistended. Integument: Warm and dry. Peripheral vascular: She has bilateral lower extremity edema. No upper extremity edema. Psychiatric: Appropriate affect. Neurologic: No gross deficits. LABORATORY DATA: White count 3, hematocrit 46, platelets 159,000. Creatinine is 2.4 up from 2.0. ProBNP was 12,000 yesterday. It is down to 7800 today. She is also on Eliquis. ASSESSMENT AND PLAN: This is a 48-year-old female with poor peripheral access. I have been asked to place a port given her frequent admissions. We discussed risks of bleeding, vascular injury, pneumothorax, malfunction and other associated complications. She understands and consents. We will hold her Eliquis and plan for placement of port maybe Sunday. cc: Pranay Mcdonnell MD [facility]
[2018-10-17] MEDS: XANAX PO PRN (00:22)
[2018-10-17] MEDS: APRESOLINE PO SCH ×3 (05:20→21:11)
[2018-10-17] MEDS: LASIX IV SCH ×2 (05:21→17:00)
[2018-10-17] MEDS: ISORDIL PO SCH ×3 (05:21→21:11)
[2018-10-17] MEDS: DILAUDID IV PRN ×2 (05:21→21:11)
[2018-10-17] MEDS: LANOXIN PO SCH (05:59)
[2018-10-17 06:08] LABS: ALBUMIN 3.8 g/dL (3.5-5.0); CALCIUM 9.2 mg/dL (8.8-10.2); CREATININE 2.1 mg/dL (0.5-0.9); PHOSPHORUS 5.3 mg/dL (2.7-4.5); POTASSIUM 3.7 mmol/L (3.5-5.1)
[2018-10-17] MEDS: ENTRESTO 97 MG-103 MG TABLET PO SCH ×2 (09:19→20:58)
[2018-10-17] MEDS: COREG PO SCH (09:19)
[2018-10-17] MEDS: ASPIRIN EC PO SCH (09:19)
[2018-10-17] MEDS: CORDARONE PO SCH (09:19)
[2018-10-17] MEDS: ALDACTONE PO SCH ×2 (09:19→20:57)
[2018-10-17] MEDS: MIRALAX PO SCH ×2 (11:06→20:58)
[2018-10-17] MEDS: COLACE PO SCH ×2 (11:06→20:58)
[2018-10-17] MEDS: BENADRYL PO PRN (11:06)
[2018-10-17] MEDS: BENADRYL CREAM TOP SCH ×2 (11:06→20:57)
[2018-10-17] MEDS: OXY IR PO PRN (12:39)
--- NOTE | 2018-10-17 13:12 | PROGRESS NOTE ---
DATE: 10/17/2018 SUBJECTIVE: The patient is resting comfortably in bed. She states that she is having a lot of itching on her arms where she has old sores. OBJECTIVE: Vital Signs: Temperature 97.3 degrees, blood pressure 104/67, heart rate 78, respirations 15, O2 saturation 98% on 3 L nasal cannula. General: This is a morbidly obese female, sitting up in bed, in no acute distress. Heart: S1, S2 normal. Regular rate and rhythm. Lungs: Clear to auscultation bilaterally. Abdomen: Positive bowel sounds. Soft, nontender, nondistended. Extremities: No edema, no cyanosis. The patient does have edema involving the left arm. Neurologic: The patient is alert and oriented x4. LABORATORY DATA: Sodium 141, potassium 3.7, chloride 96, CO2 28, BUN 57, creatinine 2.1, glucose 99. ASSESSMENT AND PLAN: 1. Acute on chronic systolic congestive heart failure exacerbation. Management as per the enterprise application analyst. 2. Atrial fibrillation. Continue on Coreg, amiodarone and Eliquis. 3. Morbid obesity. Aware. 4. Hypertension. Continue on the current antihypertensive regimen. 5. Chronic pain. Continue on Oxy IR. 6. History of multiple deep venous thromboses. Continue on Eliquis. 7. Severe nonischemic dilated cardiomyopathy. Aware. 8. Pulmonary hypertension. Aware. 9. Acute kidney injury on chronic kidney disease. Stable. We will continue to monitor closely while the patient is on diuretic therapy. 10. Anxiety disorder. Continue on Xanax. cc: Lety Lemos MD
[2018-10-17] MEDS ORDERED: ZOFRAN IV PRN (14:07)
[2018-10-17] MEDS: PRAVACHOL PO SCH (20:58)
--- NOTE | 2018-10-17 21:41 | PROGRESS NOTE ---
DATE: 10/17/2018 SUBJECTIVE: Patient is more awake and feeling better. She has diuresed well in the last 24 hours. She denies any chest discomfort or shortness of breath. Appetite is improved. OBJECTIVE: Vital signs: Blood pressure 95/55, heart rate 80, oxygen saturation 97% on nasal cannula oxygen. Neck: Jugular venous distention is significant consistent with significantly elevated central venous pressure. Chest: Clear to auscultation. Cardiac Exam: Reveals a regular rate and rhythm without appreciable murmur or gallop. Extremities: Demonstrate trace edema. LABORATORY DATA: Includes a sodium of 141, potassium 3.7, chloride 96, carbon dioxide 28, BUN 57, creatinine 2.1, glucose 99. IMPRESSION: 1. Acute on chronic systolic heart failure on the right side in the setting of severe nonischemic cardiomyopathy. Patient also has obstructive sleep apnea, which appears to be contributing to her right-sided heart failure. She is improving with increased efforts to diurese. BiPAP is also helping. 2. Severe nonischemic cardiomyopathy. 3. Status post implantable defibrillator/pacemaker. 4. Paroxysmal atrial fibrillation. 5. Nonsustained ventricular tachycardia. 6. Obesity. 7. Obstructive sleep apnea. 8. Hypertension. RECOMMENDATIONS: 1. Continue current Lasix 80 mg IV q.12. 2. Continue BiPAP at night. cc: Gage Smith MD
[2018-10-18] MEDS: OXY IR PO PRN ×3 (02:10→21:40)
[2018-10-18] MEDS: LASIX IV SCH ×2 (05:34→17:48)
[2018-10-18] MEDS: APRESOLINE PO SCH ×3 (05:35→21:27)
[2018-10-18] MEDS: ISORDIL PO SCH ×3 (05:35→21:28)
[2018-10-18 05:59] LABS: HEMATOCRIT 37.9 % (37.0-47.0); HEMOGLOBIN 11.5 g/dL (12.0-16.0); MCH 27.1 PG (27-31); MCHC 30.3 g/dL (33-37); MCV 89.4 FL (81-99); MPV 11.2 FL (7.4-10.4); RBC 4.24 XMIL (4.2-5.4); RDW 19.8 % (11.5-14.5); WBC 4.96 X1000 (4.8-10.8)
[2018-10-18] MEDS: LANOXIN PO SCH (06:10)
[2018-10-18 06:25] LABS: ALBUMIN 3.6 g/dL (3.5-5.0); CALCIUM 9.2 mg/dL (8.8-10.2); CREATININE 2.1 mg/dL (0.5-0.9); PHOSPHORUS 5.2 mg/dL (2.7-4.5)
[2018-10-18] MEDS: BENADRYL CREAM TOP SCH ×2 (08:18→21:27)
[2018-10-18] MEDS: ASPIRIN EC PO SCH (08:19)
[2018-10-18] MEDS: COLACE PO SCH ×2 (08:19→21:29)
[2018-10-18] MEDS: ENTRESTO 97 MG-103 MG TABLET PO SCH ×2 (08:19→21:28)
[2018-10-18] MEDS: MIRALAX PO SCH ×2 (08:19→21:28)
[2018-10-18] MEDS: CORDARONE PO SCH (08:19)
[2018-10-18] MEDS: ALDACTONE PO SCH ×2 (08:19→21:29)
[2018-10-18] MEDS: TOPROL XL PO SCH (08:19)
--- NOTE | 2018-10-18 12:48 | PROGRESS NOTE ---
DATE: 10/18/2018 SUBJECTIVE: The patient is resting comfortably in bed. She has no complaints. No acute events noted overnight. OBJECTIVE: Vital Signs: Temperature 97.6 degrees, blood pressure 105/90, heart rate 80, respirations 15, O2 saturation 95% on 3 L nasal cannula. General: This is a morbidly obese female lying in bed, in no acute distress. Heart: S1, S2 normal. Regular rate and rhythm. Lungs: Clear to auscultation bilaterally. Abdomen: Positive bowel sounds. Soft, nontender. Mildly distended. Extremities: No edema, no cyanosis. Neurologic: The patient is alert and oriented x4. LABORATORY DATA: Reviewed. ASSESSMENT AND PLAN: 1. Acute on chronic systolic congestive heart failure exacerbation. Continue with the current management as directed by the hardware test engineer. 2. Atrial fibrillation. Continue on Coreg, amiodarone and Eliquis. 3. Chronic kidney disease. Stable. 4. History of multiple deep venous thromboses. The patient is on Eliquis which is on hold today because the patient is going to be undergoing Port a cath placement. 5. Severe nonischemic dilated cardiomyopathy. Aware. 6. Pulmonary hypertension. Aware. 7. Anxiety disorder. Continue on Xanax. 8. Chronic pain. Continue on Oxy IR. cc: Lety Lemos MD [facility]
[2018-10-18] MEDS ORDERED: XYLOCAINE 1%/EPI 1:100,000 ONE (14:57)
[2018-10-18] MEDS ORDERED: NS 250 ML ONE (14:58)
[2018-10-18] MEDS ORDERED: KEFZOL 2 GM/D5W 2 GM/50 ML IVPB ONE (15:08)
[2018-10-18] MEDS ORDERED: VERSED ONE (15:08)
[2018-10-18] MEDS ORDERED: FENTANYL ONE (15:09)
[2018-10-18] MEDS ORDERED: DILAUDID ONE (16:31)
[2018-10-18] MEDS: DILAUDID IV PRN (19:45)
--- NOTE | 2018-10-18 19:57 | PROGRESS NOTE ---
DATE: 10/18/2018 SUBJECTIVE: Patient denies shortness of breath or chest discomfort, on supplemental oxygen per nasal cannula. OBJECTIVE: Vital Signs: Blood pressure 125/69, heart rate 80, oxygen saturation 95%. Neck: Jugular venous distention evident, consistent with significantly elevated central venous pressure. Chest: Clear to auscultation. Cardiac: Regular rate and rhythm without appreciable murmur or gallop. Lower extremities are without edema. LABORATORY DATA: Includes a white blood cell count of 4.96, hematocrit 37.9, hemoglobin 11.5, platelet count 181,000. Sodium 137, potassium 4.0, chloride 95, carbon dioxide 30, BUN 58, creatinine 2.1, glucose 109. IMPRESSION: 1. Acute on chronic systolic heart failure, predominantly right-sided, in the setting of severe nonischemic cardiomyopathy and obstructive sleep apnea. 2. Severe nonischemic cardiomyopathy. 3. Status post implantable defibrillator. This has reportedly been upgraded to a biventricular pacemaker defibrillator a few months ago. 4. Paroxysmal atrial fibrillation. 5. Nonsustained ventricular tachycardia. 6. Obesity. 7. Obstructive sleep apnea. 8. Hypertension. RECOMMENDATIONS: 1. Continue intravenous Lasix 80 mg every 12 hours. 2. Utilize BiPAP at night. 3. The patient appears to still have significant volume excess and certainly warrants further diuresis with intravenous Lasix for another 24, and probably another 48 hours. cc: Gage Smith MD
[2018-10-18] MEDS: PRAVACHOL PO SCH (21:29)
--- NOTE | 2018-10-18 21:51 | OPERATIVE NOTE ---
PROCEDURE DATE: 10/18/2018 PREOPERATIVE DIAGNOSIS: Poor peripheral access with cardiomyopathy. POSTOPERATIVE DIAGNOSIS: Poor peripheral access with cardiomyopathy. PROCEDURE PERFORMED: Ultrasound-guided right internal jugular vein port placement, with fluoroscopy less than 1 hour. COMPLICATIONS: None. ANESTHESIA: Local with very minimal intravenous sedation. INDICATIONS: A 48-year-old female who has a history of breast cancer. She has nonischemic cardiomyopathy with multiple admissions ad very poor peripheral access. OPERATIVE FINDINGS: Ultrasound of the right neck showed a compressible internal jugular vein with no evidence of intraluminal thrombus. Final fluoroscopic image showed good position of the catheter at the superior vena cava-atrial junction, no kinking of the catheter, and no pneumothorax. OPERATIVE NOTE: Risks, benefits, and alternatives were discussed with the patient and she consented to the procedure. She was seen preoperatively and surgical site was confirmed. She was taken to the operating room and placed in supine position. Her bilateral neck and chest were prepped with Betadine and draped in the usual fashion. She was then placed in Trendelenburg and a time-out was performed. A focused ultrasound of the right neck with above findings. Local anesthetic was infiltrated. She tolerated this well. The vein was accessed on the first pass. Dark nonpulsatile venous blood was noted on return. The wire threaded easily and was confirmed with fluoroscopy in the right side of the heart. We also did an ultrasound and confirmed that it coursed directly in the vein and did not traverse the artery. Subcutaneous pouch was made 2 fingerbreadths below the level of the clavicle after injecting local anesthetic, and we tunneled the catheter from the incision in the chest to the incision in the neck. A dilator and peel-away introducer sheath were advanced and the catheter was advanced and withdrawn until it was in good position. It was trimmed and connected to the port with a tanbark peeler device placed, and the port secured with 2-0 Prolene. The port withdrew blood and flushed without resistance, and was flushed with heparinized saline. Final fluoroscopic image was appropriate. Deep dermis was closed with interrupted 3-0 Vicryl sutures. Skin was closed with 4-0 Monocryl in both the neck and chest. Dermabond was applied. Counts were correct. She was awoken and transferred to Recovery. I spoke with family. cc: Pranay Mcdonnell MD
[2018-10-19] MEDS: DILAUDID IV PRN ×3 (02:21→18:47)
[2018-10-19] MEDS: LASIX IV SCH ×2 (05:17→18:45)
[2018-10-19] MEDS: APRESOLINE PO SCH ×3 (05:18→21:21)
[2018-10-19] MEDS: ISORDIL PO SCH ×3 (05:18→21:21)
[2018-10-19] MEDS: LANOXIN PO SCH (06:07)
[2018-10-19 06:59] LABS: ALBUMIN 3.5 g/dL (3.5-5.0); CALCIUM 8.8 mg/dL (8.8-10.2); CREATININE 1.9 mg/dL (0.5-0.9); PHOSPHORUS 4.7 mg/dL (2.7-4.5); POTASSIUM 3.9 mmol/L (3.5-5.1)
[2018-10-19] MEDS: ASPIRIN EC PO SCH (08:18)
[2018-10-19] MEDS: ZAROXOLYN PO SCH (08:18)
[2018-10-19] MEDS: ELIQUIS PO SCH ×2 (08:18→21:22)
[2018-10-19] MEDS: COLACE PO SCH ×2 (08:18→21:21)
[2018-10-19] MEDS: CORDARONE PO SCH (08:18)
[2018-10-19] MEDS: BENADRYL CREAM TOP SCH ×2 (08:18→21:29)
[2018-10-19] MEDS: ALDACTONE PO SCH ×2 (08:18→21:22)
[2018-10-19] MEDS: MIRALAX PO SCH ×2 (08:18→21:29)
[2018-10-19] MEDS: TOPROL XL PO SCH (08:18)
[2018-10-19] MEDS: ENTRESTO 97 MG-103 MG TABLET PO SCH ×2 (08:18→21:28)
[2018-10-19] MEDS ORDERED: VANCOMYCIN IV PER PHARMACY MISC SCH (10:15)
[2018-10-19] MEDS ORDERED: VANCOMYCIN 2.4 GM in NS 500 ML IV ONE (11:30)
[2018-10-19] MEDS: MAXIPIME 1 GM in NS 50 ML IV SCH ×2 (11:41→22:50)
[2018-10-19] MEDS: OXY IR PO PRN (11:47)
[2018-10-19] MEDS ORDERED: EMLA CREAM TOP PRN (17:19)
--- NOTE | 2018-10-19 17:39 | PROGRESS NOTE ---
DATE: 10/19/2018 SUBJECTIVE: The patient is resting comfortably. She states that the itching is less on her left arm. However, it is warm and erythematous. OBJECTIVE: Vital Signs: Temperature 98.3 degrees, blood pressure 101/60, heart rate 81, respirations 17, O2 saturation 93% on 2 L nasal cannula. General: This is a morbidly obese female sitting at the edge of the bed in no acute distress. Head: Normocephalic, atraumatic. Heart: S1, S2 normal. Regular rate and rhythm. Lungs: Clear to auscultation bilaterally. Abdomen: Positive bowel sounds. Soft, nontender, nondistended. Extremities: No edema, no cyanosis. Neurologic: The patient is alert and oriented x4. LABS: Sodium is 137, potassium 3.9, chloride 93. CO2 is 29, phosphorus 4.7, BUN 54, creatinine 1.9. ASSESSMENT AND PLAN: 1. Bilateral upper extremity cellulitis. The wound culture is growing gram- positive cocci. We will start the patient on vancomycin and await the culture results. 2. Acute on chronic systolic congestive heart failure exacerbation. Management as per Cardiology. 3. Status post status post Port-A-Cath placement. Stable. 4. Atrial fibrillation. Continue on Coreg, amiodarone and Eliquis. 5. Chronic kidney disease. Stable. 6. History of multiple deep venous thromboses. Continue on Eliquis. 7. Severe nonischemic dilated cardiomyopathy. Aware. 8. Pulmonary hypertension. Aware. 9. Chronic pain syndrome. Continue on Oxy IR. 10. Anxiety disorder. Continue on Xanax. cc: MD JUSTO Clemens
[2018-10-19] MEDS: PRAVACHOL PO SCH (21:22)
[2018-10-19] MEDS: BENADRYL PO PRN (21:29)
[2018-10-20] MEDS: DILAUDID IV PRN ×4 (01:33→22:42)
[2018-10-20] MEDS: APRESOLINE PO SCH ×3 (05:40→22:41)
[2018-10-20] MEDS: ISORDIL PO SCH ×3 (05:40→22:52)
[2018-10-20] MEDS: LANOXIN PO SCH ×2 (05:40→06:22)
[2018-10-20] MEDS: LASIX IV SCH ×2 (05:41→17:25)
[2018-10-20 06:20] LABS: HEMATOCRIT 39.6 % (37.0-47.0); HEMOGLOBIN 12.4 g/dL (12.0-16.0); MCH 27.3 PG (27-31); MCHC 31.3 g/dL (33-37); MCV 87.2 FL (81-99); MPV 12.2 FL (7.4-10.4); RBC 4.54 XMIL (4.2-5.4); RDW 19.5 % (11.5-14.5); WBC 4.69 X1000 (4.8-10.8)
[2018-10-20 06:48] LABS: ALBUMIN 3.3 g/dL (3.5-5.0); CREATININE 1.8 mg/dL (0.5-0.9)
[2018-10-20] MEDS: TOPROL XL PO SCH (08:32)
[2018-10-20] MEDS: ENTRESTO 97 MG-103 MG TABLET PO SCH ×2 (08:32→22:41)
[2018-10-20] MEDS: MIRALAX PO SCH ×2 (08:32→22:42)
[2018-10-20] MEDS: COLACE PO SCH ×2 (08:32→22:41)
[2018-10-20] MEDS: ELIQUIS PO SCH ×2 (08:32→22:41)
[2018-10-20] MEDS: ASPIRIN EC PO SCH (08:32)
[2018-10-20] MEDS: CORDARONE PO SCH (08:32)
[2018-10-20] MEDS: ALDACTONE PO SCH ×2 (08:32→22:41)
[2018-10-20] MEDS: BENADRYL CREAM TOP SCH ×2 (08:33→22:42)
[2018-10-20] MEDS ORDERED: ROBITUSSIN-DM PO PRN (10:03)
[2018-10-20] MEDS: MAXIPIME 1 GM in NS 50 ML IV SCH (10:54)
[2018-10-20] MEDS ORDERED: VANCOMYCIN 1.7 GM in NS 250 ML IV SCH (11:30)
[2018-10-20] MEDS: FLONASE NAS SCH (11:36)
--- NOTE | 2018-10-20 12:09 | Diag Imaging Result Doc PS360 ---
CT THORAX W/O CONTRAST - 10/20/2018 INDICATION: dyspnea COMPARISON: 01/17/2018 FINDINGS: There is a biventricular pacemaker in good position. There is severe cardiomegaly. There are shotty mediastinal lymph nodes diffusely but no significant adenopathy. Stable densely calcified pleural plaque at the right lung apex. Upper abdominal images are unremarkable. There is some hazy interstitial groundglass infiltrate throughout the lungs compatible with mild pulmonary edema. No pneumothorax or significant pleural effusion. Bony structures are intact. IMPRESSION: Severe cardiomegaly. Mild interstitial pulmonary edema. This exam was performed using automated exposure control, adjustment of mA or kV according to patient size, and/or use of iterative reconstruction technique Electronically signed by Michael Kim 10/20/2018 12:07 PM
--- NOTE | 2018-10-20 14:01 | INFECTIOUS DISEASE CONSULT REP ---
DATE: 10/20/2018 CONCLUSION: The patient has bilateral arm cellulitis. She says this occurred because she had IV sites which became cellulitic. Staphylococcus haemolyticus was isolated from one of the patient's IV sites that became cellulitic. This may be a normal skin sandra organism or it could be causing the patient's cellulitis. RECOMMENDATIONS: I have discontinued vancomycin because the patient has decreased hearing and also her creatinine is elevated. I have started the patient on doxycycline p.o. PRESENT ILLNESS: CBC shows a white count of 4690, hemoglobin 12.4 and platelet count 172,000. Creatinine is 1.8. GFR is 36. The patient's wound culture grew Staphylococcus hemolyticus. Urine culture is sterile. Upper extremity CT scan showed nonspecific edema in the left arm. The chest x-ray shows cardiomegaly, pulmonary venous congestion and presence of a pacemaker. DISCUSSION: The patient tells me that she has had sites on both arms where IVs were attempted but were unsuccessful. The areas have formed small wounds that are erythematous and there is swelling of both arms. Laboratory studies thus far show CBC with a white count of 4690, hemoglobin 12.4, and platelet count of 172,000. Creatinine is 1.8. GFR is 36. As mentioned above, the culture from the patient's arm grew Staphylococcus haemolyticus. Urine culture was sterile. The patient's CT scan of the left arm showed nonspecific edema involving the left upper extremity at and below the elbow as described. There was no evidence of an abscess. The patient's chest x-ray shows severe cardiomegaly and pulmonary venous congestion. Also, the patient's pacemaker is in the left upper part of the chest. JOURNEYMAN PLUMBER HISTORY: The patient is a 2, para 2, AB 0. She delivered her children by C- section. She has had a hysterectomy and bilateral salpingo-oophorectomy. REVIEW OF SYSTEMS: Head eyes, ears, nose and throat: She has decreased hearing. Her vision is okay. Neck: No stiffness. Cardiac: The patient has congestive heart failure and she has dyspnea on exertion. She also had a defibrillator implanted. Respiratory: No cough and most of her dyspnea on exertion is felt to be due to her obesity and the fact that she is in congestive heart failure. GI: No nausea, vomiting, or diarrhea. : No dysuria or flank pain. Bone, joints, muscles: The patient says that for the past 3 weeks she has had pain in both shoulders. Neurologic: No seizures. No recent loss of motor or sensory function. PREVIOUS HOSPITALIZATIONS AND OPERATIONS: Patient has had 2 C-sections, a hysterectomy, bilateral salpingo-oophorectomy, placement of a left-sided defibrillator, and the patient also had left knee surgery. She has also been admitted with congestive heart failure. Also during this admission the patient had a Port-A-Cath placed on the right side of her chest. MEDICAL DISEASES: Obesity, hypertension, breast cancer, atrial fibrillation, renal failure, hepatomegaly, along with congestive heart failure. Hyperlipidemia. INFECTIOUS DISEASE HISTORY: Positive for pneumonia. Negative for urinary tract infection. FAMILY HISTORY: Positive for mental illness, cancer, diabetes mellitus, and atrial fibrillation. SOCIAL HISTORY: [place] She does not smoke cigarettes, drink alcoholic beverages or abuse drugs. She is single. She lives with her son. She does not have any pets at home. She is disabled. INFECTIOUS DISEASE HISTORY: Positive for pneumonia. Negative for urinary tract infection. FAMILY HISTORY: Positive for mental illness, cancer, diabetes mellitus, and atrial fibrillation. SOCIAL HISTORY: [place] She does not smoke cigarettes, drink alcoholic beverages or abuse drugs. She is allergic to tramadol, Darvocet, Tylenol, latex. She is single. Her son lives with her. She does not have any pets. She is disabled. HOME MEDICATIONS: Include albuterol inhaler, Xanax, Cordarone, Eliquis, aspirin, Coreg, Lanoxin, Lasix, Apresoline, hydrocodone, Isordil, Reglan, metolazone, Protonix, Pravachol, Entresto, Aldactone. PHYSICAL EXAMINATION: Vital Signs: Temperature is 97.5 degrees, pulse 81, respirations 17, blood pressure is 101/69, patient is 5 feet 7 inches tall, weighs 273 pounds. General: This is an obese middle-aged female, she is in no acute distress. Head/eyes/ears/nose/throat: She can hear my spoken words and see near objects. No drainage coming from the nose or the ears. Neck: No meningismus. Patient has a right-sided Port-A-Cath. The site is not erythematous or swollen. She also has a pacemaker on the left side, that site is not swollen or tender. Lungs: There were bibasilar rales. Cardiovascular: The patient's heart rate is irregular. Abdomen: Soft and nontender. Neurologic: The patient is alert. She can move her extremities. There is no tremor. Extremities: Patient had bilateral leg edema also in both arms seemed to have bilateral edema as well. On the arms there were multiple small ulcerated erythematous areas where the patient said IVs were attempted to be started. Neurologic: Patient is alert. She can move her extremities. There is no tremor. Her memory as regarding her medical history seemed to be intact. Thank you for the consult. cc: Philipp Brenner MD
--- NOTE | 2018-10-20 17:18 | PROGRESS NOTE ---
DATE: 10/20/2018 SUBJECTIVE: The patient is resting comfortably in bed. No acute events noted overnight. OBJECTIVE: Vital Signs: Temperature 98.5 degrees, blood pressure 117/80, heart rate 76, respirations 17, O2 saturation 98% on 2 L nasal cannula. General: This is a morbidly obese female sitting up in bed in no acute distress. Heart: S1, S2 normal. Regular rate and rhythm. Lungs: Equal air entry bilaterally. No crackles. No rales. Abdomen: Positive bowel sounds. Soft, nontender, nondistended. Extremities: No edema, no cyanosis. Neurologic: The patient is alert and oriented x3. LABORATORY DATA: Reviewed. ASSESSMENT AND PLAN: 1. Bilateral upper extremity cellulitis. The patient's antibiotic therapy has been adjusted by Dr. Brenner. We will continue to monitor closely. 2. Acute on chronic systolic congestive heart failure exacerbation. Continue with the current medications as directed by the bread baker. 3. Status post Port-A-Cath placement. Stable. 4. Atrial fibrillation. Stable. Continue on the current treatment regimen. 5. Chronic kidney disease. Stable. 6. History of multiple deep venous thromboses. Continue on Eliquis. 7. Severe nonischemic dilated cardiomyopathy. Aware. 8. Pulmonary hypertension. Aware. 9. Chronic pain syndrome. Continue on Oxy IR. 10. Anxiety disorder. Continue on Xanax. cc: Lety Lemos MD [facility]
[2018-10-20] MEDS: DOXYCYCLINE PO SCH (17:24)
[2018-10-20] MEDS: PRAVACHOL PO SCH (22:41)
[2018-10-21] MEDS: DILAUDID IV PRN (03:47)
[2018-10-21] MEDS: LASIX IV SCH (05:58)
[2018-10-21] MEDS: APRESOLINE PO SCH (05:58)
[2018-10-21] MEDS: LANOXIN PO SCH (05:59)
[2018-10-21] MEDS: ISORDIL PO SCH (05:59)
[2018-10-21] MEDS: DOXYCYCLINE PO SCH (06:00)
[2018-10-21 06:54] LABS: HEMATOCRIT 40.8 % (37.0-47.0); HEMOGLOBIN 12.6 g/dL (12.0-16.0); MCH 27.4 PG (27-31); MCHC 30.9 g/dL (33-37); MCV 88.7 FL (81-99); MPV 11.7 FL (7.4-10.4); RBC 4.6 XMIL (4.2-5.4); WBC 4.46 X1000 (4.8-10.8)
[2018-10-21 07:25] LABS: CALCIUM 9.6 mg/dL (8.8-10.2); CREATININE 1.9 mg/dL (0.5-0.9); POTASSIUM 3.5 mmol/L (3.5-5.1)
--- NOTE | 2018-10-21 07:33 | EKG Report ---
Test Performed on : 10/20/2018 2:23:39 PM Test Reason : md ordered Blood Pressure : / mmHG Vent. Rate : 080 BPM Atrial Rate : 080 BPM P-R Int : 000 ms QRS Dur : 262 ms QT Int : 582 ms P-R-T Axes : 000 -75 104 degrees QTc Int : 671 ms Ventricular-paced rhythm with premature atrial complexes. with aberrant conduction. Biventricular pacemaker detected Abnormal ECG When compared with ECG of 19-OCT-2018 16:25, (Unconfirmed) aberrant conduction. is now present Confirmed by Cora DANIELLE, Krish Gallegos ([id number]) on 10/21/2018 9:31:03 AM
--- NOTE | 2018-10-21 07:35 | EKG Report ---
Test Performed on : 10/19/2018 4:25:49 PM Test Reason : confirm rhythm Blood Pressure : / mmHG Vent. Rate : 080 BPM Atrial Rate : 090 BPM P-R Int : 000 ms QRS Dur : 186 ms QT Int : 512 ms P-R-T Axes : 000 253 115 degrees QTc Int : 590 ms Ventricular-paced rhythm Abnormal ECG When compared with ECG of 16-OCT-2018 06:41, No significant change was found Confirmed by Cora DANIELLE, Krish Gallegos ([id number]) on 10/21/2018 9:30:36 AM
[2018-10-21] MEDS: ENTRESTO 97 MG-103 MG TABLET PO SCH (10:32)
[2018-10-21] MEDS: ELIQUIS PO SCH (10:33)
[2018-10-21] MEDS: ASPIRIN EC PO SCH (10:33)
[2018-10-21] MEDS: TOPROL XL PO SCH (10:33)
[2018-10-21] MEDS: COLACE PO SCH (10:33)
[2018-10-21] MEDS: CORDARONE PO SCH (10:33)
[2018-10-21] MEDS: ALDACTONE PO SCH (10:33)
[2018-10-21] MEDS: FLONASE NAS SCH (10:34)
[2018-10-21] MEDS: BENADRYL CREAM TOP SCH (10:34)
[2018-10-21] MEDS: OXY IR PO PRN (10:39)
[2018-10-21] MEDS: MIRALAX PO SCH (10:41)
[2018-10-21 11:27] VITALS: BP 104/70
--- NOTE | 2018-10-21 15:04 | INFECTIOUS DISEASE PROGRESS NO ---
DATE: 10/21/2018 PRESENT ILLNESS: The patient has bilateral arm cellulitis secondary to attempted efforts to put in an IV. MEDICATIONS: The patient is on p.o. doxycycline. PHYSICAL EXAMINATION: Vital Signs: Temperature is 98.6 degrees, pulse 79, respirations 16, blood pressure 104/70. General: This is a morbidly obese, middle-aged female. She is in no acute distress. Head, eyes, ears, nose, and throat: She can hear my spoken words and see near objects. She does not have any white patches in her mouth. Neck: There is no neck pain when the patient moves her head or her neck. Lungs: The breath sounds were distant but they appeared to be clear. I did not hear any rales. Cardiovascular: The patient's heart rate today is regular. Abdomen: Soft and nontender. Neurologic: Patient is alert. She can move her extremities. There is no tremor. Extremities: Both arms are less swollen and there is less erythema. LAB AND X-RAY: The patient's CBC shows a white count 4,460, hemoglobin 12.6, platelet count is 187,000. Creatinine is 1.9. GFR is 34. The chest CT scan done yesterday shows severe cardiomegaly and mild interstitial pulmonary edema. ASSESSMENT AND PLAN: Patient has arm cellulitis secondary to attempts at starting an IV. The lesions are healing. My plan is to continue the patient on doxycycline. She hopefully will be going home today. I have electronically sent a prescription for doxycycline 100 mg p.o. every 12 hours for 10 days to the patient's pharmacy, which is [facility]. I have also requested the patient have an appointment in my office in 10 days. I told the patient that if her arms are much better, she can cancel the appointment. COMORBIDITIES: The patient is obese. She has renal failure and congestive heart failure. The patient also has breast cancer. cc: Philipp Brenner MD
--- NOTE | 2018-10-21 22:37 | ECHO REPORT ---
ORDER DATE: 10/16/2018 SUMMARY: 1. Limited 2 dimensional and limited Doppler echocardiography performed. 2. Aortic valve opens adequately on 2-dimensional images. Mitral and tricuspid valves are without evidence of structural abnormality with mild mitral regurgitation and mild tricuspid regurgitation. Pulmonic valves not well demonstrated. The estimated systolic PA pressure by Doppler is 40 to 45 mmHg suggesting mild to moderate pulmonary hypertension. The aortic root is grossly normal in size. 3. Severe left ventricular enlargement is demonstrated. Left ventricle wall thickness appears to be normal. Estimated left ejection fraction of 15 to 20 percent in the setting of severe global hypokinesis. There is also paradoxical septal wall motion related to ventricular pacing. The left atrium is [id number] enlarged. Right atrium is iaau-[id number] enlarged. Right ventricle is mildly enlarged with mildly reduced right ventricular systolic function. Defibrillator lead is evident in the right ventricle. 4. No pericardial effusion. 5. Inferior vena cava is markedly dilated measuring 3.0 cm suggesting markedly elevated central venous pressure. cc: Gage Smith MD
[2018-10-22] MEDS ORDERED: ZAROXOLYN PO SCH (09:00)
--- NOTE | 2018-10-29 10:58 | DISCHARGE SUMMARY ---
ADMISSION DATE: 10/15/2018 DISCHARGE DATE: 10/21/2018 FINAL DISCHARGE DIAGNOSES: 1. Bilateral upper extremity cellulitis. 2. Acute on chronic systolic congestive heart failure exacerbation. 3. Status post Port-A-Cath placement. 4. Atrial fibrillation. 5. Chronic kidney disease. 6. History of multiple deep venous thromboses. 7. Severe nonischemic dilated cardiomyopathy. 8. Pulmonary hypertension. 9. Chronic pain syndrome. 10. Anxiety disorder. 11. Morbid obesity. CONSULTATIONS: 1. Cardiology consultation with Dr. Smith. 2. General Surgery consultation with Dr. Mcdonnell. 3. ID consultation with Dr. Brenner. PROCEDURES: Ultrasound-guided right internal jugular vein port placement. HOSPITAL COURSE: Ms. Cardenas is a 48-year-old female with a history of multiple medical problems who presented to the ER with a chief complaint of shortness of breath, abdominal distention and chronic pain. On admission the patient was noted to be volume overloaded and was admitted to the hospitalist service. Cardiology was consulted for further assistance with management. The patient was started on diuretic therapy and her outpatient medications were restarted. The patient was noted to have a significant swelling in her left arm and had a venous Doppler done the week prior that was noted to be negative for DVT. However, upon further examination, the patient was noted to have cellulitis involving both upper extremities. The patient was started on broad- spectrum antibiotics and Dr. Brenner was consulted for further assistance with antibiotic choice. The patient also was noted to have poor venous access, so a general surgery consultation was placed for port placement. The patient was taken to the OR on 10/18/2018 at which time a port was placed in the right internal jugular vein. The patient did well following the procedure. The patient continued to improve clinically and was ultimately cleared for discharge home 10/21/2018. DISCHARGE MEDICATIONS: 1. Doxycycline 100 mg p.o. every 12 hours. 2. Hydralazine 50mg oral q8h 3. Benadryl 25 mg orally every 6 hours p.r.n. for itching. 4. Lasix 80 mg p.o. twice a day. 5. Zaroxolyn 2.5 mg every 72 hours. 6. MiraLAX 17 gram oral twice a day. 7. Oxy IR 15 mg oral every 6 hours p.r.n. for pain. 8. Toprol-XL 25 mg oral daily. 9. Aspirin 81 mg p.o. daily. 10. Reglan 5 mg oral at bedtime p.r.n. 11. DuoNeb 3 mL inhaled twice a day p.r.n. 12. Eliquis 5 mg oral twice a day. 13. Pravachol 40 mg p.o. at bedtime. 14. Aldactone 25 mg oral twice a day. 15. Amiodarone 200 mg oral daily. 16. Entresto one tablet oral twice a day. 17. Isordil 80 mg p.o. 3 times a day. 18. Protonix 40 mg p.o. daily. 19. Digoxin 125 mcg oral daily. 20. Xanax 0.5 mg oral twice a day p.r.n. DISCHARGE DIET: Low-sodium diet. ACTIVITIES: As tolerated. FOLLOWUP INSTRUCTIONS: The patient will need to follow up with Dr. Burns as scheduled by his clinic. cc: Lety Lemos MD MTDD
== END 2018-10-21 15:43 | disposition hospice, home (50) | DRG 981 ==
LOC: ED 21:59 → 3S 10-15 09:33 → 4N 10-20 17:57
PROVIDERS: ATTEND Internal Medicine
CPT/HCPCS: 71010; 71020; 71045; 71046; 71250; 73200; 77001; 80048; 80053; 80069; 81001; 82550; 83735; 83880; 84484; 85025; 85027; 85610; 85730; 87070; 87077; 87088; 87186; 93005; 93010; 93308; 94660; 94761; 96374; 99285; A9270; C1788; J0690; J0692; J1170; J1940; J2250; J2405; J3010; J3370; J7040; J7050

== ENCOUNTER 2018-11-03 18:57 | Observation (INO) ==
--- NOTE | 2018-11-03 20:36 | EKG Report ---
Test Performed on : 11/03/2018 7:25:01 PM Test Reason : palpitations, facial tingling Blood Pressure : / mmHG Vent. Rate : 080 BPM Atrial Rate : 068 BPM P-R Int : 000 ms QRS Dur : 240 ms QT Int : 576 ms P-R-T Axes : 000 269 104 degrees QTc Int : 664 ms Ventricular-paced rhythm Abnormal ECG When compared with ECG of 20-OCT-2018 14:23, aberrant conduction. is no longer present Unconfirmed Result
[2018-11-03 21:10] LABS: BASO# 0.01 X1000 (0.0-0.2); BASO% 0.2 % (0.0-0.8); EOS# 0.08 X1000 (0.0-0.7); EOS% 1.3 % (0.0-10.0); HEMATOCRIT 35.3 % (37.0-47.0); HEMOGLOBIN 11.2 g/dL (12.0-16.0); LYMPH# 1.58 X1000 (1.2-3.4); LYMPH% 26.4 % (20.5-51.1); MCH 27.4 PG (27-31); MCHC 31.7 g/dL (33-37); MCV 86.3 FL (81-99); MONO# 0.52 X1000 (0.11-0.59); MONO% 8.7 % (1.7-9.3); MPV 11.7 FL (7.4-10.4); NEUT% 63.4 % (42.2-75.2); PLT 167 X1000 (130-400); RBC 4.09 XMIL (4.2-5.4); RDW 19.1 % (11.5-14.5); WBC 5.99 X1000 (4.8-10.8)
[2018-11-03 21:24] LABS: INR 1.16; PROTIME 15.7 Seconds (11.0-16.0)
[2018-11-03 21:25] LABS: PTT 30.1 Seconds (22.3-41.8)
[2018-11-03 21:35] LABS: ALBUMIN 3.7 g/dL (3.5-5.0); CALCIUM 9.5 mg/dL (8.8-10.2); CREATININE 1.7 mg/dL (0.5-0.9); POTASSIUM 4.1 mmol/L (3.5-5.1); TOTAL BILIRUBIN 1.07 mg/dL (0.20-1.00); TOTAL PROTEIN 7.3 g/dL (6.3-8.3)
[2018-11-03] MEDS ORDERED: LASIX IV ONE (21:42)
--- NOTE | 2018-11-03 21:45 | Diag Imaging Result Doc PS360 ---
EXAM: CT ABDOMEN/PELVIS W/O CONTRAST INDICATION: distension TECHNIQUE: This exam was performed using automated exposure control, adjustment of mA or kV according to patient size, and/or use of iterative reconstruction technique. COMPARISON: 09/08/2018 FINDINGS: There is stable marked cardiomegaly. There are a few calcified granulomata at the right lung base. There is mosaic attenuation at both lung bases suggesting hypoventilatory changes. This is similar to the previous study. There has been a prior cholecystectomy. There is stable hepatomegaly. There is small volume ascites tracking around the liver and trace ascites around the spleen. The spleen, pancreas, adrenal glands, kidneys, and urinary bladder are essentially unremarkable. There has been a prior hysterectomy. There is uncomplicated diverticulosis coli. The appendix is normal. There is no evidence of focal bowel wall thickening or bowel obstruction. There is no free abdominal gas or focal inflammatory changes. IMPRESSION: 1.Small volume ascites and cardiomegaly that is essentially stable as compared to the previous study. 2.Other incidental/nonacute findings detailed above. Electronically signed by Jose Rivera 11/03/2018 9:43 PM
--- NOTE | 2018-11-03 21:48 | Diag Imaging Result Doc PS360 ---
EXAM: CHEST-1 VIEW INDICATION: palpitations TECHNIQUE: One view COMPARISON: 10/31/2018 FINDINGS: The right chest port is in stable position. Fibrotic changes on the right are stable. No new consolidation is identified. There is stable marked cardiomegaly. IMPRESSION: Stable chest. Electronically signed by Jose Rivera 11/03/2018 9:46 PM
--- NOTE | 2018-11-03 21:58 | PROVIDER DOCUMENTATION ---
This chart was entered by Marilin Way Scribe, acting as scribe for Mendoza Purcell MD. HPI-Chest Pain - General Chief Complaint: Palpitations Stated Complaint: VOMITING, STOMACH EXTENDED, HEART FLUTTERING Time Seen by Provider: 11/03/18 20:29 Source: patient Allergies/Adverse Reactions: Patient Allergies Allergy/AdvReac Type Severity Reaction Status Date / Time latex Allergy Intermediate RASH Verified 10/31/18 20:31 dopamine AdvReac Hair Loss Verified 10/31/18 20:31 propoxyphene AdvReac ITCHING Verified 10/31/18 20:31 [From Darnell-N] tramadol AdvReac ITCHING Verified 10/31/18 20:31 Home Medications: Home Medication List Medication Instructions Recorded Confirmed Last Taken Type Aspirin EC 81 mg PO DAILY #30 tab 10/03/17 10/15/18 09/08/18 07:00 Rx Metoclopramide HCl [Reglan] 5 mg PO HS PRN 06/08/18 10/15/18 09/07/18 20:00 History Albuterol 2.5MG/Ipratrop 0.5MG 3 ml INH BID PRN #25 neb 08/29/18 10/15/18 Rx [Duoneb (A & A)] Amiodarone [Cordarone] 200 mg PO DAILY 30 Days #30 tab 09/12/18 10/15/18 Unknown Rx Apixaban [Eliquis] 5 mg PO BID 30 Days #60 tab 09/12/18 10/15/18 Unknown Rx Digoxin [Lanoxin] 125 microgm PO DAILY@0700 30 Days 09/12/18 10/15/18 Unknown Rx #30 tab Isosorbide Dinitrate [Isordil] 80 mg PO TID@0600,1400,2200 30 09/12/18 10/15/18 Unknown Rx Days #90 tab PRAVAstatin [Pravachol] 40 mg PO QHS 30 Days #30 tab 09/12/18 10/15/18 Unknown Rx Pantoprazole [Protonix] 40 mg PO DAILY@0700 PRN 30 Days 09/12/18 10/15/18 Unknown Rx #30 tab Sacubitril/Valsartan [Entresto 97 1 tab PO BID 30 Days #60 tab 09/12/18 10/15/18 Unknown Rx mg-103 mg Tablet] Spironolactone [Aldactone] 25 mg PO BID 30 Days #60 tab 09/12/18 10/15/18 Unknown Rx Alprazolam [Xanax] 0.5 mg PO BID PRN #25 tab 10/08/18 10/15/18 Unknown Rx Diphenhydramine [Benadryl] 25 mg PO Q4-6H PRN PRN #30 cap 10/21/18 Unknown Rx Furosemide [Lasix] 80 mg PO BID #60 tab 10/21/18 Unknown Rx Hydralazine [Apresoline] 75 mg PO TID@0600,1400,2200 #180 10/21/18 Unknown Rx tab Metolazone [Zaroxolyn] 5 mg PO Q72H #60 tab 10/21/18 Unknown Rx Metoprolol Succinate E.r. [Toprol 25 mg PO DAILY #30 tab 10/21/18 Unknown Rx Xl] Oxycodone I.r. [Oxy Ir] 15 mg PO Q6H PRN PRN #30 tab 10/21/18 Unknown Rx Polyethylene Glycol 3350 [Miralax] 17 gm PO BID #60 powder, packet 10/21/18 Unknown Rx Ondansetron HCl [Zofran] 4 mg PO Q4H PRN PRN #20 tab 10/31/18 Unknown Rx - History of Present Illness-CP Nature of Presenting Problem: pt is a 48 yr old female presenting with shortness of breath, chest pain and palpitations worsening today. pt denies snycope, headache or dizziness. Location: reports: substernal Chest Pain Radiation: reports: no radiation Quality of Pain: reports: aching Severity in ED: moderate Onset/Duration: gradual Timing: getting worse Context/Activities at Onset: reports: light activity Modifying Factors: improves with: exercise (worsens shortness of breath) Associated Symptoms: reports: shortness of breath. denies: diaphoresis, dizziness, nausea Nitro Today/Relief: no nitro taken today Aspirin Treatment Today: no aspirin today Similar Symptoms Previously?: Yes Recently Seen Here or By Another Healthcare Provider: Yes Review of Systems - Adult - REVIEW OF SYSTEMS - ADULT Constitutional: reports: fatique. denies: chills, fever Eyes: reports: no symptoms reported Ears, Nose, Mouth & Throat: denies: ear pain, sinus problem, throat pain Cardiovascular: reports: chest pain, palpitations. denies: syncope Respiratory: reports: dyspnea on exertion, shortness of breath. denies: cough Gastrointestinal: denies: abdominal pain, diarrhea, nausea, vomiting Genitourinary: reports: no symptoms reported Musculoskeletal: reports: no symptoms reported Integumentary: reports: no symptoms reported Neurological: denies: dizziness/vertigo, headache/migraines Psychiatric: reports: no symptoms reported Endocrine: reports: no symptoms reported Hematologic/Lymphatic: reports: no symptoms reported Allergic/Immunologic: reports: no symptoms reported All Other Systems: Reviewed and Negative Past History - Adult - PAST MEDICAL HISTORY-ADULT Review of Records: reports: Old Records Reviewed, Nursing Assessment Review, Medications Reviewed, Social history reviewed & non-contributory. Major Childhood Illnesses: reports: denies history Cardiovascular: reports: A-Fib, blood clots, CAD, CHF, HTN, hyperlipidemia, palpitations, pacemaker (defib) Respiratory: reports: asthma, COPD, sleep apnea Gastrointestinal: reports: liver disease Obstetrical/Gynecological: reports: other (breast cancer) Genitourinary: reports: kidney disease Musculoskeletal: reports: denies history Neurological: reports: denies history Psychiatric: reports: anxiety, depression Endocrine/Immune: reports: Diabetes Other Conditions: reports: other cancer (breast cancer) - PRIOR SURGERIES/PROCEDURES Surgical/Procedure History: reports: cholecystectomy, pacemaker, hysterectomy, , tonsillectomy, orthopedic (extremity), breast, other (mastectomy,defib,arthroscopy) - IMMUNIZATION STATUS Childhood Immunizations: See Nurse Assessment Flu Vaccine: See Nurse Assessment - FAMILY HISTORY Family History: reviewed, not pertinent - SOCIAL HISTORY Smoking: denies Substance Use: denies Living Situation: family Physical Exam-General - PHYSICAL EXAM-ADULT Initial Vital Signs Reviewed: Yes - CONSTITUTIONAL General Appearance: appears well, alert, no apparent distress, obese - EYES Eyes: PERRL/EOMI - HEAD, EARS, NOSE, MOUTH & THROAT HENMT: normocephalic/atraumatic, moist mucous membranes, normal ENT inspection - NECK Neck: non-tender, full range of motion, supple, normal inspection - RESPIRATORY Respiratory: chest non-tender, lungs clear, normal breath sounds - CARDIOVASCULAR Cardiovascular: normal peripheral pulses, regular rate, rhythm, no edema - GASTROINTESTINAL (ABDOMEN) Abdominal Exam: normal bowel sounds, non tender, soft, distended - LYMPHATIC Lymphatic: no adenopathy - MUSCULOSKELETAL Back Exam: normal inspection, no CVA tenderness, no vertebral tenderness Extremity: normal range of motion, non-tender, normal gait, normal inspection - SKIN Integumentary: normal color, normal turgor, warm/dry - NEUROLOGIC Neurologic: grossly normal - PSYCHIATRIC Psych/Mental Status: normal mood/affect - HEART Score HEART Score: History: Moderately Suspicious HEART Score: ECG: Non-Specific Repolarization Disturbance/LBBB/PM HEART Score: Age: 45-65 Years HEART Score: Risk Factors for Atherosclerotic Disease: 1 or 2 Risk Factors HEART Score: Troponin: < or = Normal Limit Total HEART Score:: 4 Progress - PLAN OF CARE/RESULTS Progress/Plan/Lab Results: Vital Signs - 8 hr 11/03/18 19:07 Temperature 97.4 F L Pulse Rate 80 Respiratory Rate 22 Blood Pressure 132/97 O2 Sat by Pulse Oximetry 96 Laboratory Results - last 24 hr 11/03/18 11/03/18 11/03/18 20:50 20:50 20:50 WBC 5.99 RBC 4.09 L Hgb 11.2 L Hct 35.3 L MCV 86.3 MCH 27.4 MCHC 31.7 L RDW Std Deviation 19.1 H Plt Count 167 MPV 11.7 H Immature Gran % (Auto) 0.0 Neut % (Auto) 63.4 Lymph % (Auto) 26.4 Tripp % (Auto) 8.7 Eos % (Auto) 1.3 Baso % (Auto) 0.2 Immature Gran # (Auto) 0.00 Neut # (Auto) 3.80 Lymph # (Auto) 1.58 Tripp # (Auto) 0.52 Eos # (Auto) 0.08 Baso # (Auto) 0.01 PT INR PTT (Actin FS) Sodium 144 Potassium 4.1 Chloride 106 Carbon Dioxide 22 L Anion Gap 16 BUN 37 H Creatinine 1.7 H Estimated GFR/1.73 m2 39 BUN/Creatinine Ratio 22 Glucose 91 Calculated Osmolality 295 Calcium 9.5 Total Bilirubin 1.07 H AST 31 H ALT 33 Alkaline Phosphatase 186 H Creatine Kinase 51 Troponin T < 0.010 Niy-C-Ysuzcyadnbo Pept Total Protein 7.3 Albumin 3.7 Globulin 3.6 Albumin/Globulin Ratio 1.0 11/03/18 11/03/18 20:50 20:50 WBC RBC Hgb Hct MCV MCH MCHC RDW Std Deviation Plt Count MPV Immature Gran % (Auto) Neut % (Auto) Lymph % (Auto) Tripp % (Auto) Eos % (Auto) Baso % (Auto) Immature Gran # (Auto) Neut # (Auto) Lymph # (Auto) Tripp # (Auto) Eos # (Auto) Baso # (Auto) PT 15.7 INR 1.16 PTT (Actin FS) 30.1 Sodium Potassium Chloride Carbon Dioxide Anion Gap BUN Creatinine Estimated GFR/1.73 m2 BUN/Creatinine Ratio Glucose Calculated Osmolality Calcium Total Bilirubin AST ALT Alkaline Phosphatase Creatine Kinase Troponin T Jwg-I-Nqefjqzqkul Pept 46358 H Total Protein Albumin Globulin Albumin/Globulin Ratio Orders Category Date Time Status Enriquez Cath Insertion ORDERED Care 11/03/18 21:42 Active CHEST-1 VIEW [RAD] Stat Exams 11/03/18 19:[address] ABDOMEN/PELVIS W/O CONTRAST [CT] Stat Exams 11/03/18 21:00 Completed BNP [PRO B-NATRIURETIC PEPTIDE] Stat Lab 11/03/18 20:50 Completed CBC WITH DIFF [HEME] Stat Lab 11/03/18 20:50 Completed CK PROFILE [SP CHEM] Stat Lab 11/03/18 20:50 Completed CMP [COMPREHENSIVE METABOLIC PANEL] [CHEM] Stat Lab 11/03/18 20:50 Completed PT [PROTIME WITH INR] [COAG] Stat Lab 11/03/18 20:50 Completed PTT [COAG] Stat Lab 11/03/18 20:50 Completed TROPONIN T Stat Lab 11/03/18 20:50 Completed Furosemide [Lasix] Med 11/03/18 21:42 Discontinued 40 mg IV NOW ONE EKG [EKG] Stat Ther 11/03/18 19:15 Draft Result Diagrams: 11/03/18 20:50 11/03/18 20:50 - XRAY 1 XRAY Study: Chest Impression: Abnormal ( EXAM: CHEST-1 VIEW INDICATION: palpitations TECHN IQUE: One view COMPARISON: 10/31/2018 FINDINGS: The right chest port is in stable position. Fibrotic changes on the right are stable. No new consolidation is identified. There is stable marked cardiomegaly. IMPRESSION: Stable chest. Electronically signed by Jose Rivera 11/03/2018 9:46 PM 11/03/182145 Interpreting Physician: Jose Rivera MD Dictated Date/Time: 11/03/182143 cc: Mendoza Purcell MD; Shimon Galloway MD) - CT/MRI 1 CT Study: Abdomen, Pelvis Impression: Abnormal ( Signed EXAM: CT ABDOMEN/PELVIS W/O CONTRAST INDICATION: distension TECHNIQUE: This exam was performed using automated exposure control, adjustment of mA or kV according to patient size, and/or use of iterative reconstruction technique. COMPARISON: 09/08/2018 FINDINGS: There is stable marked cardiomegaly. There are a few calcified granulomata at the right lung base. There is mosaic attenuation at both lung bases suggesting hypoventilatory changes. This is similar to the previous study. There has been a prior cholecystectomy. There is stable hepatomegaly. There is small volume ascites tracking around the liver and trace ascites around the spleen. The spleen, pancreas, adrenal glands, kidneys, and urinary bladder are essentially unremarkable. There has been a prior hysterectomy. There is uncomplicated diverticulosis coli. The appendix is normal. There is no evidence of focal bowel wall thickening or bowel obstruction. There is no free abdominal gas or focal inflammatory changes. IMPRESSION: 1.Small volume ascites and cardiomegaly that is essentially stable as compared to the previous study. 2.Other incidental/nonacute findings detailed above. Electronically signed by Jose Rivera 11/03/2018 9:43 PM 11/03/182142 Interpreting Physician: Jose Rivera MD Dictated Date/Time: 11/03/182135 cc: Mendoza Purcell MD; Shimon Galloway MD) - CONSULTS/PCP/HOSPITALIST Notification #1 *Consult/PCP/Hospitalist*: Dr Covington Time Discussed: 21:50 Reason/Comments: plan of care for pt admit Consult Disposition: Admit Departure - Departure Date of Disposition Decision: 11/03/18 Time of Disposition Decision: 21:56 DIAGNOSIS: CHF (congestive heart failure), Chest pain, Ascites, Worsening body fluid retention, Renal insufficiency Disposition: ADMITTED INPATIENT 09 Certified Medical Emergency: Emergent Condition: Fair Referrals and Follow-Ups: Shimon Galloway MD [Primary Care Provider] - - Critical Care Note This patient required my direct & personal management of CC.: No Attestation - Physician/ PREETI Attestation Patient care was provided by Advanced Practice Provider:: No The physician spent face to face time with patient:: Yes Advanced Practice Provider documentation review:: Supervising physician onsite and consulted in the evaluation and care of this patient. The physician did have a face to face encounter with the patient. This chart was documented by the indicated scribe, (Marilin Way Scribe) and accurately reflects the services I performed and decisions made by me, Mendoza Purcell MD, as attested by the provider's signature.
[2018-11-03] MEDS ORDERED: DILAUDID IV ONE (22:25)
[2018-11-03] MEDS ORDERED: ZOFRAN IV ONE (22:25)
[2018-11-03] MEDS ORDERED: LASIX IV SCH (23:39)
--- NOTE | 2018-11-03 23:51 | HISTORY AND PHYSICAL ---
PRIMARY CARE PHYSICIAN: Dr. Galloway. CHIEF COMPLAINT: Shortness of breath for 3 days. HISTORY OF PRESENTING ILLNESS: This is a 48-year-old female with a history of severe nonischemic cardiomyopathy, CHF, systolic dysfunction, hypertension, atrial fibrillation, chronic kidney disease, who had presented to the emergency department with 3 days history of worsening shortness of breath. The patient states that she was having trouble breathing and subsequently she had come to the emergency department. In the ED she was evaluated. She was found to be in heart failure. She was given diuresis with Lasix and she will require admission for further management. At the time of my examination, patient had denied any headache, fever, chills, chest pain, hemoptysis, but complained of shortness of breath. PAST MEDICAL HISTORY: Includes CHF, systolic dysfunction, severe nonischemic cardiomyopathy, hypertension, atrial fibrillation, chronic kidney disease, breast cancer, obstructive sleep apnea. PAST SURGICAL HISTORY: Defibrillator, cholecystectomy, hysterectomy, bilateral mastectomy, left knee surgery, she has a port in place. ALLERGIES: Latex, acetaminophen, dopamine, propoxyphene, tramadol. CURRENT MEDICATIONS: Include albuterol nebs, Xanax 0.5 mg p.o. b.i.d., amiodarone 200 mg p.o. daily, Eliquis 5 mg p.o. b.i.d., aspirin 81 mg p.o. daily, digoxin 125 mcg p.o. daily, Lasix 80 mg p.o. b.i.d., hydralazine 75 mg p.o. t.i.d., isosorbide dinitrate 80 mg p.o. t.i.d., metolazone 5 mg p.o. q.2 hours, metoprolol 25 mg p.o. daily, oxycodone 50 mg p.o. q.6 hours, pantoprazole 40 mg p.o. daily, pravastatin 40 mg p.o. at bedtime, Entresto 97/103 one tablet p.o. b.i.d. spironolactone 25 mg p.o. b.i.d. SOCIAL HISTORY: She is a former smoker. No history alcohol or illicit drug use. FAMILY HISTORY: Positive for coronary disease in mother. REVIEW OF SYSTEMS: Fourteen point review of system as listed in HPI other systems negative. PHYSICAL EXAMINATION: GENERAL: Cooperative, friendly female she is resting more comfortably now. VITAL SIGNS: Temperature 97.4 degrees, pulse 80, respiration 22, blood pressure 132/97, she is saturating 96%. HEENT: Atraumatic, normocephalic. Extraocular movements intact. PERRLA. NECK: No masses. CHEST: Bibasilar rales. CARDIOVASCULAR: Regular rate and rhythm. ABDOMEN: Soft, positive bowel sounds. EXTREMITIES: Trace edema. NEURO: She is awake, alert, oriented x3. : No bladder distention. SKIN: Warm. LABORATORIES AND STUDIES: WBCs 5.99, hemoglobin 11.2, hematocrit 35.3, platelets 167,000. Sodium 144, potassium 4.1, chloride 106, CO2 22, BUN is 37, creatinine is 1.7, glucose is 91, proBNP is 15,128. Chest x-ray shows cardiomegaly. ASSESSMENT: This is a 48-year-old female with a history of severe nonischemic cardiomyopathy, congestive heart failure, systolic dysfunction, atrial fibrillation, chronic kidney disease who presented to emergency department with 3 days history of worsening shortness of breath. She was evaluated the emergency department. She was found to be in heart failure and she will require admission for further management. 1. Acute on chronic congestive heart failure exacerbation, systolic dysfunction. 2. Atrial fibrillation. 3. Hypertension. 4. Obstructive sleep apnea. PLAN: 1. Will admit patient to [facility]. 2. Continue with diuresis with Lasix. 3. Will consult Cardiology. 4. We will continue monitor patient on telemetry and continue antiarrhythmic agents. 5. Monitor blood pressure closely. 6. We will see if we can obtain a CPAP machine for patient. 7. Continue with DVT prophylaxis with SCD and she is also on Eliquis and this will suffice. 8. We will continue to follow and reassess. Make further recommendation based on patient's clinical course. cc: Cj Covington MD
[2018-11-04 05:39] LABS: BASO# 0.01 X1000 (0.0-0.2); BASO% 0.2 % (0.0-0.8); EOS# 0.06 X1000 (0.0-0.7); EOS% 1.1 % (0.0-10.0); HEMATOCRIT 36.7 % (37.0-47.0); HEMOGLOBIN 11.3 g/dL (12.0-16.0); LYMPH# 1.44 X1000 (1.2-3.4); LYMPH% 27.6 % (20.5-51.1); MCH 27.1 PG (27-31); MCHC 30.8 g/dL (33-37); MONO# 0.47 X1000 (0.11-0.59); MPV 11.7 FL (7.4-10.4); NEUT# 3.24 X1000 (1.4-6.5); NEUT% 62.1 % (42.2-75.2); PLT 161 X1000 (130-400); RBC 4.17 XMIL (4.2-5.4); RDW 19.5 % (11.5-14.5); WBC 5.22 X1000 (4.8-10.8)
[2018-11-04 06:16] LABS: CALCIUM 8.7 mg/dL (8.8-10.2); CREATININE 1.9 mg/dL (0.5-0.9); POTASSIUM 4.8 mmol/L (3.5-5.1)
[2018-11-04 07:44] VITALS: BP 148/111
[2018-11-04] MEDS ORDERED: CORDARONE PO SCH (09:00)
[2018-11-04] MEDS ORDERED: LASIX PO SCH (09:00)
[2018-11-04] MEDS ORDERED: ELIQUIS PO SCH (09:00)
--- NOTE | 2018-11-05 12:44 | DISCHARGE SUMMARY ---
ADMISSION DATE: 11/03/2018 DISCHARGE DATE: 11/04/2018 PERTINENT STUDIES: BNP 15,000. Previous BNP 30,000. Creatinine 1.7. Chest x-ray with stable fibrotic changes on the right, no new consolidation. CT abdomen and pelvis with small volume ascites and cardiomegaly, stable from previous, no acute findings. DISCHARGE DIAGNOSES: 1. Chronic systolic congestive heart failure. 2. Paroxysmal atrial fibrillation. 3. Chronic kidney disease, 3. 4. Obstructive sleep apnea. 5. Morbid obesity. 6. Pulmonary hypertension. HOSPITAL COURSE: The patient is a 48-year-old female, with an extensive medical history. She presented with complaints of nausea, but no vomiting, and feelings of the liver distended. Evaluation showed stable chronic kidney disease. Good oxygenation on her home 2 L, generally at 100%. Clear chest x-ray, and CT abdomen and pelvis that did show a small amount of ascites, but stable from previous. She was given a dose of intravenous Lasix with resolution of her symptoms. Other evaluation was unremarkable and stable from previous. The patient was discharged home to follow up with her PCP. DISCHARGE VITAL SIGNS: Temperature 97.6 degrees, pulse 80, respirations 24, blood pressure 148/111, O2 saturation 100% on 2 L by nasal cannula. DISCHARGE DIET: Low salt. DISCHARGE MEDICATIONS: Unchanged from previous. FOLLOW UP PLAN: The patient is discharged home to follow up with PCP. I did discuss with the patient that if she has intermittent issues with mild volume overload, then taking her metolazone slightly more often than every third day might be more helpful than doubling up on her Lasix as she has been doing recently. Advised her to discuss this possibility with her PCP or membership secretary. TIME SPENT: Greater than 30 minutes spent arranging discharge and counseling patient.
== END 2018-11-04 09:52 | disposition home or self-care (01) ==
LOC: ED 18:57 → INTOOBSV 22:38 → 3S 22:38 → SUATTDRO 22:38
PROVIDERS: ATTEND Internal Medicine
CPT/HCPCS: 71010; 71045; 74022; 74176; 80048; 80053; 81001; 82550; 83605; 83690; 83880; 84484; 85025; 85610; 85730; 87040; 93005; 94640; A9270; J1170; J1940; J2270; J2405; J7030